=== PATIENT | male | born 1995 | race Caucasian/White ===

== ENCOUNTER 2022-01-29 09:24 | Outpatient (REF) | payer MEDICARE, MEDICAID, SELFPAY ==
[2022-01-29 11:03] LABS: MANUAL DIFF FLAG NO
[2022-01-29 11:06] LABS: Basophils Absolute Auto 0.1 X10*3/uL (0.0-0.2); Eosinophils Absolute Auto 0.2 X10*3/uL (0.0-0.4); Hematocrit 37.7 % (42.0-52.0); Hemoglobin 12.5 g/dl (14.0-18.0); Imm Gran Abs Auto 0.04 X10*3/uL (0.00-0.03); Imm Gran Pct Auto 0.7 % (0.0-0.4); Lymphocytes Percent Auto 32.3 % (20-40); Mean Corpuscular HGB Conc 33.2 g/dl (31.0-36.0); Mean Corpuscular Hemoglobin 26.7 pg (27.0-33.0); Mean Corpuscular Volume 80.6 fL (80.0-98.0); Mean Platelet Volume 11.6 fL (9.4-12.4); Monocytes Absolute Auto 0.4 X10*3/uL (0.1-1.2); Monocytes Percent Auto 6.3 % (2-11); Neutrophils Absolute Auto 3.4 x10*3/uL (2.0-8.3); Neutrophils Percent Auto 56.7 % (45-73); Platelet Count 177 X10*3/uL (160-400); Red Blood Count 4.68 X10*6/uL (4.60-5.80); Red Cell Distribution Width 13.4 % (11.0-16.0)
[2022-01-29 11:15] LABS: Estimated Average Glucose 114 mg/dL; Hemoglobin A1c % 5.6 %
[2022-01-29 11:23] LABS: Alanine Aminotransferase 17 U/L (0-40); Albumin Level 4.3 g/dL (3.5-5.0); Alkaline Phosphatase 61 U/L (39-117); Anion Gap 14 (12-20); Aspartate Amino Transferase 13 U/L (5-37); Bilirubin Total 0.5 mg/dL (0.0-1.0); Blood Urea Nitrogen 8 mg/dL (9-16); Carbon Dioxide 22 mmol/L (22-29); Chloride 105 mmol/L (96-108); Estimated Glomerular Filt Rate > 60; Glucose Random 175 mg/dL (60-115); Potassium 3.7 mmol/L (3.3-5.1); Sodium 137 mmol/L (135-145); Total Protein 6.8 g/dL (6.5-8.0)
[2022-01-29 11:39] LABS: HBc Num1 0.05 S/CO (0.00-0.79); HBsAGNum1 0.22 S/CO (0.00-0.99); HIV AB/AG Nonreactive (Nonreactive); HIV Num 1 0.08 S/CO (0.00-0.99); Hepatitis B Core Antibody Nonreactive (Nonreactive); Hepatitis B Surface Antigen Negative (Negative); ~HepC Num1 0.05 S/CO (0.00-0.79); ~Hepatitis B Surface Antibody NONREACTIVE (Nonreactive); ~Hepatitis C Antibody Nonreactive (Nonreactive)
[2022-01-29 12:22] LABS: Syphilis Screen Nonreactive (Nonreactive)
[2022-01-29 12:54] LABS: CT PCR NOT DETECTED (Not Detect.); NG PCR NOT DETECTED (Not Detect.)
[2022-01-31 05:27] LABS: ~Hepatitis A Antibody IgM Nonreactive (Nonreactive)
== END 2022-01-29 09:25 | disposition home or self-care (01) ==
LOC: HO.MANLDS 09:24
PROVIDERS: Visit Provider Physician Assistant
DX: Z00.00 Encounter for general adult medical examination without abnormal findings (principal); Z11.3 Encounter for screening for infections with a predominantly sexual mode of transmission; Z11.4 Encounter for screening for human immunodeficiency virus [HIV]; D64.9 Anemia, unspecified
CPT/HCPCS: 80053; 83036; 85025; 86704; 86706; 86709; 86780; 86803; 87340; 87389; 87491; 87591

== ENCOUNTER 2022-12-11 12:51 | Inpatient (IN) | payer MEDICARE, MEDICAID, SELFPAY ==
--- NOTE | 2022-12-11 | ECG_ITS ---
Test Reason : MEDICAL CLEARANCE Blood Pressure : / mmHG Vent. Rate : 066 BPM Atrial Rate : 066 BPM P-R Int : 130 ms QRS Dur : 106 ms QT Int : 416 ms P-R-T Axes : 031 029 052 degrees QTc Int : 436 ms Normal sinus rhythm with sinus arrhythmia Normal ECG No previous ECGs available Referred By: Kimberlyn Spears Electronically Signed By:EMELINA BRAVO MD
[2022-12-11 12:58] VITALS: BP 122/76; BP 138/78; PULSE 66; RESP 20; TEMP 36.9; O2SAT 96; O2SAT 97; BMI 32.9
--- NOTE | 2022-12-11 14:48 | ED_ITS ---
HPI - Psych General Chief Complaint: Psychiatric Symptoms Stated Complaint: SEC 12, SI W/ PLAN PER EMS Time Seen by Provider: 12/11/22 13:05 Source: patient Mode of arrival: EMS Limitations: no limitations History of Present Illness HPI Narrative: Patient comes to the emergency room complaining of suicidal ideation. Patient was recently in a dual diagnosis program, patient was informed that patient will be discharged in 2 weeks. Patient made suicidal comments, patient very anxious about impending homelessness. Patient is on a Section 12. Patient states that the SI started approximately 2 days ago, states he would jump in front of a moving car [place]. Denies any medical complaints at this time. Related Data Home Medications Medication Instructions Recorded Confirmed buspirone 5 mg tablet 5 mg PO BID 12/11/22 12/11/22 candesartan 8 mg tablet 8 mg PO DAILY 12/11/22 12/11/22 escitalopram oxalate 10 mg tablet 20 mg PO DAILY 12/11/22 12/11/22 fluticasone propionate 220 2 puff inhalation BID 12/11/22 12/11/22 mcg/actuation HFA aerosol inhaler (Flovent HFA) lithium carbonate 450 mg 450 mg PO BID 12/11/22 12/11/22 tablet,extended release lurasidone 20 mg tablet 20 mg PO QPM 12/11/22 12/11/22 lurasidone 80 mg tablet 80 mg PO QPM 12/11/22 12/11/22 metformin 750 mg tablet,extended 750 mg PO DAILY 12/11/22 12/11/22 release 24 hr omeprazole 40 mg capsule,delayed 40 mg PO BID 12/11/22 12/11/22 release sumatriptan succinate 100 mg tablet 100 mg PO DIRECTED 12/11/22 12/11/22 Allergies Allergy/AdvReac Type Severity Reaction Status Date / Time sesame seed [SESAME SEED] Allergy Severe ANAPHYLAXIS Unverified 03/17/20 19:30 lamotrigine [From LAMICTAL] Allergy Intermediate Rash Unverified 03/17/20 19:30 amoxicillin [AMOXICILLIN] Allergy Unknown RASH Unverified 03/17/20 19:30 egg [EGG] Allergy Unknown RAW ONLY - Unverified 03/17/20 19:30 ITCHY melon [MELON] Allergy Unknown LIPS/CHEEKS Unverified 03/17/20 19:30 SWELLING pine nut [PINE NUT] Allergy Unknown VOMITING Unverified 03/17/20 19:30 venlafaxine [From EFFEXOR] AdvReac Severe pt reports Unverified 03/17/20 19:30 severe adverse response by history banana [BANANA] AdvReac Unknown HEART BURN Unverified 03/17/20 19:30 pumpkin [PUMPKIN] AdvReac Unknown (PUMPKIN Unverified 03/17/20 19:30 SEEDS) VOMITING Review of Systems Review of Systems: Constitutional : No Weight loss, No Fever, No Chills, No Night Sweats, No Fatigue, No Malaise ENT/Mouth : No Hearing loss, No Ear Pain, No Nasal Congestion, No Sinus Pain, No Hoarseness, No sore throat, No Rhinorrhea, No Swallowing Difficulty Eyes: No Eye Pain, No Swelling, No Redness, No Foreign Body, No Discharge, No Vision Changes Cardiovascular : No Chest Pain, No SOB, No Dyspnea on Exertion, No Orthopnea, No Edema, No Palpitations Respiratory : No Cough, No Sputum, No Wheezing, No Smoke Exposure, No Dyspnea Gastrointestinal : No Nausea, No Vomiting, No Diarrhea, No Constipation, No abdominal Pain, No Hematochezia, No Melena Genitourinary : no irregular bleeding, No Dysuria, No Urinary Frequency, No Hematuria, No Urinary Incontinence, No Urgency, No Flank Pain, No Urinary Flow Changes, No Hesitancy Musculoskeletal : No joint pain, No Myalgias, No Joint Swelling Skin : No Skin Lesions, No rash Neuro : No Weakness, No Numbness, No Paresthesias, No Loss of Consciousness, No Dizziness, No Headache Psych : Complaining of anxiety, depression, suicidal ideation, worried that soon he will be homeless Heme/Lymph: No Bruising, No Bleeding,No Lymphadenopathy Endocrine : No Polyuria, No Polydipsia, No Temperature Intolerance PMFSH Past Medical History Medical History Bipolar 1 disorder Hydrocephalus Social History Social History Alcohol intake: never Smoked in Last 30 Days: No Use of substances other than those prescribed or required for medical reasons: No Advance Directives: No Advance Directives Information Provided: No Physical Exam Vital Signs: Vital Signs: Last Vital Signs Temp 98.4 F 12/11/22 12:58 Pulse 66 12/11/22 12:58 Resp 20 12/11/22 12:58 BP 122/76 12/11/22 12:58 Pulse Ox 96 12/11/22 12:58 O2 Del Method Room Air 12/11/22 12:58 BMI result Body Mass Index 32.9 Const: Other: Appearance: Alert. Oriented X3. No acute distress. Eyes: Pupils equal, round and reactive to light. ENT: Pharynx normal. Neck: Normal inspection. Neck supple. No lymph nodes noted. No crepitus CVS: Normal heart rate and rhythm. Pulses normal. Normal S1 and S2 Respiratory: No respiratory distress. Breath sounds normal. No Wheezing. No rales Abdomen: Soft and nontender. No rigidity. No distention. Skin: Skin warm and dry. Normal skin color. Normal skin turgor. Extremities: No lower extremity edema. No Lacerations. No Rash Neuro: Oriented X 3. No motor deficit. No sensory deficit. Moving all extremities. No slurred speech. CN 2 through 12 grossly intact Psych: calm, cooperative, normal affect Course Course Course Narrative: -all of patient's labs are pending -patient is on a Section 12 started by a therapist do a diagnosis facility -also to care depending -physician observation started at 14:50 Medications Administered Discontinued Medications Generic Name Dose Route Start Last Admin Trade Name Freq PRN Reason Stop Dose Admin Buspirone HCl 5 mg 12/11/22 14:44 12/11/22 14:58 Buspirone Hcl 5 Mg Tablet PO 12/11/22 14:45 5 mg ONCE ONE Administration Medical Decision Making Medical Decision Making MDM Narrative: -the care team evaluated the patient, patient is going in patient voluntarily Lab Data 12/11/22 15:57 12/11/22 15:57 Labs: Lab Results 12/11/22 12/11/22 12/11/22 Range/Units 15:02 15:57 15:57 WBC 7.0 (4.8-10.8) X10*3/uL RBC 4.85 (4.60-5.80) X10*6/uL Hgb 12.5 L (14.0-18.0) g/dl Hct 39.0 L (42.0-52.0) % MCV 80.4 (80.0-98.0) fL MCH 25.8 L (27.0-33.0) pg MCHC 32.1 (31.0-36.0) g/dl RDW 13.4 (11.0-16.0) % Plt Count 170 (160-400) X10*3/uL MPV 10.9 (9.4-12.4) fL Immature Gran % (Auto) 0.7 H (0.0-0.4) % Neut % (Auto) 62.7 (45-73) % Lymph % (Auto) 29.4 (20-40) % [place] % (Auto) 4.8 (2-11) % Eos % (Auto) 1.7 (0-4) % Baso % (Auto) 0.7 (0-2) % Lymph # (Auto) 2.1 (1.2-4.9) X10*3/uL [place] # (Auto) 0.3 (0.1-1.2) X10*3/uL Eos # (Auto) 0.1 (0.0-0.4) X10*3/uL Baso # (Auto) 0.1 (0.0-0.2) X10*3/uL Abs Immat Gran (auto) 0.05 H (0.00-0.03) X10*3/uL Absolute Neuts (auto) 4.4 (2.0-8.3) x10*3/uL Absolute Nucleated RBC 0.000 (0.0-0.012) X10*3/uL Nucleated RBC % (auto) 0.0 (0.0-0.2) /100WBC Sodium 138 (135-145) mmol/L Potassium 4.1 (3.3-5.1) mmol/L Chloride 106 (96-108) mmol/L Carbon Dioxide 25 (22-29) mmol/L Anion Gap 11 L (12-20) BUN 8 L (9-16) mg/dL Creatinine 1.09 (0.5-1.4) mg/dL Estim Creat Clear Calc 92.5 Estimated GFR > 60 Random Glucose 147 H (60-115) mg/dL Calcium 9.7 D (8.4-10.2) mg/dL Total Bilirubin 0.6 (0.0-1.0) mg/dL Direct Bilirubin 0.2 (0.0-0.5) mg/dL AST 14 (5-37) U/L ALT 22 (0-40) U/L Alkaline Phosphatase 65 (39-117) U/L Total Protein 7.2 (6.5-8.0) g/dL Albumin 4.3 (3.5-5.0) g/dL Urine Color Yellow Urine Appearance Clear Urine pH 8.0 (5.0-9.0) Ur Specific [place] <= 1.005 (1.005-1.025) Urine Protein Negative (Neg-Trace) mg/dL Urine Glucose (UA) Negative (Negative) mg/dL Urine Ketones Negative (Negative) mg/dL Urine Blood Negative (Negative) Urine Nitrite Negative (Negative) Ur Leukocyte Esterase Negative (Negative) Urine Opiates Screen (Not Detect) Urine Fentanyl Screen (Not Detect) Ur Barbiturates Screen (Not Detect) Ur Phencyclidine Scrn (Not Detect) Ur Amphetamines Screen (Not Detect) U Benzodiazepines Scrn (Not Detect) Urine Cocaine Screen (Not Detect) U Marijuana (THC) Screen (Not Detect) Ethyl Alcohol mg/dL 12/11/22 12/11/22 Range/Units 15:57 16:08 WBC (4.8-10.8) X10*3/uL RBC (4.60-5.80) X10*6/uL Hgb (14.0-18.0) g/dl Hct (42.0-52.0) % MCV (80.0-98.0) fL MCH (27.0-33.0) pg MCHC (31.0-36.0) g/dl RDW (11.0-16.0) % Plt Count (160-400) X10*3/uL MPV (9.4-12.4) fL Immature Gran % (Auto) (0.0-0.4) % Neut % (Auto) (45-73) % Lymph % (Auto) (20-40) % [place] % (Auto) (2-11) % Eos % (Auto) (0-4) % Baso % (Auto) (0-2) % Lymph # (Auto) (1.2-4.9) X10*3/uL [place] # (Auto) (0.1-1.2) X10*3/uL Eos # (Auto) (0.0-0.4) X10*3/uL Baso # (Auto) (0.0-0.2) X10*3/uL Abs Immat Gran (auto) (0.00-0.03) X10*3/uL Absolute Neuts (auto) (2.0-8.3) x10*3/uL Absolute Nucleated RBC (0.0-0.012) X10*3/uL Nucleated RBC % (auto) (0.0-0.2) /100WBC Sodium (135-145) mmol/L Potassium (3.3-5.1) mmol/L Chloride (96-108) mmol/L Carbon Dioxide (22-29) mmol/L Anion Gap (12-20) BUN (9-16) mg/dL Creatinine (0.5-1.4) mg/dL Estim Creat Clear Calc Estimated GFR Random Glucose (60-115) mg/dL Calcium (8.4-10.2) mg/dL Total Bilirubin (0.0-1.0) mg/dL Direct Bilirubin (0.0-0.5) mg/dL AST (5-37) U/L ALT (0-40) U/L Alkaline Phosphatase (39-117) U/L Total Protein (6.5-8.0) g/dL Albumin (3.5-5.0) g/dL Urine Color Urine Appearance Urine pH (5.0-9.0) Ur Specific [place] (1.005-1.025) Urine Protein (Neg-Trace) mg/dL Urine Glucose (UA) (Negative) mg/dL Urine Ketones (Negative) mg/dL Urine Blood (Negative) Urine Nitrite (Negative) Ur Leukocyte Esterase (Negative) Urine Opiates Screen Not Detected (Not Detect) Urine Fentanyl Screen Not Detected (Not Detect) Ur Barbiturates Screen Not Detected (Not Detect) Ur Phencyclidine Scrn Not Detected (Not Detect) Ur Amphetamines Screen Not Detected (Not Detect) U Benzodiazepines Scrn Not Detected (Not Detect) Urine Cocaine Screen Not Detected (Not Detect) U Marijuana (THC) Screen Not Detected (Not Detect) Ethyl Alcohol < 10 mg/dL Discharge Plan Discharge Clinical Impression: Suicidal ideation, Anxiety Patient Disposition: Still a Patient Prescriptions: No Action buspirone 5 mg tablet 5 mg PO BID sumatriptan succinate 100 mg tablet 100 mg PO DIRECTED omeprazole 40 mg capsule,delayed release(DR/EC) 40 mg PO BID lithium carbonate 450 mg tablet extended release 450 mg PO BID fluticasone propionate [Flovent HFA] 220 mcg/actuation HFA aerosol inhaler 2 puff INHALATION BID candesartan 8 mg tablet 8 mg PO DAILY escitalopram oxalate 10 mg tablet 20 mg PO DAILY metformin 750 mg tablet extended release 24 hr 750 mg PO DAILY lurasidone 80 mg tablet 80 mg PO QPM lurasidone 20 mg tablet 20 mg PO QPM Interventions: [place]-Suicide Risk Severity Scale Last Done: 12/11/22 13:02
[2022-12-11] MEDS: busPIRone HCl 5 MG TABLET PO (14:58)
[2022-12-11 15:13] LABS: Appearance Urine Clear; Color Urine Yellow; Glucose Urine UA Negative (Negative); Leukocyte Esterase Urine Negative (Negative); Nitrite Urine Negative (Negative); Specific Gravity - Urine <= 1.005 (1.005-1.025); Urine Blood Negative (Negative); Urine Ketones Negative (Negative); Urine Protein Negative (Neg-Trace)
[2022-12-11 16:20] LABS: MANUAL DIFF FLAG NO
[2022-12-11 16:22] LABS: Basophils Absolute Auto 0.1 X10*3/uL (0.0-0.2); Basophils Percent Auto 0.7 % (0-2); Eosinophils Absolute Auto 0.1 X10*3/uL (0.0-0.4); Eosinophils Percent Auto 1.7 % (0-4); Hemoglobin 12.5 g/dl (14.0-18.0); Imm Gran Abs Auto 0.05 X10*3/uL (0.00-0.03); Imm Gran Pct Auto 0.7 % (0.0-0.4); Lymphocytes Absolute Auto 2.1 X10*3/uL (1.2-4.9); Lymphocytes Percent Auto 29.4 % (20-40); Mean Corpuscular HGB Conc 32.1 g/dl (31.0-36.0); Mean Corpuscular Hemoglobin 25.8 pg (27.0-33.0); Mean Corpuscular Volume 80.4 fL (80.0-98.0); Mean Platelet Volume 10.9 fL (9.4-12.4); Monocytes Absolute Auto 0.3 X10*3/uL (0.1-1.2); Monocytes Percent Auto 4.8 % (2-11); Neutrophils Absolute Auto 4.4 x10*3/uL (2.0-8.3); Neutrophils Percent Auto 62.7 % (45-73); Platelet Count 170 X10*3/uL (160-400); Red Blood Count 4.85 X10*6/uL (4.60-5.80); Red Cell Distribution Width 13.4 % (11.0-16.0)
[2022-12-11 16:32] LABS: Amphetamine Screen Urine Not Detected (Not Detect); Barbiturates, Urine Not Detected (Not Detect); Benzodiazepines Screen Urine Not Detected (Not Detect); Cannabinoid Screen Urine Not Detected (Not Detect); Cocaine Screen Urine Not Detected (Not Detect); Fentanyl, urine Not Detected (Not Detect); Opiate Screen Urine Not Detected (Not Detect); Phencyclidine Screen Urine Not Detected (Not Detect)
[2022-12-11 16:38] LABS: Alanine Aminotransferase 22 U/L (0-40); Albumin Level 4.3 g/dL (3.5-5.0); Alkaline Phosphatase 65 U/L (39-117); Anion Gap 11 (12-20); Aspartate Amino Transferase 14 U/L (5-37); Bilirubin Direct 0.2 mg/dL (0.0-0.5); Bilirubin Total 0.6 mg/dL (0.0-1.0); Blood Urea Nitrogen 8 mg/dL (9-16); Calcium 9.7 mg/dL (8.4-10.2); Carbon Dioxide 25 mmol/L (22-29); Chloride 106 mmol/L (96-108); Creatinine Clr Calc Pharmacy 92.5; Estimated Glomerular Filt Rate > 60; Ethanol < 10 mg/dL; Glucose Random 147 mg/dL (60-115); Potassium 4.1 mmol/L (3.3-5.1); Sodium 138 mmol/L (135-145); Total Protein 7.2 g/dL (6.5-8.0)
[2022-12-11 20:37] LABS: COVID-19 Test Negative (Negative); IDNOW Serial# BCCEAD1C
[2022-12-11 20:48] LABS: Lithium 0.56 mmol/L (0.60-1.20)
[2022-12-11 20:50] VITALS: BP 112/70; PULSE 69; RESP 18; TEMP 36.6; O2SAT 97
[2022-12-11 23:35] VITALS: BP 125/68; PULSE 64; RESP 16; TEMP 36.1; O2SAT 96
[2022-12-12] MEDS: hydrOXYzine HCL 25 MG TABLET PO (00:08)
--- NOTE | 2022-12-12 02:04 | PC.ADMIT ---
PT is a 27 year old male admitted to unit on CV status at 2335 from [facility] ED POD. PT presented to [facility] on sec 12 from his therapy apt. due to increasing SI with a plan to jump into traffic and unable to contract for safety. Recent stressors include upcoming D/C from [facility] program, the [facility]. PT was calm and cooperative during admission process, signed legals and completed safety tool and treatment plan. PT denies SI/HI at this time and able to seek out staff if feeling unsafe, placed on 15 minute safety checks. PT wanted to go to sleep and accepted atarax 25 mg. Tox screen negative and lithium level was 0.56 upon admission. Per report PT has had increased depression over the past two weeks, not sleeping, and struggling to eat. Precipitant being recently learning the news that he is going to be D/C from his program. PT vital signs are stable and PT is resting in bed quietly.
[2022-12-12 09:54] LABS: Lithium 0.43 mmol/L (0.60-1.20)
[2022-12-12 10:32] LABS: Alanine Aminotransferase 19 U/L (0-40); Albumin Level 4.2 g/dL (3.5-5.0); Alkaline Phosphatase 65 U/L (39-117); Anion Gap 11 (12-20); Aspartate Amino Transferase 14 U/L (5-37); Bilirubin Total 0.9 mg/dL (0.0-1.0); Blood Urea Nitrogen 10 mg/dL (9-16); Calcium 9.7 mg/dL (8.4-10.2); Carbon Dioxide 25 mmol/L (22-29); Chloride 107 mmol/L (96-108); Cholesterol 144 mg/dL; Creatinine Clr Calc Pharmacy 101.8; Estimated Glomerular Filt Rate > 60; Glucose Fasting 105 mg/dL (60-99); HDL Cholesterol 24 mg/dL; LDL Cholesterol Calculated 77 mg/dl; Sodium 139 mmol/L (135-145); Total Protein 7.2 g/dL (6.5-8.0); Triglycerides 218 mg/dL
[2022-12-12 10:33] LABS: Thyroid Stimulating Hormone 1.42 uIU/mL (0.32-4.0)
[2022-12-12 10:40] VITALS: BP 117/67; PULSE 90; RESP 16; TEMP 36.9; O2SAT 98
[2022-12-12] MEDS: Escitalopram Oxalate 20 MG TABLET PO (10:42)
[2022-12-12] MEDS: busPIRone HCl 5 MG TABLET PO ×3 (10:42→19:56)
[2022-12-12] MEDS: metFORMIN HCl ER 750 MG TAB.ER.24H PO (10:42)
[2022-12-12] MEDS: Omeprazole 40 MG CAPSULE.DR PO ×2 (10:42→19:56)
[2022-12-12] MEDS: Lithium Carbonate ER 450 MG TABLET.ER PO ×2 (10:42→19:55)
[2022-12-12] MEDS: Fluticasone Propionate 250 MCG BLST.W.DEV 1 PUFF INHALE ×2 (10:43→19:56)
[2022-12-12] MEDS: Valsartan 80 MG TABLET PO (10:43)
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
--- NOTE | 2022-12-12 18:18 | HO.PM.IMCN ---
History of Present Illness Data of Consult Service Date: 12/12/22 Primary Care Provider: Juanpablo Concepcion MD [facility] Reason for consult: Painful left eye, itchy sores on head Patient is 27-year-old male with a PMH significant for bipolar disorder, PTSD, depression, anxiety, and herpetic simplex keratits who was admitted to psychiatry for increasing depression with SI. Medical consult for painful left eye and pruritic, weeping sores on head. Patient states that he has been having difficulties with his left eye for some time now and has been seeing [facility] Patient apparently had some kind of corneal growth 6 months ago which was surgically removed. Then a few weeks ago patient woke with an itchy, painful, watery left eye. States he was treated with a course of steroid eye drops which he finished few days ago. Patient states that yesterday he woke up with a burning sensation in his left eye. Left eye has not been itchy, but watery and his vision has been a little blurry . Patient denies any known incident of getting any foreign body in his eye. Patient also complains of an itchy scalp and lesions on the right rear parietal aspect of his skull. Pt has been experiencing these for years and has caused them to weep/bleed with constant itching. Has seen his PCP about this in the past and been told there's nothing to do about this other than anti-fungal shampoo. Patient denies any systemic symptoms. Review of Systems Review of Systems: Left eye pain and wateriness Left eye blurriness Pruritic scalp Yes all other systems are reviewed and are negative [facility] Medical History Bipolar 1 disorder Bipolar disorder Hydrocephalus PTSD (post-traumatic stress disorder) Social History Household Members: Other Household Members Other:: [facility] home Housing: Assisted Living Facility Do you presently have visiting nurse or other home services: No Alcohol intake: never Patient Tobacco Use Status: Never used Tobacco Smoked in Last 30 Days: No Patient Interested in Nicotine Replacement: No Patient Given Instructions on How to Stop Smoking: No Use of substances other than those prescribed or required for medical reasons: No Currently Displaying Signs/Symptoms of Drug Intoxication Withdrawal: No Do you feel safe in your current relationship?: No Current Relationship Is there a partner from a previous relationship who is making you feel unsafe now?: No Are you made to feel afraid or neglected: No Spiritual Healthcare Practices: unknown Caodaism Healthcare Practices: unknown Cultural Healthcare Practices: unknown Advance Directives: No Advance Directives Information Provided: No Healthcare Proxy: No Guardian: No Do you have thoughts of harming others: None Do you have a plan to hurt others: No Plan Recently lost weight without trying: Unsure How much weight loss: Unsure Eating poorly because of decreased appetite: Yes Nutrition screen score: 5 Nutrition Risks: No Nutritional Risk Poor oral hygiene: No Meds Allergies Allergy/AdvReac Type Severity Reaction Status Date / Time amoxicillin Allergy Severe Rash Verified 12/12/22 13:27 sesame seed [SESAME SEED] Allergy Severe ANAPHYLAXIS Unverified 03/17/20 19:30 lamotrigine [From LAMICTAL] Allergy Intermediate Rash Unverified 03/17/20 19:30 melon [MELON] Allergy Unknown LIPS/CHEEKS Unverified 03/17/20 19:30 SWELLING pine nut [PINE NUT] Allergy Unknown VOMITING Unverified 03/17/20 19:30 venlafaxine [From EFFEXOR] AdvReac Severe pt reports Unverified 03/17/20 19:30 severe adverse response by history banana [BANANA] AdvReac Unknown HEART BURN Unverified 03/17/20 19:30 pumpkin [PUMPKIN] AdvReac Unknown (PUMPKIN Unverified 03/17/20 19:30 SEEDS) VOMITING Active Medications: Current Medications Acetaminophen (Acetaminophen 325 Mg Tablet) 650 mg PO Q6H PRN PRN Reason: Headache/Pain Mild Scale (1-3) Al Hydroxide/Mg Hydroxide (Magnesium Hydrox/Alum Hydrox 30 Ml Oral.Susp) 30 ml PO Q6H PRN PRN Reason: Heartburn/Nausea Buspirone HCl (Buspirone Hcl 5 Mg Tablet) 5 mg PO TID [facility] Stop: 12/13/22 07:59 Last Admin: 12/12/22 14:43 Dose: 5 mg Buspirone HCl (Buspirone Hcl 10 Mg Tablet) 10 mg PO TID [facility] Escitalopram Oxalate (Escitalopram Oxalate 20 Mg Tablet) 20 mg PO DAILY [facility] Last Admin: 12/12/22 10:42 Dose: 20 mg Fluticasone Propionate (Fluticasone Propionate 250 Mcg Blst.W.Dev) 1 puff INHALE RBID [facility] Last Admin: 12/12/22 10:43 Dose: 1 puff Hydroxyzine HCl (Hydroxyzine Hcl 25 Mg Tablet) 25 mg PO Q6H PRN PRN Reason: Anxiety Last Admin: 12/12/22 00:08 Dose: 25 mg Lidocaine (Lidocaine 4 % Patch Adh..Patch) 1 patch TRANSDERMA DAILY [facility]; Protocol [place] Carbonate ([place] Carbonate Er 450 Mg Tablet.Er) 450 mg PO BID [facility] Last Admin: 12/12/22 10:42 Dose: 450 mg Lurasidone HCl (Lurasidone Hcl 20 Mg Tablet) 20 mg PO BEDTIME [facility] Last Admin: 12/12/22 01:59 Dose: Not Given Lurasidone HCl (Lurasidone Hcl 80 Mg Tablet) 80 mg PO BEDTIME [facility] Last Admin: 12/12/22 01:59 Dose: Not Given Magnesium Hydroxide (Milk Of Magnesia 30 Ml Oral.Susp) 30 ml PO DAILY PRN PRN Reason: Constipation Metformin HCl (Metformin Hcl Er 750 Mg Tab.Er.24h) 750 mg PO DAILY [facility] Last Admin: 12/12/22 10:42 Dose: 750 mg Omeprazole (Omeprazole 40 Mg Capsule.Dr) 40 mg PO BID [facility] Last Admin: 12/12/22 10:42 Dose: 40 mg Sumatriptan Succinate (Sumatriptan Succinate 100 Mg Tablet) 100 mg PO DAILY PRN PRN Reason: Migraine Headache Trazodone HCl (Trazodone Hcl 50 Mg Tablet) 50 mg PO BEDTIME MRX1 PRN PRN Reason: Insomnia Valsartan (Valsartan 80 Mg Tablet) 80 mg PO DAILY [facility] Last Admin: 12/12/22 10:43 Dose: 80 mg Home Medications Medication Instructions Recorded Confirmed Last Taken Type buspirone 5 mg tablet 5 mg PO BID 12/11/22 12/11/22 Unknown History candesartan 8 mg tablet 8 mg PO DAILY 12/11/22 12/11/22 Unknown History escitalopram oxalate 10 mg tablet 20 mg PO DAILY 12/11/22 12/11/22 Unknown History fluticasone propionate 220 2 puff inhalation BID 12/11/22 12/11/22 Unknown History mcg/actuation HFA aerosol inhaler (Flovent HFA) lithium carbonate 450 mg 450 mg PO BID 12/11/22 12/11/22 Unknown History tablet,extended release lurasidone 20 mg tablet 20 mg PO QPM 12/11/22 12/11/22 Unknown History lurasidone 80 mg tablet 80 mg PO QPM 12/11/22 12/11/22 Unknown History metformin 750 mg tablet,extended 750 mg PO DAILY 12/11/22 12/11/22 Unknown History release 24 hr omeprazole 40 mg capsule,delayed 40 mg PO BID 12/11/22 12/11/22 Unknown History release sumatriptan succinate 100 mg tablet 100 mg PO DIRECTED 12/11/22 12/11/22 Unknown History Physical Exam Vital Signs and Narrative: Vital Signs: Last Vital Signs Temp 98.5 F 12/12/22 10:40 Pulse 90 12/12/22 10:40 Resp 16 12/12/22 10:40 BP 117/67 12/12/22 10:40 Pulse Ox 98 12/12/22 10:40 O2 Del Method Room Air 12/12/22 10:40 BMI result Body Mass Index 32.9 General: AOx3, no acute distress Eye: Left eye with conjunctival injection. Small opacity noted on cornea, no scratch or foreign body seen. Head: Areas of redness, swelling, and superficial abrasions. No signs of infection or abscess. Resp: CTA bilaterally CVS: S1, S2, RRR Neuro: Cranial nerves II-XII grossly intact bilaterally. Motor grossly intact bilaterally Extremities: No edema Psych: Appropriate affect Results Labs 12/11/22 15:57 12/12/22 08:50 Labs: Laboratory Results - last 24 hr 12/11/22 12/11/22 12/12/22 20:16 20:35 08:50 Anion Gap 11 L Estim Creat Clear Calc 101.8 Estimated GFR > 60 Fasting Glucose 105 H Calcium 9.7 Total Bilirubin 0.9 AST 14 ALT 19 Alkaline Phosphatase 65 Total Protein 7.2 Albumin 4.2 Triglycerides 218 Cholesterol 144 LDL Cholesterol, Calc 77 HDL Cholesterol 24 TSH 1.42 [place] 0.56 L COVID-19 ([facility]) Negative COVID-19 Clin Com See Note 12/12/22 08:50 Anion Gap Estim Creat Clear Calc Estimated GFR Fasting Glucose Calcium Total Bilirubin AST ALT Alkaline Phosphatase Total Protein Albumin Triglycerides Cholesterol LDL Cholesterol, Calc HDL Cholesterol TSH [place] 0.43 L COVID-19 ([facility]) COVID-19 Clin Com Assessment and Plan (1) Left eye pain: Status: Acute (2) Pruritic dermatosis of scalp: Status: Acute Plan Patient is 27-year-old male with a PMH significant for bipolar disorder, PTSD, depression, anxiety, and herpetic simplex keratits who was admitted to psychiatry for increasing depression with SI. Medical consult for painful left eye and pruritic, weeping sores on head. Left eye pain Patient complaining of left eye pain, foreign body sensation, blurriness, and epiphora Patient had similar presentation a few weeks ago, patient also with corneal growth surgically removed over 6 months ago Was treated by [facility] with Pred Forte ophthalmic solution and ofloxacin Pt will be treated with ketorolac tromethamine and erythromycin 0.5% opthamalic drops Recommend pt should get outpatient urgent opthomology consult tomorrow for better exam and evaluation of condition Periodic dermatosis of scalp Possibly secondary to seborrheic dermatitis versus tinea capitis Will treat with ketoconazole topical shampoo Follow up outpatient with PCP or dermatology Thank you for allowing us to participate in the care of this patient. Will continue to follow for now pending opthamology consult. Please let us know if there are any acute complaints or questions. Time Spent With Patient Time: Total time managing care of this patient today ____ minutes.
[2022-12-12] MEDS: Lurasidone HCl 80 MG TABLET PO (19:56)
[2022-12-12] MEDS: Lurasidone HCl 20 MG TABLET PO (19:56)
[2022-12-12 20:00] VITALS: BP 116/67; PULSE 94; TEMP 36.7; O2SAT 96
[2022-12-13 07:00] VITALS: BMI 38.3
[2022-12-13 09:20] VITALS: BP 117/55; PULSE 80; RESP 16; TEMP 36.3; O2SAT 96
[2022-12-13] MEDS: Ketorolac Tromethamine 0.5% Op 5 ML DROPS 1 DROP EYE-LEFT ×2 (09:30→12:13)
[2022-12-13] MEDS: Erythromycin Base 0.5% Oph Oin 1 GM TUBE 1 CM EYE-LEFT ×4 (09:31→20:36)
[2022-12-13] MEDS: busPIRone HCl 10 MG TABLET PO ×3 (09:31→20:35)
[2022-12-13] MEDS: Escitalopram Oxalate 20 MG TABLET PO (09:31)
[2022-12-13] MEDS: Omeprazole 40 MG CAPSULE.DR PO ×2 (09:31→20:35)
[2022-12-13] MEDS: Valsartan 80 MG TABLET PO (09:31)
[2022-12-13] MEDS: Lithium Carbonate ER 450 MG TABLET.ER PO ×2 (09:31→20:35)
[2022-12-13] MEDS: metFORMIN HCl ER 750 MG TAB.ER.24H PO (09:31)
[2022-12-13] MEDS: Lidocaine 4 % Patch ADH..PATCH 1 PATCH TRANSDERMA (09:36)
[2022-12-13 09:59] LABS: Folate 15.2 ng/mL (> or = 4.0); Vitamin B12 497 pg/mL (200-900)
[2022-12-13] MEDS: Fluticasone Propionate 250 MCG BLST.W.DEV 1 PUFF INHALE (14:23)
--- NOTE | 2022-12-13 17:00 | P.PNPSI_ITS ---
Subjective Subjective Date of Service: 12/13/22 Reason For Visit: SI Subjective Notes: Conditional Voluntary Healthcare Proxy: No Guardianship: No Medical Problems Affecting Mental Status: No Interim History: Pt in bed, stating he is tired. No new issues of concern. Discussed eye injury DIALYSIS NURSE with Dr. Rincon who recommends Dr. Belle see pt. Their team will see pt at 9:20am on 12/14. Staff will escort, pt is agreeable. Pt asking for a different steroid inhaler. We only carry powder inhalers-pt was asked to have his inhaler brought in from the program to use. Team reports isolative in milieu. Medication Compliance: Yes Side effects from medications: No Attending Groups: No Review of Systems Acute medical concerns: No Medical Review of Systems: unchanged Mental Status Exam Mental Status Exam Patient Appearance: Appropriate Patient Orientation: Person, Place, Time and Situation Level of Consciousness: Alert Patient Behavior: Appropriate, Talkative, Cooperative, Fatigued, Distractible and Good Eye Contact Mood Description: Withdrawn, Depressed and Anxious Affect Description: Flat Patient Cognition Impaired: No Ability to Follow Directions: Good Speech Pattern: Clear, Appropriate and Spontaneous Speech Memory Description: Intact Hallucinations: None Delusions: Not Present Perceptual Disturbances: Depersonalization and Derealization Thought Process: Distracted and Rumination Thought Content: positive for Circumstantial, positive for Perseveration and positive for Suicidal Ideation Depressive Symptoms: Increased Anxiety, Insomnia, Difficulty Sleeping, Hopelessness and Low Self Esteem Abnormal Motor Activity Signs and Symptoms: Restlessness Judgement: Fair Diagnostics Vital Signs (24Hr): Vital Signs - 24 hr 12/12/22 20:00 12/13/22 09:20 Temperature 98.1 F 97.4 F Pulse Rate 94 80 Respiratory Rate 16 Blood Pressure 116/67 117/55 L Pulse Oximetry 96 96 Oxygen Delivery Method Room Air Room Air BMI result Body Mass Index 38.3 Labs 12/11/22 15:57 12/12/22 08:50 Labs: Laboratory Results - last 48 hr 12/11/22 12/11/22 12/11/22 15:02 20:16 20:35 Sodium Potassium Chloride Carbon Dioxide Anion Gap BUN Creatinine Estim Creat Clear Calc Estimated GFR Fasting Glucose Calcium Total Bilirubin AST ALT Alkaline Phosphatase Total Protein Albumin Triglycerides Cholesterol LDL Cholesterol, Calc HDL Cholesterol Vitamin B12 Folate TSH Urine Color Yellow Urine Appearance Clear Urine pH 8.0 Ur Specific [place] <= 1.005 Urine Protein Negative Urine Glucose (UA) Negative Urine Ketones Negative Urine Blood Negative Urine Nitrite Negative Ur Leukocyte Esterase Negative [place] 0.56 L COVID-19 ([facility]) Negative COVID-19 Clin Com See Note 12/12/22 12/12/22 12/13/22 08:50 08:50 08:35 Sodium 139 Potassium 4.0 Chloride 107 Carbon Dioxide 25 Anion Gap 11 L BUN 10 Creatinine 0.99 Estim Creat Clear Calc 101.8 Estimated GFR > 60 Fasting Glucose 105 H Calcium 9.7 Total Bilirubin 0.9 AST 14 ALT 19 Alkaline Phosphatase 65 Total Protein 7.2 Albumin 4.2 Triglycerides 218 Cholesterol 144 LDL Cholesterol, Calc 77 HDL Cholesterol 24 Vitamin B12 497 Folate 15.2 TSH 1.42 Urine Color Urine Appearance Urine pH Ur Specific [place] Urine Protein Urine Glucose (UA) Urine Ketones Urine Blood Urine Nitrite Ur Leukocyte Esterase [place] 0.43 L COVID-19 ([facility]) COVID-19 Clin Com Medications Medications Current Medications Acetaminophen (Acetaminophen 325 Mg Tablet) 650 mg PO Q6H PRN PRN Reason: Headache/Pain Mild Scale (1-3) Al Hydroxide/Mg Hydroxide (Magnesium Hydrox/Alum Hydrox 30 Ml Oral.Susp) 30 ml PO Q6H PRN PRN Reason: Heartburn/Nausea Buspirone HCl (Buspirone Hcl 10 Mg Tablet) 10 mg PO TID [facility] Last Admin: 12/13/22 14:23 Dose: 10 mg Erythromycin (Erythromycin Base 0.5% Oph Oin 1 Gm Tube) 1 cm EYE-LEFT QID [facility] Last Admin: 12/13/22 12:13 Dose: 1 cm Escitalopram Oxalate (Escitalopram Oxalate 20 Mg Tablet) 20 mg PO DAILY [facility] Last Admin: 12/13/22 09:31 Dose: 20 mg Fluticasone Propionate (Fluticasone Propionate 250 Mcg Blst.W.Dev) 1 puff INHALE RBID [facility] Last Admin: 12/13/22 14:23 Dose: 1 puff Hydroxyzine HCl (Hydroxyzine Hcl 25 Mg Tablet) 25 mg PO Q6H PRN PRN Reason: Anxiety Last Admin: 12/12/22 00:08 Dose: 25 mg Ketoconazole (Ketoconazole 2 % Shampoo 120 Ml Btl) 1 appl TOPICAL MoTh@2000 [facility]; Protocol Lidocaine (Lidocaine 4 % Patch Adh..Patch) 1 patch TRANSDERMA DAILY [facility]; Protocol Last Admin: 12/13/22 09:36 Dose: 1 patch [place] Carbonate ([place] Carbonate Er 450 Mg Tablet.Er) 450 mg PO BID [facility] Last Admin: 12/13/22 09:31 Dose: 450 mg Lurasidone HCl (Lurasidone Hcl 20 Mg Tablet) 20 mg PO BEDTIME [facility] Last Admin: 12/12/22 19:56 Dose: 20 mg Lurasidone HCl (Lurasidone Hcl 80 Mg Tablet) 80 mg PO BEDTIME [facility] Last Admin: 12/12/22 19:56 Dose: 80 mg Magnesium Hydroxide (Milk Of Magnesia 30 Ml Oral.Susp) 30 ml PO DAILY PRN PRN Reason: Constipation Metformin HCl (Metformin Hcl Er 750 Mg Tab.Er.24h) 750 mg PO DAILY [facility] Last Admin: 12/13/22 09:31 Dose: 750 mg Omeprazole (Omeprazole 40 Mg Capsule.Dr) 40 mg PO BID [facility] Last Admin: 12/13/22 09:31 Dose: 40 mg Sumatriptan Succinate (Sumatriptan Succinate 100 Mg Tablet) 100 mg PO DAILY PRN PRN Reason: Migraine Headache Trazodone HCl (Trazodone Hcl 50 Mg Tablet) 50 mg PO BEDTIME MRX1 PRN PRN Reason: Insomnia Valsartan (Valsartan 80 Mg Tablet) 80 mg PO DAILY [facility] Last Admin: 12/13/22 09:31 Dose: 80 mg Allergies Allergies Allergy/AdvReac Type Severity Reaction Status Date / Time amoxicillin Allergy Severe Rash Verified 12/12/22 13:27 sesame seed [SESAME SEED] Allergy Severe ANAPHYLAXIS Unverified 03/17/20 19:30 lamotrigine [From LAMICTAL] Allergy Intermediate Rash Unverified 03/17/20 19:30 melon [MELON] Allergy Unknown LIPS/CHEEKS Unverified 03/17/20 19:30 SWELLING pine nut [PINE NUT] Allergy Unknown VOMITING Unverified 03/17/20 19:30 venlafaxine [From EFFEXOR] AdvReac Severe pt reports Unverified 03/17/20 19:30 severe adverse response by history banana [BANANA] AdvReac Unknown HEART BURN Unverified 03/17/20 19:30 pumpkin [PUMPKIN] AdvReac Unknown (PUMPKIN Unverified 03/17/20 19:30 SEEDS) VOMITING Assessment & Plan Assessment & Plan (1) PTSD (post-traumatic stress disorder): Status: Acute Code(s): F43.10 - Post-traumatic stress disorder, unspecified (2) Bipolar disorder: Status: Acute Code(s): F31.9 - Bipolar disorder, unspecified Plan Patient is 27-year-old male with a PMH significant for bipolar disorder, PTSD, depression, anxiety, and herpetic simplex keratits who was admitted to psychiatry for increasing depression with SI. Medical consult for painful left eye and pruritic, weeping sores on head. Left eye pain Patient complaining of left eye pain, foreign body sensation, blurriness, and epiphora Patient had similar presentation a few weeks ago, patient also with corneal growth surgically removed over 6 months ago Was treated by [facility] with Pred Forte ophthalmic solution and ofloxacin Pt will be treated with ketorolac tromethamine and erythromycin 0.5% opthamalic drops Recommend pt should get outpatient urgent opthomology consult tomorrow for better exam and evaluation of condition Periodic dermatosis of scalp Possibly secondary to seborrheic dermatitis versus tinea capitis Will treat with ketoconazole topical shampoo Follow up outpatient with PCP or dermatology Thank you for allowing us to participate in the care of this patient. Will continue to follow for now pending opthamology consult. Please let us know if there are any acute complaints or questions. 12/13/22 Continue current regime Collateral contact Pt to see Dr. Belle 12/14 9:20a.m. for consult for corneal abrasion. Informed Consent: understands Reason for continued inpatient stay Substantial Risk for: harm to self and rapid decompensation Time Spent With Patient Time: Total time managing care of this patient today ____ minutes.
[2022-12-13 18:00] VITALS: BP 112/60; PULSE 74; RESP 16; TEMP 35.9; O2SAT 95
[2022-12-13] MEDS: Lurasidone HCl 20 MG TABLET PO (20:35)
[2022-12-13] MEDS: Lurasidone HCl 80 MG TABLET PO (20:35)
[2022-12-13] MEDS: Ketoconazole 2 % Shampoo 120 ML BTL 1 APPL TOPICAL (20:35)
[2022-12-14 06:00] VITALS: BP 118/62; PULSE 68; RESP 16; TEMP 36.1; O2SAT 96
[2022-12-14] MEDS: Omeprazole 40 MG CAPSULE.DR PO ×2 (09:08→19:24)
[2022-12-14] MEDS: Escitalopram Oxalate 20 MG TABLET PO (09:09)
[2022-12-14] MEDS: Lithium Carbonate ER 450 MG TABLET.ER PO ×2 (09:09→19:25)
[2022-12-14] MEDS: metFORMIN HCl ER 750 MG TAB.ER.24H PO (09:09)
[2022-12-14] MEDS: Valsartan 80 MG TABLET PO (09:09)
[2022-12-14] MEDS: busPIRone HCl 10 MG TABLET PO ×3 (09:09→19:24)
--- NOTE | 2022-12-14 10:17 | PC.NURSE ---
Report received from ophthalmology appt this morning as well as rx, images sent to [facility] @ 10:15 am
--- NOTE | 2022-12-14 12:19 | PC.NURSE ---
New eye medication recommended by eye doctor today, this med held.
[2022-12-14] MEDS: NeoMY/Polymyx/Dexameth Oph Sus 5 ML BOTTLE 1 DROP EYE-LEFT ×3 (14:16→21:11)
--- NOTE | 2022-12-14 16:22 | HO.PSYCHPN ---
Subjective Subjective Date of Service: 12/14/22 Reason For Visit: SI Subjective Notes: Conditional Voluntary Healthcare Proxy: No Guardianship: No Medical Problems Affecting Mental Status: No Interim History: Pt seen for consult for corneal abrasion by Dr. Belle which is greatly appreciated. Medications changed. Met with pt and discussed the amount of placement options which have not worked due to active symptoms. Pt asked to use some time this weekend to review what he needs in a placement and what difficulties he has found himself in when in former placements so we may address and interviene. Medication Compliance: Yes Side effects from medications: No Attending Groups: No Review of Systems Acute medical concerns: No Medical Review of Systems: unchanged Mental Status Exam Mental Status Exam Patient Appearance: Appropriate Patient Orientation: Person, Place, Time and Situation Level of Consciousness: Alert Patient Behavior: Appropriate, Talkative, Cooperative, Fatigued, Distractible and Good Eye Contact Mood Description: Withdrawn, Depressed and Anxious Affect Description: Flat Patient Cognition Impaired: No Ability to Follow Directions: Good Speech Pattern: Clear, Appropriate and Spontaneous Speech Memory Description: Intact Hallucinations: None Delusions: Not Present Perceptual Disturbances: Depersonalization and Derealization Thought Process: Distracted and Rumination Thought Content: positive for Circumstantial, positive for Perseveration and positive for Suicidal Ideation Depressive Symptoms: Increased Anxiety, Insomnia, Difficulty Sleeping, Hopelessness and Low Self Esteem Abnormal Motor Activity Signs and Symptoms: Restlessness Judgement: Fair Diagnostics Vital Signs (24Hr): Vital Signs - 24 hr 12/13/22 18:00 12/14/22 06:00 Temperature 96.7 F L 97 F Pulse Rate 74 68 Respiratory Rate 16 16 Blood Pressure 112/60 118/62 Pulse Oximetry 95 96 Oxygen Delivery Method Room Air BMI result Body Mass Index 38.3 Labs 12/11/22 15:57 12/12/22 08:50 Labs: Laboratory Results - last 48 hr 12/13/22 08:35 Vitamin B12 497 Folate 15.2 Medications Medications Current Medications Acetaminophen (Acetaminophen 325 Mg Tablet) 650 mg PO Q6H PRN PRN Reason: Headache/Pain Mild Scale (1-3) Al Hydroxide/Mg Hydroxide (Magnesium Hydrox/Alum Hydrox 30 Ml Oral.Susp) 30 ml PO Q6H PRN PRN Reason: Heartburn/Nausea Buspirone HCl (Buspirone Hcl 10 Mg Tablet) 10 mg PO TID [facility] Last Admin: 12/14/22 14:19 Dose: 10 mg Escitalopram Oxalate (Escitalopram Oxalate 20 Mg Tablet) 20 mg PO DAILY [facility] Last Admin: 12/14/22 09:09 Dose: 20 mg Fluticasone Propionate (Fluticasone Propionate 250 Mcg Blst.W.Dev) 1 puff INHALE RBID [facility] Last Admin: 12/14/22 09:11 Dose: Not Given Hydroxyzine HCl (Hydroxyzine Hcl 25 Mg Tablet) 25 mg PO Q6H PRN PRN Reason: Anxiety Last Admin: 12/12/22 00:08 Dose: 25 mg Ketoconazole (Ketoconazole 2 % Shampoo 120 Ml Btl) 1 appl TOPICAL MoTh@2000 [facility]; Protocol Last Admin: 12/13/22 20:35 Dose: 1 appl Lidocaine (Lidocaine 4 % Patch Adh..Patch) 1 patch TRANSDERMA DAILY [facility]; Protocol Last Admin: 12/14/22 09:11 Dose: Not Given [place] Carbonate ([place]vin Carbonate Er 450 Mg Tablet.Er) 450 mg PO BID [facility] Last Admin: 12/14/22 09:09 Dose: 450 mg Lurasidone HCl (Lurasidone Hcl 20 Mg Tablet) 20 mg PO BEDTIME [facility] Last Admin: 12/13/22 20:35 Dose: 20 mg Lurasidone HCl (Lurasidone Hcl 80 Mg Tablet) 80 mg PO BEDTIME [facility] Last Admin: 12/13/22 20:35 Dose: 80 mg Magnesium Hydroxide (Milk Of Magnesia 30 Ml Oral.Susp) 30 ml PO DAILY PRN PRN Reason: Constipation Metformin HCl (Metformin Hcl Er 750 Mg Tab.Er.24h) 750 mg PO DAILY [facility] Last Admin: 12/14/22 09:09 Dose: 750 mg Neomycin/Polymyxin/Dexamethasone (Neomy/Polymyx/Dexameth Oph [place] 5 Ml Bottle) 1 drop EYE-LEFT QID [facility] Last Admin: 12/14/22 14:16 Dose: 1 drop Omeprazole (Omeprazole 40 Mg Capsule.Dr) 40 mg PO BID [facility] Last Admin: 12/14/22 09:08 Dose: 40 mg Sumatriptan Succinate (Sumatriptan Succinate 100 Mg Tablet) 100 mg PO DAILY PRN PRN Reason: Migraine Headache Trazodone HCl (Trazodone Hcl 50 Mg Tablet) 50 mg PO BEDTIME MRX1 PRN PRN Reason: Insomnia Valsartan (Valsartan 80 Mg Tablet) 80 mg PO DAILY [facility] Last Admin: 12/14/22 09:09 Dose: 80 mg Allergies Allergies Allergy/AdvReac Type Severity Reaction Status Date / Time amoxicillin Allergy Severe Rash Verified 12/12/22 13:27 sesame seed [SESAME SEED] Allergy Severe ANAPHYLAXIS Unverified 03/17/20 19:30 lamotrigine [From LAMICTAL] Allergy Intermediate Rash Unverified 03/17/20 19:30 melon [MELON] Allergy Unknown LIPS/CHEEKS Unverified 03/17/20 19:30 SWELLING pine nut [PINE NUT] Allergy Unknown VOMITING Unverified 03/17/20 19:30 venlafaxine [From EFFEXOR] AdvReac Severe pt reports Unverified 03/17/20 19:30 severe adverse response by history banana [BANANA] AdvReac Unknown HEART BURN Unverified 03/17/20 19:30 pumpkin [PUMPKIN] AdvReac Unknown (PUMPKIN Unverified 03/17/20 19:30 SEEDS) VOMITING Assessment & Plan Assessment & Plan (1) PTSD (post-traumatic stress disorder): Status: Acute Code(s): F43.10 - Post-traumatic stress disorder, unspecified (2) Bipolar disorder: Status: Acute Code(s): F31.9 - Bipolar disorder, unspecified Plan Patient is 27-year-old male with a PMH significant for bipolar disorder, PTSD, depression, anxiety, and herpetic simplex keratits who was admitted to psychiatry for increasing depression with SI. Medical consult for painful left eye and pruritic, weeping sores on head. Left eye pain Patient complaining of left eye pain, foreign body sensation, blurriness, and epiphora Patient had similar presentation a few weeks ago, patient also with corneal growth surgically removed over 6 months ago Was treated by [facility] with Pred Forte ophthalmic solution and ofloxacin Pt will be treated with ketorolac tromethamine and erythromycin 0.5% opthamalic drops Recommend pt should get outpatient urgent opthomology consult tomorrow for better exam and evaluation of condition Periodic dermatosis of scalp Possibly secondary to seborrheic dermatitis versus tinea capitis Will treat with ketoconazole topical shampoo Follow up outpatient with PCP or dermatology Thank you for allowing us to participate in the care of this patient. Will continue to follow for now pending opthamology consult. Please let us know if there are any acute complaints or questions. 12/13/22 Continue current regime Collateral contact Pt to see Dr. Belle 12/14 9:20a.m. for consult for corneal abrasion. 12/14/22 Continue current regime Patient educated on: medication risk/benefits Informed Consent: understands Reason for continued inpatient stay Substantial Risk for: harm to self, harm to others and rapid decompensation Time Spent With Patient Time: Total time managing care of this patient today ____ minutes.
[2022-12-14 18:00] VITALS: BP 112/78; PULSE 75; RESP 16; TEMP 36.6; O2SAT 97
[2022-12-14] MEDS: Lurasidone HCl 20 MG TABLET PO (19:24)
[2022-12-14] MEDS: Lurasidone HCl 80 MG TABLET PO (19:24)
[2022-12-15] MEDS: Fluticasone Propionate 250 MCG BLST.W.DEV 1 PUFF INHALE (09:06)
[2022-12-15] MEDS: Lidocaine 4 % Patch ADH..PATCH 1 PATCH TRANSDERMA (09:06)
[2022-12-15] MEDS: NeoMY/Polymyx/Dexameth Oph Sus 5 ML BOTTLE 1 DROP EYE-LEFT ×4 (09:06→20:02)
[2022-12-15] MEDS: Omeprazole 40 MG CAPSULE.DR PO ×2 (09:07→19:37)
[2022-12-15] MEDS: busPIRone HCl 10 MG TABLET PO ×3 (09:07→19:38)
[2022-12-15] MEDS: Lithium Carbonate ER 450 MG TABLET.ER PO (09:07)
[2022-12-15] MEDS: Escitalopram Oxalate 20 MG TABLET PO (09:07)
[2022-12-15] MEDS: metFORMIN HCl ER 750 MG TAB.ER.24H PO (09:07)
[2022-12-15] MEDS: Valsartan 80 MG TABLET PO (09:07)
[2022-12-15 09:10] VITALS: BP 120/66; PULSE 75; RESP 16; TEMP 36.4; O2SAT 96
--- NOTE | 2022-12-15 09:56 | HO.PSYCHPN ---
Subjective Subjective Date of Service: 12/15/22 Reason For Visit: SI Interim History: met with patient; discussed with team Patient says that he remains same , still depressed still with suicidal ideation; however he does say the SI is little less. Patient would like medications switched to bedtime because he says that the daytime dose makes him tired. Reviewed labs and discussed that patient lithium level is subtherapeutic; he says he has been taking it consistently as an outpatient right up to this admission. Patient would like dose increased. Mental Status Exam Mental Status Exam Narrative: Pt is alert and oriented; behavior is cooperative, friendly and calm; patient is not in distress; dressed in hospital attire with unkempt hair but adequate hygiene; mood is described as depressed though affect calm, seems bright; eye contact appropriate; Speech is normal rate, volume and prosody and not pressured; psychomotor retardation present; thought process is organized and goal directed; Thought content is on depression and SI; otherwise pertinent to relevant topics and without any delusional content, paranoid ideations or grandiosity expressed; continues to have SI though he says a little bit less; no HI. There is no evidence of perceptual disturbance. Patients insight and judgment are impaired Diagnostics Vital Signs (24Hr): Vital Signs - 24 hr 12/14/22 18:00 12/15/22 09:10 Temperature 97.8 F 97.5 F Pulse Rate 75 75 Respiratory Rate 16 16 Blood Pressure 112/78 120/66 Pulse Oximetry 97 96 Oxygen Delivery Method Room Air Room Air BMI result Body Mass Index 38.3 Labs 12/11/22 15:57 12/12/22 08:50 Labs: Laboratory Results - last 48 hr 12/13/22 08:35 Vitamin B12 497 Folate 15.2 Medications Medications Current Medications Acetaminophen (Acetaminophen 325 Mg Tablet) 650 mg PO Q6H PRN PRN Reason: Headache/Pain Mild Scale (1-3) Al Hydroxide/Mg Hydroxide (Magnesium Hydrox/Alum Hydrox 30 Ml Oral.Susp) 30 ml PO Q6H PRN PRN Reason: Heartburn/Nausea Buspirone HCl (Buspirone Hcl 10 Mg Tablet) 10 mg PO TID [facility] Last Admin: 12/15/22 09:07 Dose: 10 mg Escitalopram Oxalate (Escitalopram Oxalate 20 Mg Tablet) 20 mg PO DAILY [facility] Last Admin: 12/15/22 09:07 Dose: 20 mg Fluticasone Propionate (Fluticasone Propionate 250 Mcg Blst.W.Dev) 1 puff INHALE RBID [facility] Last Admin: 12/15/22 09:06 Dose: 1 puff Hydroxyzine HCl (Hydroxyzine Hcl 25 Mg Tablet) 25 mg PO Q6H PRN PRN Reason: Anxiety Last Admin: 12/12/22 00:08 Dose: 25 mg Ketoconazole (Ketoconazole 2 % Shampoo 120 Ml Btl) 1 appl TOPICAL MoTh@2000 [facility]; Protocol Last Admin: 12/13/22 20:35 Dose: 1 appl Lidocaine (Lidocaine 4 % Patch Adh..Patch) 1 patch TRANSDERMA DAILY [facility]; Protocol Last Admin: 12/15/22 09:06 Dose: 1 patch [place] Carbonate ([place] Carbonate Er 450 Mg Tablet.Er) 450 mg PO BID [facility] Last Admin: 12/15/22 09:07 Dose: 450 mg Lurasidone HCl (Lurasidone Hcl 20 Mg Tablet) 20 mg PO BEDTIME [facility] Last Admin: 12/14/22 19:24 Dose: 20 mg Lurasidone HCl (Lurasidone Hcl 80 Mg Tablet) 80 mg PO BEDTIME [facility] Last Admin: 12/14/22 19:24 Dose: 80 mg Magnesium Hydroxide (Milk Of Magnesia 30 Ml Oral.Susp) 30 ml PO DAILY PRN PRN Reason: Constipation Metformin HCl (Metformin Hcl Er 750 Mg Tab.Er.24h) 750 mg PO DAILY [facility] Last Admin: 12/15/22 09:07 Dose: 750 mg Neomycin/Polymyxin/Dexamethasone (Neomy/Polymyx/Dexameth Oph Vicenta 5 Ml Bottle) 1 drop EYE-LEFT QID [facility] Last Admin: 12/15/22 09:06 Dose: 1 drop Omeprazole (Omeprazole 40 Mg Capsule.Dr) 40 mg PO BID [facility] Last Admin: 12/15/22 09:07 Dose: 40 mg Sumatriptan Succinate (Sumatriptan Succinate 100 Mg Tablet) 100 mg PO DAILY PRN PRN Reason: Migraine Headache Trazodone HCl (Trazodone Hcl 50 Mg Tablet) 50 mg PO BEDTIME MRX1 PRN PRN Reason: Insomnia Valsartan (Valsartan 80 Mg Tablet) 80 mg PO DAILY [facility] Last Admin: 12/15/22 09:07 Dose: 80 mg Allergies Allergies Allergy/AdvReac Type Severity Reaction Status Date / Time amoxicillin Allergy Severe Rash Verified 12/12/22 13:27 sesame seed [SESAME SEED] Allergy Severe ANAPHYLAXIS Unverified 03/17/20 19:30 lamotrigine [From LAMICTAL] Allergy Intermediate Rash Unverified 03/17/20 19:30 melon [MELON] Allergy Unknown LIPS/CHEEKS Unverified 03/17/20 19:30 SWELLING pine nut [PINE NUT] Allergy Unknown VOMITING Unverified 03/17/20 19:30 venlafaxine [From EFFEXOR] AdvReac Severe pt reports Unverified 03/17/20 19:30 severe adverse response by history banana [BANANA] AdvReac Unknown HEART BURN Unverified 03/17/20 19:30 pumpkin [PUMPKIN] AdvReac Unknown (PUMPKIN Unverified 03/17/20 19:30 SEEDS) VOMITING Assessment & Plan Assessment & Plan (1) PTSD (post-traumatic stress disorder): Status: Acute Code(s): F43.10 - Post-traumatic stress disorder, unspecified (2) Bipolar disorder: Status: Acute Code(s): F31.9 - Bipolar disorder, unspecified Plan Patient is 27-year-old male with a PMH significant for bipolar disorder, PTSD, depression, anxiety, and herpetic simplex keratits who was admitted to psychiatry for increasing depression with SI. Medical consult for painful left eye and pruritic, weeping sores on head. Plan: Q 15 minutes -Will Change lithium to bedtime dosing to hopefully eliminate daytime sedation -Tonight 12/15 patient will get total daily dose of 1350 mg of lithium ER Eskalith (450 mg he already got this morning + 900 mg q.h.s tonight) -Starting 12/16 lithium ER ESKALITH to 1350 mg q.h.s. dose as current dosing is subtherapeutic -will order labs Hospital course: Left eye pain Patient complaining of left eye pain, foreign body sensation, blurriness, and epiphora Patient had similar presentation a few weeks ago, patient also with corneal growth surgically removed over 6 months ago Was treated by [facility] with Pred Forte ophthalmic solution and ofloxacin Pt will be treated with ketorolac tromethamine and erythromycin 0.5% opthamalic drops Recommend pt should get outpatient urgent opthomology consult tomorrow for better exam and evaluation of condition Periodic dermatosis of scalp Possibly secondary to seborrheic dermatitis versus tinea capitis Will treat with ketoconazole topical shampoo Follow up outpatient with PCP or dermatology 12/13/22 Continue current regime Collateral contact Pt to see Dr. Belle 12/14 9:20a.m. for consult for corneal abrasion. 12/14/22 Continue current regime 12/15/22 Will transition lithium to bedtime to mitigate daytime sedation and will increase dose to lithium Eskalith ER 1350 mg q.h.s. (as 900 mg daily does is subtherapeutic) Patient educated on: diagnosis and medication risk/benefits Informed Consent: understands Reason for continued inpatient stay Substantial Risk for: rapid decompensation Time Spent With Patient Time: Total time managing care of this patient today ____ minutes.
[2022-12-15] MEDS: SUMAtriptan succinate 100 MG TABLET PO (15:20)
[2022-12-15 18:00] VITALS: BP 116/52; PULSE 68; RESP 16; TEMP 36; O2SAT 97
[2022-12-15] MEDS: Lithium Carbonate ER 450 MG TABLET.ER 900 MG PO (19:37)
[2022-12-15] MEDS: Lurasidone HCl 80 MG TABLET PO (19:37)
[2022-12-15] MEDS: Lurasidone HCl 20 MG TABLET PO (19:38)
[2022-12-16] MEDS: NeoMY/Polymyx/Dexameth Oph Sus 5 ML BOTTLE 1 DROP EYE-LEFT ×4 (08:23→20:27)
[2022-12-16] MEDS: Omeprazole 40 MG CAPSULE.DR PO ×2 (08:23→20:28)
[2022-12-16] MEDS: metFORMIN HCl ER 750 MG TAB.ER.24H PO (08:23)
[2022-12-16] MEDS: Fluticasone Propionate 250 MCG BLST.W.DEV 1 PUFF INHALE ×2 (08:23→20:27)
[2022-12-16] MEDS: busPIRone HCl 10 MG TABLET PO ×3 (08:23→20:28)
[2022-12-16] MEDS: Valsartan 80 MG TABLET PO (08:23)
[2022-12-16] MEDS: Escitalopram Oxalate 20 MG TABLET PO (08:23)
[2022-12-16 08:34] VITALS: BP 108/59; PULSE 79; RESP 16; TEMP 36.6; O2SAT 99
--- NOTE | 2022-12-16 12:10 | P.PNPSI_ITS ---
Subjective Subjective Date of Service: 12/16/22 Reason For Visit: SI Interim History: Met with patient; discussed with team Patient reports that he is actually feeling a little better, that his depression is abating and that SI is down. He says he has chronic suicidal thoughts but it is getting back to where he is able to ignore. He also notices that he is out of his room more and more able to be social. Reports daytime sedation seems to be resolved with moving Depakote to bedtime and agrees to continue with current plan. Mental Status Exam Mental Status Exam Narrative: Pt is alert and oriented; behavior is cooperative, friendly and calm; patient is not in distress; dressed in hospital attire with unkempt hair but adequate hygiene; mood is described as little better and affect is congruent, calm, brighter; eye contact appropriate; Speech is normal rate, volume and prosody and not pressured; no psychomotor retardation present; thought process is organized and goal directed; Thought content is on treatment, overcoming depression and SI; otherwise pertinent to relevant topics and without any delusional content, paranoid ideations or grandiosity expressed; continues to have SI but much less so; no HI. There is no evidence of perceptual disturbance. Patients insight and judgment are impaired but improving Diagnostics Vital Signs (24Hr): Vital Signs - 24 hr 12/15/22 18:00 12/16/22 08:34 Temperature 96.8 F 97.8 F Pulse Rate 68 79 Respiratory Rate 16 16 Blood Pressure 116/52 L 108/59 L Pulse Oximetry 97 99 Oxygen Delivery Method Room Air Room Air BMI result Body Mass Index 38.3 Labs 12/11/22 15:57 12/12/22 08:50 Medications Medications Current Medications Acetaminophen (Acetaminophen 325 Mg Tablet) 650 mg PO Q6H PRN PRN Reason: Headache/Pain Mild Scale (1-3) Al Hydroxide/Mg Hydroxide (Magnesium Hydrox/Alum Hydrox 30 Ml Oral.Susp) 30 ml PO Q6H PRN PRN Reason: Heartburn/Nausea Buspirone HCl (Buspirone Hcl 10 Mg Tablet) 10 mg PO TID [facility] Last Admin: 12/16/22 08:23 Dose: 10 mg Escitalopram Oxalate (Escitalopram Oxalate 20 Mg Tablet) 20 mg PO DAILY [facility] Last Admin: 12/16/22 08:23 Dose: 20 mg Fluticasone Propionate (Fluticasone Propionate 250 Mcg Blst.W.Dev) 1 puff INHALE RBID [facility] Last Admin: 12/16/22 08:23 Dose: 1 puff Hydroxyzine HCl (Hydroxyzine Hcl 25 Mg Tablet) 25 mg PO Q6H PRN PRN Reason: Anxiety Last Admin: 12/12/22 00:08 Dose: 25 mg Ketoconazole (Ketoconazole 2 % Shampoo 120 Ml Btl) 1 appl TOPICAL MoTh@2000 [facility]; Protocol Last Admin: 12/13/22 20:35 Dose: 1 appl Lidocaine (Lidocaine 4 % Patch Adh..Patch) 1 patch TRANSDERMA DAILY [facility]; Protocol Last Admin: 12/16/22 08:51 Dose: Not Given [place] Carbonate ([place] Carbonate Er 450 Mg Tablet.Er) 1,350 mg PO BEDTIME [facility] Lurasidone HCl (Lurasidone Hcl 20 Mg Tablet) 20 mg PO BEDTIME [facility] Last Admin: 12/15/22 19:38 Dose: 20 mg Lurasidone HCl (Lurasidone Hcl 80 Mg Tablet) 80 mg PO BEDTIME [facility] Last Admin: 12/15/22 19:37 Dose: 80 mg Magnesium Hydroxide (Milk Of Magnesia 30 Ml Oral.Susp) 30 ml PO DAILY PRN PRN Reason: Constipation Metformin HCl (Metformin Hcl Er 750 Mg Tab.Er.24h) 750 mg PO DAILY [facility] Last Admin: 12/16/22 08:23 Dose: 750 mg Neomycin/Polymyxin/Dexamethasone (Neomy/Polymyx/Dexameth Oph Vicenta 5 Ml Bottle) 1 drop EYE-LEFT QID [facility] Last Admin: 12/16/22 08:23 Dose: 1 drop Omeprazole (Omeprazole 40 Mg Capsule.Dr) 40 mg PO BID [facility] Last Admin: 12/16/22 08:23 Dose: 40 mg Sumatriptan Succinate (Sumatriptan Succinate 100 Mg Tablet) 100 mg PO DAILY PRN PRN Reason: Migraine Headache Last Admin: 12/15/22 15:20 Dose: 100 mg Trazodone HCl (Trazodone Hcl 50 Mg Tablet) 50 mg PO BEDTIME MRX1 PRN PRN Reason: Insomnia Valsartan (Valsartan 80 Mg Tablet) 80 mg PO DAILY [facility] Last Admin: 12/16/22 08:23 Dose: 80 mg Allergies Allergies Allergy/AdvReac Type Severity Reaction Status Date / Time amoxicillin Allergy Severe Rash Verified 12/12/22 13:27 sesame seed [SESAME SEED] Allergy Severe ANAPHYLAXIS Unverified 03/17/20 19:30 lamotrigine [From LAMICTAL] Allergy Intermediate Rash Unverified 03/17/20 19:30 melon [MELON] Allergy Unknown LIPS/CHEEKS Unverified 03/17/20 19:30 SWELLING pine nut [PINE NUT] Allergy Unknown VOMITING Unverified 03/17/20 19:30 venlafaxine [From EFFEXOR] AdvReac Severe pt reports Unverified 03/17/20 19:30 severe adverse response by history banana [BANANA] AdvReac Unknown HEART BURN Unverified 03/17/20 19:30 pumpkin [PUMPKIN] AdvReac Unknown (PUMPKIN Unverified 03/17/20 19:30 SEEDS) VOMITING Assessment & Plan Assessment & Plan (1) PTSD (post-traumatic stress disorder): Status: Acute Code(s): F43.10 - Post-traumatic stress disorder, unspecified (2) Bipolar disorder: Status: Acute Code(s): F31.9 - Bipolar disorder, unspecified Plan Patient is 27-year-old male with a PMH significant for bipolar disorder, PTSD, depression, anxiety, and herpetic simplex keratits who was admitted to psychiatry for increasing depression with SI. Medical consult for painful left eye and pruritic, weeping sores on head. Plan: Q 15 minutes -Will Change lithium to bedtime dosing to hopefully eliminate daytime sedation -Tonight 12/15 patient will get total daily dose of 1350 mg of lithium ER Eskalith (450 mg he already got this morning + 900 mg q.h.s tonight) -Starting 12/16 lithium ER ESKALITH to 1350 mg q.h.s. dose as current dosing is subtherapeutic -will order labs Hospital course: Left eye pain Patient complaining of left eye pain, foreign body sensation, blurriness, and epiphora Patient had similar presentation a few weeks ago, patient also with corneal growth surgically removed over 6 months ago Was treated by [facility] with Pred Forte ophthalmic solution and ofloxacin Pt will be treated with ketorolac tromethamine and erythromycin 0.5% opthamalic drops Recommend pt should get outpatient urgent opthomology consult tomorrow for better exam and evaluation of condition Periodic dermatosis of scalp Possibly secondary to seborrheic dermatitis versus tinea capitis Will treat with ketoconazole topical shampoo Follow up outpatient with PCP or dermatology 12/13/22 Continue current regime Collateral contact Pt to see Dr. Belle 12/14 9:20a.m. for consult for corneal abrasion. 12/14/22 Continue current regime 12/15/22 Will transition lithium to bedtime to mitigate daytime sedation and will increase dose to lithium Eskalith ER 1350 mg q.h.s. (as 900 mg daily does is subtherapeutic) 12/16/2022 Patient seems to be benefiting from switching lithium to all at once at bedtime, saying daytime sedation is resolved; feels his mood is a little better and agrees to continue with current treatment plan Patient educated on: diagnosis and medication risk/benefits Informed Consent: understands Reason for continued inpatient stay Substantial Risk for: rapid decompensation Time Spent With Patient Time: Total time managing care of this patient today ____ minutes.
[2022-12-16] MEDS: hydrOXYzine HCL 25 MG TABLET PO (13:35)
[2022-12-16] MEDS: SUMAtriptan succinate 100 MG TABLET PO (14:31)
[2022-12-16 16:04] VITALS: BP 121/63; PULSE 64; RESP 16; TEMP 36.5; O2SAT 97
[2022-12-16] MEDS: Lithium Carbonate ER 450 MG TABLET.ER 1350 MG PO (20:28)
[2022-12-16] MEDS: Lurasidone HCl 20 MG TABLET PO (20:28)
[2022-12-16] MEDS: Lurasidone HCl 80 MG TABLET PO (20:29)
[2022-12-17 08:15] VITALS: BP 121/77; PULSE 81; RESP 18; TEMP 36.4; O2SAT 99
[2022-12-17] MEDS: metFORMIN HCl ER 750 MG TAB.ER.24H PO (08:46)
[2022-12-17] MEDS: busPIRone HCl 10 MG TABLET PO ×3 (08:47→22:38)
[2022-12-17] MEDS: Valsartan 80 MG TABLET PO (08:47)
[2022-12-17] MEDS: Escitalopram Oxalate 20 MG TABLET PO (08:47)
[2022-12-17] MEDS: Omeprazole 40 MG CAPSULE.DR PO ×2 (08:47→22:38)
[2022-12-17] MEDS: NeoMY/Polymyx/Dexameth Oph Sus 5 ML BOTTLE 1 DROP EYE-LEFT ×4 (08:48→22:37)
--- NOTE | 2022-12-17 16:06 | HO.PSYCHPN ---
Subjective Subjective Date of Service: 12/17/22 Reason For Visit: SI Subjective Notes: Conditional Voluntary Healthcare Proxy: No Guardianship: No Medical Problems Affecting Mental Status: No Interim History: Call with pt to pt's mom to update on placement options, meds, [place] level and plan of care. Parents will visit on 12/19. Pt completed his weekend assignment of listing what he needs in a program and some of the issues he has had in his first program 3 months. Identifies long term, a bed, clothing, food, LGBTQ safety and ongoing connection with family as the primary needs. In terms of problems, pt reports he has a very poor understanding of boundaries and believes all of his issues at the program have to do with his not knowing good boundaries Medication Compliance: Yes Side effects from medications: No Attending Groups: Intermittent Review of Systems Acute medical concerns: No Medical Review of Systems: unchanged Mental Status Exam Mental Status Exam Patient Appearance: Appropriate Patient Orientation: Person, Place, Time and Situation Level of Consciousness: Alert Patient Behavior: Appropriate, Talkative, Cooperative, Fatigued, Distractible and Good Eye Contact Mood Description: Withdrawn and Depressed Affect Description: Withdrawn and Flat Patient Cognition Impaired: No Ability to Follow Directions: Good Speech Pattern: Spontaneous Speech Memory Description: Intact and Episodic Impaired Hallucinations: None Delusions: Not Present Perceptual Disturbances: Depersonalization and Derealization Thought Process: Goal Oriented Thought Content: positive for Goal Oriented, positive for Suicidal Ideation (denies) and positive for Homicidal Ideation (denies) Depressive Symptoms: Increased Anxiety, Hopelessness and Difficulty Concentrating Judgement: Good Diagnostics Vital Signs (24Hr): Vital Signs - 24 hr 12/17/22 08:15 Temperature 97.5 F Pulse Rate 81 Respiratory Rate 18 Blood Pressure 121/77 Pulse Oximetry 99 Oxygen Delivery Method Room Air BMI result Body Mass Index 38.3 Labs 12/11/22 15:57 12/12/22 08:50 Medications Medications Current Medications Acetaminophen (Acetaminophen 325 Mg Tablet) 650 mg PO Q6H PRN PRN Reason: Headache/Pain Mild Scale (1-3) Al Hydroxide/Mg Hydroxide (Magnesium Hydrox/Alum Hydrox 30 Ml Oral.Susp) 30 ml PO Q6H PRN PRN Reason: Heartburn/Nausea Buspirone HCl (Buspirone Hcl 10 Mg Tablet) 10 mg PO TID [facility] Last Admin: 12/17/22 13:52 Dose: 10 mg Escitalopram Oxalate (Escitalopram Oxalate 20 Mg Tablet) 20 mg PO DAILY [facility] Last Admin: 12/17/22 08:47 Dose: 20 mg Fluticasone Propionate (Fluticasone Propionate 250 Mcg Blst.W.Dev) 1 puff INHALE RBID [facility] Last Admin: 12/17/22 08:51 Dose: Not Given Hydroxyzine HCl (Hydroxyzine Hcl 25 Mg Tablet) 25 mg PO Q6H PRN PRN Reason: Anxiety Last Admin: 12/16/22 13:35 Dose: 25 mg Ketoconazole (Ketoconazole 2 % Shampoo 120 Ml Btl) 1 appl TOPICAL MoTh@2000 [facility]; Protocol Last Admin: 12/13/22 20:35 Dose: 1 appl Lidocaine (Lidocaine 4 % Patch Adh..Patch) 1 patch TRANSDERMA DAILY [facility]; Protocol Last Admin: 12/17/22 08:51 Dose: Not Given [place] Carbonate ([place] Carbonate Er 450 Mg Tablet.Er) 1,350 mg PO BEDTIME [facility] Last Admin: 12/16/22 20:28 Dose: 1,350 mg Lurasidone HCl (Lurasidone Hcl 20 Mg Tablet) 20 mg PO BEDTIME [facility] Last Admin: 12/16/22 20:28 Dose: 20 mg Lurasidone HCl (Lurasidone Hcl 80 Mg Tablet) 80 mg PO BEDTIME [facility] Last Admin: 12/16/22 20:29 Dose: 80 mg Magnesium Hydroxide (Milk Of Magnesia 30 Ml Oral.Susp) 30 ml PO DAILY PRN PRN Reason: Constipation Metformin HCl (Metformin Hcl Er 750 Mg Tab.Er.24h) 750 mg PO DAILY [facility] Last Admin: 12/17/22 08:46 Dose: 750 mg Neomycin/Polymyxin/Dexamethasone (Neomy/Polymyx/Dexameth Oph [place] 5 Ml Bottle) 1 drop EYE-LEFT QID [facility] Last Admin: 12/17/22 13:53 Dose: 1 drop Omeprazole (Omeprazole 40 Mg Capsule.Dr) 40 mg PO BID [facility] Last Admin: 12/17/22 08:47 Dose: 40 mg Sumatriptan Succinate (Sumatriptan Succinate 100 Mg Tablet) 100 mg PO DAILY PRN PRN Reason: Migraine Headache Last Admin: 12/16/22 14:31 Dose: 100 mg Trazodone HCl (Trazodone Hcl 50 Mg Tablet) 50 mg PO BEDTIME MRX1 PRN PRN Reason: Insomnia Valsartan (Valsartan 80 Mg Tablet) 80 mg PO DAILY [facility] Last Admin: 12/17/22 08:47 Dose: 80 mg Allergies Allergies Allergy/AdvReac Type Severity Reaction Status Date / Time amoxicillin Allergy Severe Rash Verified 12/12/22 13:27 sesame seed [SESAME SEED] Allergy Severe ANAPHYLAXIS Unverified 03/17/20 19:30 lamotrigine [From LAMICTAL] Allergy Intermediate Rash Unverified 03/17/20 19:30 melon [MELON] Allergy Unknown LIPS/CHEEKS Unverified 03/17/20 19:30 SWELLING pine nut [PINE NUT] Allergy Unknown VOMITING Unverified 03/17/20 19:30 venlafaxine [From EFFEXOR] AdvReac Severe pt reports Unverified 03/17/20 19:30 severe adverse response by history banana [BANANA] AdvReac Unknown HEART BURN Unverified 03/17/20 19:30 pumpkin [PUMPKIN] AdvReac Unknown (PUMPKIN Unverified 03/17/20 19:30 SEEDS) VOMITING Assessment & Plan Assessment & Plan (1) PTSD (post-traumatic stress disorder): Status: Acute Code(s): F43.10 - Post-traumatic stress disorder, unspecified (2) Bipolar disorder: Status: Acute Code(s): F31.9 - Bipolar disorder, unspecified Assessment and Plan: 12/17/22- Continue current regime and plan. [place] education Plan Patient is 27-year-old male with a PMH significant for bipolar disorder, PTSD, depression, anxiety, and herpetic simplex keratits who was admitted to psychiatry for increasing depression with SI. Medical consult for painful left eye and pruritic, weeping sores on head. Left eye pain Patient complaining of left eye pain, foreign body sensation, blurriness, and epiphora Patient had similar presentation a few weeks ago, patient also with corneal growth surgically removed over 6 months ago Was treated by [facility] with Pred Forte ophthalmic solution and ofloxacin Pt will be treated with ketorolac tromethamine and erythromycin 0.5% opthamalic drops Recommend pt should get outpatient urgent opthomology consult tomorrow for better exam and evaluation of condition Periodic dermatosis of scalp Possibly secondary to seborrheic dermatitis versus tinea capitis Will treat with ketoconazole topical shampoo Follow up outpatient with PCP or dermatology Thank you for allowing us to participate in the care of this patient. Will continue to follow for now pending opthamology consult. Please let us know if there are any acute complaints or questions. Patient educated on: therapeutic strategies Informed Consent: understands and further education needed Reason for continued inpatient stay Substantial Risk for: harm to self, harm to others, inability to function and rapid decompensation Time Spent With Patient Time: Total time managing care of this patient today ____ minutes.
[2022-12-17 17:06] VITALS: BP 120/67; PULSE 65; TEMP 36; O2SAT 98
[2022-12-17] MEDS: hydrOXYzine HCL 25 MG TABLET PO (18:37)
[2022-12-17] MEDS: Fluticasone Propionate 250 MCG BLST.W.DEV 1 PUFF INHALE (22:37)
[2022-12-17] MEDS: Lurasidone HCl 80 MG TABLET PO (22:38)
[2022-12-17] MEDS: Lithium Carbonate ER 450 MG TABLET.ER 1350 MG PO (22:38)
[2022-12-17] MEDS: Lurasidone HCl 20 MG TABLET PO (22:38)
[2022-12-18 08:25] VITALS: BP 119/59; PULSE 83; RESP 16; TEMP 36.9; O2SAT 97
[2022-12-18] MEDS: Lidocaine 4 % Patch ADH..PATCH 1 PATCH TRANSDERMA (08:46)
[2022-12-18] MEDS: Fluticasone Propionate 250 MCG BLST.W.DEV 1 PUFF INHALE ×2 (08:46→20:23)
[2022-12-18] MEDS: Valsartan 80 MG TABLET PO (08:48)
[2022-12-18] MEDS: Escitalopram Oxalate 20 MG TABLET PO (08:48)
[2022-12-18] MEDS: metFORMIN HCl ER 750 MG TAB.ER.24H PO (08:48)
[2022-12-18] MEDS: busPIRone HCl 10 MG TABLET PO ×3 (08:48→20:23)
[2022-12-18] MEDS: Omeprazole 40 MG CAPSULE.DR PO ×2 (08:48→20:22)
[2022-12-18] MEDS: NeoMY/Polymyx/Dexameth Oph Sus 5 ML BOTTLE 1 DROP EYE-LEFT ×4 (09:11→20:36)
--- NOTE | 2022-12-18 09:15 | P.PNPSI_ITS ---
Subjective Subjective Date of Service: 12/18/22 Reason For Visit: SI Subjective Notes: Conditional Voluntary Healthcare Proxy: No Guardianship: No Medical Problems Affecting Mental Status: No Interim History: Meeting with pt and parents. All are concerned about pt's loss of placement. Discussed program applications and the possibility that pt may discharge to group home placement. All request [facility] be the primary referral if needed. By history, parents report pt was on a wait list with [facility] for congregage housing in [place]. They also asked about a new [facility] program in [place] as pt has lived in [place] by history. Discussed discharge from [facility] and that they let food stamps lapse. Pt/parents ask for assist in re- establishing this for him. Medication Compliance: Yes Side effects from medications: No Attending Groups: Intermittent Review of Systems Acute medical concerns: No Medical Review of Systems: unchanged Mental Status Exam Mental Status Exam Patient Appearance: Appropriate Patient Orientation: Person, Place, Time and Situation Level of Consciousness: Alert Patient Behavior: Appropriate, Talkative, Cooperative, Fatigued, Distractible and Good Eye Contact Mood Description: Withdrawn and Depressed Affect Description: Withdrawn and Flat Patient Cognition Impaired: No Ability to Follow Directions: Good Speech Pattern: Spontaneous Speech Memory Description: Intact and Episodic Impaired Hallucinations: None Delusions: Not Present Perceptual Disturbances: Depersonalization and Derealization Thought Process: Goal Oriented Thought Content: positive for Goal Oriented, positive for Suicidal Ideation (denies) and positive for Homicidal Ideation (denies) Depressive Symptoms: Increased Anxiety, Hopelessness and Difficulty Concentrating Judgement: Good Diagnostics Vital Signs (24Hr): Vital Signs - 24 hr 12/17/22 17:06 12/18/22 08:25 Temperature 96.8 F 98.5 F Pulse Rate 65 83 Respiratory Rate 16 Blood Pressure 120/67 119/59 L Pulse Oximetry 98 97 Oxygen Delivery Method Room Air BMI result Body Mass Index 38.3 Labs 12/11/22 15:57 12/12/22 08:50 Medications Medications Current Medications Acetaminophen (Acetaminophen 325 Mg Tablet) 650 mg PO Q6H PRN PRN Reason: Headache/Pain Mild Scale (1-3) Al Hydroxide/Mg Hydroxide (Magnesium Hydrox/Alum Hydrox 30 Ml Oral.Susp) 30 ml PO Q6H PRN PRN Reason: Heartburn/Nausea Buspirone HCl (Buspirone Hcl 10 Mg Tablet) 10 mg PO TID [facility] Last Admin: 12/18/22 08:48 Dose: 10 mg Escitalopram Oxalate (Escitalopram Oxalate 20 Mg Tablet) 20 mg PO DAILY [facility] Last Admin: 12/18/22 08:48 Dose: 20 mg Fluticasone Propionate (Fluticasone Propionate 250 Mcg Blst.W.Dev) 1 puff INHALE RBID [facility] Last Admin: 12/18/22 08:46 Dose: 1 puff Hydroxyzine HCl (Hydroxyzine Hcl 25 Mg Tablet) 25 mg PO Q6H PRN PRN Reason: Anxiety Last Admin: 12/17/22 18:37 Dose: 25 mg Ketoconazole (Ketoconazole 2 % Shampoo 120 Ml Btl) 1 appl TOPICAL MoTh@2000 [facility]; Protocol Last Admin: 12/17/22 22:39 Dose: Not Given Lidocaine (Lidocaine 4 % Patch Adh..Patch) 1 patch TRANSDERMA DAILY [facility]; Pro tocol Last Admin: 12/18/22 08:46 Dose: 1 patch [place] Carbonate ([place] Carbonate Er 450 Mg Tablet.Er) 1,350 mg PO BEDTIME [facility] Last Admin: 12/17/22 22:38 Dose: 1,350 mg Lurasidone HCl (Lurasidone Hcl 20 Mg Tablet) 20 mg PO BEDTIME [facility] Last Admin: 12/17/22 22:38 Dose: 20 mg Lurasidone HCl (Lurasidone Hcl 80 Mg Tablet) 80 mg PO BEDTIME [facility] Last Admin: 12/17/22 22:38 Dose: 80 mg Magnesium Hydroxide (Milk Of Magnesia 30 Ml Oral.Susp) 30 ml PO DAILY PRN PRN Reason: Constipation Metformin HCl (Metformin Hcl Er 750 Mg Tab.Er.24h) 750 mg PO DAILY [facility] Last Admin: 12/18/22 08:48 Dose: 750 mg Neomycin/Polymyxin/Dexamethasone (Neomy/Polymyx/Dexameth Oph [place] 5 Ml Bottle) 1 drop EYE-LEFT QID [facility] Last Admin: 12/18/22 09:11 Dose: 1 drop Omeprazole (Omeprazole 40 Mg Capsule.Dr) 40 mg PO BID [facility] Last Admin: 12/18/22 08:48 Dose: 40 mg Sumatriptan Succinate (Sumatriptan Succinate 100 Mg Tablet) 100 mg PO DAILY PRN PRN Reason: Migraine Headache Last Admin: 12/16/22 14:31 Dose: 100 mg Trazodone HCl (Trazodone Hcl 50 Mg Tablet) 50 mg PO BEDTIME MRX1 PRN PRN Reason: Insomnia Valsartan (Valsartan 80 Mg Tablet) 80 mg PO DAILY [facility] Last Admin: 12/18/22 08:48 Dose: 80 mg Allergies Allergies Allergy/AdvReac Type Severity Reaction Status Date / Time amoxicillin Allergy Severe Rash Verified 12/12/22 13:27 sesame seed [SESAME SEED] Allergy Severe ANAPHYLAXIS Unverified 03/17/20 19:30 lamotrigine [From LAMICTAL] Allergy Intermediate Rash Unverified 03/17/20 19:30 melon [MELON] Allergy Unknown LIPS/CHEEKS Unverified 03/17/20 19:30 SWELLING pine nut [PINE NUT] Allergy Unknown VOMITING Unverified 03/17/20 19:30 venlafaxine [From EFFEXOR] AdvReac Severe pt reports Unverified 03/17/20 19:30 severe adverse response by history banana [BANANA] AdvReac Unknown HEART BURN Unverified 03/17/20 19:30 pumpkin [PUMPKIN] AdvReac Unknown (PUMPKIN Unverified 03/17/20 19:30 SEEDS) VOMITING Assessment & Plan Assessment & Plan (1) PTSD (post-traumatic stress disorder): Status: Acute Code(s): F43.10 - Post-traumatic stress disorder, unspecified (2) Bipolar disorder: Status: Acute Code(s): F31.9 - Bipolar disorder, unspecified Assessment and Plan: 12/17/22- Continue current regime and plan. [place] education 12/18/22- Continue with placement search. Continue current medication regime. Patient educated on: therapeutic strategies Informed Consent: understands and further education needed Reason for continued inpatient stay Substantial Risk for: rapid decompensation Time Spent With Patient Time: Total time managing care of this patient today ____ minutes.
--- NOTE | 2022-12-18 09:15 | HO.PSYCHPN ---
Subjective Subjective Reason For Visit: SI Diagnostics Vital Signs (24Hr): Vital Signs - 24 hr 12/17/22 17:06 12/18/22 08:25 Temperature 96.8 F 98.5 F Pulse Rate 65 83 Respiratory Rate 16 Blood Pressure 120/67 119/59 L Pulse Oximetry 98 97 Oxygen Delivery Method Room Air BMI result Body Mass Index 38.3 Labs 12/11/22 15:57 12/12/22 08:50 Medications Medications Current Medications Acetaminophen (Acetaminophen 325 Mg Tablet) 650 mg PO Q6H PRN PRN Reason: Headache/Pain Mild Scale (1-3) Al Hydroxide/Mg Hydroxide (Magnesium Hydrox/Alum Hydrox 30 Ml Oral.Susp) 30 ml PO Q6H PRN PRN Reason: Heartburn/Nausea Buspirone HCl (Buspirone Hcl 10 Mg Tablet) 10 mg PO TID [facility] Last Admin: 12/18/22 08:48 Dose: 10 mg Escitalopram Oxalate (Escitalopram Oxalate 20 Mg Tablet) 20 mg PO DAILY [facility] Last Admin: 12/18/22 08:48 Dose: 20 mg Fluticasone Propionate (Fluticasone Propionate 250 Mcg Blst.W.Dev) 1 puff INHALE RBID [facility] Last Admin: 12/18/22 08:46 Dose: 1 puff Hydroxyzine HCl (Hydroxyzine Hcl 25 Mg Tablet) 25 mg PO Q6H PRN PRN Reason: Anxiety Last Admin: 12/17/22 18:37 Dose: 25 mg Ketoconazole (Ketoconazole 2 % Shampoo 120 Ml Btl) 1 appl TOPICAL MoTh@2000 [facility]; Protocol Last Admin: 12/17/22 22:39 Dose: Not Given Lidocaine (Lidocaine 4 % Patch Adh..Patch) 1 patch TRANSDERMA DAILY [facility]; Protocol Last Admin: 12/18/22 08:46 Dose: 1 patch [place] Carbonate ([place] Carbonate Er 450 Mg Tablet.Er) 1,350 mg PO BEDTIME [facility] Last Admin: 12/17/22 22:38 Dose: 1,350 mg Lurasidone HCl (Lurasidone Hcl 20 Mg Tablet) 20 mg PO BEDTIME [facility] Last Admin: 12/17/22 22:38 Dose: 20 mg Lurasidone HCl (Lurasidone Hcl 80 Mg Tablet) 80 mg PO BEDTIME [facility] Last Admin: 12/17/22 22:38 Dose: 80 mg Magnesium Hydroxide (Milk Of Magnesia 30 Ml Oral.Susp) 30 ml PO DAILY PRN PRN Reason: Constipation Metformin HCl (Metformin Hcl Er 750 Mg Tab.Er.24h) 750 mg PO DAILY [facility] Last Admin: 12/18/22 08:48 Dose: 750 mg Neomycin/Polymyxin/Dexamethasone (Neomy/Polymyx/Dexameth Oph [place] 5 Ml Bottle) 1 drop EYE-LEFT QID [facility] Last Admin: 12/18/22 09:11 Dose: 1 drop Omeprazole (Omeprazole 40 Mg Capsule.Dr) 40 mg PO BID [facility] Last Admin: 12/18/22 08:48 Dose: 40 mg Sumatriptan Succinate (Sumatriptan Succinate 100 Mg Tablet) 100 mg PO DAILY PRN PRN Reason: Migraine Headache Last Admin: 12/16/22 14:31 Dose: 100 mg Trazodone HCl (Trazodone Hcl 50 Mg Tablet) 50 mg PO BEDTIME MRX1 PRN PRN Reason: Insomnia Valsartan (Valsartan 80 Mg Tablet) 80 mg PO DAILY [facility] Last Admin: 12/18/22 08:48 Dose: 80 mg Allergies Allergies Allergy/AdvReac Type Severity Reaction Status Date / Time amoxicillin Allergy Severe Rash Verified 12/12/22 13:27 sesame seed [SESAME SEED] Allergy Severe ANAPHYLAXIS Unverified 03/17/20 19:30 lamotrigine [From LAMICTAL] Allergy Intermediate Rash Unverified 03/17/20 19:30 melon [MELON] Allergy Unknown LIPS/CHEEKS Unverified 03/17/20 19:30 SWELLING pine nut [PINE NUT] Allergy Unknown VOMITING Unverified 03/17/20 19:30 venlafaxine [From EFFEXOR] AdvReac Severe pt reports Unverified 03/17/20 19:30 severe adverse response by history banana [BANANA] AdvReac Unknown HEART BURN Unverified 03/17/20 19:30 pumpkin [PUMPKIN] AdvReac Unknown (PUMPKIN Unverified 03/17/20 19:30 SEEDS) VOMITING Assessment & Plan Assessment & Plan (1) PTSD (post-traumatic stress disorder): Status: Acute Code(s): F43.10 - Post-traumatic stress disorder, unspecified (2) Bipolar disorder: Status: Acute Code(s): F31.9 - Bipolar disorder, unspecified Assessment and Plan: 12/17/22- Continue current regime and plan. [place] education Plan Patient is 27-year-old male with a PMH significant for bipolar disorder, PTSD, depression, anxiety, and herpetic simplex keratits who was admitted to psychiatry for increasing depression with SI. Medical consult for painful left eye and pruritic, weeping sores on head. Left eye pain Patient complaining of left eye pain, foreign body sensation, blurriness, and epiphora Patient had similar presentation a few weeks ago, patient also with corneal growth surgically removed over 6 months ago Was treated by [facility] with Pred Forte ophthalmic solution and ofloxacin Pt will be treated with ketorolac tromethamine and erythromycin 0.5% opthamalic drops Recommend pt should get outpatient urgent opthomology consult tomorrow for better exam and evaluation of condition Periodic dermatosis of scalp Possibly secondary to seborrheic dermatitis versus tinea capitis Will treat with ketoconazole topical shampoo Follow up outpatient with PCP or dermatology Thank you for allowing us to participate in the care of this patient. Will continue to follow for now pending opthamology consult. Please let us know if there are any acute complaints or questions. Time Spent With Patient Time: Total time managing care of this patient today ____ minutes.
[2022-12-18] MEDS: SUMAtriptan succinate 100 MG TABLET PO (11:38)
[2022-12-18] MEDS: hydrOXYzine HCL 25 MG TABLET PO (14:13)
[2022-12-18] MEDS: Acetaminophen 325 MG TABLET 650 MG PO (14:37)
[2022-12-18 18:00] VITALS: BP 125/80; PULSE 75
[2022-12-18] MEDS: Lithium Carbonate ER 450 MG TABLET.ER 1350 MG PO (20:22)
[2022-12-18] MEDS: Lurasidone HCl 20 MG TABLET PO (20:22)
[2022-12-18] MEDS: Lurasidone HCl 80 MG TABLET PO (20:23)
[2022-12-19 08:28] VITALS: BP 126/70; PULSE 76; RESP 16; TEMP 36.8; O2SAT 97
[2022-12-19] MEDS: Escitalopram Oxalate 20 MG TABLET PO (08:35)
[2022-12-19] MEDS: Valsartan 80 MG TABLET PO (08:36)
[2022-12-19] MEDS: Omeprazole 40 MG CAPSULE.DR PO ×2 (08:36→19:14)
[2022-12-19] MEDS: metFORMIN HCl ER 750 MG TAB.ER.24H PO (08:36)
[2022-12-19] MEDS: busPIRone HCl 10 MG TABLET PO ×3 (08:36→19:14)
--- NOTE | 2022-12-19 10:21 | HO.PSYCHPN ---
Subjective Subjective Date of Service: 12/19/22 Reason For Visit: SI Subjective Notes: Conditional Voluntary Healthcare Proxy: No Guardianship: No Medical Problems Affecting Mental Status: No Interim History: Pt presents with anxiety and apprehension. Asking several questions about halfway placement. Discussed teams continued attempts to secure a placement. States he thinks he will be killed if he is on the street. Participating in milieu, active in participating in discharge planning. Medication Compliance: Yes Side effects from medications: No Attending Groups: Yes Review of Systems Acute medical concerns: No Medical Review of Systems: unchanged Mental Status Exam Mental Status Exam Patient Appearance: Appropriate Patient Orientation: Person, Place, Time and Situation Level of Consciousness: Alert Patient Behavior: Appropriate, Talkative, Cooperative, Fatigued, Distractible and Good Eye Contact Mood Description: Withdrawn, Depressed, Anxious and Apprehensive Affect Description: Withdrawn, Anxious, Flat and Apprehensive Patient Cognition Impaired: No Ability to Follow Directions: Good Speech Pattern: Spontaneous Speech Memory Description: Intact and Episodic Impaired Hallucinations: None Delusions: Not Present Perceptual Disturbances: Depersonalization and Derealization Thought Process: Goal Oriented Thought Content: positive for Goal Oriented, positive for Suicidal Ideation (denies) and positive for Homicidal Ideation (denies) Depressive Symptoms: Increased Anxiety, Hopelessness and Difficulty Concentrating Judgement: Good Diagnostics Vital Signs (24Hr): Vital Signs - 24 hr 12/18/22 18:00 12/19/22 08:28 Temperature 98.3 F Pulse Rate 75 76 Respiratory Rate 16 Blood Pressure 125/80 126/70 Pulse Oximetry 97 Oxygen Delivery Method Room Air BMI result Body Mass Index 38.3 Labs 12/11/22 15:57 12/12/22 08:50 Medications Medications Current Medications Acetaminophen (Acetaminophen 325 Mg Tablet) 650 mg PO Q6H PRN PRN Reason: Headache/Pain Mild Scale (1-3) Last Admin: 12/18/22 14:37 Dose: 650 mg Al Hydroxide/Mg Hydroxide (Magnesium Hydrox/Alum Hydrox 30 Ml Oral.Susp) 30 ml PO Q6H PRN PRN Reason: Heartburn/Nausea Buspirone HCl (Buspirone Hcl 10 Mg Tablet) 10 mg PO TID [facility] Last Admin: 12/19/22 08:36 Dose: 10 mg Escitalopram Oxalate (Escitalopram Oxalate 20 Mg Tablet) 20 mg PO DAILY [facility] Last Admin: 12/19/22 08:35 Dose: 20 mg Fluticasone Propionate (Fluticasone Propionate 250 Mcg Blst.W.Dev) 1 puff INHALE RBID [facility] Last Admin: 12/18/22 20:23 Dose: 1 puff Hydroxyzine HCl (Hydroxyzine Hcl 10 Mg Tablet) 10 mg PO Q6H PRN PRN Reason: Anxiety Ketoconazole (Ketoconazole 2 % Shampoo 120 Ml Btl) 1 appl TOPICAL MoTh@2000 [facility]; Protocol Last Admin: 12/17/22 22:39 Dose: Not Given Lidocaine (Lidocaine 4 % Patch Adh..Patch) 1 patch TRANSDERMA DAILY [facility]; Protocol Last Admin: 12/18/22 08:46 Dose: 1 patch [place] Carbonate ([place] Carbonate Er 450 Mg Tablet.Er) 1,350 mg PO BEDTIME [facility] Last Admin: 12/18/22 20:22 Dose: 1,350 mg Lurasidone HCl (Lurasidone Hcl 20 Mg Tablet) 20 mg PO BEDTIME [facility] Last Admin: 12/18/22 20:22 Dose: 20 mg Lurasidone HCl (Lurasidone Hcl 80 Mg Tablet) 80 mg PO BEDTIME [facility] Last Admin: 12/18/22 20:23 Dose: 80 mg Magnesium Hydroxide (Milk Of Magnesia 30 Ml Oral.Susp) 30 ml PO DAILY PRN PRN Reason: Constipation Metformin HCl (Metformin Hcl Er 750 Mg Tab.Er.24h) 750 mg PO DAILY [facility] Last Admin: 12/19/22 08:36 Dose: 750 mg Neomycin/Polymyxin/Dexamethasone (Neomy/Polymyx/Dexameth Oph [place] 5 Ml Bottle) 1 drop EYE-LEFT QID [facility] Last Admin: 12/18/22 20:36 Dose: 1 drop Omeprazole (Omeprazole 40 Mg Capsule.Dr) 40 mg PO BID [facility] Last Admin: 12/19/22 08:36 Dose: 40 mg Sumatriptan Succinate (Sumatriptan Succinate 100 Mg Tablet) 100 mg PO DAILY PRN PRN Reason: Migraine Headache Last Admin: 12/18/22 11:38 Dose: 100 mg Trazodone HCl (Trazodone Hcl 50 Mg Tablet) 50 mg PO BEDTIME MRX1 PRN PRN Reason: Insomnia Valsartan (Valsartan 80 Mg Tablet) 80 mg PO DAILY [facility] Last Admin: 12/19/22 08:36 Dose: 80 mg Allergies Allergies Allergy/AdvReac Type Severity Reaction Status Date / Time amoxicillin Allergy Severe Rash Verified 12/12/22 13:27 sesame seed [SESAME SEED] Allergy Severe ANAPHYLAXIS Unverified 03/17/20 19:30 lamotrigine [From LAMICTAL] Allergy Intermediate Rash Unverified 03/17/20 19:30 melon [MELON] Allergy Unknown LIPS/CHEEKS Unverified 03/17/20 19:30 SWELLING pine nut [PINE NUT] Allergy Unknown VOMITING Unverified 03/17/20 19:30 venlafaxine [From EFFEXOR] AdvReac Severe pt reports Unverified 03/17/20 19:30 severe adverse response by history banana [BANANA] AdvReac Unknown HEART BURN Unverified 03/17/20 19:30 pumpkin [PUMPKIN] AdvReac Unknown (PUMPKIN Unverified 03/17/20 19:30 SEEDS) VOMITING Assessment & Plan Assessment & Plan (1) PTSD (post-traumatic stress disorder): Status: Acute Code(s): F43.10 - Post-traumatic stress disorder, unspecified (2) Bipolar disorder: Status: Acute Code(s): F31.9 - Bipolar disorder, unspecified Assessment and Plan: 12/17/22- Continue current regime and plan. [place] education 12/18/22- Continue with placement search. Continue current medication regime. 12/19/22- Continue current regime and plan of care. Patient educated on: therapeutic strategies Informed Consent: understands and further education needed Reason for continued inpatient stay Substantial Risk for: harm to self, inability to function and rapid decompensation Time Spent With Patient Time: Total time managing care of this patient today ____ minutes.
[2022-12-19] MEDS: NeoMY/Polymyx/Dexameth Oph Sus 5 ML BOTTLE 1 DROP EYE-LEFT ×4 (10:49→21:14)
[2022-12-19] MEDS: Fluticasone Propionate 250 MCG BLST.W.DEV 1 PUFF INHALE ×2 (10:49→19:21)
[2022-12-19] MEDS: Lidocaine 4 % Patch ADH..PATCH 1 PATCH TRANSDERMA (12:39)
[2022-12-19] MEDS: Acetaminophen 325 MG TABLET 650 MG PO (14:17)
[2022-12-19 18:00] VITALS: BP 126/78; PULSE 82; RESP 16; TEMP 36.4; O2SAT 98
[2022-12-19] MEDS: Lithium Carbonate ER 450 MG TABLET.ER 1350 MG PO (19:13)
[2022-12-19] MEDS: Lurasidone HCl 80 MG TABLET PO (19:14)
[2022-12-19] MEDS: Lurasidone HCl 20 MG TABLET PO (19:14)
[2022-12-19] MEDS: hydrOXYzine HCL 10 MG TABLET PO (20:10)
[2022-12-20 07:00] VITALS: BMI 38.7
[2022-12-20 07:55] VITALS: BP 144/81; PULSE 86; RESP 16; TEMP 36.5; O2SAT 98
[2022-12-20] MEDS: Fluticasone Propionate 250 MCG BLST.W.DEV 1 PUFF INHALE ×2 (07:59→20:49)
[2022-12-20] MEDS: Escitalopram Oxalate 20 MG TABLET PO (08:01)
[2022-12-20] MEDS: NeoMY/Polymyx/Dexameth Oph Sus 5 ML BOTTLE 1 DROP EYE-LEFT ×4 (08:01→20:49)
[2022-12-20] MEDS: Omeprazole 40 MG CAPSULE.DR PO ×2 (08:01→20:50)
[2022-12-20] MEDS: Valsartan 80 MG TABLET PO (08:01)
[2022-12-20] MEDS: busPIRone HCl 10 MG TABLET PO ×3 (08:01→20:50)
[2022-12-20] MEDS: metFORMIN HCl ER 750 MG TAB.ER.24H PO (08:01)
[2022-12-20] MEDS: Lidocaine 4 % Patch ADH..PATCH 1 PATCH TRANSDERMA (08:04)
[2022-12-20 09:16] LABS: Lithium 1.14 mmol/L (0.60-1.20)
[2022-12-20 09:41] LABS: Anion Gap 12 (12-20); Blood Urea Nitrogen 10 mg/dL (9-16); Carbon Dioxide 24 mmol/L (22-29); Chloride 106 mmol/L (96-108); Creatinine Clr Calc Pharmacy 103.8; Estimated Glomerular Filt Rate > 60; Potassium 3.6 mmol/L (3.3-5.1); Sodium 138 mmol/L (135-145)
[2022-12-20 09:47] LABS: TSH reflex Free T4 1.42 uIU/mL (0.32-4.0)
--- NOTE | 2022-12-20 12:03 | HO.PSYCHPN ---
Subjective Subjective Date of Service: 12/20/22 Reason For Visit: SI Subjective Notes: Conditional Voluntary Healthcare Proxy: No Guardianship: No Medical Problems Affecting Mental Status: No Interim History: Reports he is feeling improved. [place] level is therapeutic. Discussed the importance of having a place to live so he can attempt college, work, and development of a life. SI continues, yet passive. Discussed fear based scenarios of his concerns about being attacked, harmed, killed and his lack of knowledge of the street . Discussed current options for placement which are being worked on. Medication Compliance: Yes Side effects from medications: No Attending Groups: Yes Review of Systems Acute medical concerns: No Medical Review of Systems: unchanged Mental Status Exam Mental Status Exam Patient Appearance: Appropriate Patient Orientation: Person, Place, Time and Situation Level of Consciousness: Alert Patient Behavior: Appropriate, Talkative, Cooperative, Fatigued, Distractible and Good Eye Contact Mood Description: Withdrawn, Depressed, Anxious and Apprehensive Affect Description: Withdrawn, Anxious, Flat and Apprehensive Patient Cognition Impaired: No Ability to Follow Directions: Good Speech Pattern: Spontaneous Speech Memory Description: Intact and Episodic Impaired Hallucinations: None Delusions: Not Present Perceptual Disturbances: Depersonalization and Derealization Thought Process: Goal Oriented Thought Content: positive for Goal Oriented, positive for Suicidal Ideation (passive) and positive for Homicidal Ideation (denies) Depressive Symptoms: Increased Anxiety, Hopelessness, Thoughts of /Suicide (passive) and Difficulty Concentrating Judgement: Good Diagnostics Vital Signs (24Hr): Vital Signs - 24 hr 12/19/22 18:00 12/20/22 07:55 Temperature 97.6 F 97.7 F Pulse Rate 82 86 Respiratory Rate 16 16 Blood Pressure 126/78 144/81 H Pulse Oximetry 98 98 Oxygen Delivery Method Room Air Room Air BMI result Body Mass Index 38.7 Labs 12/11/22 15:57 12/20/22 08:25 Labs: Laboratory Results - last 48 hr 12/20/22 12/20/22 08:25 08:25 Sodium 138 Potassium 3.6 Chloride 106 Carbon Dioxide 24 Anion Gap 12 BUN 10 Creatinine 1.05 Estim Creat Clear Calc 103.8 Estimated GFR > 60 TSH 1.42 [place] 1.14 Medications Medications Current Medications Acetaminophen (Acetaminophen 325 Mg Tablet) 650 mg PO Q6H PRN PRN Reason: Headache/Pain Mild Scale (1-3) Last Admin: 12/19/22 14:17 Dose: 650 mg Al Hydroxide/Mg Hydroxide (Magnesium Hydrox/Alum Hydrox 30 Ml Oral.Susp) 30 ml PO Q6H PRN PRN Reason: Heartburn/Nausea Buspirone HCl (Buspirone Hcl 10 Mg Tablet) 10 mg PO TID [facility] Last Admin: 12/20/22 08:01 Dose: 10 mg Escitalopram Oxalate (Escitalopram Oxalate 20 Mg Tablet) 20 mg PO DAILY [facility] Last Admin: 12/20/22 08:01 Dose: 20 mg Fluticasone Propionate (Fluticasone Propionate 250 Mcg Blst.W.Dev) 1 puff INHALE RBID [facility] Last Admin: 12/20/22 07:59 Dose: 1 puff Hydroxyzine HCl (Hydroxyzine Hcl 10 Mg Tablet) 10 mg PO Q6H PRN PRN Reason: Anxiety Last Admin: 12/19/22 20:10 Dose: 10 mg Ketoconazole (Ketoconazole 2 % Shampoo 120 Ml Btl) 1 appl TOPICAL MoTh@2000 [facility]; Protocol Last Admin: 12/17/22 22:39 Dose: Not Given Lidocaine (Lidocaine 4 % Patch Adh..Patch) 1 patch TRANSDERMA DAILY [facility]; Protocol Last Admin: 12/20/22 08:04 Dose: 1 patch [place] Carbonate ([place] Carbonate Er 450 Mg Tablet.Er) 1,350 mg PO BEDTIME [facility] Last Admin: 12/19/22 19:13 Dose: 1,350 mg Lurasidone HCl (Lurasidone Hcl 20 Mg Tablet) 20 mg PO BEDTIME [facility] Last Admin: 12/19/22 19:14 Dose: 20 mg Lurasidone HCl (Lurasidone Hcl 80 Mg Tablet) 80 mg PO BEDTIME [facility] Last Admin: 12/19/22 19:14 Dose: 80 mg Magnesium Hydroxide (Milk Of Magnesia 30 Ml Oral.Susp) 30 ml PO DAILY PRN PRN Reason: Constipation Metformin HCl (Metformin Hcl Er 750 Mg Tab.Er.24h) 750 mg PO DAILY [facility] Last Admin: 12/20/22 08:01 Dose: 750 mg Neomycin/Polymyxin/Dexamethasone (Neomy/Polymyx/Dexameth Oph [place] 5 Ml Bottle) 1 drop EYE-LEFT QID [facility] Last Admin: 12/20/22 08:01 Dose: 1 drop Omeprazole (Omeprazole 40 Mg Capsule.Dr) 40 mg PO BID [facility] Last Admin: 12/20/22 08:01 Dose: 40 mg Sumatriptan Succinate (Sumatriptan Succinate 100 Mg Tablet) 100 mg PO DAILY PRN PRN Reason: Migraine Headache Last Admin: 12/18/22 11:38 Dose: 100 mg Trazodone HCl (Trazodone Hcl 50 Mg Tablet) 50 mg PO BEDTIME MRX1 PRN PRN Reason: Insomnia Valsartan (Valsartan 80 Mg Tablet) 80 mg PO DAILY [facility] Last Admin: 12/20/22 08:01 Dose: 80 mg Allergies Allergies Allergy/AdvReac Type Severity Reaction Status Date / Time amoxicillin Allergy Severe Rash Verified 12/12/22 13:27 sesame seed [SESAME SEED] Allergy Severe ANAPHYLAXIS Unverified 03/17/20 19:30 lamotrigine [From LAMICTAL] Allergy Intermediate Rash Unverified 03/17/20 19:30 melon [MELON] Allergy Unknown LIPS/CHEEKS Unverified 03/17/20 19:30 SWELLING pine nut [PINE NUT] Allergy Unknown VOMITING Unverified 03/17/20 19:30 venlafaxine [From EFFEXOR] AdvReac Severe pt reports Unverified 03/17/20 19:30 severe adverse response by history banana [BANANA] AdvReac Unknown HEART BURN Unverified 03/17/20 19:30 pumpkin [PUMPKIN] AdvReac Unknown (PUMPKIN Unverified 03/17/20 19:30 SEEDS) VOMITING Assessment & Plan Assessment & Plan (1) PTSD (post-traumatic stress disorder): Status: Acute Code(s): F43.10 - Post-traumatic stress disorder, unspecified (2) Bipolar disorder: Status: Acute Code(s): F31.9 - Bipolar disorder, unspecified Assessment and Plan: 12/17/22- Continue current regime and plan. [place] education 12/18/22- Continue with placement search. Continue current medication regime. 12/20/22- [place] is therapeutic Continue current regime and plan. Patient educated on: medication risk/benefits Informed Consent: understands and further education needed Reason for continued inpatient stay Substantial Risk for: harm to self, inability to function and rapid decompensation Time Spent With Patient Time: Total time managing care of this patient today ____ minutes.
[2022-12-20] MEDS: SUMAtriptan succinate 100 MG TABLET PO (17:55)
[2022-12-20 18:00] VITALS: BP 126/65; PULSE 66; RESP 16; TEMP 36.6; O2SAT 16
[2022-12-20] MEDS: Lithium Carbonate ER 450 MG TABLET.ER 1350 MG PO (20:50)
[2022-12-20] MEDS: Lurasidone HCl 20 MG TABLET PO (20:50)
[2022-12-20] MEDS: Lurasidone HCl 80 MG TABLET PO (20:50)
[2022-12-20] MEDS: hydrOXYzine HCL 10 MG TABLET PO (21:50)
[2022-12-21 06:00] VITALS: BP 121/71; PULSE 86; RESP 16; TEMP 36.7; O2SAT 96
[2022-12-21] MEDS: metFORMIN HCl ER 750 MG TAB.ER.24H PO (08:33)
[2022-12-21] MEDS: busPIRone HCl 10 MG TABLET PO (08:33)
[2022-12-21] MEDS: Escitalopram Oxalate 20 MG TABLET PO (08:33)
[2022-12-21] MEDS: Omeprazole 40 MG CAPSULE.DR PO ×2 (08:34→19:52)
[2022-12-21] MEDS: Valsartan 80 MG TABLET PO (08:34)
[2022-12-21] MEDS: Lidocaine 4 % Patch ADH..PATCH 1 PATCH TRANSDERMA (08:34)
[2022-12-21] MEDS: Fluticasone Propionate 250 MCG BLST.W.DEV 1 PUFF INHALE (08:35)
[2022-12-21] MEDS: NeoMY/Polymyx/Dexameth Oph Sus 5 ML BOTTLE 1 DROP EYE-LEFT ×4 (08:35→20:09)
[2022-12-21] MEDS: SUMAtriptan succinate 100 MG TABLET PO (14:06)
--- NOTE | 2022-12-21 14:23 | P.PNPSI_ITS ---
Subjective Subjective Date of Service: 12/21/22 Reason For Visit: SI Subjective Notes: Conditional Voluntary Healthcare Proxy: No Guardianship: No Medical Problems Affecting Mental Status: No Interim History: Discussed concerns about meds today. Feeling anxious but overmedicated at times. Buspirone increased, [place] decreased. Discussed concerns about compliance at discharge. Reviewed options for Med Lock Box, Bubble Packing, VNA. He is interested in all of these Medication Compliance: Yes Side effects from medications: Yes (sedation) Attending Groups: Yes Review of Systems Acute medical concerns: No Medical Review of Systems: unchanged Mental Status Exam Mental Status Exam Patient Appearance: Appropriate Patient Orientation: Person, Place, Time and Situation Level of Consciousness: Alert Patient Behavior: Appropriate, Talkative, Cooperative, Fatigued, Distractible and Good Eye Contact Mood Description: Withdrawn, Depressed, Anxious and Apprehensive Affect Description: Withdrawn, Anxious, Flat and Apprehensive Patient Cognition Impaired: No Ability to Follow Directions: Good Speech Pattern: Spontaneous Speech Memory Description: Intact and Episodic Impaired Hallucinations: None Delusions: Not Present Perceptual Disturbances: Depersonalization and Derealization Thought Process: Goal Oriented Thought Content: positive for Goal Oriented, positive for Suicidal Ideation (passive) and positive for Homicidal Ideation (denies) Depressive Symptoms: Increased Anxiety, Hopelessness, Thoughts of /Suicide (passive) and Difficulty Concentrating Judgement: Good Diagnostics Vital Signs (24Hr): Vital Signs - 24 hr 12/20/22 18:00 12/21/22 06:00 Temperature 97.9 F 98.0 F Pulse Rate 66 86 Respiratory Rate 16 16 Blood Pressure 126/65 121/71 Pulse Oximetry 16 L 96 Oxygen Delivery Method Room Air Room Air BMI result Body Mass Index 38.7 Labs 12/11/22 15:57 12/20/22 08:25 Labs: Laboratory Results - last 48 hr 12/20/22 12/20/22 08:25 08:25 Sodium 138 Potassium 3.6 Chloride 106 Carbon Dioxide 24 Anion Gap 12 BUN 10 Creatinine 1.05 Estim Creat Clear Calc 103.8 Estimated GFR > 60 TSH 1.42 [place] 1.14 Medications Medications Current Medications Acetaminophen (Acetaminophen 325 Mg Tablet) 650 mg PO Q6H PRN PRN Reason: Headache/Pain Mild Scale (1-3) Last Admin: 12/19/22 14:17 Dose: 650 mg Al Hydroxide/Mg Hydroxide (Magnesium Hydrox/Alum Hydrox 30 Ml Oral.Susp) 30 ml PO Q6H PRN PRN Reason: Heartburn/Nausea Buspirone HCl (Buspirone Hcl 5 Mg Tablet) 15 mg PO TID [facility] Escitalopram Oxalate (Escitalopram Oxalate 20 Mg Tablet) 20 mg PO DAILY [facility] Last Admin: 12/21/22 08:33 Dose: 20 mg Fluticasone Propionate (Fluticasone Propionate 250 Mcg Blst.W.Dev) 1 puff INHALE RBID [facility] Last Admin: 12/21/22 08:35 Dose: 1 puff Hydroxyzine HCl (Hydroxyzine Hcl 10 Mg Tablet) 10 mg PO Q6H PRN PRN Reason: Anxiety Last Admin: 12/20/22 21:50 Dose: 10 mg Ketoconazole (Ketoconazole 2 % Shampoo 120 Ml Btl) 1 appl TOPICAL MoTh@2000 [facility]; Protocol Last Admin: 12/20/22 21:28 Dose: Not Given Lidocaine (Lidocaine 4 % Patch Adh..Patch) 1 patch TRANSDERMA DAILY [facility]; Protocol Last Admin: 12/21/22 08:34 Dose: 1 patch [place] Carbonate ([place] Carbonate Er 300 Mg Tablet.Er) 1,200 mg PO BEDTIME [facility] Lurasidone HCl (Lurasidone Hcl 20 Mg Tablet) 20 mg PO BEDTIME [facility] Last Admin: 12/20/22 20:50 Dose: 20 mg Lurasidone HCl (Lurasidone Hcl 80 Mg Tablet) 80 mg PO BEDTIME [facility] Last Admin: 12/20/22 20:50 Dose: 80 mg Magnesium Hydroxide (Milk Of Magnesia 30 Ml Oral.Susp) 30 ml PO DAILY PRN PRN Reason: Constipation Metformin HCl (Metformin Hcl Er 750 Mg Tab.Er.24h) 750 mg PO DAILY [facility] Last Admin: 12/21/22 08:33 Dose: 750 mg Neomycin/Polymyxin/Dexamethasone (Neomy/Polymyx/Dexameth Oph [place] 5 Ml Bottle) 1 drop EYE-LEFT QID [facility] Last Admin: 12/21/22 13:00 Dose: 1 drop Omeprazole (Omeprazole 40 Mg Capsule.Dr) 40 mg PO BID [facility] Last Admin: 12/21/22 08:34 Dose: 40 mg Sumatriptan Succinate (Sumatriptan Succinate 100 Mg Tablet) 100 mg PO DAILY PRN PRN Reason: Migraine Headache Last Admin: 12/21/22 14:06 Dose: 100 mg Trazodone HCl (Trazodone Hcl 50 Mg Tablet) 50 mg PO BEDTIME MRX1 PRN PRN Reason: Insomnia Valsartan (Valsartan 80 Mg Tablet) 80 mg PO DAILY [facility] Last Admin: 12/21/22 08:34 Dose: 80 mg Allergies Allergies Allergy/AdvReac Type Severity Reaction Status Date / Time amoxicillin Allergy Severe Rash Verified 12/12/22 13:27 sesame seed [SESAME SEED] Allergy Severe ANAPHYLAXIS Unverified 03/17/20 19:30 lamotrigine [From LAMICTAL] Allergy Intermediate Rash Unverified 03/17/20 19:30 melon [MELON] Allergy Unknown LIPS/CHEEKS Unverified 03/17/20 19:30 SWELLING pine nut [PINE NUT] Allergy Unknown VOMITING Unverified 03/17/20 19:30 venlafaxine [From EFFEXOR] AdvReac Severe pt reports Unverified 03/17/20 19:30 severe adverse response by history banana [BANANA] AdvReac Unknown HEART BURN Unverified 03/17/20 19:30 pumpkin [PUMPKIN] AdvReac Unknown (PUMPKIN Unverified 03/17/20 19:30 SEEDS) VOMITING Assessment & Plan Assessment & Plan (1) PTSD (post-traumatic stress disorder): Status: Acute Code(s): F43.10 - Post-traumatic stress disorder, unspecified (2) Bipolar disorder: Status: Acute Code(s): F31.9 - Bipolar disorder, unspecified Assessment and Plan: 12/17/22- Continue current regime and plan. [place] education 12/18/22- Continue with placement search. Continue current medication regime. 12/20/22- Shonto is therapeutic Continue current regime and plan. 12/21/22- Decrease Sh[place] to 1200 mg HS Increase Buspirone to 15 mg tid Patient educated on: medication risk/benefits Informed Consent: understands Reason for continued inpatient stay Substantial Risk for: rapid decompensation Time Spent With Patient Time: Total time managing care of this patient today ____ minutes.
[2022-12-21] MEDS: busPIRone HCl 5 MG TABLET 15 MG PO ×2 (14:31→19:52)
[2022-12-21 16:03] VITALS: BP 126/78; PULSE 75; RESP 16; TEMP 36.6; O2SAT 97
[2022-12-21] MEDS: Lurasidone HCl 80 MG TABLET PO (19:52)
[2022-12-21] MEDS: Lithium Carbonate ER 300 MG TABLET.ER 1200 MG PO (19:52)
[2022-12-21] MEDS: Lurasidone HCl 20 MG TABLET PO (19:52)
[2022-12-22 06:00] VITALS: BP 118/76; PULSE 80; RESP 18
[2022-12-22] MEDS: Fluticasone Propionate 250 MCG BLST.W.DEV 1 PUFF INHALE ×2 (08:31→21:48)
[2022-12-22] MEDS: busPIRone HCl 5 MG TABLET 15 MG PO ×3 (08:32→21:46)
[2022-12-22] MEDS: Lidocaine 4 % Patch ADH..PATCH 1 PATCH TRANSDERMA (08:32)
[2022-12-22] MEDS: Omeprazole 40 MG CAPSULE.DR PO ×2 (08:32→21:45)
[2022-12-22] MEDS: metFORMIN HCl ER 750 MG TAB.ER.24H PO (08:32)
[2022-12-22] MEDS: Escitalopram Oxalate 20 MG TABLET PO (08:32)
[2022-12-22] MEDS: Valsartan 80 MG TABLET PO (08:32)
[2022-12-22] MEDS: NeoMY/Polymyx/Dexameth Oph Sus 5 ML BOTTLE 1 DROP EYE-LEFT ×4 (08:34→21:49)
--- NOTE | 2022-12-22 11:36 | HO.PSYCHPN ---
Subjective Subjective Date of Service: 12/22/22 Reason For Visit: SI Interim History: Patient seen. Discussed with team. He says he is doing better. He reports he feels the medications have been helpful. 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 He was pleasant and cooperative. He denies SI. Denies HI. He is social on the unit. No psychosis. Review of Systems Review of Systems Left eye pain and wateriness Left eye blurriness Pruritic scalp Yes all other systems are reviewed and are negative Constitutional: Reports lethargy Eyes: Reports eye discharge, Reports irritation, Reports itchy eyes, Reports other visual disturbances and Reports eye pain Reports system reviewed and no additional complaints, except as documented Cardiovascular: Reports no additional cardiovascular complaints Respiratory: Reports no additional respiratory complaints Gastrointestinal: Reports no additional gastrointestinal complaints Genitourinary: Reports no additional male genitourinary complaints Musculoskeletal: Reports no additional musculoskeletal complaints Skin/Breast: Reports bleeding lesions (scalp) and Reports sores Reports system reviewed and no additional complaints, except as documented and Reports behavioral changes Psychiatric: Reports abnormal sleep pattern, Reports anxiety, Reports behavioral changes, Reports change in appetite, Reports depression, Reports difficulty concentrating, Reports hopelessness and Reports suicidal ideation Endocrine: Reports no additional endocrine complaints Hematologic/Lymphatic: Reports no additional hematologic/lymphatic complaints Allergic/Immunologic: Reports itchy eyes Mental Status Exam Mental Status Exam Narrative: Pt is alert and oriented; behavior is cooperative, friendly and calm; patient is not in distress; dressed in hospital attire with unkempt hair but adequate hygiene; mood is described as little better and affect is congruent, calm, brighter; eye contact appropriate; Speech is normal rate, volume and prosody and not pressured; no psychomotor retardation present; thought process is organized and goal directed; Thought content is on treatment, overcoming depression and SI; otherwise pertinent to relevant topics and without any delusional content, paranoid ideations or grandiosity expressed; continues to have SI but much less so; no HI. There is no evidence of perceptual disturbance. Patients insight and judgment are impaired but improving Patient Appearance: Appropriate Patient Orientation: Person, Place, Time and Situation Level of Consciousness: Alert Patient Behavior: Appropriate, Talkative, Cooperative, Fatigued, Distractible and Good Eye Contact Mood Description: Withdrawn, Depressed, Anxious and Apprehensive Affect Description: Withdrawn, Anxious, Flat and Apprehensive Patient Cognition Impaired: No Ability to Follow Directions: Good Speech Pattern: Spontaneous Speech Memory Description: Intact and Episodic Impaired Diagnostics Vital Signs (24Hr): Vital Signs - 24 hr 12/21/22 16:03 12/22/22 06:00 Temperature 97.8 F Pulse Rate 75 80 Respiratory Rate 16 18 Blood Pressure 126/78 118/76 Pulse Oximetry 97 Oxygen Delivery Method Room Air BMI result Body Mass Index 38.7 Labs 12/11/22 15:57 12/20/22 08:25 Medications Medications Current Medications Acetaminophen (Acetaminophen 325 Mg Tablet) 650 mg PO Q6H PRN PRN Reason: Headache/Pain Mild Scale (1-3) Last Admin: 12/19/22 14:17 Dose: 650 mg Al Hydroxide/Mg Hydroxide (Magnesium Hydrox/Alum Hydrox 30 Ml Oral.Susp) 30 ml PO Q6H PRN PRN Reason: Heartburn/Nausea Buspirone HCl (Buspirone Hcl 5 Mg Tablet) 15 mg PO TID [facility] Last Admin: 12/22/22 08:32 Dose: 15 mg Escitalopram Oxalate (Escitalopram Oxalate 20 Mg Tablet) 20 mg PO DAILY [facility] Last Admin: 12/22/22 08:32 Dose: 20 mg Fluticasone Propionate (Fluticasone Propionate 250 Mcg Blst.W.Dev) 1 puff INHALE RBID [facility] Last Admin: 12/22/22 08:31 Dose: 1 puff Hydroxyzine HCl (Hydroxyzine Hcl 10 Mg Tablet) 10 mg PO Q6H PRN PRN Reason: Anxiety Last Admin: 12/20/22 21:50 Dose: 10 mg Ketoconazole (Ketoconazole 2 % Shampoo 120 Ml Btl) 1 appl TOPICAL MoTh@2000 [facility]; Protocol Last Admin: 12/20/22 21:28 Dose: Not Given Lidocaine (Lidocaine 4 % Patch Adh..Patch) 1 patch TRANSDERMA DAILY [facility]; Protocol Last Admin: 12/22/22 08:32 Dose: 1 patch [place] Carbonate ([place] Carbonate Er 300 Mg Tablet.Er) 1,200 mg PO BEDTIME [facility] Last Admin: 12/21/22 19:52 Dose: 1,200 mg Lurasidone HCl (Lurasidone Hcl 20 Mg Tablet) 20 mg PO BEDTIME [facility] Last Admin: 12/21/22 19:52 Dose: 20 mg Lurasidone HCl (Lurasidone Hcl 80 Mg Tablet) 80 mg PO BEDTIME [facility] Last Admin: 12/21/22 19:52 Dose: 80 mg Magnesium Hydroxide (Milk Of Magnesia 30 Ml Oral.Susp) 30 ml PO DAILY PRN PRN Reason: Constipation Metformin HCl (Metformin Hcl Er 750 Mg Tab.Er.24h) 750 mg PO DAILY [facility] Last Admin: 12/22/22 08:32 Dose: 750 mg Neomycin/Polymyxin/Dexamethasone (Neomy/Polymyx/Dexameth Oph [place] 5 Ml Bottle) 1 drop EYE-LEFT QID [facility] Last Admin: 12/22/22 08:34 Dose: 1 drop Omeprazole (Omeprazole 40 Mg Capsule.Dr) 40 mg PO BID [facility] Last Admin: 12/22/22 08:32 Dose: 40 mg Sumatriptan Succinate (Sumatriptan Succinate 100 Mg Tablet) 100 mg PO DAILY PRN PRN Reason: Migraine Headache Last Admin: 12/21/22 14:06 Dose: 100 mg Trazodone HCl (Trazodone Hcl 50 Mg Tablet) 50 mg PO BEDTIME MRX1 PRN PRN Reason: Insomnia Valsartan (Valsartan 80 Mg Tablet) 80 mg PO DAILY [facility] Last Admin: 12/22/22 08:32 Dose: 80 mg Allergies Allergies Allergy/AdvReac Type Severity Reaction Status Date / Time amoxicillin Allergy Severe Rash Verified 12/12/22 13:27 sesame seed [SESAME SEED] Allergy Severe ANAPHYLAXIS Unverified 03/17/20 19:30 lamotrigine [From LAMICTAL] Allergy Intermediate Rash Unverified 03/17/20 19:30 melon [MELON] Allergy Unknown LIPS/CHEEKS Unverified 03/17/20 19:30 SWELLING pine nut [PINE NUT] Allergy Unknown VOMITING Unverified 03/17/20 19:30 venlafaxine [From EFFEXOR] AdvReac Severe pt reports Unverified 03/17/20 19:30 severe adverse response by history banana [BANANA] AdvReac Unknown HEART BURN Unverified 03/17/20 19:30 pumpkin [PUMPKIN] AdvReac Unknown (PUMPKIN Unverified 03/17/20 19:30 SEEDS) VOMITING Assessment & Plan Assessment & Plan (1) PTSD (post-traumatic stress disorder): Status: Acute Code(s): F43.10 - Post-traumatic stress disorder, unspecified (2) Bipolar disorder: Status: Acute Code(s): F31.9 - Bipolar disorder, unspecified Assessment and Plan: 12/17/22- Continue current regime and plan. [place] education 12/18/22- Continue with placement search. Continue current medication regime. 12/20/22- [place] is therapeutic Continue current regime and plan. 12/21/22- Decrease [place] to 1200 mg HS Increase Buspirone to 15 mg tid 12/22: Continue current treatment plan. Reason for continued inpatient stay Substantial Risk for: harm to self and rapid decompensation Time Spent With Patient Time: Total time managing care of this patient today ____ minutes.
[2022-12-22 16:00] VITALS: BP 125/58; PULSE 70; TEMP 36.5
[2022-12-22] MEDS: SUMAtriptan succinate 100 MG TABLET PO (21:44)
[2022-12-22] MEDS: Lurasidone HCl 20 MG TABLET PO (21:45)
[2022-12-22] MEDS: Lurasidone HCl 80 MG TABLET PO (21:46)
[2022-12-22] MEDS: Lithium Carbonate ER 300 MG TABLET.ER 1200 MG PO (21:47)
[2022-12-23] MEDS: Escitalopram Oxalate 20 MG TABLET PO (08:02)
[2022-12-23] MEDS: metFORMIN HCl ER 750 MG TAB.ER.24H PO (08:02)
[2022-12-23] MEDS: Omeprazole 40 MG CAPSULE.DR PO ×2 (08:02→20:32)
[2022-12-23] MEDS: busPIRone HCl 5 MG TABLET 15 MG PO ×3 (08:02→20:32)
[2022-12-23] MEDS: Valsartan 80 MG TABLET PO (08:02)
[2022-12-23] MEDS: Fluticasone Propionate 250 MCG BLST.W.DEV 1 PUFF INHALE ×2 (08:12→20:30)
[2022-12-23] MEDS: NeoMY/Polymyx/Dexameth Oph Sus 5 ML BOTTLE 1 DROP EYE-LEFT ×4 (08:12→20:31)
[2022-12-23 08:21] VITALS: BP 116/57; PULSE 89; RESP 16; TEMP 36.5; O2SAT 97
[2022-12-23] MEDS: hydrOXYzine HCL 10 MG TABLET PO (13:28)
[2022-12-23 17:15] VITALS: BP 116/61; PULSE 67; TEMP 36.1
--- NOTE | 2022-12-23 19:41 | HO.PSYCHPN ---
Subjective Subjective Date of Service: 12/23/22 Reason For Visit: SI Interim History: Patient seen. Discussed with team. Continues to report improvement in mood. No SI. Future oriented. Tolerating medications well. He is seen social in the milieu and laughing with peers and staff. Appears in a good mood. He denies SI. Denies HI. He is social on the unit. No psychosis. Review of Systems Review of Systems Left eye pain and wateriness Left eye blurriness Pruritic scalp Yes all other systems are reviewed and are negative Constitutional: Reports lethargy Eyes: Reports eye discharge, Reports irritation, Reports itchy eyes, Reports other visual disturbances and Reports eye pain Reports system reviewed and no additional complaints, except as documented Cardiovascular: Reports no additional cardiovascular complaints Respiratory: Reports no additional respiratory complaints Gastrointestinal: Reports no additional gastrointestinal complaints Genitourinary: Reports no additional male genitourinary complaints Musculoskeletal: Reports no additional musculoskeletal complaints Skin/Breast: Reports bleeding lesions (scalp) and Reports sores Reports system reviewed and no additional complaints, except as documented and Reports behavioral changes Psychiatric: Reports abnormal sleep pattern, Reports anxiety, Reports behavioral changes, Reports change in appetite, Reports depression, Reports difficulty concentrating, Reports hopelessness and Reports suicidal ideation Endocrine: Reports no additional endocrine complaints Hematologic/Lymphatic: Reports no additional hematologic/lymphatic complaints Allergic/Immunologic: Reports itchy eyes Mental Status Exam Mental Status Exam Narrative: Pt is alert and oriented; behavior is cooperative, friendly and calm; patient is not in distress; dressed in hospital attire with unkempt hair but adequate hygiene; mood is described as little better and affect is congruent, calm, brighter; eye contact appropriate; Speech is normal rate, volume and prosody and not pressured; no psychomotor retardation present; thought process is organized and goal directed; Thought content is on treatment, overcoming depression and SI; otherwise pertinent to relevant topics and without any delusional content, paranoid ideations or grandiosity expressed; continues to have SI but much less so; no HI. There is no evidence of perceptual disturbance. Patients insight and judgment are impaired but improving Patient Appearance: Appropriate Patient Orientation: Person, Place, Time and Situation Level of Consciousness: Alert Patient Behavior: Appropriate, Talkative, Cooperative, Fatigued, Distractible and Good Eye Contact Mood Description: Withdrawn, Depressed, Anxious and Apprehensive Affect Description: Withdrawn, Anxious, Flat and Apprehensive Patient Cognition Impaired: No Ability to Follow Directions: Good Speech Pattern: Spontaneous Speech Memory Description: Intact and Episodic Impaired Diagnostics Vital Signs (24Hr): Vital Signs - 24 hr 12/23/22 08:21 Temperature 97.7 F Pulse Rate 89 Respiratory Rate 16 Blood Pressure 116/57 L Pulse Oximetry 97 Oxygen Delivery Method Room Air BMI result Body Mass Index 38.7 Labs 12/11/22 15:57 12/20/22 08:25 Medications Medications Current Medications Acetaminophen (Acetaminophen 325 Mg Tablet) 650 mg PO Q6H PRN PRN Reason: Headache/Pain Mild Scale (1-3) Last Admin: 12/19/22 14:17 Dose: 650 mg Al Hydroxide/Mg Hydroxide (Magnesium Hydrox/Alum Hydrox 30 Ml Oral.Susp) 30 ml PO Q6H PRN PRN Reason: Heartburn/Nausea Buspirone HCl (Buspirone Hcl 5 Mg Tablet) 15 mg PO TID [facility] Last Admin: 12/23/22 14:02 Dose: 15 mg Escitalopram Oxalate (Escitalopram Oxalate 20 Mg Tablet) 20 mg PO DAILY [facility] Last Admin: 12/23/22 08:02 Dose: 20 mg Fluticasone Propionate (Fluticasone Propionate 250 Mcg Blst.W.Dev) 1 puff INHALE RBID [facility] Last Admin: 12/23/22 08:12 Dose: 1 puff Hydroxyzine HCl (Hydroxyzine Hcl 10 Mg Tablet) 10 mg PO Q6H PRN PRN Reason: Anxiety Last Admin: 12/23/22 13:28 Dose: 10 mg Ketoconazole (Ketoconazole 2 % Shampoo 120 Ml Btl) 1 appl TOPICAL MoTh@2000 [facility]; Protocol Last Admin: 12/20/22 21:28 Dose: Not Given Lidocaine (Lidocaine 4 % Patch Adh..Patch) 1 patch TRANSDERMA DAILY [facility]; Protocol Last Admin: 12/23/22 08:20 Dose: Not Given [place] Carbonate ([place] Carbonate Er 300 Mg Tablet.Er) 1,200 mg PO BEDTIME [facility] Last Admin: 12/22/22 21:47 Dose: 1,200 mg Lurasidone HCl (Lurasidone Hcl 20 Mg Tablet) 20 mg PO BEDTIME [facility] Last Admin: 12/22/22 21:45 Dose: 20 mg Lurasidone HCl (Lurasidone Hcl 80 Mg Tablet) 80 mg PO BEDTIME [facility] Last Admin: 12/22/22 21:46 Dose: 80 mg Magnesium Hydroxide (Milk Of Magnesia 30 Ml Oral.Susp) 30 ml PO DAILY PRN PRN Reason: Constipation Metformin HCl (Metformin Hcl Er 750 Mg Tab.Er.24h) 750 mg PO DAILY [facility] Last Admin: 12/23/22 08:02 Dose: 750 mg Neomycin/Polymyxin/Dexamethasone (Neomy/Polymyx/Dexameth Oph [place] 5 Ml Bottle) 1 drop EYE-LEFT QID [facility] Last Admin: 12/23/22 17:15 Dose: 1 drop Omeprazole (Omeprazole 40 Mg Capsule.Dr) 40 mg PO BID [facility] Last Admin: 12/23/22 08:02 Dose: 40 mg Sumatriptan Succinate (Sumatriptan Succinate 100 Mg Tablet) 100 mg PO DAILY PRN PRN Reason: Migraine Headache Last Admin: 12/22/22 21:44 Dose: 100 mg Trazodone HCl (Trazodone Hcl 50 Mg Tablet) 50 mg PO BEDTIME MRX1 PRN PRN Reason: Insomnia Valsartan (Valsartan 80 Mg Tablet) 80 mg PO DAILY [facility] Last Admin: 12/23/22 08:02 Dose: 80 mg Allergies Allergies Allergy/AdvReac Type Severity Reaction Status Date / Time amoxicillin Allergy Severe Rash Verified 12/12/22 13:27 sesame seed [SESAME SEED] Allergy Severe ANAPHYLAXIS Unverified 03/17/20 19:30 lamotrigine [From LAMICTAL] Allergy Intermediate Rash Unverified 03/17/20 19:30 melon [MELON] Allergy Unknown LIPS/CHEEKS Unverified 03/17/20 19:30 SWELLING pine nut [PINE NUT] Allergy Unknown VOMITING Unverified 03/17/20 19:30 venlafaxine [From EFFEXOR] AdvReac Severe pt reports Unverified 03/17/20 19:30 severe adverse response by history banana [BANANA] AdvReac Unknown HEART BURN Unverified 03/17/20 19:30 pumpkin [PUMPKIN] AdvReac Unknown (PUMPKIN Unverified 03/17/20 19:30 SEEDS) VOMITING Assessment & Plan Assessment & Plan (1) PTSD (post-traumatic stress disorder): Status: Acute Code(s): F43.10 - Post-traumatic stress disorder, unspecified (2) Bipolar disorder: Status: Acute Code(s): F31.9 - Bipolar disorder, unspecified Assessment and Plan: 12/17/22- Continue current regime and plan. [place] education 12/18/22- Continue with placement search. Continue current medication regime. 12/20/22- [place] is therapeutic Continue current regime and plan. 12/21/22- Decrease [place] to 1200 mg HS Increase Buspirone to 15 mg tid 12/22: Continue current treatment plan. 12/23: Continue current plan. Reason for continued inpatient stay Substantial Risk for: harm to self and rapid decompensation Time Spent With Patient Time: Total time managing care of this patient today ____ minutes.
[2022-12-23] MEDS: Lurasidone HCl 20 MG TABLET PO (20:32)
[2022-12-23] MEDS: Lithium Carbonate ER 300 MG TABLET.ER 1200 MG PO (20:32)
[2022-12-23] MEDS: Lurasidone HCl 80 MG TABLET PO (20:33)
[2022-12-24] MEDS: metFORMIN HCl ER 750 MG TAB.ER.24H PO (08:06)
[2022-12-24] MEDS: Omeprazole 40 MG CAPSULE.DR PO ×2 (08:06→20:17)
[2022-12-24] MEDS: Escitalopram Oxalate 20 MG TABLET PO (08:06)
[2022-12-24] MEDS: busPIRone HCl 5 MG TABLET 15 MG PO ×3 (08:07→20:17)
[2022-12-24] MEDS: Valsartan 80 MG TABLET PO (08:07)
[2022-12-24] MEDS: Fluticasone Propionate 250 MCG BLST.W.DEV 1 PUFF INHALE ×2 (08:08→20:18)
[2022-12-24] MEDS: NeoMY/Polymyx/Dexameth Oph Sus 5 ML BOTTLE 1 DROP EYE-LEFT ×4 (08:08→21:28)
[2022-12-24 08:24] VITALS: BP 130/78; PULSE 76; RESP 16; TEMP 36.6; O2SAT 98
[2022-12-24] MEDS: SUMAtriptan succinate 100 MG TABLET PO (15:26)
--- NOTE | 2022-12-24 16:42 | HO.PSYCHPN ---
Subjective Subjective Date of Service: 12/24/22 Reason For Visit: SI Subjective Notes: Conditional Voluntary Healthcare Proxy: No Guardianship: No Medical Problems Affecting Mental Status: No Interim History: I think I will just on the street. Discussed concerns about not being able to find supported housing. We reviewed potential options Discussed his anxiety, working on this in groups, tolerating med adjustments from last week Discussed dietary issues-message sent to endoscopic technician team Pt overall feeling hopeless and negative about his prospects to find a place to learn to live independently, low self esteem and feeling like a failure leads to increase in SI. Medication Compliance: Yes Side effects from medications: No Attending Groups: Yes Review of Systems Acute medical concerns: No Medical Review of Systems: unchanged Mental Status Exam Mental Status Exam Patient Appearance: Appropriate Patient Orientation: Person, Place, Time and Situation Level of Consciousness: Alert Patient Behavior: Talkative, Good Eye Contact and Crying Mood Description: Depressed Affect Description: Flat Patient Cognition Impaired: Yes Ability to Follow Directions: Fair Speech Pattern: Spontaneous Speech Memory Description: Episodic Impaired Hallucinations: None Delusions: Paranoid Ideation Perceptual Disturbances: Depersonalization and Derealization Thought Process: Rumination Thought Content: positive for Perseveration and positive for Suicidal Ideation Depressive Symptoms: Increased Anxiety, Hopelessness, Thoughts of /Suicide and Low Self Esteem Judgement: Fair Diagnostics Vital Signs (24Hr): Vital Signs - 24 hr 12/23/22 17:15 12/24/22 08:24 Temperature 96.9 F 97.8 F Pulse Rate 67 76 Respiratory Rate 16 Blood Pressure 116/61 130/78 Pulse Oximetry 98 Oxygen Delivery Method Room Air BMI result Body Mass Index 38.7 Labs 12/11/22 15:57 12/20/22 08:25 Medications Medications Current Medications Acetaminophen (Acetaminophen 325 Mg Tablet) 650 mg PO Q6H PRN PRN Reason: Headache/Pain Mild Scale (1-3) Last Admin: 12/19/22 14:17 Dose: 650 mg Al Hydroxide/Mg Hydroxide (Magnesium Hydrox/Alum Hydrox 30 Ml Oral.Susp) 30 ml PO Q6H PRN PRN Reason: Heartburn/Nausea Buspirone HCl (Buspirone Hcl 5 Mg Tablet) 15 mg PO TID [facility] Last Admin: 12/24/22 14:08 Dose: 15 mg Escitalopram Oxalate (Escitalopram Oxalate 20 Mg Tablet) 20 mg PO DAILY [facility] Last Admin: 12/24/22 08:06 Dose: 20 mg Fluticasone Propionate (Fluticasone Propionate 250 Mcg Blst.W.Dev) 1 puff INHALE RBID [facility] Last Admin: 12/24/22 08:08 Dose: 1 puff Hydroxyzine HCl (Hydroxyzine Hcl 10 Mg Tablet) 10 mg PO Q6H PRN PRN Reason: Anxiety Last Admin: 12/23/22 13:28 Dose: 10 mg Ketoconazole (Ketoconazole 2 % Shampoo 120 Ml Btl) 1 appl TOPICAL MoTh@1999 [facility]; Protocol Last Admin: 12/20/22 21:28 Dose: Not Given [place] Carbonate ([place] Carbonate Er 300 Mg Tablet.Er) 1,200 mg PO BEDTIME [facility] Last Admin: 12/23/22 20:32 Dose: 1,200 mg Lurasidone HCl (Lurasidone Hcl 20 Mg Tablet) 20 mg PO BEDTIME [facility] Last Admin: 12/23/22 20:32 Dose: 20 mg Lurasidone HCl (Lurasidone Hcl 80 Mg Tablet) 80 mg PO BEDTIME [facility] Last Admin: 12/23/22 20:33 Dose: 80 mg Magnesium Hydroxide (Milk Of Magnesia 30 Ml Oral.Susp) 30 ml PO DAILY PRN PRN Reason: Constipation Metformin HCl (Metformin Hcl Er 750 Mg Tab.Er.24h) 750 mg PO DAILY [facility] Last Admin: 12/24/22 08:06 Dose: 750 mg Neomycin/Polymyxin/Dexamethasone (Neomy/Polymyx/Dexameth Oph [place] 5 Ml Bottle) 1 drop EYE-LEFT QID [facility] Last Admin: 12/24/22 12:58 Dose: 1 drop Omeprazole (Omeprazole 40 Mg Capsule.Dr) 40 mg PO BID [facility] Last Admin: 12/24/22 08:06 Dose: 40 mg Sumatriptan Succinate (Sumatriptan Succinate 100 Mg Tablet) 100 mg PO DAILY PRN PRN Reason: Migraine Headache Last Admin: 12/24/22 15:26 Dose: 100 mg Trazodone HCl (Trazodone Hcl 50 Mg Tablet) 50 mg PO BEDTIME MRX1 PRN PRN Reason: Insomnia Valsartan (Valsartan 80 Mg Tablet) 80 mg PO DAILY [facility] Last Admin: 12/24/22 08:07 Dose: 80 mg Allergies Allergies Allergy/AdvReac Type Severity Reaction Status Date / Time amoxicillin Allergy Severe Rash Verified 12/12/22 13:27 sesame seed [SESAME SEED] Allergy Severe ANAPHYLAXIS Unverified 03/17/20 19:30 lamotrigine [From LAMICTAL] Allergy Intermediate Rash Unverified 03/17/20 19:30 melon [MELON] Allergy Unknown LIPS/CHEEKS Unverified 03/17/20 19:30 SWELLING pine nut [PINE NUT] Allergy Unknown VOMITING Unverified 03/17/20 19:30 venlafaxine [From EFFEXOR] AdvReac Severe pt reports Unverified 03/17/20 19:30 severe adverse response by history banana [BANANA] AdvReac Unknown HEART BURN Unverified 03/17/20 19:30 pumpkin [PUMPKIN] AdvReac Unknown (PUMPKIN Unverified 03/17/20 19:30 SEEDS) VOMITING Assessment & Plan Assessment & Plan (1) PTSD (post-traumatic stress disorder): Status: Acute Code(s): F43.10 - Post-traumatic stress disorder, unspecified (2) Bipolar disorder: Status: Acute Code(s): F31.9 - Bipolar disorder, unspecified Assessment and Plan: 12/17/22- Continue current regime and plan. [place] education 12/18/22- Continue with placement search. Continue current medication regime. 12/20/22- [place] is therapeutic Continue current regime and plan. 12/21/22- Decrease [place] to 1200 mg HS Increase Buspirone to 15 mg tid 12/22: Continue current treatment plan. 12/23: Continue current plan. 12/24/22: Continue current regime and plan Await program interviews to begin Patient educated on: medication risk/benefits and therapeutic strategies Informed Consent: further education needed Reason for continued inpatient stay Substantial Risk for: harm to self and rapid decompensation Time Spent With Patient Time: Total time managing care of this patient today ____ minutes.
[2022-12-24 17:32] VITALS: BP 140/85; PULSE 64; TEMP 36.6; O2SAT 97
[2022-12-24] MEDS: Lurasidone HCl 20 MG TABLET PO (20:17)
[2022-12-24] MEDS: Lurasidone HCl 80 MG TABLET PO (20:17)
[2022-12-24] MEDS: Lithium Carbonate ER 300 MG TABLET.ER 1200 MG PO (20:17)
[2022-12-25 08:25] VITALS: BP 131/73; PULSE 94; RESP 16; TEMP 36.2; O2SAT 97
[2022-12-25] MEDS: metFORMIN HCl ER 750 MG TAB.ER.24H PO (08:36)
[2022-12-25] MEDS: busPIRone HCl 5 MG TABLET 15 MG PO ×3 (08:36→20:51)
[2022-12-25] MEDS: Valsartan 80 MG TABLET PO (08:36)
[2022-12-25] MEDS: Omeprazole 40 MG CAPSULE.DR PO ×2 (08:36→20:52)
[2022-12-25] MEDS: Escitalopram Oxalate 20 MG TABLET PO (08:36)
[2022-12-25] MEDS: NeoMY/Polymyx/Dexameth Oph Sus 5 ML BOTTLE 1 DROP EYE-LEFT ×4 (08:39→20:50)
[2022-12-25] MEDS: SUMAtriptan succinate 100 MG TABLET PO (08:39)
[2022-12-25] MEDS: Fluticasone Propionate 250 MCG BLST.W.DEV 1 PUFF INHALE ×2 (08:39→20:50)
[2022-12-25 09:37] LABS: Lithium 0.87 mmol/L (0.60-1.20)
[2022-12-25] MEDS: hydrOXYzine HCL 10 MG TABLET PO (13:48)
--- NOTE | 2022-12-25 16:54 | HO.PSYCHPN ---
Subjective Subjective Date of Service: 12/25/22 Reason For Visit: SI Subjective Notes: Conditional Voluntary Healthcare Proxy: No Guardianship: No Medical Problems Affecting Mental Status: No Interim History: Pt pleased to interview with [facility] on 12/26. Discussed his anxiety and concerns about being homeless Discussed his risks, SI and thoughts that killing himself would be better than being killed on the street. Concerned about re-application for food stamps as well. Tolerating decrease in [place]. Feeling less lethargic Attending milieu activities. Medication Compliance: Yes Side effects from medications: No Attending Groups: Yes Review of Systems Acute medical concerns: No Medical Review of Systems: unchanged Mental Status Exam Mental Status Exam Patient Appearance: Appropriate Patient Orientation: Person, Place, Time and Situation Level of Consciousness: Alert Patient Behavior: Talkative, Good Eye Contact and Crying Mood Description: Depressed Affect Description: Flat Patient Cognition Impaired: Yes Ability to Follow Directions: Fair Speech Pattern: Spontaneous Speech Memory Description: Episodic Impaired Hallucinations: None Delusions: Paranoid Ideation Perceptual Disturbances: Depersonalization and Derealization Thought Process: Rumination Thought Content: positive for Perseveration and positive for Suicidal Ideation Depressive Symptoms: Increased Anxiety, Hopelessness, Thoughts of /Suicide and Low Self Esteem Judgement: Fair Diagnostics Vital Signs (24Hr): Vital Signs - 24 hr 12/24/22 17:32 12/25/22 08:25 Temperature 97.8 F 97.2 F Pulse Rate 64 94 Respiratory Rate 16 Blood Pressure 140/85 H 131/73 Pulse Oximetry 97 97 Oxygen Delivery Method Room Air Room Air BMI result Body Mass Index 38.7 Labs 12/11/22 15:57 12/20/22 08:25 Labs: Laboratory Results - last 48 hr 12/25/22 07:48 [place] 0.87 Medications Medications Current Medications Acetaminophen (Acetaminophen 325 Mg Tablet) 650 mg PO Q6H PRN PRN Reason: Headache/Pain Mild Scale (1-3) Last Admin: 12/19/22 14:17 Dose: 650 mg Al Hydroxide/Mg Hydroxide (Magnesium Hydrox/Alum Hydrox 30 Ml Oral.Susp) 30 ml PO Q6H PRN PRN Reason: Heartburn/Nausea Buspirone HCl (Buspirone Hcl 5 Mg Tablet) 15 mg PO TID COUNT INCLUDES [facility] Last Admin: 12/25/22 14:17 Dose: 15 mg Escitalopram Oxalate (Escitalopram Oxalate 20 Mg Tablet) 20 mg PO DAILY COUNT INCLUDES [facility] Last Admin: 12/25/22 08:36 Dose: 20 mg Fluticasone Propionate (Fluticasone Propionate 250 Mcg Blst.W.Dev) 1 puff INHALE RBID COUNT INCLUDES THE [facility] Last Admin: 12/25/22 08:39 Dose: 1 puff Hydroxyzine HCl (Hydroxyzine Hcl 10 Mg Tablet) 10 mg PO Q6H PRN PRN Reason: Anxiety Last Admin: 12/25/22 13:48 Dose: 10 mg Ketoconazole (Ketoconazole 2 % Shampoo 120 Ml Btl) 1 appl TOPICAL MoTh@1999 COUNT INCLUDES THE [facility]; Protocol Last Admin: 12/24/22 21:28 Dose: Not Given [place] Carbonate ([place] Carbonate Er 300 Mg Tablet.Er) 1,200 mg PO BEDTIME COUNT INCLUDES THE [facility] Last Admin: 12/24/22 20:17 Dose: 1,200 mg Lurasidone HCl (Lurasidone Hcl 20 Mg Tablet) 20 mg PO BEDTIME COUNT INCLUDES THE [facility] Last Admin: 12/24/22 20:17 Dose: 20 mg Lurasidone HCl (Lurasidone Hcl 80 Mg Tablet) 80 mg PO BEDTIME COUNT INCLUDES THE [facility] Last Admin: 12/24/22 20:17 Dose: 80 mg Magnesium Hydroxide (Milk Of Magnesia 30 Ml Oral.Susp) 30 ml PO DAILY PRN PRN Reason: Constipation Metformin HCl (Metformin Hcl Er 750 Mg Tab.Er.24h) 750 mg PO DAILY COUNT INCLUDES [facility] Last Admin: 12/25/22 08:36 Dose: 750 mg Neomycin/Polymyxin/Dexamethasone (Neomy/Polymyx/Dexameth Oph [place] 5 Ml Bottle) 1 drop EYE-LEFT QID COUNT INCLUDES THE [facility] Last Admin: 12/25/22 13:47 Dose: 1 drop Omeprazole (Omeprazole 40 Mg Capsule.Dr) 40 mg PO BID COUNT INCLUDES THE [facility] Last Admin: 12/25/22 08:36 Dose: 40 mg Sumatriptan Succinate (Sumatriptan Succinate 100 Mg Tablet) 100 mg PO DAILY PRN PRN Reason: Migraine Headache Last Admin: 12/25/22 08:39 Dose: 100 mg Trazodone HCl (Trazodone Hcl 50 Mg Tablet) 50 mg PO BEDTIME MRX1 PRN PRN Reason: Insomnia Valsartan (Valsartan 80 Mg Tablet) 80 mg PO DAILY COUNT INCLUDES [facility] Last Admin: 12/25/22 08:36 Dose: 80 mg Allergies Allergies Allergy/AdvReac Type Severity Reaction Status Date / Time amoxicillin Allergy Severe Rash Verified 12/12/22 13:27 sesame seed [SESAME SEED] Allergy Severe ANAPHYLAXIS Unverified 03/17/20 19:30 lamotrigine [From LAMICTAL] Allergy Intermediate Rash Unverified 03/17/20 19:30 melon [MELON] Allergy Unknown LIPS/CHEEKS Unverified 03/17/20 19:30 SWELLING pine nut [PINE NUT] Allergy Unknown VOMITING Unverified 03/17/20 19:30 venlafaxine [From EFFEXOR] AdvReac Severe pt reports Unverified 03/17/20 19:30 severe adverse response by history banana [BANANA] AdvReac Unknown HEART BURN Unverified 03/17/20 19:30 pumpkin [PUMPKIN] AdvReac Unknown (PUMPKIN Unverified 03/17/20 19:30 SEEDS) VOMITING Assessment & Plan Assessment & Plan (1) PTSD (post-traumatic stress disorder): Status: Acute Code(s): F43.10 - Post-traumatic stress disorder, unspecified (2) Bipolar disorder: Status: Acute Code(s): F31.9 - Bipolar disorder, unspecified Assessment and Plan: 12/17/22- Continue current regime and plan. [place] education 12/18/22- Continue with placement search. Continue current medication regime. 12/20/22- [place] is therapeutic Continue current regime and plan. 12/21/22- Decrease [place] to 1200 mg HS Increase Buspirone to 15 mg tid 12/22: Continue current treatment plan. 12/23: Continue current plan. 12/25/22: Continue current regime and plan. Patient educated on: medication risk/benefits and therapeutic strategies Informed Consent: understands and further education needed Reason for continued inpatient stay Substantial Risk for: harm to self and rapid decompensation Time Spent With Patient Time: Total time managing care of this patient today ____ minutes.
[2022-12-25 16:57] VITALS: BP 112/59; PULSE 74; RESP 18; TEMP 36.6; O2SAT 97
[2022-12-25] MEDS: Lurasidone HCl 20 MG TABLET PO (20:52)
[2022-12-25] MEDS: Lurasidone HCl 80 MG TABLET PO (20:52)
[2022-12-25] MEDS: Lithium Carbonate ER 300 MG TABLET.ER 1200 MG PO (20:53)
[2022-12-26 08:10] VITALS: BP 142/83; PULSE 85; RESP 16; TEMP 36.4; O2SAT 96
[2022-12-26] MEDS: Escitalopram Oxalate 20 MG TABLET PO (08:11)
[2022-12-26] MEDS: Fluticasone Propionate 250 MCG BLST.W.DEV 1 PUFF INHALE ×2 (08:11→20:20)
[2022-12-26] MEDS: metFORMIN HCl ER 750 MG TAB.ER.24H PO (08:11)
[2022-12-26] MEDS: busPIRone HCl 5 MG TABLET 15 MG PO ×3 (08:11→20:22)
[2022-12-26] MEDS: Omeprazole 40 MG CAPSULE.DR PO ×2 (08:11→20:22)
[2022-12-26] MEDS: Valsartan 80 MG TABLET PO (08:11)
[2022-12-26] MEDS: NeoMY/Polymyx/Dexameth Oph Sus 5 ML BOTTLE 1 DROP EYE-LEFT ×4 (08:22→20:20)
[2022-12-26] MEDS: Acetaminophen 325 MG TABLET 650 MG PO (11:15)
[2022-12-26] MEDS: SUMAtriptan succinate 100 MG TABLET PO (11:15)
[2022-12-26] MEDS: Lidocaine 4 % Patch ADH..PATCH 1 PATCH TRANSDERMA (12:22)
--- NOTE | 2022-12-26 16:53 | HO.PSYCHPN ---
Subjective Subjective Date of Service: 12/26/22 Reason For Visit: SI Subjective Notes: Conditional Voluntary Healthcare Proxy: No Guardianship: No Medical Problems Affecting Mental Status: No Interim History: Pt interviewed with [facility] and is told he will be on a waiting list for [facility]. He is pleased about this. Parents have contacted team and ask that he not apply to an apartment suggested as someone was murdered there recently. More isolative today, not as engaged in milieu, resting more after his interview. He reports worry and fear, resulting SI if he cannot find a safe place to be. Medication Compliance: Yes Side effects from medications: No Attending Groups: Yes Review of Systems Acute medical concerns: No Medical Review of Systems: unchanged Mental Status Exam Mental Status Exam Patient Appearance: Appropriate Patient Orientation: Person, Place, Time and Situation Level of Consciousness: Alert Patient Behavior: Talkative, Good Eye Contact and Crying Mood Description: Depressed Affect Description: Flat Patient Cognition Impaired: Yes Ability to Follow Directions: Fair Speech Pattern: Spontaneous Speech Memory Description: Episodic Impaired Hallucinations: None Delusions: Paranoid Ideation Perceptual Disturbances: Depersonalization and Derealization Thought Process: Rumination Thought Content: positive for Perseveration and positive for Suicidal Ideation Depressive Symptoms: Increased Anxiety, Hopelessness, Thoughts of /Suicide and Low Self Esteem Judgement: Fair Diagnostics Vital Signs (24Hr): Vital Signs - 24 hr 12/25/22 16:57 12/26/22 08:10 Temperature 97.8 F 97.5 F Pulse Rate 74 85 Respiratory Rate 18 16 Blood Pressure 112/59 L 142/83 H Pulse Oximetry 97 96 Oxygen Delivery Method Room Air Room Air BMI result Body Mass Index 38.7 Labs 12/11/22 15:57 12/20/22 08:25 Labs: Laboratory Results - last 48 hr 12/25/22 07:48 [place] 0.87 Medications Medications Current Medications Acetaminophen (Acetaminophen 325 Mg Tablet) 650 mg PO Q6H PRN PRN Reason: Headache/Pain Mild Scale (1-3) Last Admin: 12/26/22 11:15 Dose: 650 mg Al Hydroxide/Mg Hydroxide (Magnesium Hydrox/Alum Hydrox 30 Ml Oral.Susp) 30 ml PO Q6H PRN PRN Reason: Heartburn/Nausea Buspirone HCl (Buspirone Hcl 5 Mg Tablet) 15 mg PO TID [facility] Last Admin: 12/26/22 14:52 Dose: 15 mg Escitalopram Oxalate (Escitalopram Oxalate 20 Mg Tablet) 20 mg PO DAILY [facility] Last Admin: 12/26/22 08:11 Dose: 20 mg Fluticasone Propionate (Fluticasone Propionate 250 Mcg Blst.W.Dev) 1 puff INHALE RBID [facility] Last Admin: 12/26/22 08:11 Dose: 1 puff Hydroxyzine HCl (Hydroxyzine Hcl 10 Mg Tablet) 10 mg PO Q6H PRN PRN Reason: Anxiety Last Admin: 12/25/22 13:48 Dose: 10 mg Ketoconazole (Ketoconazole 2 % Shampoo 120 Ml Btl) 1 appl TOPICAL MoTh@2000 [facility]; Protocol Last Admin: 12/24/22 21:28 Dose: Not Given Lidocaine (Lidocaine 4 % Patch Adh..Patch) 1 patch TRANSDERMA DAILY [facility]; Protocol Last Admin: 12/26/22 12:22 Dose: 1 patch [place] Carbonate ([place] Carbonate Er 300 Mg Tablet.Er) 1,200 mg PO BEDTIME [facility] Last Admin: 12/25/22 20:53 Dose: 1,200 mg Lurasidone HCl (Lurasidone Hcl 20 Mg Tablet) 20 mg PO BEDTIME [facility] Last Admin: 12/25/22 20:52 Dose: 20 mg Lurasidone HCl (Lurasidone Hcl 80 Mg Tablet) 80 mg PO BEDTIME [facility] Last Admin: 12/25/22 20:52 Dose: 80 mg Magnesium Hydroxide (Milk Of Magnesia 30 Ml Oral.Susp) 30 ml PO DAILY PRN PRN Reason: Constipation Metformin HCl (Metformin Hcl Er 750 Mg Tab.Er.24h) 750 mg PO DAILY [facility] Last Admin: 12/26/22 08:11 Dose: 750 mg Neomycin/Polymyxin/Dexamethasone (Neomy/Polymyx/Dexameth Oph [place] 5 Ml Bottle) 1 drop EYE-LEFT QID [facility] Last Admin: 12/26/22 16:10 Dose: 1 drop Omeprazole (Omeprazole 40 Mg Capsule.Dr) 40 mg PO BID [facility] Last Admin: 12/26/22 08:11 Dose: 40 mg Sumatriptan Succinate (Sumatriptan Succinate 100 Mg Tablet) 100 mg PO DAILY PRN PRN Reason: Migraine Headache Last Admin: 12/26/22 11:15 Dose: 100 mg Trazodone HCl (Trazodone Hcl 50 Mg Tablet) 50 mg PO BEDTIME MRX1 PRN PRN Reason: Insomnia Valsartan (Valsartan 80 Mg Tablet) 80 mg PO DAILY [facility] Last Admin: 12/26/22 08:11 Dose: 80 mg Allergies Allergies Allergy/AdvReac Type Severity Reaction Status Date / Time amoxicillin Allergy Severe Rash Verified 12/12/22 13:27 sesame seed [SESAME SEED] Allergy Severe ANAPHYLAXIS Unverified 03/17/20 19:30 lamotrigine [From LAMICTAL] Allergy Intermediate Rash Unverified 03/17/20 19:30 melon [MELON] Allergy Unknown LIPS/CHEEKS Unverified 03/17/20 19:30 SWELLING pine nut [PINE NUT] Allergy Unknown VOMITING Unverified 03/17/20 19:30 venlafaxine [From EFFEXOR] AdvReac Severe pt reports Unverified 03/17/20 19:30 severe adverse response by history banana [BANANA] AdvReac Unknown HEART BURN Unverified 03/17/20 19:30 pumpkin [PUMPKIN] AdvReac Unknown (PUMPKIN Unverified 03/17/20 19:30 SEEDS) VOMITING Assessment & Plan Assessment & Plan (1) PTSD (post-traumatic stress disorder): Status: Acute Code(s): F43.10 - Post-traumatic stress disorder, unspecified (2) Bipolar disorder: Status: Acute Code(s): F31.9 - Bipolar disorder, unspecified Assessment and Plan: 12/17/22- Continue current regime and plan. [place] education 12/18/22- Continue with placement search. Continue current medication regime. 12/20/22- [place] is therapeutic Continue current regime and plan. 12/21/22- Decrease [place] to 1200 mg HS Increase Buspirone to 15 mg tid 12/22: Continue current treatment plan. 12/23: Continue current plan. 12/24/22: Continue current regime and plan Await program interviews to begin 12/26/22: Continue current regime and plan of care. Patient educated on: therapeutic strategies Informed Consent: understands Reason for continued inpatient stay Substantial Risk for: rapid decompensation Time Spent With Patient Time: Total time managing care of this patient today ____ minutes.
[2022-12-26 18:20] VITALS: BP 132/63; PULSE 76; TEMP 36.6; O2SAT 98
[2022-12-26] MEDS: Lithium Carbonate ER 300 MG TABLET.ER 1200 MG PO (20:21)
[2022-12-26] MEDS: Lurasidone HCl 80 MG TABLET PO (20:22)
[2022-12-26] MEDS: Lurasidone HCl 20 MG TABLET PO (20:22)
[2022-12-27 08:00] VITALS: BP 155/66; PULSE 77; RESP 16; TEMP 36.1; O2SAT 97
[2022-12-27] MEDS: Fluticasone Propionate 250 MCG BLST.W.DEV 1 PUFF INHALE ×2 (08:09→19:49)
[2022-12-27] MEDS: NeoMY/Polymyx/Dexameth Oph Sus 5 ML BOTTLE 1 DROP EYE-LEFT ×4 (08:10→19:49)
[2022-12-27] MEDS: metFORMIN HCl ER 750 MG TAB.ER.24H PO (08:12)
[2022-12-27] MEDS: Omeprazole 40 MG CAPSULE.DR PO ×2 (08:12→19:40)
[2022-12-27] MEDS: Valsartan 80 MG TABLET PO (08:12)
[2022-12-27] MEDS: busPIRone HCl 5 MG TABLET 15 MG PO ×3 (08:12→19:41)
[2022-12-27] MEDS: Escitalopram Oxalate 20 MG TABLET PO (08:12)
[2022-12-27] MEDS: SUMAtriptan succinate 100 MG TABLET PO (08:28)
[2022-12-27 09:35] LABS: Creatinine Clr Calc Pharmacy 135.4; Estimated Glomerular Filt Rate > 60
[2022-12-27] MEDS: Lidocaine 4 % Patch ADH..PATCH 1 PATCH TRANSDERMA (13:03)
[2022-12-27 16:48] VITALS: BP 124/85; PULSE 90; TEMP 36.7; O2SAT 98
--- NOTE | 2022-12-27 17:24 | P.PNPSI_ITS ---
Subjective Subjective Date of Service: 12/27/22 Reason For Visit: SI Subjective Notes: Conditional Voluntary Healthcare Proxy: No Guardianship: No Medical Problems Affecting Mental Status: No Interim History: Isolative today. Found in bed. Reports still some sedation from [place]. Level TBD 12/28. Very anxious about his housing, I am afraid I know everyone is trying. Medication Compliance: Yes Side effects from medications: No Attending Groups: Intermittent Review of Systems Acute medical concerns: No Medical Review of Systems: unchanged Mental Status Exam Mental Status Exam Patient Appearance: Appropriate Patient Orientation: Person, Place, Time and Situation Level of Consciousness: Alert Patient Behavior: Talkative, Good Eye Contact and Crying Mood Description: Depressed Affect Description: Flat Patient Cognition Impaired: Yes Ability to Follow Directions: Fair Speech Pattern: Spontaneous Speech Memory Description: Episodic Impaired Hallucinations: None Delusions: Paranoid Ideation Perceptual Disturbances: Depersonalization and Derealization Thought Process: Rumination Thought Content: positive for Perseveration and positive for Suicidal Ideation Depressive Symptoms: Increased Anxiety, Hopelessness, Thoughts of /Suicide and Low Self Esteem Judgement: Fair Diagnostics Vital Signs (24Hr): Vital Signs - 24 hr 12/26/22 18:20 12/27/22 08:00 12/27/22 16:48 Temperature 97.9 F 97 F 98.1 F Pulse Rate 76 77 90 Respiratory Rate 16 Blood Pressure 132/63 155/66 H 124/85 Pulse Oximetry 98 97 98 Oxygen Delivery Method Room Air Room Air Room Air BMI result Body Mass Index 38.7 Labs 12/11/22 15:57 12/27/22 08:46 Labs: Laboratory Results - last 48 hr 12/27/22 08:46 Creatinine 0.81 Estim Creat Clear Calc 135.4 Estimated GFR > 60 Medications Medications Current Medications Acetaminophen (Acetaminophen 325 Mg Tablet) 650 mg PO Q6H PRN PRN Reason: Headache/Pain Mild Scale (1-3) Last Admin: 12/26/22 11:15 Dose: 650 mg Al Hydroxide/Mg Hydroxide (Magnesium Hydrox/Alum Hydrox 30 Ml Oral.Susp) 30 ml PO Q6H PRN PRN Reason: Heartburn/Nausea Buspirone HCl (Buspirone Hcl 5 Mg Tablet) 15 mg PO TID [facility] Last Admin: 12/27/22 14:22 Dose: 15 mg Escitalopram Oxalate (Escitalopram Oxalate 20 Mg Tablet) 20 mg PO DAILY [facility] Last Admin: 12/27/22 08:12 Dose: 20 mg Fluticasone Propionate (Fluticasone Propionate 250 Mcg Blst.W.Dev) 1 puff INHALE RBID [facility] Last Admin: 12/27/22 08:09 Dose: 1 puff Hydroxyzine HCl (Hydroxyzine Hcl 10 Mg Tablet) 10 mg PO Q6H PRN PRN Reason: Anxiety Last Admin: 12/25/22 13:48 Dose: 10 mg Ketoconazole (Ketoconazole 2 % Shampoo 120 Ml Btl) 1 appl TOPICAL MoTh@2000 [facility]; Protocol Last Admin: 12/24/22 21:28 Dose: Not Given Lidocaine (Lidocaine 4 % Patch Adh..Patch) 1 patch TRANSDERMA DAILY [facility]; Protocol Last Admin: 12/27/22 13:03 Dose: 1 patch [place] Carbonate ([place] Carbonate Er 300 Mg Tablet.Er) 1,200 mg PO BEDTIME [facility] Last Admin: 12/26/22 20:21 Dose: 1,200 mg Lurasidone HCl (Lurasidone Hcl 20 Mg Tablet) 20 mg PO BEDTIME [facility] Last Admin: 12/26/22 20:22 Dose: 20 mg Lurasidone HCl (Lurasidone Hcl 80 Mg Tablet) 80 mg PO BEDTIME [facility] Last Admin: 12/26/22 20:22 Dose: 80 mg Magnesium Hydroxide (Milk Of Magnesia 30 Ml Oral.Susp) 30 ml PO DAILY PRN PRN Reason: Constipation Metformin HCl (Metformin Hcl Er 750 Mg Tab.Er.24h) 750 mg PO DAILY [facility] Last Admin: 12/27/22 08:12 Dose: 750 mg Neomycin/Polymyxin/Dexamethasone (Neomy/Polymyx/Dexameth Oph [place] 5 Ml Bottle) 1 drop EYE-LEFT QID [facility] Last Admin: 12/27/22 16:43 Dose: 1 drop Omeprazole (Omeprazole 40 Mg Capsule.Dr) 40 mg PO BID [facility] Last Admin: 12/27/22 08:12 Dose: 40 mg Sumatriptan Succinate (Sumatriptan Succinate 100 Mg Tablet) 100 mg PO DAILY PRN PRN Reason: Migraine Headache Last Admin: 12/27/22 08:28 Dose: 100 mg Trazodone HCl (Trazodone Hcl 50 Mg Tablet) 50 mg PO BEDTIME MRX1 PRN PRN Reason: Insomnia Valsartan (Valsartan 80 Mg Tablet) 80 mg PO DAILY [facility] Last Admin: 12/27/22 08:12 Dose: 80 mg Allergies Allergies Allergy/AdvReac Type Severity Reaction Status Date / Time amoxicillin Allergy Severe Rash Verified 12/12/22 13:27 sesame seed [SESAME SEED] Allergy Severe ANAPHYLAXIS Unverified 03/17/20 19:30 lamotrigine [From LAMICTAL] Allergy Intermediate Rash Unverified 03/17/20 19:30 melon [MELON] Allergy Unknown LIPS/CHEEKS Unverified 03/17/20 19:30 SWELLING pine nut [PINE NUT] Allergy Unknown VOMITING Unverified 03/17/20 19:30 venlafaxine [From EFFEXOR] AdvReac Severe pt reports Unverified 03/17/20 19:30 severe adverse response by history banana [BANANA] AdvReac Unknown HEART BURN Unverified 03/17/20 19:30 pumpkin [PUMPKIN] AdvReac Unknown (PUMPKIN Unverified 03/17/20 19:30 SEEDS) VOMITING Assessment & Plan Assessment & Plan (1) PTSD (post-traumatic stress disorder): Status: Acute Code(s): F43.10 - Post-traumatic stress disorder, unspecified (2) Bipolar disorder: Status: Acute Code(s): F31.9 - Bipolar disorder, unspecified Assessment and Plan: 12/17/22- Continue current regime and plan. [place] education 12/18/22- Continue with placement search. Continue current medication regime. 12/20/22- [place] is therapeutic Continue current regime and plan. 12/21/22- Decrease [place] to 1200 mg HS Increase Buspirone to 15 mg tid 12/22: Continue current treatment plan. 12/23: Continue current plan. 12/24/22: Continue current regime and plan Await program interviews to begin 12/27/22: Re-engage in milieu-currently depressed, withdrawing, fearful of homelessness. Patient educated on: therapeutic strategies Informed Consent: understands Reason for continued inpatient stay Substantial Risk for: rapid decompensation Time Spent With Patient Time: Total time managing care of this patient today ____ minutes.
[2022-12-27] MEDS: Lurasidone HCl 80 MG TABLET PO (19:40)
[2022-12-27] MEDS: hydrOXYzine HCL 10 MG TABLET PO (19:40)
[2022-12-27] MEDS: Lurasidone HCl 20 MG TABLET PO (19:40)
[2022-12-27] MEDS: Lithium Carbonate ER 300 MG TABLET.ER 1200 MG PO (19:41)
[2022-12-28] MEDS: busPIRone HCl 5 MG TABLET 15 MG PO ×3 (08:23→20:18)
[2022-12-28] MEDS: metFORMIN HCl ER 750 MG TAB.ER.24H PO (08:23)
[2022-12-28] MEDS: Lidocaine 4 % Patch ADH..PATCH 1 PATCH TRANSDERMA (08:23)
[2022-12-28] MEDS: Omeprazole 40 MG CAPSULE.DR PO ×2 (08:23→20:18)
[2022-12-28] MEDS: Escitalopram Oxalate 20 MG TABLET PO (08:23)
[2022-12-28] MEDS: Valsartan 80 MG TABLET PO (08:23)
[2022-12-28] MEDS: NeoMY/Polymyx/Dexameth Oph Sus 5 ML BOTTLE 1 DROP EYE-LEFT ×4 (08:30→20:16)
[2022-12-28 08:40] VITALS: BP 138/82; PULSE 75; RESP 20; O2SAT 96
[2022-12-28] MEDS: hydrOXYzine HCL 10 MG TABLET PO (12:15)
[2022-12-28] MEDS: SUMAtriptan succinate 100 MG TABLET PO (13:06)
--- NOTE | 2022-12-28 13:35 | HO.PSYCHPN ---
Subjective Subjective Date of Service: 12/28/22 Reason For Visit: SI Subjective Notes: Conditional Voluntary Healthcare Proxy: No Guardianship: No Medical Problems Affecting Mental Status: No Interim History: Pt continues to report worry, fear, anxiety about placement. Ongoing discussion of his concerns and fears. Discussed skills needed to be learned to increase confidence for more independence in community. Migraine Headache sx responding to prn. Pt resting and in milieu. Medication Compliance: Yes Side effects from medications: No Attending Groups: Intermittent Review of Systems Acute medical concerns: No Medical Review of Systems: unchanged Mental Status Exam Mental Status Exam Patient Appearance: Appropriate Patient Orientation: Person, Place, Time and Situation Level of Consciousness: Alert Patient Behavior: Talkative, Anxious and Good Eye Contact Mood Description: Depressed and Anxious Affect Description: Anxious Patient Cognition Impaired: Yes Ability to Follow Directions: Fair Speech Pattern: Spontaneous Speech Memory Description: Episodic Impaired Hallucinations: None Delusions: Paranoid Ideation Perceptual Disturbances: Depersonalization and Derealization Thought Process: Rumination Thought Content: positive for Perseveration and positive for Suicidal Ideation Depressive Symptoms: Increased Anxiety, Hopelessness, Thoughts of /Suicide and Low Self Esteem Judgement: Fair Diagnostics Vital Signs (24Hr): Vital Signs - 24 hr 12/27/22 16:48 12/28/22 08:40 Temperature 98.1 F Pulse Rate 90 75 Respiratory Rate 20 Blood Pressure 124/85 138/82 Pulse Oximetry 98 96 Oxygen Delivery Method Room Air Room Air BMI result Body Mass Index 38.7 Labs 12/11/22 15:57 12/27/22 08:46 Labs: Laboratory Results - last 48 hr 12/27/22 08:46 Creatinine 0.81 Estim Creat Clear Calc 135.4 Estimated GFR > 60 Medications Medications Current Medications Acetaminophen (Acetaminophen 325 Mg Tablet) 650 mg PO Q6H PRN PRN Reason: Headache/Pain Mild Scale (1-3) Last Admin: 12/26/22 11:15 Dose: 650 mg Al Hydroxide/Mg Hydroxide (Magnesium Hydrox/Alum Hydrox 30 Ml Oral.Susp) 30 ml PO Q6H PRN PRN Reason: Heartburn/Nausea Buspirone HCl (Buspirone Hcl 5 Mg Tablet) 15 mg PO TID [facility] Last Admin: 12/28/22 08:23 Dose: 15 mg Escitalopram Oxalate (Escitalopram Oxalate 20 Mg Tablet) 20 mg PO DAILY [facility] Last Admin: 12/28/22 08:23 Dose: 20 mg Fluticasone Propionate (Fluticasone Propionate 250 Mcg Blst.W.Dev) 1 puff INHALE RBID [facility] Last Admin: 12/28/22 08:30 Dose: Not Given Hydroxyzine HCl (Hydroxyzine Hcl 10 Mg Tablet) 10 mg PO Q6H PRN PRN Reason: Anxiety Last Admin: 12/28/22 12:15 Dose: 10 mg Ketoconazole (Ketoconazole 2 % Shampoo 120 Ml Btl) 1 appl TOPICAL MoTh@2000 [facility]; Protocol Last Admin: 12/27/22 20:52 Dose: Not Given Lidocaine (Lidocaine 4 % Patch Adh..Patch) 1 patch TRANSDERMA DAILY [facility]; Protocol Last Admin: 12/28/22 08:23 Dose: 1 patch [place] Carbonate ([place] Carbonate Er 300 Mg Tablet.Er) 1,200 mg PO BEDTIME [facility] Last Admin: 12/27/22 19:41 Dose: 1,200 mg Lurasidone HCl (Lurasidone Hcl 20 Mg Tablet) 20 mg PO BEDTIME [facility] Last Admin: 12/27/22 19:40 Dose: 20 mg Lurasidone HCl (Lurasidone Hcl 80 Mg Tablet) 80 mg PO BEDTIME [facility] Last Admin: 12/27/22 19:40 Dose: 80 mg Magnesium Hydroxide (Milk Of Magnesia 30 Ml Oral.Susp) 30 ml PO DAILY PRN PRN Reason: Constipation Metformin HCl (Metformin Hcl Er 750 Mg Tab.Er.24h) 750 mg PO DAILY [facility] Last Admin: 12/28/22 08:23 Dose: 750 mg Neomycin/Polymyxin/Dexamethasone (Neomy/Polymyx/Dexameth Oph [place] 5 Ml Bottle) 1 drop EYE-LEFT QID [facility] Last Admin: 12/28/22 12:15 Dose: 1 drop Omeprazole (Omeprazole 40 Mg Capsule.Dr) 40 mg PO BID [facility] Last Admin: 12/28/22 08:23 Dose: 40 mg Sumatriptan Succinate (Sumatriptan Succinate 100 Mg Tablet) 100 mg PO DAILY PRN PRN Reason: Migraine Headache Last Admin: 12/28/22 13:06 Dose: 100 mg Trazodone HCl (Trazodone Hcl 50 Mg Tablet) 50 mg PO BEDTIME MRX1 PRN PRN Reason: Insomnia Valsartan (Valsartan 80 Mg Tablet) 80 mg PO DAILY [facility] Last Admin: 12/28/22 08:23 Dose: 80 mg Allergies Allergies Allergy/AdvReac Type Severity Reaction Status Date / Time amoxicillin Allergy Severe Rash Verified 12/12/22 13:27 sesame seed [SESAME SEED] Allergy Severe ANAPHYLAXIS Unverified 03/17/20 19:30 lamotrigine [From LAMICTAL] Allergy Intermediate Rash Unverified 03/17/20 19:30 melon [MELON] Allergy Unknown LIPS/CHEEKS Unverified 03/17/20 19:30 SWELLING pine nut [PINE NUT] Allergy Unknown VOMITING Unverified 03/17/20 19:30 venlafaxine [From EFFEXOR] AdvReac Severe pt reports Unverified 03/17/20 19:30 severe adverse response by history banana [BANANA] AdvReac Unknown HEART BURN Unverified 03/17/20 19:30 pumpkin [PUMPKIN] AdvReac Unknown (PUMPKIN Unverified 03/17/20 19:30 SEEDS) VOMITING Assessment & Plan Assessment & Plan (1) PTSD (post-traumatic stress disorder): Status: Acute Code(s): F43.10 - Post-traumatic stress disorder, unspecified (2) Bipolar disorder: Status: Acute Code(s): F31.9 - Bipolar disorder, unspecified Assessment and Plan: 12/17/22- Continue current regime and plan. [place] education 12/18/22- Continue with placement search. Continue current medication regime. 12/20/22- [place] is therapeutic Continue current regime and plan. 12/21/22- Decrease [place] to 1200 mg HS Increase Buspirone to 15 mg tid 12/22: Continue current treatment plan. 12/23: Continue current plan. 12/24/22: Continue current regime and plan Await program interviews to begin 12/27/22: Re-engage in milieu-currently depressed, withdrawing, fearful of homelessness. 12/28/22: [place] level, BMP, and TSH 12/29/22. Informed Consent: understands and further education needed Reason for continued inpatient stay Substantial Risk for: rapid decompensation Time Spent With Patient Time: Total time managing care of this patient today ____ minutes.
[2022-12-28 18:24] VITALS: BP 125/70; PULSE 80; TEMP 36.6
[2022-12-28] MEDS: Fluticasone Propionate 250 MCG BLST.W.DEV 1 PUFF INHALE (20:17)
[2022-12-28] MEDS: Lithium Carbonate ER 300 MG TABLET.ER 1200 MG PO (20:18)
[2022-12-28] MEDS: Lurasidone HCl 80 MG TABLET PO (20:18)
[2022-12-28] MEDS: Lurasidone HCl 20 MG TABLET PO (20:18)
[2022-12-29 07:53] LABS: Lithium 0.98 mmol/L (0.60-1.20)
[2022-12-29 08:04] LABS: Anion Gap 13 (12-20); Blood Urea Nitrogen 9 mg/dL (9-16); Calcium 9.5 mg/dL (8.4-10.2); Carbon Dioxide 24 mmol/L (22-29); Chloride 105 mmol/L (96-108); Creatinine Clr Calc Pharmacy 120.5; Estimated Glomerular Filt Rate > 60; Glucose Random 122 mg/dL (60-115); Potassium 4.1 mmol/L (3.3-5.1); Sodium 138 mmol/L (135-145)
[2022-12-29] MEDS: Fluticasone Propionate 250 MCG BLST.W.DEV 1 PUFF INHALE ×2 (08:10→21:24)
[2022-12-29] MEDS: NeoMY/Polymyx/Dexameth Oph Sus 5 ML BOTTLE 1 DROP EYE-LEFT ×4 (08:10→21:24)
[2022-12-29] MEDS: Omeprazole 40 MG CAPSULE.DR PO ×2 (08:11→21:24)
[2022-12-29] MEDS: Valsartan 80 MG TABLET PO (08:11)
[2022-12-29] MEDS: metFORMIN HCl ER 750 MG TAB.ER.24H PO (08:11)
[2022-12-29] MEDS: busPIRone HCl 5 MG TABLET 15 MG PO ×3 (08:11→21:24)
[2022-12-29] MEDS: Escitalopram Oxalate 20 MG TABLET PO (08:11)
[2022-12-29 08:21] LABS: Thyroid Stimulating Hormone 1.87 uIU/mL (0.32-4.0)
[2022-12-29 08:27] VITALS: BP 149/78; PULSE 76; RESP 16; TEMP 37; O2SAT 98
[2022-12-29] MEDS: Acetaminophen 325 MG TABLET 650 MG PO ×2 (14:31→20:31)
[2022-12-29 18:00] VITALS: BP 110/60; PULSE 68; RESP 18; TEMP 36.6; O2SAT 97
--- NOTE | 2022-12-29 18:26 | HO.PSYCHPN ---
Subjective Subjective Date of Service: 12/31/22 Reason For Visit: SI Subjective Notes: Conditional Voluntary Healthcare Proxy: No Guardianship: No Medical Problems Affecting Mental Status: No Interim History: Continues to discuss anxiety regarding homelessness and level of risk. Scheduled to contact [facility] each Saturday to assess for a possible bed. Visited with parents today Discussed migraine frequency. Will have pt keep track of the number of migraines as he may be eligible for one of the maintenance medications. Medication Compliance: Yes Side effects from medications: No Attending Groups: Yes Review of Systems Acute medical concerns: No Medical Review of Systems: unchanged Mental Status Exam Mental Status Exam Patient Appearance: Appropriate Patient Orientation: Person, Place, Time and Situation Level of Consciousness: Alert Patient Behavior: Talkative, Anxious and Good Eye Contact Mood Description: Depressed and Anxious Affect Description: Anxious Patient Cognition Impaired: Yes Ability to Follow Directions: Fair Speech Pattern: Spontaneous Speech Memory Description: Episodic Impaired Hallucinations: None Delusions: Paranoid Ideation Perceptual Disturbances: Depersonalization and Derealization Thought Process: Rumination Thought Content: positive for Perseveration and positive for Suicidal Ideation Depressive Symptoms: Increased Anxiety, Hopelessness, Thoughts of /Suicide and Low Self Esteem Judgement: Fair Diagnostics Vital Signs (24Hr): Vital Signs - 24 hr 12/29/22 08:27 Temperature 98.6 F Pulse Rate 76 Respiratory Rate 16 Blood Pressure 149/78 H Pulse Oximetry 98 Oxygen Delivery Method Room Air BMI result Body Mass Index 38.7 Labs 12/11/22 15:57 12/29/22 07:24 Labs: Laboratory Results - last 48 hr 12/29/22 12/29/22 07:24 07:24 Sodium 138 Potassium 4.1 Chloride 105 Carbon Dioxide 24 Anion Gap 13 BUN 9 Creatinine 0.91 Estim Creat Clear Calc 120.5 Estimated GFR > 60 Random Glucose 122 H Calcium 9.5 TSH 1.87 [place] 0.98 Medications Medications Current Medications Acetaminophen (Acetaminophen 325 Mg Tablet) 650 mg PO Q6H PRN PRN Reason: Headache/Pain Mild Scale (1-3) Last Admin: 12/29/22 14:31 Dose: 650 mg Al Hydroxide/Mg Hydroxide (Magnesium Hydrox/Alum Hydrox 30 Ml Oral.Susp) 30 ml PO Q6H PRN PRN Reason: Heartburn/Nausea Buspirone HCl (Buspirone Hcl 5 Mg Tablet) 15 mg PO TID [facility] Last Admin: 12/29/22 14:32 Dose: 15 mg Escitalopram Oxalate (Escitalopram Oxalate 20 Mg Tablet) 20 mg PO DAILY [facility] Last Admin: 12/29/22 08:11 Dose: 20 mg Fluticasone Propionate (Fluticasone Propionate 250 Mcg Blst.W.Dev) 1 puff INHALE RBID [facility] Last Admin: 12/29/22 08:10 Dose: 1 puff Hydroxyzine HCl (Hydroxyzine Hcl 10 Mg Tablet) 10 mg PO Q6H PRN PRN Reason: Anxiety Last Admin: 12/28/22 12:15 Dose: 10 mg Ketoconazole (Ketoconazole 2 % Shampoo 120 Ml Btl) 1 appl TOPICAL MoTh@2000 [facility]; Protocol Last Admin: 12/27/22 20:52 Dose: Not Given Lidocaine (Lidocaine 4 % Patch Adh..Patch) 1 patch TRANSDERMA DAILY [facility]; Protocol Last Admin: 12/29/22 08:28 Dose: Not Given [place] Carbonate ([place] Carbonate Er 300 Mg Tablet.Er) 1,200 mg PO BEDTIME [facility] Last Admin: 12/28/22 20:18 Dose: 1,200 mg Lurasidone HCl (Lurasidone Hcl 20 Mg Tablet) 20 mg PO BEDTIME [facility] Last Admin: 12/28/22 20:18 Dose: 20 mg Lurasidone HCl (Lurasidone Hcl 80 Mg Tablet) 80 mg PO BEDTIME [facility] Last Admin: 12/28/22 20:18 Dose: 80 mg Magnesium Hydroxide (Milk Of Magnesia 30 Ml Oral.Susp) 30 ml PO DAILY PRN PRN Reason: Constipation Metformin HCl (Metformin Hcl Er 750 Mg Tab.Er.24h) 750 mg PO DAILY [facility] Last Admin: 12/29/22 08:11 Dose: 750 mg Neomycin/Polymyxin/Dexamethasone (Neomy/Polymyx/Dexameth Oph [place] 5 Ml Bottle) 1 drop EYE-LEFT QID [facility] Last Admin: 12/29/22 13:42 Dose: 1 drop Omeprazole (Omeprazole 40 Mg Capsule.Dr) 40 mg PO BID [facility] Last Admin: 12/29/22 08:11 Dose: 40 mg Sumatriptan Succinate (Sumatriptan Succinate 100 Mg Tablet) 100 mg PO DAILY PRN PRN Reason: Migraine Headache Last Admin: 12/28/22 13:06 Dose: 100 mg Trazodone HCl (Trazodone Hcl 50 Mg Tablet) 50 mg PO BEDTIME MRX1 PRN PRN Reason: Insomnia Valsartan (Valsartan 80 Mg Tablet) 80 mg PO DAILY [facility] Last Admin: 12/29/22 08:11 Dose: 80 mg Allergies Allergies Allergy/AdvReac Type Severity Reaction Status Date / Time amoxicillin Allergy Severe Rash Verified 12/12/22 13:27 sesame seed [SESAME SEED] Allergy Severe ANAPHYLAXIS Unverified 03/17/20 19:30 lamotrigine [From LAMICTAL] Allergy Intermediate Rash Unverified 03/17/20 19:30 melon [MELON] Allergy Unknown LIPS/CHEEKS Unverified 03/17/20 19:30 SWELLING pine nut [PINE NUT] Allergy Unknown VOMITING Unverified 03/17/20 19:30 venlafaxine [From EFFEXOR] AdvReac Severe pt reports Unverified 03/17/20 19:30 severe adverse response by history banana [BANANA] AdvReac Unknown HEART BURN Unverified 03/17/20 19:30 pumpkin [PUMPKIN] AdvReac Unknown (PUMPKIN Unverified 03/17/20 19:30 SEEDS) VOMITING Assessment & Plan Assessment & Plan (1) PTSD (post-traumatic stress disorder): Status: Acute Code(s): F43.10 - Post-traumatic stress disorder, unspecified (2) Bipolar disorder: Status: Acute Code(s): F31.9 - Bipolar disorder, unspecified Assessment and Plan: 12/17/22- Continue current regime and plan. [place] education 12/18/22- Continue with placement search. Continue current medication regime. 12/20/22- [place] is therapeutic Continue current regime and plan. 12/21/22- Decrease [place] to 1200 mg HS Increase Buspirone to 15 mg tid 12/22: Continue current treatment plan. 12/23: Continue current plan. 12/24/22: Continue current regime and plan Await program interviews to begin 12/27/22: Re-engage in milieu-currently depressed, withdrawing, fearful of homelessness. 12/28/22: [place] level, BMP, and TSH 12/29/22. 12/29/22 [place] level 0.98; TSH WNL, BMP WNL. Continue current regime and plan of care. Patient educated on: therapeutic strategies Informed Consent: understands Reason for continued inpatient stay Substantial Risk for: rapid decompensation Time Spent With Patient Time: Total time managing care of this patient today ____ minutes.
[2022-12-29] MEDS: Lurasidone HCl 20 MG TABLET PO (21:25)
[2022-12-29] MEDS: Lurasidone HCl 80 MG TABLET PO (21:25)
[2022-12-29] MEDS: Lithium Carbonate ER 300 MG TABLET.ER 1200 MG PO (21:25)
[2022-12-30] MEDS: NeoMY/Polymyx/Dexameth Oph Sus 5 ML BOTTLE 1 DROP EYE-LEFT ×4 (08:25→20:39)
[2022-12-30] MEDS: Fluticasone Propionate 250 MCG BLST.W.DEV 1 PUFF INHALE ×2 (08:25→20:39)
[2022-12-30] MEDS: busPIRone HCl 5 MG TABLET 15 MG PO ×3 (08:26→20:18)
[2022-12-30] MEDS: Escitalopram Oxalate 20 MG TABLET PO (08:26)
[2022-12-30] MEDS: Valsartan 80 MG TABLET PO (08:26)
[2022-12-30] MEDS: metFORMIN HCl ER 750 MG TAB.ER.24H PO (08:26)
[2022-12-30] MEDS: Omeprazole 40 MG CAPSULE.DR PO ×2 (08:26→20:17)
[2022-12-30 08:58] VITALS: BP 131/69; PULSE 87; RESP 16; TEMP 36.2; O2SAT 96
--- NOTE | 2022-12-30 08:58 | HO.PSYCHPN ---
Subjective Subjective Date of Service: 12/30/22 Reason For Visit: SI Subjective Notes: Conditional Voluntary Healthcare Proxy: No Guardianship: No Medical Problems Affecting Mental Status: No Interim History: Pt reports he continues with anxiety, migraine sx. Willing to track migraine activity for neuro eval of regime. Reviewed with team. Pt visable in milieu and participating. Some discord with a peer and able to discuss this with the team. Awaiting placement. Medication Compliance: Yes Side effects from medications: No Attending Groups: Yes Review of Systems Acute medical concerns: No Medical Review of Systems: unchanged Mental Status Exam Mental Status Exam Patient Appearance: Appropriate Patient Orientation: Person, Place, Time and Situation Level of Consciousness: Alert Patient Behavior: Talkative, Anxious and Good Eye Contact Mood Description: Depressed and Anxious Affect Description: Anxious Patient Cognition Impaired: Yes Ability to Follow Directions: Fair Speech Pattern: Spontaneous Speech Memory Description: Episodic Impaired Hallucinations: None Delusions: Paranoid Ideation Perceptual Disturbances: Depersonalization and Derealization Thought Process: Rumination Thought Content: positive for Perseveration and positive for Suicidal Ideation Depressive Symptoms: Increased Anxiety, Hopelessness, Thoughts of /Suicide and Low Self Esteem Judgement: Fair Diagnostics Vital Signs (24Hr): Vital Signs - 24 hr 12/29/22 18:00 Temperature 97.8 F Pulse Rate 68 Respiratory Rate 18 Blood Pressure 110/60 Pulse Oximetry 97 Oxygen Delivery Method Room Air BMI result Body Mass Index 38.7 Labs 12/11/22 15:57 12/29/22 07:24 Labs: Laboratory Results - last 48 hr 12/29/22 12/29/22 07:24 07:24 Sodium 138 Potassium 4.1 Chloride 105 Carbon Dioxide 24 Anion Gap 13 BUN 9 Creatinine 0.91 Estim Creat Clear Calc 120.5 Estimated GFR > 60 Random Glucose 122 H Calcium 9.5 TSH 1.87 [place] 0.98 Medications Medications Current Medications Acetaminophen (Acetaminophen 325 Mg Tablet) 650 mg PO Q6H PRN PRN Reason: Headache/Pain Mild Scale (1-3) Last Admin: 12/29/22 20:31 Dose: 650 mg Al Hydroxide/Mg Hydroxide (Magnesium Hydrox/Alum Hydrox 30 Ml Oral.Susp) 30 ml PO Q6H PRN PRN Reason: Heartburn/Nausea Buspirone HCl (Buspirone Hcl 5 Mg Tablet) 15 mg PO TID [facility] Last Admin: 12/30/22 08:26 Dose: 15 mg Escitalopram Oxalate (Escitalopram Oxalate 20 Mg Tablet) 20 mg PO DAILY [facility] Last Admin: 12/30/22 08:26 Dose: 20 mg Fluticasone Propionate (Fluticasone Propionate 250 Mcg Blst.W.Dev) 1 puff INHALE RBID [facility] Last Admin: 12/30/22 08:25 Dose: 1 puff Hydroxyzine HCl (Hydroxyzine Hcl 10 Mg Tablet) 10 mg PO Q6H PRN PRN Reason: Anxiety Last Admin: 12/28/22 12:15 Dose: 10 mg Ketoconazole (Ketoconazole 2 % Shampoo 120 Ml Btl) 1 appl TOPICAL MoTh@2000 [facility]; Protocol Last Admin: 12/27/22 20:52 Dose: Not Given Lidocaine (Lidocaine 4 % Patch Adh..Patch) 1 patch TRANSDERMA DAILY [facility]; Protocol Last Admin: 12/30/22 08:28 Dose: Not Given [place] Carbonate ([place] Carbonate Er 300 Mg Tablet.Er) 1,200 mg PO BEDTIME [facility] Last Admin: 12/29/22 21:25 Dose: 1,200 mg Lurasidone HCl (Lurasidone Hcl 20 Mg Tablet) 20 mg PO BEDTIME [facility] Last Admin: 12/29/22 21:25 Dose: 20 mg Lurasidone HCl (Lurasidone Hcl 80 Mg Tablet) 80 mg PO BEDTIME [facility] Last Admin: 12/29/22 21:25 Dose: 80 mg Magnesium Hydroxide (Milk Of Magnesia 30 Ml Oral.Susp) 30 ml PO DAILY PRN PRN Reason: Constipation Metformin HCl (Metformin Hcl Er 750 Mg Tab.Er.24h) 750 mg PO DAILY [facility] Last Admin: 12/30/22 08:26 Dose: 750 mg Neomycin/Polymyxin/Dexamethasone (Neomy/Polymyx/Dexameth Oph [place] 5 Ml Bottle) 1 drop EYE-LEFT QID [facility] Last Admin: 12/30/22 08:25 Dose: 1 drop Omeprazole (Omeprazole 40 Mg Capsule.Dr) 40 mg PO BID [facility] Last Admin: 12/30/22 08:26 Dose: 40 mg Sumatriptan Succinate (Sumatriptan Succinate 100 Mg Tablet) 100 mg PO DAILY PRN PRN Reason: Migraine Headache Last Admin: 12/28/22 13:06 Dose: 100 mg Trazodone HCl (Trazodone Hcl 50 Mg Tablet) 50 mg PO BEDTIME MRX1 PRN PRN Reason: Insomnia Valsartan (Valsartan 80 Mg Tablet) 80 mg PO DAILY [facility] Last Admin: 12/30/22 08:26 Dose: 80 mg Allergies Allergies Allergy/AdvReac Type Severity Reaction Status Date / Time amoxicillin Allergy Severe Rash Verified 12/12/22 13:27 sesame seed [SESAME SEED] Allergy Severe ANAPHYLAXIS Unverified 03/17/20 19:30 lamotrigine [From LAMICTAL] Allergy Intermediate Rash Unverified 03/17/20 19:30 melon [MELON] Allergy Unknown LIPS/CHEEKS Unverified 03/17/20 19:30 SWELLING pine nut [PINE NUT] Allergy Unknown VOMITING Unverified 03/17/20 19:30 venlafaxine [From EFFEXOR] AdvReac Severe pt reports Unverified 03/17/20 19:30 severe adverse response by history banana [BANANA] AdvReac Unknown HEART BURN Unverified 03/17/20 19:30 pumpkin [PUMPKIN] AdvReac Unknown (PUMPKIN Unverified 03/17/20 19:30 SEEDS) VOMITING Assessment & Plan Assessment & Plan (1) PTSD (post-traumatic stress disorder): Status: Acute Code(s): F43.10 - Post-traumatic stress disorder, unspecified (2) Bipolar disorder: Status: Acute Code(s): F31.9 - Bipolar disorder, unspecified Assessment and Plan: 12/17/22- Continue current regime and plan. [place] education 12/18/22- Continue with placement search. Continue current medication regime. 12/20/22- [place] is therapeutic Continue current regime and plan. 12/21/22- Decrease [place] to 1200 mg HS Increase Buspirone to 15 mg tid 12/22: Continue current treatment plan. 12/23: Continue current plan. 12/24/22: Continue current regime and plan Await program interviews to begin 12/27/22: Re-engage in milieu-currently depressed, withdrawing, fearful of homelessness. 12/28/22: [place] level, BMP, and TSH 12/29/22. 12/30/22: Continue current regime and plan of care. Discharge planning continues. Informed Consent: understands Reason for continued inpatient stay Substantial Risk for: harm to self and rapid decompensation Time Spent With Patient Time: Total time managing care of this patient today ____ minutes.
[2022-12-30] MEDS: Lidocaine 4 % Patch ADH..PATCH 1 PATCH TRANSDERMA (10:48)
[2022-12-30 18:00] VITALS: BP 128/72; PULSE 67; TEMP 36.4; O2SAT 98
[2022-12-30] MEDS: Acetaminophen 325 MG TABLET 650 MG PO (19:31)
[2022-12-30] MEDS: Lurasidone HCl 80 MG TABLET PO (20:18)
[2022-12-30] MEDS: Lurasidone HCl 20 MG TABLET PO (20:18)
[2022-12-30] MEDS: Lithium Carbonate ER 300 MG TABLET.ER 1200 MG PO (20:18)
[2022-12-31] MEDS: metFORMIN HCl ER 750 MG TAB.ER.24H PO (08:01)
[2022-12-31] MEDS: Escitalopram Oxalate 20 MG TABLET PO (08:01)
[2022-12-31] MEDS: Omeprazole 40 MG CAPSULE.DR PO ×2 (08:01→22:37)
[2022-12-31] MEDS: Valsartan 80 MG TABLET PO (08:01)
[2022-12-31] MEDS: busPIRone HCl 5 MG TABLET 15 MG PO ×3 (08:01→22:36)
[2022-12-31] MEDS: NeoMY/Polymyx/Dexameth Oph Sus 5 ML BOTTLE 1 DROP EYE-LEFT ×4 (08:21→22:37)
[2022-12-31] MEDS: Fluticasone Propionate 250 MCG BLST.W.DEV 1 PUFF INHALE ×2 (08:21→22:37)
[2022-12-31 10:55] VITALS: BP 129/73; PULSE 73; RESP 16; TEMP 36.6; O2SAT 97
--- NOTE | 2022-12-31 11:52 | HO.PSYCHPN ---
Subjective Subjective Date of Service: 12/31/22 Reason For Visit: SI Subjective Notes: Conditional Voluntary Healthcare Proxy: No Guardianship: No Medical Problems Affecting Mental Status: No Interim History: Full review of meds and labs with pt. Pt feeling we are at appropriate doses Scheduled call for Laney Melgar on 01/02. Anxious, Apprehensive and with fear he will be homeless. Medication Compliance: Yes Side effects from medications: No Attending Groups: Yes Review of Systems Acute medical concerns: No Medical Review of Systems: unchanged Mental Status Exam Mental Status Exam Patient Appearance: Appropriate Patient Orientation: Person, Place, Time and Situation Level of Consciousness: Alert Patient Behavior: Talkative, Anxious and Good Eye Contact Mood Description: Depressed and Anxious Affect Description: Anxious Patient Cognition Impaired: Yes Ability to Follow Directions: Fair Speech Pattern: Spontaneous Speech Memory Description: Episodic Impaired Hallucinations: None Delusions: Paranoid Ideation Perceptual Disturbances: Depersonalization and Derealization Thought Process: Rumination Thought Content: positive for Perseveration and positive for Suicidal Ideation Depressive Symptoms: Increased Anxiety, Hopelessness, Thoughts of /Suicide and Low Self Esteem Judgement: Fair Diagnostics Vital Signs (24Hr): Vital Signs - 24 hr 12/30/22 18:00 12/31/22 10:55 Temperature 97.5 F 97.9 F Pulse Rate 67 73 Respiratory Rate 16 Blood Pressure 128/72 129/73 Pulse Oximetry 98 97 Oxygen Delivery Method Room Air Room Air BMI result Body Mass Index 38.7 Labs 12/11/22 15:57 12/29/22 07:24 Medications Medications Current Medications Acetaminophen (Acetaminophen 325 Mg Tablet) 650 mg PO Q6H PRN PRN Reason: Headache/Pain Mild Scale (1-3) Last Admin: 12/30/22 19:31 Dose: 650 mg Al Hydroxide/Mg Hydroxide (Magnesium Hydrox/Alum Hydrox 30 Ml Oral.Susp) 30 ml PO Q6H PRN PRN Reason: Heartburn/Nausea Buspirone HCl (Buspirone Hcl 5 Mg Tablet) 15 mg PO TID [facility] Last Admin: 12/31/22 08:01 Dose: 15 mg Escitalopram Oxalate (Escitalopram Oxalate 20 Mg Tablet) 20 mg PO DAILY [facility] Last Admin: 12/31/22 08:01 Dose: 20 mg Fluticasone Propionate (Fluticasone Propionate 250 Mcg Blst.W.Dev) 1 puff INHALE RBID [facility] Last Admin: 12/31/22 08:21 Dose: 1 puff Hydroxyzine HCl (Hydroxyzine Hcl 10 Mg Tablet) 10 mg PO Q6H PRN PRN Reason: Anxiety Last Admin: 12/28/22 12:15 Dose: 10 mg Ketoconazole (Ketoconazole 2 % Shampoo 120 Ml Btl) 1 appl TOPICAL MoTh@2000 [facility]; Protocol Last Admin: 12/27/22 20:52 Dose: Not Given Lidocaine (Lidocaine 4 % Patch Adh..Patch) 1 patch TRANSDERMA DAILY [facility]; Protocol Last Admin: 12/31/22 08:23 Dose: Not Given [place] Carbonate ([place] Carbonate Er 300 Mg Tablet.Er) 1,200 mg PO BEDTIME [facility] Last Admin: 12/30/22 20:18 Dose: 1,200 mg Lurasidone HCl (Lurasidone Hcl 20 Mg Tablet) 20 mg PO BEDTIME [facility] Last Admin: 12/30/22 20:18 Dose: 20 mg Lurasidone HCl (Lurasidone Hcl 80 Mg Tablet) 80 mg PO BEDTIME [facility] Last Admin: 12/30/22 20:18 Dose: 80 mg Magnesium Hydroxide (Milk Of Magnesia 30 Ml Oral.Susp) 30 ml PO DAILY PRN PRN Reason: Constipation Metformin HCl (Metformin Hcl Er 750 Mg Tab.Er.24h) 750 mg PO DAILY [facility] Last Admin: 12/31/22 08:01 Dose: 750 mg Neomycin/Polymyxin/Dexamethasone (Neomy/Polymyx/Dexameth Oph [place] 5 Ml Bottle) 1 drop EYE-LEFT QID [facility] Last Admin: 12/31/22 08:21 Dose: 1 drop Omeprazole (Omeprazole 40 Mg Capsule.Dr) 40 mg PO BID [facility] Last Admin: 12/31/22 08:01 Dose: 40 mg Sumatriptan Succinate (Sumatriptan Succinate 100 Mg Tablet) 100 mg PO DAILY PRN PRN Reason: Migraine Headache Last Admin: 12/28/22 13:06 Dose: 100 mg Trazodone HCl (Trazodone Hcl 50 Mg Tablet) 50 mg PO BEDTIME MRX1 PRN PRN Reason: Insomnia Valsartan (Valsartan 80 Mg Tablet) 80 mg PO DAILY [facility] Last Admin: 12/31/22 08:01 Dose: 80 mg Allergies Allergies Allergy/AdvReac Type Severity Reaction Status Date / Time amoxicillin Allergy Severe Rash Verified 12/12/22 13:27 sesame seed [SESAME SEED] Allergy Severe ANAPHYLAXIS Unverified 03/17/20 19:30 lamotrigine [From LAMICTAL] Allergy Intermediate Rash Unverified 03/17/20 19:30 melon [MELON] Allergy Unknown LIPS/CHEEKS Unverified 03/17/20 19:30 SWELLING pine nut [PINE NUT] Allergy Unknown VOMITING Unverified 03/17/20 19:30 venlafaxine [From EFFEXOR] AdvReac Severe pt reports Unverified 03/17/20 19:30 severe adverse response by history banana [BANANA] AdvReac Unknown HEART BURN Unverified 03/17/20 19:30 pumpkin [PUMPKIN] AdvReac Unknown (PUMPKIN Unverified 03/17/20 19:30 SEEDS) VOMITING Assessment & Plan Assessment & Plan (1) PTSD (post-traumatic stress disorder): Status: Acute Code(s): F43.10 - Post-traumatic stress disorder, unspecified (2) Bipolar disorder: Status: Acute Code(s): F31.9 - Bipolar disorder, unspecified Assessment and Plan: 12/17/22- Continue current regime and plan. [place] education 12/18/22- Continue with placement search. Continue current medication regime. 12/20/22- [place] is therapeutic Continue current regime and plan. 12/21/22- Decrease [place] to 1200 mg HS Increase Buspirone to 15 mg tid 12/22: Continue current treatment plan. 12/23: Continue current plan. 12/24/22: Continue current regime and plan Await program interviews to begin 12/27/22: Re-engage in milieu-currently depressed, withdrawing, fearful of homelessness. 12/28/22: [place] level, BMP, and TSH 12/29/22. 12/30/22: Continue current regime and plan of care. Discharge planning continues. 12/31/22: Contineu current regime and plan of care. Informed Consent: understands Reason for continued inpatient stay Substantial Risk for: rapid decompensation Time Spent With Patient Time: Total time managing care of this patient today ____ minutes.
[2022-12-31 17:58] VITALS: BP 129/63; PULSE 67; TEMP 36.6
[2022-12-31] MEDS: Lurasidone HCl 20 MG TABLET PO (22:36)
[2022-12-31] MEDS: Lithium Carbonate ER 300 MG TABLET.ER 1200 MG PO (22:37)
[2022-12-31] MEDS: Lurasidone HCl 80 MG TABLET PO (22:37)
[2023-01-01 08:00] VITALS: BP 110/59; PULSE 77; RESP 16; TEMP 36.9; O2SAT 97
[2023-01-01] MEDS: metFORMIN HCl ER 750 MG TAB.ER.24H PO (08:23)
[2023-01-01] MEDS: Omeprazole 40 MG CAPSULE.DR PO ×2 (08:23→22:04)
[2023-01-01] MEDS: Escitalopram Oxalate 20 MG TABLET PO (08:23)
[2023-01-01] MEDS: busPIRone HCl 5 MG TABLET 15 MG PO ×3 (08:23→22:05)
[2023-01-01] MEDS: Valsartan 80 MG TABLET PO (08:23)
[2023-01-01] MEDS: NeoMY/Polymyx/Dexameth Oph Sus 5 ML BOTTLE 1 DROP EYE-LEFT ×4 (08:24→22:05)
[2023-01-01] MEDS: Fluticasone Propionate 250 MCG BLST.W.DEV 1 PUFF INHALE ×2 (08:24→22:05)
--- NOTE | 2023-01-01 11:49 | HO.PSYCHPN ---
Subjective Subjective Date of Service: 01/01/23 Reason For Visit: SI Interim History: Patient seen and discussed. Reports he is feeling well. He is tolerating medications well. Says he is awaiting DC plan to a program/housing in [place]. He denies SI. Denies HI or AVH. Review of Systems Review of Systems Left eye pain and wateriness Left eye blurriness Pruritic scalp Yes all other systems are reviewed and are negative Constitutional: Reports lethargy Eyes: Reports eye discharge, Reports irritation, Reports itchy eyes, Reports other visual disturbances and Reports eye pain Reports system reviewed and no additional complaints, except as documented Cardiovascular: Reports no additional cardiovascular complaints Respiratory: Reports no additional respiratory complaints Gastrointestinal: Reports no additional gastrointestinal complaints Genitourinary: Reports no additional male genitourinary complaints Musculoskeletal: Reports no additional musculoskeletal complaints Skin/Breast: Reports bleeding lesions (scalp) and Reports sores Reports system reviewed and no additional complaints, except as documented and Reports behavioral changes Psychiatric: Reports abnormal sleep pattern, Reports anxiety, Reports behavioral changes, Reports change in appetite, Reports depression, Reports difficulty concentrating, Reports hopelessness and Reports suicidal ideation Endocrine: Reports no additional endocrine complaints Hematologic/Lymphatic: Reports no additional hematologic/lymphatic complaints Allergic/Immunologic: Reports itchy eyes Mental Status Exam Mental Status Exam Narrative: Pt is alert and oriented; behavior is cooperative, friendly and calm; patient is not in distress; dressed in hospital attire with unkempt hair but adequate hygiene; mood is described as little better and affect is congruent, calm, brighter; eye contact appropriate; Speech is normal rate, volume and prosody and not pressured; no psychomotor retardation present; thought process is organized and goal directed; Thought content is on treatment, overcoming depression and SI; otherwise pertinent to relevant topics and without any delusional content, paranoid ideations or grandiosity expressed; continues to have SI but much less so; no HI. There is no evidence of perceptual disturbance. Patients insight and judgment are impaired but improving Patient Appearance: Appropriate Patient Orientation: Person, Place, Time and Situation Level of Consciousness: Alert Patient Behavior: Talkative, Anxious and Good Eye Contact Mood Description: Depressed and Anxious Affect Description: Anxious Patient Cognition Impaired: Yes Ability to Follow Directions: Fair Speech Pattern: Spontaneous Speech Memory Description: Episodic Impaired Diagnostics Vital Signs (24Hr): Vital Signs - 24 hr 12/31/22 17:58 01/01/23 08:00 Temperature 97.8 F 98.4 F Pulse Rate 67 77 Respiratory Rate 16 Blood Pressure 129/63 110/59 L Pulse Oximetry 97 Oxygen Delivery Method Room Air BMI result Body Mass Index 38.7 Labs 12/11/22 15:57 12/29/22 07:24 Medications Medications Current Medications Acetaminophen (Acetaminophen 325 Mg Tablet) 650 mg PO Q6H PRN PRN Reason: Headache/Pain Mild Scale (1-3) Last Admin: 12/30/22 19:31 Dose: 650 mg Al Hydroxide/Mg Hydroxide (Magnesium Hydrox/Alum Hydrox 30 Ml Oral.Susp) 30 ml PO Q6H PRN PRN Reason: Heartburn/Nausea Buspirone HCl (Buspirone Hcl 5 Mg Tablet) 15 mg PO TID [facility] Last Admin: 01/01/23 08:23 Dose: 15 mg Escitalopram Oxalate (Escitalopram Oxalate 20 Mg Tablet) 20 mg PO DAILY [facility] Last Admin: 01/01/23 08:23 Dose: 20 mg Fluticasone Propionate (Fluticasone Propionate 250 Mcg Blst.W.Dev) 1 puff INHALE RBID [facility] Last Admin: 01/01/23 08:24 Dose: 1 puff Hydroxyzine HCl (Hydroxyzine Hcl 10 Mg Tablet) 10 mg PO Q6H PRN PRN Reason: Anxiety Last Admin: 12/28/22 12:15 Dose: 10 mg Ketoconazole (Ketoconazole 2 % Shampoo 120 Ml Btl) 1 appl TOPICAL MoTh@2000 [facility]; Protocol Last Admin: 12/31/22 22:39 Dose: Not Given Lidocaine (Lidocaine 4 % Patch Adh..Patch) 1 patch TRANSDERMA DAILY [facility]; Protocol Last Admin: 01/01/23 08:26 Dose: Not Given [place] Carbonate ([place] Carbonate Er 300 Mg Tablet.Er) 1,200 mg PO BEDTIME [facility] Last Admin: 12/31/22 22:37 Dose: 1,200 mg Lurasidone HCl (Lurasidone Hcl 20 Mg Tablet) 20 mg PO BEDTIME [facility] Last Admin: 12/31/22 22:36 Dose: 20 mg Lurasidone HCl (Lurasidone Hcl 80 Mg Tablet) 80 mg PO BEDTIME [facility] Last Admin: 12/31/22 22:37 Dose: 80 mg Magnesium Hydroxide (Milk Of Magnesia 30 Ml Oral.Susp) 30 ml PO DAILY PRN PRN Reason: Constipation Metformin HCl (Metformin Hcl Er 750 Mg Tab.Er.24h) 750 mg PO DAILY [facility] Last Admin: 01/01/23 08:23 Dose: 750 mg Neomycin/Polymyxin/Dexamethasone (Neomy/Polymyx/Dexameth Oph [place] 5 Ml Bottle) 1 drop EYE-LEFT QID [facility] Last Admin: 01/01/23 08:24 Dose: 1 drop Omeprazole (Omeprazole 40 Mg Capsule.Dr) 40 mg PO BID [facility] Last Admin: 01/01/23 08:23 Dose: 40 mg Sumatriptan Succinate (Sumatriptan Succinate 100 Mg Tablet) 100 mg PO DAILY PRN PRN Reason: Migraine Headache Last Admin: 12/28/22 13:06 Dose: 100 mg Trazodone HCl (Trazodone Hcl 50 Mg Tablet) 50 mg PO BEDTIME MRX1 PRN PRN Reason: Insomnia Valsartan (Valsartan 80 Mg Tablet) 80 mg PO DAILY [facility] Last Admin: 01/01/23 08:23 Dose: 80 mg Allergies Allergies Allergy/AdvReac Type Severity Reaction Status Date / Time amoxicillin Allergy Severe Rash Verified 12/12/22 13:27 sesame seed [SESAME SEED] Allergy Severe ANAPHYLAXIS Unverified 03/17/20 19:30 lamotrigine [From LAMICTAL] Allergy Intermediate Rash Unverified 03/17/20 19:30 melon [MELON] Allergy Unknown LIPS/CHEEKS Unverified 03/17/20 19:30 SWELLING pine nut [PINE NUT] Allergy Unknown VOMITING Unverified 03/17/20 19:30 venlafaxine [From EFFEXOR] AdvReac Severe pt reports Unverified 03/17/20 19:30 severe adverse response by history banana [BANANA] AdvReac Unknown HEART BURN Unverified 03/17/20 19:30 pumpkin [PUMPKIN] AdvReac Unknown (PUMPKIN Unverified 03/17/20 19:30 SEEDS) VOMITING Assessment & Plan Assessment & Plan (1) PTSD (post-traumatic stress disorder): Status: Acute Code(s): F43.10 - Post-traumatic stress disorder, unspecified (2) Bipolar disorder: Status: Acute Code(s): F31.9 - Bipolar disorder, unspecified Assessment and Plan: 12/17/22- Continue current regime and plan. [place] education 12/18/22- Continue with placement search. Continue current medication regime. 12/20/22- [place] is therapeutic Continue current regime and plan. 12/21/22- Decrease [place] to 1200 mg HS Increase Buspirone to 15 mg tid 12/22: Continue current treatment plan. 12/23: Continue current plan. 12/24/22: Continue current regime and plan Await program interviews to begin 12/27/22: Re-engage in milieu-currently depressed, withdrawing, fearful of homelessness. 12/28/22: [place] level, BMP, and TSH 12/29/22. 12/30/22: Continue current regime and plan of care. Discharge planning continues. 12/31/22: Contineu current regime and plan of care. 01/01/23: Continue current regime and plan of care. Reason for continued inpatient stay Substantial Risk for: harm to self, inability to function and rapid decompensation Time Spent With Patient Time: Total time managing care of this patient today ____ minutes.
[2023-01-01] MEDS: Lidocaine 4 % Patch ADH..PATCH 1 PATCH TRANSDERMA (12:20)
[2023-01-01] MEDS: SUMAtriptan succinate 100 MG TABLET PO (18:58)
--- NOTE | 2023-01-01 20:27 | PC.NURSE ---
Addendum entered by Hodan Vitale RN 01/01/23 22:49: U/A ordered, collected, and sent to lab. Original Note: PT complaining of painful urination and states he has a hx of UTIs. Silvestre Lees sent text, awaiting further orders.
[2023-01-01] MEDS: hydrOXYzine HCL 10 MG TABLET PO (22:04)
[2023-01-01] MEDS: Lurasidone HCl 80 MG TABLET PO (22:04)
[2023-01-01] MEDS: Lithium Carbonate ER 300 MG TABLET.ER 1200 MG PO (22:05)
[2023-01-01] MEDS: Lurasidone HCl 20 MG TABLET PO (22:05)
[2023-01-01 22:08] VITALS: BP 135/73; PULSE 69; RESP 16; TEMP 36.4; O2SAT 98
[2023-01-02 08:07] VITALS: BP 133/72; PULSE 78; RESP 16; TEMP 36.5; O2SAT 99
[2023-01-02] MEDS: metFORMIN HCl ER 750 MG TAB.ER.24H PO (08:59)
[2023-01-02] MEDS: NeoMY/Polymyx/Dexameth Oph Sus 5 ML BOTTLE 1 DROP EYE-LEFT ×4 (08:59→20:11)
[2023-01-02] MEDS: Omeprazole 40 MG CAPSULE.DR PO ×2 (08:59→20:12)
[2023-01-02] MEDS: Fluticasone Propionate 250 MCG BLST.W.DEV 1 PUFF INHALE ×2 (08:59→20:10)
[2023-01-02] MEDS: Valsartan 80 MG TABLET PO (08:59)
[2023-01-02] MEDS: busPIRone HCl 5 MG TABLET 15 MG PO ×3 (08:59→20:11)
[2023-01-02] MEDS: Escitalopram Oxalate 20 MG TABLET PO (09:26)
[2023-01-02] MEDS: Acetaminophen 325 MG TABLET 650 MG PO (15:28)
[2023-01-02] MEDS: SUMAtriptan succinate 100 MG TABLET PO (15:28)
[2023-01-02 18:14] VITALS: BP 149/70; PULSE 65; TEMP 36.2
[2023-01-02] MEDS: Lurasidone HCl 20 MG TABLET PO (20:11)
[2023-01-02] MEDS: Lithium Carbonate ER 300 MG TABLET.ER 1200 MG PO (20:11)
[2023-01-02] MEDS: Lurasidone HCl 80 MG TABLET PO (20:11)
[2023-01-03 07:00] VITALS: BMI 39.6
[2023-01-03 08:46] VITALS: BP 130/76; PULSE 73; RESP 16; TEMP 36.6; O2SAT 98
[2023-01-03] MEDS: metFORMIN HCl ER 750 MG TAB.ER.24H PO (08:49)
[2023-01-03] MEDS: Escitalopram Oxalate 20 MG TABLET PO (08:49)
[2023-01-03] MEDS: Lidocaine 4 % Patch ADH..PATCH 1 PATCH TRANSDERMA (08:49)
[2023-01-03] MEDS: Valsartan 80 MG TABLET PO (08:49)
[2023-01-03] MEDS: Omeprazole 40 MG CAPSULE.DR PO ×2 (08:49→22:25)
[2023-01-03] MEDS: hydrOXYzine HCL 10 MG TABLET PO (08:49)
[2023-01-03] MEDS: busPIRone HCl 5 MG TABLET 15 MG PO ×3 (08:49→22:25)
[2023-01-03] MEDS: Fluticasone Propionate 250 MCG BLST.W.DEV 1 PUFF INHALE ×2 (08:52→22:25)
[2023-01-03] MEDS: NeoMY/Polymyx/Dexameth Oph Sus 5 ML BOTTLE 1 DROP EYE-LEFT ×4 (08:52→22:25)
[2023-01-03] MEDS: Acetaminophen 325 MG TABLET 650 MG PO (14:23)
[2023-01-03] MEDS: SUMAtriptan succinate 100 MG TABLET PO (14:24)
--- NOTE | 2023-01-03 15:52 | HO.PSYCHPN ---
Subjective Subjective Date of Service: 01/02/23 Reason For Visit: SI Subjective Notes: Conditional Voluntary Healthcare Proxy: No Guardianship: No Medical Problems Affecting Mental Status: No Interim History: Pt reports he spoke with Antoine Ramón today and continues on the waiting list. He also reports a meeting with [facility] today and is accepted for services. Reports to team passive SI with intermittent vertigo and feeling tired and overmedicated, yet denies this to tw. Medication Compliance: Yes Side effects from medications: Yes (feeling tired he reports) Attending Groups: Yes Review of Systems Acute medical concerns: No Medical Review of Systems: unchanged Mental Status Exam Mental Status Exam Patient Appearance: Appropriate Patient Orientation: Person, Place, Time and Situation Level of Consciousness: Alert Patient Behavior: Talkative and Good Eye Contact Mood Description: Constricted Affect Description: Constricted Patient Cognition Impaired: No Ability to Follow Directions: Good Speech Pattern: Spontaneous Speech Memory Description: Intact Hallucinations: None Delusions: Not Present Thought Process: Distracted Thought Content: positive for Circumstantial Depressive Symptoms: Increased Anxiety, Sleeping More Than Usual and Thoughts of /Suicide (passive) Judgement: Fair Diagnostics Vital Signs (24Hr): Vital Signs - 24 hr 01/02/23 18:14 01/03/23 08:46 Temperature 97.1 F 97.8 F Pulse Rate 65 73 Respiratory Rate 16 Blood Pressure 149/70 H 130/76 Pulse Oximetry 98 Oxygen Delivery Method Room Air BMI result Body Mass Index 39.6 Labs 12/11/22 15:57 12/29/22 07:24 Labs: Laboratory Results - last 48 hr 01/01/23 01/03/23 21:40 12:23 Urine Color Yellow Urine Appearance Clear Urine pH 6.0 Ur Specific [place] <= 1.005 Urine Protein Negative Urine Glucose (UA) Negative Urine Ketones Negative Urine Blood Negative Urine Nitrite Negative Ur Leukocyte Esterase Negative [place] 0.76 Medications Medications Current Medications Acetaminophen (Acetaminophen 325 Mg Tablet) 650 mg PO Q6H PRN PRN Reason: Headache/Pain Mild Scale (1-3) Last Admin: 01/03/23 14:23 Dose: 650 mg Al Hydroxide/Mg Hydroxide (Magnesium Hydrox/Alum Hydrox 30 Ml Oral.Susp) 30 ml PO Q6H PRN PRN Reason: Heartburn/Nausea Buspirone HCl (Buspirone Hcl 5 Mg Tablet) 15 mg PO TID [facility] Last Admin: 01/03/23 14:24 Dose: 15 mg Escitalopram Oxalate (Escitalopram Oxalate 20 Mg Tablet) 20 mg PO DAILY [facility] Last Admin: 01/03/23 08:49 Dose: 20 mg Fluticasone Propionate (Fluticasone Propionate 250 Mcg Blst.W.Dev) 1 puff INHALE RBID [facility] Last Admin: 01/03/23 08:52 Dose: 1 puff Hydroxyzine HCl (Hydroxyzine Hcl 10 Mg Tablet) 10 mg PO Q6H PRN PRN Reason: Anxiety Last Admin: 01/03/23 08:49 Dose: 10 mg Ketoconazole (Ketoconazole 2 % Shampoo 120 Ml Btl) 1 appl TOPICAL MoTh@2000 [facility]; Protocol Last Admin: 12/31/22 22:39 Dose: Not Given Lidocaine (Lidocaine 4 % Patch Adh..Patch) 1 patch TRANSDERMA DAILY [facility]; Protocol Last Admin: 01/03/23 08:49 Dose: 1 patch [place] Carbonate ([place] Carbonate Er 300 Mg Tablet.Er) 1,050 mg PO BEDTIME [facility] Lurasidone HCl (Lurasidone Hcl 20 Mg Tablet) 20 mg PO BEDTIME [facility] Last Admin: 01/02/23 20:11 Dose: 20 mg Lurasidone HCl (Lurasidone Hcl 80 Mg Tablet) 80 mg PO BEDTIME [facility] Last Admin: 01/02/23 20:11 Dose: 80 mg Magnesium Hydroxide (Milk Of Magnesia 30 Ml Oral.Susp) 30 ml PO DAILY PRN PRN Reason: Constipation Metformin HCl (Metformin Hcl Er 750 Mg Tab.Er.24h) 750 mg PO DAILY [facility] Last Admin: 01/03/23 08:49 Dose: 750 mg Neomycin/Polymyxin/Dexamethasone (Neomy/Polymyx/Dexameth Oph Vicenta 5 Ml Bottle) 1 drop EYE-LEFT QID [facility] Last Admin: 01/03/23 12:55 Dose: 1 drop Omeprazole (Omeprazole 40 Mg Capsule.Dr) 40 mg PO BID [facility] Last Admin: 01/03/23 08:49 Dose: 40 mg Sumatriptan Succinate (Sumatriptan Succinate 100 Mg Tablet) 100 mg PO DAILY PRN PRN Reason: Migraine Headache Last Admin: 01/03/23 14:24 Dose: 100 mg Topiramate (Topiramate 25 Mg Tablet) 25 mg PO BID [facility] Trazodone HCl (Trazodone Hcl 50 Mg Tablet) 50 mg PO BEDTIME MRX1 PRN PRN Reason: Insomnia Valsartan (Valsartan 80 Mg Tablet) 80 mg PO DAILY [facility] Last Admin: 01/03/23 08:49 Dose: 80 mg Allergies Allergies Allergy/AdvReac Type Severity Reaction Status Date / Time amoxicillin Allergy Severe Rash Verified 12/12/22 13:27 sesame seed [SESAME SEED] Allergy Severe ANAPHYLAXIS Unverified 03/17/20 19:30 lamotrigine [From LAMICTAL] Allergy Intermediate Rash Unverified 03/17/20 19:30 melon [MELON] Allergy Unknown LIPS/CHEEKS Unverified 03/17/20 19:30 SWELLING pine nut [PINE NUT] Allergy Unknown VOMITING Unverified 03/17/20 19:30 venlafaxine [From EFFEXOR] AdvReac Severe pt reports Unverified 03/17/20 19:30 severe adverse response by history banana [BANANA] AdvReac Unknown HEART BURN Unverified 03/17/20 19:30 pumpkin [PUMPKIN] AdvReac Unknown (PUMPKIN Unverified 03/17/20 19:30 SEEDS) VOMITING Assessment & Plan Assessment & Plan (1) PTSD (post-traumatic stress disorder): Status: Acute Code(s): F43.10 - Post-traumatic stress disorder, unspecified (2) Bipolar disorder: Status: Acute Code(s): F31.9 - Bipolar disorder, unspecified Assessment and Plan: 12/17/22- Continue current regime and plan. [place] education 12/18/22- Continue with placement search. Continue current medication regime. 12/20/22- [place] is therapeutic Continue current regime and plan. 12/21/22- Decrease [place] to 1200 mg HS Increase Buspirone to 15 mg tid 12/22: Continue current treatment plan. 12/23: Continue current plan. 12/24/22: Continue current regime and plan Await program interviews to begin 12/27/22: Re-engage in milieu-currently depressed, withdrawing, fearful of homelessness. 12/28/22: [place] level, BMP, and TSH 12/29/22. 12/30/22: Continue current regime and plan of care. Discharge planning continues. 12/31/22: Contineu current regime and plan of care. 01/01/23: Continue current regime and plan of care. 01/02/23: Continue current regime and plan of care. Discussed decreasing Lithiuim with pt. He will consider. At 900 I get manic, at 1200 it is too much and I feel tired. Patient educated on: medication risk/benefits and therapeutic strategies Informed Consent: understands and further education needed Reason for continued inpatient stay Substantial Risk for: rapid decompensation Time Spent With Patient Time: Total time managing care of this patient today ____ minutes.
--- NOTE | 2023-01-03 15:53 | HO.PSYCHPN ---
Subjective Subjective Date of Service: 01/03/23 Reason For Visit: SI Subjective Notes: Conditional Voluntary Healthcare Proxy: No Guardianship: No Medical Problems Affecting Mental Status: No Interim History: Continuing discussion of medicine changes with pt. Agrees to trial a decrease of [place] to 1050 mg daily, Topamax 25 mg bid (concern about weight gain). If ineffective discussion of possibly Vraylar/Caplyta trials. Assured pt we have options. He is agreeable. Medication Compliance: Yes Side effects from medications: No Attending Groups: Yes Review of Systems Acute medical concerns: No Medical Review of Systems: unchanged Mental Status Exam Mental Status Exam Patient Appearance: Appropriate Patient Orientation: Person, Place, Time and Situation Level of Consciousness: Alert Patient Behavior: Talkative and Good Eye Contact Mood Description: Constricted Affect Description: Constricted Patient Cognition Impaired: No Ability to Follow Directions: Good Speech Pattern: Spontaneous Speech Memory Description: Intact Hallucinations: None Delusions: Not Present Thought Process: Distracted Thought Content: positive for Circumstantial Depressive Symptoms: Increased Anxiety, Sleeping More Than Usual and Thoughts of /Suicide (passive) Judgement: Fair Diagnostics Vital Signs (24Hr): Vital Signs - 24 hr 01/02/23 18:14 01/03/23 08:46 Temperature 97.1 F 97.8 F Pulse Rate 65 73 Respiratory Rate 16 Blood Pressure 149/70 H 130/76 Pulse Oximetry 98 Oxygen Delivery Method Room Air BMI result Body Mass Index 39.6 Labs 12/11/22 15:57 12/29/22 07:24 Labs: Laboratory Results - last 48 hr 01/01/23 01/03/23 21:40 12:23 Urine Color Yellow Urine Appearance Clear Urine pH 6.0 Ur Specific [place] <= 1.005 Urine Protein Negative Urine Glucose (UA) Negative Urine Ketones Negative Urine Blood Negative Urine Nitrite Negative Ur Leukocyte Esterase Negative [place] 0.76 Medications Medications Current Medications Acetaminophen (Acetaminophen 325 Mg Tablet) 650 mg PO Q6H PRN PRN Reason: Headache/Pain Mild Scale (1-3) Last Admin: 01/03/23 14:23 Dose: 650 mg Al Hydroxide/Mg Hydroxide (Magnesium Hydrox/Alum Hydrox 30 Ml Oral.Susp) 30 ml PO Q6H PRN PRN Reason: Heartburn/Nausea Buspirone HCl (Buspirone Hcl 5 Mg Tablet) 15 mg PO TID [facility] Last Admin: 01/03/23 14:24 Dose: 15 mg Escitalopram Oxalate (Escitalopram Oxalate 20 Mg Tablet) 20 mg PO DAILY [facility] Last Admin: 01/03/23 08:49 Dose: 20 mg Fluticasone Propionate (Fluticasone Propionate 250 Mcg Blst.W.Dev) 1 puff INHALE RBID [facility] Last Admin: 01/03/23 08:52 Dose: 1 puff Hydroxyzine HCl (Hydroxyzine Hcl 10 Mg Tablet) 10 mg PO Q6H PRN PRN Reason: Anxiety Last Admin: 01/03/23 08:49 Dose: 10 mg Ketoconazole (Ketoconazole 2 % Shampoo 120 Ml Btl) 1 appl TOPICAL MoTh@2000 [facility]; Protocol Last Admin: 12/31/22 22:39 Dose: Not Given Lidocaine (Lidocaine 4 % Patch Adh..Patch) 1 patch TRANSDERMA DAILY [facility]; Protocol Last Admin: 01/03/23 08:49 Dose: 1 patch [place] Carbonate ([place] Carbonate Er 300 Mg Tablet.Er) 1,050 mg PO BEDTIME [facility] Lurasidone HCl (Lurasidone Hcl 20 Mg Tablet) 20 mg PO BEDTIME [facility] Last Admin: 01/02/23 20:11 Dose: 20 mg Lurasidone HCl (Lurasidone Hcl 80 Mg Tablet) 80 mg PO BEDTIME [facility] Last Admin: 01/02/23 20:11 Dose: 80 mg Magnesium Hydroxide (Milk Of Magnesia 30 Ml Oral.Susp) 30 ml PO DAILY PRN PRN Reason: Constipation Metformin HCl (Metformin Hcl Er 750 Mg Tab.Er.24h) 750 mg PO DAILY [facility] Last Admin: 01/03/23 08:49 Dose: 750 mg Neomycin/Polymyxin/Dexamethasone (Neomy/Polymyx/Dexameth Oph Vic[place] 5 Ml Bottle) 1 drop EYE-LEFT QID [facility] Last Admin: 01/03/23 12:55 Dose: 1 drop Omeprazole (Omeprazole 40 Mg Capsule.Dr) 40 mg PO BID [facility] Last Admin: 01/03/23 08:49 Dose: 40 mg Sumatriptan Succinate (Sumatriptan Succinate 100 Mg Tablet) 100 mg PO DAILY PRN PRN Reason: Migraine Headache Last Admin: 01/03/23 14:24 Dose: 100 mg Topiramate (Topiramate 25 Mg Tablet) 25 mg PO BID [facility] Trazodone HCl (Trazodone Hcl 50 Mg Tablet) 50 mg PO BEDTIME MRX1 PRN PRN Reason: Insomnia Valsartan (Valsartan 80 Mg Tablet) 80 mg PO DAILY [facility] Last Admin: 01/03/23 08:49 Dose: 80 mg Allergies Allergies Allergy/AdvReac Type Severity Reaction Status Date / Time amoxicillin Allergy Severe Rash Verified 12/12/22 13:27 sesame seed [SESAME SEED] Allergy Severe ANAPHYLAXIS Unverified 03/17/20 19:30 lamotrigine [From LAMICTAL] Allergy Intermediate Rash Unverified 03/17/20 19:30 melon [MELON] Allergy Unknown LIPS/CHEEKS Unverified 03/17/20 19:30 SWELLING pine nut [PINE NUT] Allergy Unknown VOMITING Unverified 03/17/20 19:30 venlafaxine [From EFFEXOR] AdvReac Severe pt reports Unverified 03/17/20 19:30 severe adverse response by history banana [BANANA] AdvReac Unknown HEART BURN Unverified 03/17/20 19:30 pumpkin [PUMPKIN] AdvReac Unknown (PUMPKIN Unverified 03/17/20 19:30 SEEDS) VOMITING Assessment & Plan Assessment & Plan (1) PTSD (post-traumatic stress disorder): Status: Acute Code(s): F43.10 - Post-traumatic stress disorder, unspecified (2) Bipolar disorder: Status: Acute Code(s): F31.9 - Bipolar disorder, unspecified Assessment and Plan: 12/17/22- Continue current regime and plan. [place] education 12/18/22- Continue with placement search. Continue current medication regime. 12/20/22- [place] is therapeutic Continue current regime and plan. 12/21/22- Decrease [place] to 1200 mg HS Increase Buspirone to 15 mg tid 12/22: Continue current treatment plan. 12/23: Continue current plan. 12/24/22: Continue current regime and plan Await program interviews to begin 12/27/22: Re-engage in milieu-currently depressed, withdrawing, fearful of homelessness. 12/28/22: [place] level, BMP, and TSH 12/29/22. 12/30/22: Continue current regime and plan of care. Discharge planning continues. 12/31/22: Contineu current regime and plan of care. 01/01/23: Continue current regime and plan of care. 01/03/23: Decrease [place] to 1050 daily Topiramate 25 mg bid Patient educated on: medication risk/benefits Informed Consent: understands and further education needed Reason for continued inpatient stay Substantial Risk for: rapid decompensation Time Spent With Patient Time: Total time managing care of this patient today ____ minutes.
[2023-01-03 18:35] VITALS: BP 123/59; PULSE 74; TEMP 36.4
[2023-01-03] MEDS: Lurasidone HCl 80 MG TABLET PO (22:25)
[2023-01-03] MEDS: Lurasidone HCl 20 MG TABLET PO (22:25)
[2023-01-04] MEDS: Escitalopram Oxalate 20 MG TABLET PO (08:13)
[2023-01-04] MEDS: Omeprazole 40 MG CAPSULE.DR PO ×2 (08:13→21:30)
[2023-01-04] MEDS: busPIRone HCl 5 MG TABLET 15 MG PO ×3 (08:13→21:15)
[2023-01-04] MEDS: metFORMIN HCl ER 750 MG TAB.ER.24H PO (08:13)
[2023-01-04] MEDS: Lidocaine 4 % Patch ADH..PATCH 1 PATCH TRANSDERMA (08:13)
[2023-01-04] MEDS: Valsartan 80 MG TABLET PO (08:14)
[2023-01-04] MEDS: NeoMY/Polymyx/Dexameth Oph Sus 5 ML BOTTLE 1 DROP EYE-LEFT ×4 (08:14→21:16)
[2023-01-04] MEDS: Fluticasone Propionate 250 MCG BLST.W.DEV 1 PUFF INHALE ×2 (08:14→21:16)
[2023-01-04 08:43] VITALS: BP 113/70; PULSE 89; RESP 16; TEMP 36.3; O2SAT 96
--- NOTE | 2023-01-04 09:18 | HE.PHANOTE ---
RE: LITHIUM [place] ER 1050 mg bedtime ordered. Unable to split ER tablets. Spoke with Anum Curtis and agreed to [place] ER 900 mg bedtime plus Burden imm release 150 mg bedtime. Patient too sedated on 1200 mg at bedtime but having symptoms with 900 mg at bedtime.
[2023-01-04] MEDS: Acetaminophen 325 MG TABLET 650 MG PO (13:38)
[2023-01-04 16:17] VITALS: BP 126/72; PULSE 81; TEMP 36.6; O2SAT 97
[2023-01-04] MEDS: SUMAtriptan succinate 100 MG TABLET PO (17:53)
--- NOTE | 2023-01-04 20:14 | HO.PSYCHPN ---
Subjective Subjective Date of Service: 01/04/23 Reason For Visit: SI Subjective Notes: Conditional Voluntary Interim History: Pt reports feeling stable. He reports chronic passive SI, no intent to harm himself. He denies VH/AH. He reports sleep is fair- sometimes over sleeps others does not sleep. He reports migraines but started topamax recently, waiting therapeutic effect. Per nursing, no behavioral concerns. Medication Compliance: Yes Review of Systems Review of Systems Left eye pain and wateriness Left eye blurriness Pruritic scalp Yes all other systems are reviewed and are negative Constitutional: Reports lethargy Eyes: Reports eye discharge, Reports irritation, Reports itchy eyes, Reports other visual disturbances and Reports eye pain Reports system reviewed and no additional complaints, except as documented Cardiovascular: Reports no additional cardiovascular complaints Respiratory: Reports no additional respiratory complaints Gastrointestinal: Reports no additional gastrointestinal complaints Genitourinary: Reports no additional male genitourinary complaints Musculoskeletal: Reports no additional musculoskeletal complaints Skin/Breast: Reports bleeding lesions (scalp) and Reports sores Reports system reviewed and no additional complaints, except as documented and Reports behavioral changes Psychiatric: Reports abnormal sleep pattern, Reports anxiety, Reports behavioral changes, Reports change in appetite, Reports depression, Reports difficulty concentrating, Reports hopelessness and Reports suicidal ideation Endocrine: Reports no additional endocrine complaints Hematologic/Lymphatic: Reports no additional hematologic/lymphatic complaints Allergic/Immunologic: Reports itchy eyes Mental Status Exam Mental Status Exam Narrative: Pt is alert and oriented; behavior is cooperative, friendly and calm; patient is not in distress; dressed in hospital attire with unkempt hair but adequate hygiene; mood is described as little better and affect is congruent, calm, brighter; eye contact appropriate; Speech is normal rate, volume and prosody and not pressured; no psychomotor retardation present; thought process is organized and goal directed; Thought content is on treatment, overcoming depression and SI; otherwise pertinent to relevant topics and without any delusional content, paranoid ideations or grandiosity expressed; continues to have SI but much less so; no HI. There is no evidence of perceptual disturbance. Patients insight and judgment are impaired but improving Diagnostics Vital Signs (24Hr): Vital Signs - 24 hr 01/04/23 08:43 01/04/23 16:17 Temperature 97.3 F 97.9 F Pulse Rate 89 81 Respiratory Rate 16 Blood Pressure 113/70 126/72 Pulse Oximetry 96 97 Oxygen Delivery Method Room Air Room Air BMI result Body Mass Index 39.6 Labs 12/11/22 15:57 12/29/22 07:24 Labs: Laboratory Results - last 48 hr 01/03/23 12:23 [place] 0.76 Medications Medications Current Medications Acetaminophen (Acetaminophen 325 Mg Tablet) 650 mg PO Q6H PRN PRN Reason: Headache/Pain Mild Scale (1-3) Last Admin: 01/04/23 13:38 Dose: 650 mg Al Hydroxide/Mg Hydroxide (Magnesium Hydrox/Alum Hydrox 30 Ml Oral.Susp) 30 ml PO Q6H PRN PRN Reason: Heartburn/Nausea Buspirone HCl (Buspirone Hcl 5 Mg Tablet) 15 mg PO TID [facility] Last Admin: 01/04/23 14:09 Dose: 15 mg Escitalopram Oxalate (Escitalopram Oxalate 20 Mg Tablet) 20 mg PO DAILY [facility] Last Admin: 01/04/23 08:13 Dose: 20 mg Fluticasone Propionate (Fluticasone Propionate 250 Mcg Blst.W.Dev) 1 puff INHALE RBID [facility] Last Admin: 01/04/23 08:14 Dose: 1 puff Hydroxyzine HCl (Hydroxyzine Hcl 10 Mg Tablet) 10 mg PO Q6H PRN PRN Reason: Anxiety Last Admin: 01/03/23 08:49 Dose: 10 mg Ketoconazole (Ketoconazole 2 % Shampoo 120 Ml Btl) 1 appl TOPICAL MoTh@2000 [facility]; Protocol Last Admin: 01/03/23 22:26 Dose: Not Given Lidocaine (Lidocaine 4 % Patch Adh..Patch) 1 patch TRANSDERMA DAILY [facility]; Protocol Last Admin: 01/04/23 08:13 Dose: 1 patch [place] Carbonate ([place] Carbonate Er 300 Mg Tablet.Er) 900 mg PO BEDTIME [facility] [place] Carbonate ([place] Carbonate 300 Mg Tablet) 150 mg PO BEDTIME [facility] Lurasidone HCl (Lurasidone Hcl 20 Mg Tablet) 20 mg PO BEDTIME [facility] Last Admin: 01/03/23 22:25 Dose: 20 mg Lurasidone HCl (Lurasidone Hcl 80 Mg Tablet) 80 mg PO BEDTIME [facility] Last Admin: 01/03/23 22:25 Dose: 80 mg Magnesium Hydroxide (Milk Of Magnesia 30 Ml Oral.Susp) 30 ml PO DAILY PRN PRN Reason: Constipation Metformin HCl (Metformin Hcl Er 750 Mg Tab.Er.24h) 750 mg PO DAILY [facility] Last Admin: 01/04/23 08:13 Dose: 750 mg Neomycin/Polymyxin/Dexamethasone (Neomy/Polymyx/Dexameth Oph [place] 5 Ml Bottle) 1 drop EYE-LEFT QID [facility] Last Admin: 01/04/23 16:49 Dose: 1 drop Omeprazole (Omeprazole 40 Mg Capsule.Dr) 40 mg PO BID [facility] Last Admin: 01/04/23 08:13 Dose: 40 mg Sumatriptan Succinate (Sumatriptan Succinate 100 Mg Tablet) 100 mg PO DAILY PRN PRN Reason: Migraine Headache Last Admin: 01/04/23 17:53 Dose: 100 mg Topiramate (Topiramate 25 Mg Tablet) 25 mg PO BID [facility] Last Admin: 01/04/23 08:14 Dose: 25 mg Trazodone HCl (Trazodone Hcl 50 Mg Tablet) 50 mg PO BEDTIME MRX1 PRN PRN Reason: Insomnia Valsartan (Valsartan 80 Mg Tablet) 80 mg PO DAILY [facility] Last Admin: 01/04/23 08:14 Dose: 80 mg Allergies Allergies Allergy/AdvReac Type Severity Reaction Status Date / Time amoxicillin Allergy Severe Rash Verified 12/12/22 13:27 sesame seed [SESAME SEED] Allergy Severe ANAPHYLAXIS Unverified 03/17/20 19:30 lamotrigine [From LAMICTAL] Allergy Intermediate Rash Unverified 03/17/20 19:30 melon [MELON] Allergy Unknown LIPS/CHEEKS Unverified 03/17/20 19:30 SWELLING pine nut [PINE NUT] Allergy Unknown VOMITING Unverified 03/17/20 19:30 venlafaxine [From EFFEXOR] AdvReac Severe pt reports Unverified 03/17/20 19:30 severe adverse response by history banana [BANANA] AdvReac Unknown HEART BURN Unverified 03/17/20 19:30 pumpkin [PUMPKIN] AdvReac Unknown (PUMPKIN Unverified 03/17/20 19:30 SEEDS) VOMITING Assessment & Plan Assessment & Plan (1) PTSD (post-traumatic stress disorder): Status: Acute Code(s): F43.10 - Post-traumatic stress disorder, unspecified (2) Bipolar disorder: Status: Acute Code(s): F31.9 - Bipolar disorder, unspecified Assessment and Plan: 12/17/22- Continue current regime and plan. [place] education 12/18/22- Continue with placement search. Continue current medication regime. 12/20/22- [place] is therapeutic Continue current regime and plan. 12/21/22- Decrease [place] to 1200 mg HS Increase Buspirone to 15 mg tid 12/22: Continue current treatment plan. 12/23: Continue current plan. 12/24/22: Continue current regime and plan Await program interviews to begin 12/27/22: Re-engage in milieu-currently depressed, withdrawing, fearful of homelessness. 12/28/22: [place] level, BMP, and TSH 12/29/22. 12/30/22: Continue current regime and plan of care. Discharge planning continues. 12/31/22: Contineu current regime and plan of care. 01/01/23: Continue current regime and plan of care. 01/03/23: Decrease [place] to 1050 daily Topiramate 25 mg bid 01/04 continue tx. Reason for continued inpatient stay Substantial Risk for: inability to function Time Spent With Patient Time: Total time managing care of this patient today ____ minutes.
[2023-01-04] MEDS: Lurasidone HCl 80 MG TABLET PO (21:13)
[2023-01-04] MEDS: Lithium Carbonate ER 300 MG TABLET.ER 900 MG PO (21:17)
[2023-01-04] MEDS: Lurasidone HCl 20 MG TABLET PO (21:33)
[2023-01-05] MEDS: Escitalopram Oxalate 20 MG TABLET PO (09:12)
[2023-01-05] MEDS: Omeprazole 40 MG CAPSULE.DR PO ×2 (09:12→21:11)
[2023-01-05] MEDS: Lidocaine 4 % Patch ADH..PATCH 1 PATCH TRANSDERMA (09:12)
[2023-01-05] MEDS: busPIRone HCl 5 MG TABLET 15 MG PO ×3 (09:12→21:11)
[2023-01-05] MEDS: metFORMIN HCl ER 750 MG TAB.ER.24H PO (09:12)
[2023-01-05] MEDS: Valsartan 80 MG TABLET PO (09:12)
[2023-01-05] MEDS: Fluticasone Propionate 250 MCG BLST.W.DEV 1 PUFF INHALE ×2 (09:13→21:11)
[2023-01-05] MEDS: NeoMY/Polymyx/Dexameth Oph Sus 5 ML BOTTLE 1 DROP EYE-LEFT ×4 (09:13→21:11)
[2023-01-05 10:03] VITALS: BP 124/75; PULSE 79; RESP 16; TEMP 36.5; O2SAT 97
--- NOTE | 2023-01-05 10:10 | HO.PSYCHPN ---
Subjective Subjective Date of Service: 01/05/23 Reason For Visit: SI Subjective Notes: Conditional Voluntary Medical Problems Affecting Mental Status: No Interim History: 27 yo patient who is doing ok - not wanting change in meds, no xs anxiety or depression, no current si no s/e of medications noted by pt Medication Compliance: Yes Side effects from medications: No Attending Groups: Intermittent Review of Systems Acute medical concerns: No Medical Review of Systems: unchanged Review of Systems: later said having tooth pain got ambusol Mental Status Exam Mental Status Exam Patient Appearance: Appropriate and Unkempt Patient Orientation: Person, Place, Time and Situation Level of Consciousness: Awake Patient Behavior: Appropriate, Dependent and Cooperative Mood Description: Calm Affect Description: Blunted Patient Cognition Impaired: No Ability to Follow Directions: Good Speech Pattern: Clear Thought Process: Intact and Goal Oriented Thought Content: positive for Intact Judgement: Fair Diagnostics Vital Signs (24Hr): Vital Signs - 24 hr 01/04/23 16:17 01/05/23 10:03 Temperature 97.9 F 97.7 F Pulse Rate 81 79 Respiratory Rate 16 Blood Pressure 126/72 124/75 Pulse Oximetry 97 97 Oxygen Delivery Method Room Air Room Air BMI result Body Mass Index 39.6 Labs 12/11/22 15:57 12/29/22 07:24 Labs: Laboratory Results - last 48 hr 01/03/23 12:23 [place] 0.76 Medications Medications Current Medications Acetaminophen (Acetaminophen 325 Mg Tablet) 650 mg PO Q6H PRN PRN Reason: Headache/Pain Mild Scale (1-3) Last Admin: 01/04/23 13:38 Dose: 650 mg Al Hydroxide/Mg Hydroxide (Magnesium Hydrox/Alum Hydrox 30 Ml Oral.Susp) 30 ml PO Q6H PRN PRN Reason: Heartburn/Nausea Buspirone HCl (Buspirone Hcl 5 Mg Tablet) 15 mg PO TID [facility] Last Admin: 01/05/23 09:12 Dose: 15 mg Escitalopram Oxalate (Escitalopram Oxalate 20 Mg Tablet) 20 mg PO DAILY [facility] Last Admin: 01/05/23 09:12 Dose: 20 mg Fluticasone Propionate (Fluticasone Propionate 250 Mcg Blst.W.Dev) 1 puff INHALE RBID [facility] Last Admin: 01/05/23 09:13 Dose: 1 puff Hydroxyzine HCl (Hydroxyzine Hcl 10 Mg Tablet) 10 mg PO Q6H PRN PRN Reason: Anxiety Last Admin: 01/03/23 08:49 Dose: 10 mg Ketoconazole (Ketoconazole 2 % Shampoo 120 Ml Btl) 1 appl TOPICAL MoTh@2000 [facility]; Protocol Last Admin: 01/03/23 22:26 Dose: Not Given Lidocaine (Lidocaine 4 % Patch Adh..Patch) 1 patch TRANSDERMA DAILY [facility]; Protocol Last Admin: 01/05/23 09:12 Dose: 1 patch [place] Carbonate ([place] Carbonate Er 300 Mg Tablet.Er) 900 mg PO BEDTIME [facility] Last Admin: 01/04/23 21:17 Dose: 900 mg [place] Carbonate ([place] Carbonate 300 Mg Tablet) 150 mg PO BEDTIME [facility] Last Admin: 01/04/23 21:14 Dose: 150 mg Lurasidone HCl (Lurasidone Hcl 20 Mg Tablet) 20 mg PO BEDTIME [facility] Last Admin: 01/04/23 21:33 Dose: 20 mg Lurasidone HCl (Lurasidone Hcl 80 Mg Tablet) 80 mg PO BEDTIME [facility] Last Admin: 01/04/23 21:13 Dose: 80 mg Magnesium Hydroxide (Milk Of Magnesia 30 Ml Oral.Susp) 30 ml PO DAILY PRN PRN Reason: Constipation Metformin HCl (Metformin Hcl Er 750 Mg Tab.Er.24h) 750 mg PO DAILY [facility] Last Admin: 01/05/23 09:12 Dose: 750 mg Neomycin/Polymyxin/Dexamethasone (Neomy/Polymyx/Dexameth Oph [place] 5 Ml Bottle) 1 drop EYE-LEFT QID [facility] Last Admin: 01/05/23 09:13 Dose: 1 drop Omeprazole (Omeprazole 40 Mg Capsule.Dr) 40 mg PO BID [facility] Last Admin: 01/05/23 09:12 Dose: 40 mg Sumatriptan Succinate (Sumatriptan Succinate 100 Mg Tablet) 100 mg PO DAILY PRN PRN Reason: Migraine Headache Last Admin: 01/04/23 17:53 Dose: 100 mg Topiramate (Topiramate 25 Mg Tablet) 25 mg PO BID [facility] Last Admin: 01/05/23 09:12 Dose: 25 mg Trazodone HCl (Trazodone Hcl 50 Mg Tablet) 50 mg PO BEDTIME MRX1 PRN PRN Reason: Insomnia Valsartan (Valsartan 80 Mg Tablet) 80 mg PO DAILY [facility] Last Admin: 01/05/23 09:12 Dose: 80 mg Allergies Allergies Allergy/AdvReac Type Severity Reaction Status Date / Time amoxicillin Allergy Severe Rash Verified 12/12/22 13:27 sesame seed [SESAME SEED] Allergy Severe ANAPHYLAXIS Unverified 03/17/20 19:30 lamotrigine [From LAMICTAL] Allergy Intermediate Rash Unverified 03/17/20 19:30 melon [MELON] Allergy Unknown LIPS/CHEEKS Unverified 03/17/20 19:30 SWELLING pine nut [PINE NUT] Allergy Unknown VOMITING Unverified 03/17/20 19:30 venlafaxine [From EFFEXOR] AdvReac Severe pt reports Unverified 03/17/20 19:30 severe adverse response by history banana [BANANA] AdvReac Unknown HEART BURN Unverified 03/17/20 19:30 pumpkin [PUMPKIN] AdvReac Unknown (PUMPKIN Unverified 03/17/20 19:30 SEEDS) VOMITING Assessment & Plan Assessment & Plan (1) PTSD (post-traumatic stress disorder): Status: Acute Code(s): F43.10 - Post-traumatic stress disorder, unspecified (2) Bipolar disorder: Status: Acute Code(s): F31.9 - Bipolar disorder, unspecified Assessment and Plan: 12/17/22- Continue current regime and plan. [place] education 12/18/22- Continue with placement search. Continue current medication regime. 12/20/22- [place] is therapeutic Continue current regime and plan. 12/21/22- Decrease [place] to 1200 mg HS Increase Buspirone to 15 mg tid 12/22: Continue current treatment plan. 12/23: Continue current plan. 12/24/22: Continue current regime and plan Await program interviews to begin 12/27/22: Re-engage in milieu-currently depressed, withdrawing, fearful of homelessness. 12/28/22: [place] level, BMP, and TSH 12/29/22. 12/30/22: Continue current regime and plan of care. Discharge planning continues. 12/31/22: Contineu current regime and plan of care. 01/01/23: Continue current regime and plan of care. 01/03/23: Decrease [place] to 1050 daily Topiramate 25 mg bid 01/04 continue tx. 01/05- CTP Reason for continued inpatient stay Substantial Risk for: inability to function Time Spent With Patient Time: Total time managing care of this patient today ____ minutes.
[2023-01-05] MEDS: hydrOXYzine HCL 10 MG TABLET PO ×2 (14:06→21:11)
[2023-01-05] MEDS: Benzocaine 20 % Oral Gel 9 GM TUBE 1 APPL MUCOUS MEM (14:13)
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
[2023-01-05] MEDS: SUMAtriptan succinate 100 MG TABLET PO (15:56)
[2023-01-05 18:36] VITALS: BP 124/81; PULSE 67; TEMP 36.6
[2023-01-05] MEDS: Lurasidone HCl 20 MG TABLET PO (21:11)
[2023-01-05] MEDS: Lurasidone HCl 80 MG TABLET PO (21:11)
[2023-01-05] MEDS: traZODone HCL 50 MG TABLET PO ×2 (21:16→22:16)
[2023-01-05] MEDS: Lithium Carbonate ER 300 MG TABLET.ER 900 MG PO (21:21)
[2023-01-06 08:00] VITALS: BP 112/61; PULSE 78; RESP 18; TEMP 36.2; O2SAT 95
[2023-01-06] MEDS: Fluticasone Propionate 250 MCG BLST.W.DEV 1 PUFF INHALE ×2 (08:34→21:31)
[2023-01-06] MEDS: NeoMY/Polymyx/Dexameth Oph Sus 5 ML BOTTLE 1 DROP EYE-LEFT ×4 (08:35→21:30)
[2023-01-06] MEDS: Lidocaine 4 % Patch ADH..PATCH 1 PATCH TRANSDERMA (08:35)
[2023-01-06] MEDS: Escitalopram Oxalate 20 MG TABLET PO (08:37)
[2023-01-06] MEDS: metFORMIN HCl ER 750 MG TAB.ER.24H PO (08:37)
[2023-01-06] MEDS: busPIRone HCl 5 MG TABLET 15 MG PO ×3 (08:38→20:35)
[2023-01-06] MEDS: Valsartan 80 MG TABLET PO (08:38)
[2023-01-06] MEDS: Omeprazole 40 MG CAPSULE.DR PO ×2 (08:38→20:39)
--- NOTE | 2023-01-06 10:29 | HO.PSYCHPN ---
Subjective Subjective Date of Service: 01/06/23 Reason For Visit: SI Subjective Notes: Conditional Voluntary Healthcare Proxy: No Guardianship: No Medical Problems Affecting Mental Status: Yes (? burning urine, fatigue ?uti) Interim History: 27 yo with hx si, depression, reports fatigue- not sure what medication it is denies fever or other uri sys- later on co buringing on urination- got u/a with reflex culture ordered coordinated with ms pollack who agreed with plans to get labs and reassess. tomorrow- Medication Compliance: Yes Side effects from medications: Yes (? fatigue) Attending Groups: No Review of Systems Acute medical concerns: Yes ? tui Review of Systems: burning on urination Mental Status Exam Mental Status Exam Patient Appearance: Fatigued Patient Orientation: Person, Place, Time and Situation Level of Consciousness: Awake Patient Behavior: Appropriate and Passive Mood Description: Anxious (? re dc) and Sad Affect Description: Blunted Patient Cognition Impaired: No Ability to Follow Directions: Fair Speech Pattern: Clear Thought Process: Intact Thought Content: positive for Suicidal Ideation Depressive Symptoms: Increased Anxiety Judgement: Fair Diagnostics Vital Signs (24Hr): Vital Signs - 24 hr 01/05/23 18:36 Temperature 97.9 F Pulse Rate 67 Blood Pressure 124/81 BMI result Body Mass Index 39.6 Labs 12/11/22 15:57 01/06/23 07:37 Labs: Laboratory Results - last 48 hr 01/06/23 07:37 Creatinine 1.10 Estim Creat Clear Calc 100.9 Estimated GFR > 60 Medications Medications Current Medications Acetaminophen (Acetaminophen 325 Mg Tablet) 650 mg PO Q6H PRN PRN Reason: Headache/Pain Mild Scale (1-3) Last Admin: 01/04/23 13:38 Dose: 650 mg Al Hydroxide/Mg Hydroxide (Magnesium Hydrox/Alum Hydrox 30 Ml Oral.Susp) 30 ml PO Q6H PRN PRN Reason: Heartburn/Nausea Benzocaine (Benzocaine 20 % Oral Gel 9 Gm Tube) 1 appl MUCOUS MEM TID PRN; Protocol PRN Reason: Pain, Mild (Pain Scale 1-3) Last Admin: 01/05/23 14:13 Dose: 1 appl Buspirone HCl (Buspirone Hcl 5 Mg Tablet) 15 mg PO TID [facility] Last Admin: 01/06/23 08:38 Dose: 15 mg Escitalopram Oxalate (Escitalopram Oxalate 20 Mg Tablet) 20 mg PO DAILY [facility] Last Admin: 01/06/23 08:37 Dose: 20 mg Fluticasone Propionate (Fluticasone Propionate 250 Mcg Blst.W.Dev) 1 puff INHALE RBID [facility] Last Admin: 01/06/23 08:34 Dose: 1 puff Hydroxyzine HCl (Hydroxyzine Hcl 10 Mg Tablet) 10 mg PO Q6H PRN PRN Reason: Anxiety Last Admin: 01/05/23 21:11 Dose: 10 mg Ketoconazole (Ketoconazole 2 % Shampoo 120 Ml Btl) 1 appl TOPICAL MoTh@2000 [facility]; Protocol Last Admin: 01/03/23 22:26 Dose: Not Given Lidocaine (Lidocaine 4 % Patch Adh..Patch) 1 patch TRANSDERMA DAILY [facility]; Protocol Last Admin: 01/06/23 08:35 Dose: 1 patch Ahtanum Carbonate (Ahtanum Carbonate Er 300 Mg Tablet.Er) 900 mg PO BEDTIME [facility] Last Admin: 01/05/23 21:21 Dose: 900 mg Ahtanum Carbonate (Ahtanum Carbonate 300 Mg Tablet) 150 mg PO BEDTIME [facility] Last Admin: 01/05/23 21:11 Dose: 150 mg Lurasidone HCl (Lurasidone Hcl 20 Mg Tablet) 20 mg PO BEDTIME [facility] Last Admin: 01/05/23 21:11 Dose: 20 mg Lurasidone HCl (Lurasidone Hcl 80 Mg Tablet) 80 mg PO BEDTIME [facility] Last Admin: 01/05/23 21:11 Dose: 80 mg Magnesium Hydroxide (Milk Of Magnesia 30 Ml Oral.Susp) 30 ml PO DAILY PRN PRN Reason: Constipation Metformin HCl (Metformin Hcl Er 750 Mg Tab.Er.24h) 750 mg PO DAILY [facility] Last Admin: 01/06/23 08:37 Dose: 750 mg Neomycin/Polymyxin/Dexamethasone (Neomy/Polymyx/Dexameth Oph [place] 5 Ml Bottle) 1 drop EYE-LEFT QID [facility] Last Admin: 01/06/23 08:35 Dose: 1 drop Omeprazole (Omeprazole 40 Mg Capsule.Dr) 40 mg PO BID [facility] Last Admin: 01/06/23 08:38 Dose: 40 mg Sumatriptan Succinate (Sumatriptan Succinate 100 Mg Tablet) 100 mg PO DAILY PRN PRN Reason: Migraine Headache Last Admin: 01/05/23 15:56 Dose: 100 mg Topiramate (Topiramate 25 Mg Tablet) 25 mg PO BID [facility] Last Admin: 01/06/23 08:37 Dose: 25 mg Trazodone HCl (Trazodone Hcl 50 Mg Tablet) 50 mg PO BEDTIME MRX1 PRN PRN Reason: Insomnia Last Admin: 01/05/23 22:16 Dose: 50 mg Valsartan (Valsartan 80 Mg Tablet) 80 mg PO DAILY [facility] Last Admin: 01/06/23 08:38 Dose: 80 mg Allergies Allergies Allergy/AdvReac Type Severity Reaction Status Date / Time amoxicillin Allergy Severe Rash Verified 12/12/22 13:27 sesame seed [SESAME SEED] Allergy Severe ANAPHYLAXIS Verified 01/06/23 08:27 lamotrigine [From LAMICTAL] Allergy Intermediate Rash Verified 01/06/23 08:27 melon [MELON] Allergy Unknown LIPS/CHEEKS Verified 01/06/23 08:27 SWELLING pine nut [PINE NUT] Allergy Unknown VOMITING Verified 01/06/23 08:27 venlafaxine [From EFFEXOR] AdvReac Severe pt reports Verified 01/06/23 08:27 severe adverse response by history banana [BANANA] AdvReac Unknown HEART BURN Verified 01/06/23 08:27 pumpkin [PUMPKIN] AdvReac Unknown (PUMPKIN Verified 01/06/23 08:27 SEEDS) VOMITING Assessment & Plan Assessment & Plan (1) PTSD (post-traumatic stress disorder): Status: Acute Code(s): F43.10 - Post-traumatic stress disorder, unspecified (2) Bipolar disorder: Status: Acute Code(s): F31.9 - Bipolar disorder, unspecified Assessment and Plan: 12/17/22- Continue current regime and plan. [place] education 12/18/22- Continue with placement search. Continue current medication regime. 12/20/22- Ahtanum is therapeutic Continue current regime and plan. 12/21/22- Decrease Ahtanum to 1200 mg HS Increase Buspirone to 15 mg tid 12/22: Continue current treatment plan. 12/23: Continue current plan. 12/24/22: Continue current regime and plan Await program interviews to begin 12/27/22: Re-engage in milieu-currently depressed, withdrawing, fearful of homelessness. 12/28/22: Ahtanum level, BMP, and TSH 12/29/22. 12/30/22: Continue current regime and plan of care. Discharge planning continues. 12/31/22: Contineu current regime and plan of care. 01/01/23: Continue current regime and plan of care. 01/03/23: Decrease Ahtanum to 1050 daily Topiramate 25 mg bid 01/04 continue tx. 01/05- CTP 01/06 no recent med changes, hasn't had lab tests in a bit will recheck - including thyroid, urine sent for u/a reflex culture Patient educated on: therapeutic strategies and medical condition Informed Consent: understands Reason for continued inpatient stay Substantial Risk for: inability to function and rapid decompensation Time Spent With Patient Time: Total time managing care of this patient today ____ minutes.
[2023-01-06] MEDS: Acetaminophen 325 MG TABLET 650 MG PO (15:02)
[2023-01-06 17:20] VITALS: BP 98/51; PULSE 88; RESP 16; TEMP 36.1; O2SAT 97
[2023-01-06] MEDS: Lurasidone HCl 20 MG TABLET PO (20:35)
[2023-01-06] MEDS: Lithium Carbonate ER 300 MG TABLET.ER 900 MG PO (20:36)
[2023-01-06] MEDS: Lurasidone HCl 80 MG TABLET PO (20:36)
[2023-01-06] MEDS: SUMAtriptan succinate 100 MG TABLET PO (20:42)
[2023-01-07] MEDS: Magnesium Hydrox/Alum Hydrox 30 ML ORAL.SUSP PO ×2 (02:20→18:15)
[2023-01-07 08:19] LABS: MANUAL DIFF FLAG NO
[2023-01-07 08:23] LABS: Basophils Absolute Auto 0.1 X10*3/uL (0.0-0.2); Basophils Percent Auto 0.6 % (0-2); Eosinophils Absolute Auto 0.3 X10*3/uL (0.0-0.4); Eosinophils Percent Auto 2.8 % (0-4); Hematocrit 38.8 % (42.0-52.0); Hemoglobin 12.4 g/dl (14.0-18.0); Imm Gran Pct Auto 1.1 % (0.0-0.4); Lymphocytes Absolute Auto 2.7 X10*3/uL (1.2-4.9); Lymphocytes Percent Auto 30.9 % (20-40); Mean Corpuscular Hemoglobin 25.7 pg (27.0-33.0); Mean Corpuscular Volume 80.5 fL (80.0-98.0); Mean Platelet Volume 10.6 fL (9.4-12.4); Monocytes Absolute Auto 0.6 X10*3/uL (0.1-1.2); Monocytes Percent Auto 6.5 % (2-11); Neutrophils Absolute Auto 5.1 x10*3/uL (2.0-8.3); Neutrophils Percent Auto 58.1 % (45-73); Platelet Count 177 X10*3/uL (160-400); Red Blood Count 4.82 X10*6/uL (4.60-5.80); Red Cell Distribution Width 13.5 % (11.0-16.0); White Blood Count 8.8 X10*3/uL (4.8-10.8)
[2023-01-07] MEDS: Escitalopram Oxalate 20 MG TABLET PO (08:31)
[2023-01-07] MEDS: busPIRone HCl 5 MG TABLET 15 MG PO ×3 (08:31→21:31)
[2023-01-07] MEDS: metFORMIN HCl ER 750 MG TAB.ER.24H PO (08:31)
[2023-01-07] MEDS: Valsartan 80 MG TABLET PO (08:31)
[2023-01-07] MEDS: Omeprazole 40 MG CAPSULE.DR PO ×2 (08:32→21:31)
[2023-01-07] MEDS: Fluticasone Propionate 250 MCG BLST.W.DEV 1 PUFF INHALE ×2 (08:33→21:32)
[2023-01-07] MEDS: NeoMY/Polymyx/Dexameth Oph Sus 5 ML BOTTLE 1 DROP EYE-LEFT ×4 (08:33→21:32)
[2023-01-07 08:37] LABS: Lithium 0.77 mmol/L (0.60-1.20)
[2023-01-07 08:49] LABS: Alanine Aminotransferase 31 U/L (0-40); Alkaline Phosphatase 77 U/L (39-117); Anion Gap 10 (12-20); Aspartate Amino Transferase 13 U/L (5-37); Bilirubin Total 0.4 mg/dL (0.0-1.0); Blood Urea Nitrogen 10 mg/dL (9-16); Calcium 9.5 mg/dL (8.4-10.2); Carbon Dioxide 24 mmol/L (22-29); Chloride 110 mmol/L (96-108); Creatinine Clr Calc Pharmacy 113.3; Estimated Glomerular Filt Rate > 60; Glucose Fasting 138 mg/dL (60-99); Sodium 140 mmol/L (135-145); Total Protein 6.8 g/dL (6.5-8.0)
[2023-01-07 09:03] VITALS: BP 132/62; PULSE 92; RESP 16; TEMP 36.5; O2SAT 97
[2023-01-07 09:04] LABS: Thyroid Stimulating Hormone 0.95 uIU/mL (0.32-4.0)
[2023-01-07] MEDS: SUMAtriptan succinate 100 MG TABLET PO (10:40)
[2023-01-07 18:00] VITALS: BP 123/61; PULSE 80; TEMP 36.3; O2SAT 98
[2023-01-07] MEDS: Lidocaine 4 % Patch ADH..PATCH 1 PATCH TRANSDERMA (19:26)
--- NOTE | 2023-01-07 20:17 | HO.PSYCHPN ---
Subjective Subjective Date of Service: 01/07/23 Reason For Visit: SI Subjective Notes: Conditional Voluntary Healthcare Proxy: No Guardianship: No Medical Problems Affecting Mental Status: No Interim History: Met with pt and mother to review meds, sx of anxiety and feeling overmedicated. Tentative dc this week to respite. Pt reports he feels he cannot face anything, feels ashamed and a mess, needy, sad, borderline psychotic . Discussed conflict with a peer this weekend. Plan to discontinue Bradbury 150 mg IR HS and decrease Topamax to 25 mg daily. Discharge tentative for 01/[address] [facility] respite in [place] with plan to transfer to [facility] respite when a bed becomes available. Medication Compliance: Yes Side effects from medications: Yes Attending Groups: Intermittent Review of Systems Acute medical concerns: No Medical Review of Systems: unchanged Mental Status Exam Mental Status Exam Patient Appearance: Appropriate Patient Orientation: Person, Place, Time and Situation Level of Consciousness: Alert Patient Behavior: Appropriate and Talkative Mood Description: Flat Affect Description: Flat Patient Cognition Impaired: No Ability to Follow Directions: Good Speech Pattern: Spontaneous Speech Memory Description: Intact Hallucinations: None Delusions: Not Present Thought Process: Goal Oriented Thought Content: positive for Goal Oriented Depressive Symptoms: Increased Anxiety and Thoughts of /Suicide (denies) Judgement: Good Diagnostics Vital Signs (24Hr): Vital Signs - 24 hr 01/07/23 09:03 01/07/23 18:00 Temperature 97.7 F 97.3 F Pulse Rate 92 80 Respiratory Rate 16 Blood Pressure 132/62 123/61 Pulse Oximetry 97 98 Oxygen Delivery Method Room Air Room Air BMI result Body Mass Index 39.6 Labs 01/07/23 08:16 01/07/23 08:16 Labs: Laboratory Results - last 48 hr 01/06/23 01/06/23 01/07/23 07:37 14:50 08:16 WBC 8.8 RBC 4.82 Hgb 12.4 L Hct 38.8 L MCV 80.5 MCH 25.7 L MCHC 32.0 RDW 13.5 Plt Count 177 MPV 10.6 Immature Gran % (Auto) 1.1 H Neut % (Auto) 58.1 Lymph % (Auto) 30.9 [place] % (Auto) 6.5 Eos % (Auto) 2.8 Baso % (Auto) 0.6 Lymph # (Auto) 2.7 [place] # (Auto) 0.6 Eos # (Auto) 0.3 Baso # (Auto) 0.1 Abs Immat Gran (auto) 0.10 H Absolute Neuts (auto) 5.1 Absolute Nucleated RBC 0.000 Nucleated RBC % (auto) 0.0 Sodium Potassium Chloride Carbon Dioxide Anion Gap BUN Creatinine 1.10 Estim Creat Clear Calc 100.9 Estimated GFR > 60 Fasting Glucose Calcium Total Bilirubin AST ALT Alkaline Phosphatase Total Protein Albumin TSH Urine Color Yellow Urine Appearance Clear Urine pH 6.0 Ur Specific [place] 1.020 Urine Protein Negative Urine Glucose (UA) 500 H Urine Ketones Negative Urine Blood Negative Urine Nitrite Negative Ur Leukocyte Esterase Negative Urine RBC 0-2 Urine WBC 0-5 Ur Squamous Epith Cells 0-2 Urine Bacteria None Seen Hyaline Casts 0-2 Bradbury 01/07/23 01/07/23 08:16 08:16 WBC RBC Hgb Hct MCV MCH MCHC RDW Plt Count MPV Immature Gran % (Auto) Neut % (Auto) Lymph % (Auto) [place] % (Auto) Eos % (Auto) Baso % (Auto) Lymph # (Auto) [place] # (Auto) Eos # (Auto) Baso # (Auto) Abs Immat Gran (auto) Absolute Neuts (auto) Absolute Nucleated RBC Nucleated RBC % (auto) Sodium 140 Potassium 4.0 Chloride 110 H Carbon Dioxide 24 Anion Gap 10 L BUN 10 Creatinine 0.98 Estim Creat Clear Calc 113.3 Estimated GFR > 60 Fasting Glucose 138 H Calcium 9.5 Total Bilirubin 0.4 AST 13 ALT 31 Alkaline Phosphatase 77 Total Protein 6.8 Albumin 4.0 TSH 0.95 Urine Color Urine Appearance Urine pH Ur Specific [place] Urine Protein Urine Glucose (UA) Urine Ketones Urine Blood Urine Nitrite Ur Leukocyte Esterase Urine RBC Urine WBC Ur Squamous Epith Cells Urine Bacteria Hyaline Casts Bradbury 0.77 Medications Medications Current Medications Acetaminophen (Acetaminophen 325 Mg Tablet) 650 mg PO Q6H PRN PRN Reason: Headache/Pain Mild Scale (1-3) Last Admin: 01/06/23 15:02 Dose: 650 mg Al Hydroxide/Mg Hydroxide (Magnesium Hydrox/Alum Hydrox 30 Ml Oral.Susp) 30 ml PO Q6H PRN PRN Reason: Heartburn/Nausea Last Admin: 01/07/23 18:15 Dose: 30 ml Benzocaine (Benzocaine 20 % Oral Gel 9 Gm Tube) 1 appl MUCOUS MEM TID PRN; Protocol PRN Reason: Pain, Mild (Pain Scale 1-3) Last Admin: 01/05/23 14:13 Dose: 1 appl Buspirone HCl (Buspirone Hcl 5 Mg Tablet) 15 mg PO TID [facility] Last Admin: 01/07/23 14:19 Dose: 15 mg Escitalopram Oxalate (Escitalopram Oxalate 20 Mg Tablet) 20 mg PO DAILY [facility] Last Admin: 01/07/23 08:31 Dose: 20 mg Fluticasone Propionate (Fluticasone Propionate 250 Mcg Blst.W.Dev) 1 puff INHALE RBID [facility] Last Admin: 01/07/23 08:33 Dose: 1 puff Hydroxyzine HCl (Hydroxyzine Hcl 10 Mg Tablet) 10 mg PO Q6H PRN PRN Reason: Anxiety Last Admin: 01/05/23 21:11 Dose: 10 mg Ketoconazole (Ketoconazole 2 % Shampoo 120 Ml Btl) 1 appl TOPICAL MoTh@2000 [facility]; Protocol Last Admin: 01/03/23 22:26 Dose: Not Given Lidocaine (Lidocaine 4 % Patch Adh..Patch) 1 patch TRANSDERMA DAILY [facility]; Protocol Last Admin: 01/07/23 19:26 Dose: 1 patch Bradbury Carbonate (Bradbury Carbonate Er 300 Mg Tablet.Er) 900 mg PO BEDTIME [facility] Last Admin: 01/06/23 20:36 Dose: 900 mg Lurasidone HCl (Lurasidone Hcl 20 Mg Tablet) 20 mg PO BEDTIME [facility] Last Admin: 01/06/23 20:35 Dose: 20 mg Lurasidone HCl (Lurasidone Hcl 80 Mg Tablet) 80 mg PO BEDTIME [facility] Last Admin: 01/06/23 20:36 Dose: 80 mg Magnesium Hydroxide (Milk Of Magnesia 30 Ml Oral.Susp) 30 ml PO DAILY PRN PRN Reason: Constipation Metformin HCl (Metformin Hcl Er 750 Mg Tab.Er.24h) 750 mg PO DAILY [facility] Last Admin: 01/07/23 08:31 Dose: 750 mg Neomycin/Polymyxin/Dexamethasone (Neomy/Polymyx/Dexameth Oph [place] 5 Ml Bottle) 1 drop EYE-LEFT QID [facility] Last Admin: 01/07/23 18:15 Dose: 1 drop Omeprazole (Omeprazole 40 Mg Capsule.Dr) 40 mg PO BID [facility] Last Admin: 01/07/23 08:32 Dose: 40 mg Sumatriptan Succinate (Sumatriptan Succinate 100 Mg Tablet) 100 mg PO DAILY PRN PRN Reason: Migraine Headache Last Admin: 01/07/23 10:40 Dose: 100 mg Topiramate (Topiramate 25 Mg Tablet) 25 mg PO DAILY [facility] Trazodone HCl (Trazodone Hcl 50 Mg Tablet) 50 mg PO BEDTIME MRX1 PRN PRN Reason: Insomnia Last Admin: 01/05/23 22:16 Dose: 50 mg Valsartan (Valsartan 80 Mg Tablet) 80 mg PO DAILY [facility] Last Admin: 01/07/23 08:31 Dose: 80 mg Allergies Allergies Allergy/AdvReac Type Severity Reaction Status Date / Time amoxicillin Allergy Severe Rash Verified 12/12/22 13:27 sesame seed [SESAME SEED] Allergy Severe ANAPHYLAXIS Verified 01/06/23 08:27 lamotrigine [From LAMICTAL] Allergy Intermediate Rash Verified 01/06/23 08:27 melon [MELON] Allergy Unknown LIPS/CHEEKS Verified 01/06/23 08:27 SWELLING pine nut [PINE NUT] Allergy Unknown VOMITING Verified 01/06/23 08:27 venlafaxine [From EFFEXOR] AdvReac Severe pt reports Verified 01/06/23 08:27 severe adverse response by history banana [BANANA] AdvReac Unknown HEART BURN Verified 01/06/23 08:27 pumpkin [PUMPKIN] AdvReac Unknown (PUMPKIN Verified 01/06/23 08:27 SEEDS) VOMITING Assessment & Plan Assessment & Plan (1) PTSD (post-traumatic stress disorder): Status: Acute Code(s): F43.10 - Post-traumatic stress disorder, unspecified (2) Bipolar disorder: Status: Acute Code(s): F31.9 - Bipolar disorder, unspecified Assessment and Plan: 12/17/22- Continue current regime and plan. [place] education 12/18/22- Continue with placement search. Continue current medication regime. 12/20/22- Bradbury is therapeutic Continue current regime and plan. 12/21/22- Decrease Bradbury to 1200 mg HS Increase Buspirone to 15 mg tid 12/22: Continue current treatment plan. 12/23: Continue current plan. 12/24/22: Continue current regime and plan Await program interviews to begin 12/27/22: Re-engage in milieu-currently depressed, withdrawing, fearful of homelessness. 12/28/22: Bradbury level, BMP, and TSH 12/29/22. 12/30/22: Continue current regime and plan of care. Discharge planning continues. 12/31/22: Contineu current regime and plan of care. 01/01/23: Continue current regime and plan of care. 01/03/23: Decrease Bradbury to 1050 daily Topiramate 25 mg bid 01/04 continue tx. 01/05- CTP 01/06 no recent med changes, hasn't had lab tests in a bit will recheck - including thyroid, urine sent for u/a reflex culture 01/07 discontinue Bradbury IR 150 mg decrease Topamax to 25 mg daily Patient educated on: medication risk/benefits and therapeutic strategies Informed Consent: understands and further education needed Reason for continued inpatient stay Substantial Risk for: rapid decompensation Time Spent With Patient Time: Total time managing care of this patient today ____ minutes.
[2023-01-07] MEDS: Lurasidone HCl 20 MG TABLET PO (21:31)
[2023-01-07] MEDS: Lithium Carbonate ER 300 MG TABLET.ER 900 MG PO (21:31)
[2023-01-07] MEDS: Lurasidone HCl 80 MG TABLET PO (21:31)
[2023-01-07] MEDS: traZODone HCL 50 MG TABLET PO (22:40)
[2023-01-08 08:40] VITALS: BP 133/78; PULSE 93; RESP 16; TEMP 36.4; O2SAT 97
[2023-01-08] MEDS: busPIRone HCl 5 MG TABLET 15 MG PO ×3 (08:48→20:34)
[2023-01-08] MEDS: Valsartan 80 MG TABLET PO (08:48)
[2023-01-08] MEDS: Escitalopram Oxalate 20 MG TABLET PO (08:48)
[2023-01-08] MEDS: metFORMIN HCl ER 750 MG TAB.ER.24H PO (08:48)
[2023-01-08] MEDS: Fluticasone Propionate 250 MCG BLST.W.DEV 1 PUFF INHALE ×2 (08:48→20:35)
[2023-01-08] MEDS: NeoMY/Polymyx/Dexameth Oph Sus 5 ML BOTTLE 1 DROP EYE-LEFT ×4 (08:48→20:36)
[2023-01-08] MEDS: Omeprazole 40 MG CAPSULE.DR PO ×2 (08:48→20:34)
[2023-01-08] MEDS: Topiramate 25 MG TABLET PO ×2 (08:48→20:35)
[2023-01-08] MEDS: hydrOXYzine HCL 10 MG TABLET PO (12:23)
[2023-01-08] MEDS: SUMAtriptan succinate 100 MG TABLET PO (12:26)
[2023-01-08] MEDS: Acetaminophen 325 MG TABLET 650 MG PO (12:27)
--- NOTE | 2023-01-08 16:09 | P.PNPSI_ITS ---
Subjective Subjective Date of Service: 01/08/23 Reason For Visit: SI Subjective Notes: Conditional Voluntary Healthcare Proxy: No Guardianship: No Medical Problems Affecting Mental Status: No Interim History: Planning discharge for tomorrow. Feeling exhausted and overwhelmed with reported muscle tension. Medication Compliance: Yes Side effects from medications: No Attending Groups: Intermittent Review of Systems Acute medical concerns: No Medical Review of Systems: unchanged Mental Status Exam Mental Status Exam Patient Appearance: Appropriate Patient Orientation: Person, Place, Time and Situation Level of Consciousness: Alert Patient Behavior: Appropriate and Talkative Mood Description: Flat Affect Description: Flat Patient Cognition Impaired: No Ability to Follow Directions: Good Speech Pattern: Spontaneous Speech Memory Description: Intact Hallucinations: None Delusions: Not Present Thought Process: Goal Oriented Thought Content: positive for Goal Oriented Depressive Symptoms: Increased Anxiety and Thoughts of /Suicide (denies) Judgement: Good Diagnostics Vital Signs (24Hr): Vital Signs - 24 hr 01/07/23 18:00 01/08/23 08:40 Temperature 97.3 F 97.6 F Pulse Rate 80 93 Respiratory Rate 16 Blood Pressure 123/61 133/78 Pulse Oximetry 98 97 Oxygen Delivery Method Room Air Room Air BMI result Body Mass Index 39.6 Labs 01/07/23 08:16 01/07/23 08:16 Labs: Laboratory Results - last 48 hr 01/07/23 01/07/23 01/07/23 08:16 08:16 08:16 WBC 8.8 RBC 4.82 Hgb 12.4 L Hct 38.8 L MCV 80.5 MCH 25.7 L MCHC 32.0 RDW 13.5 Plt Count 177 MPV 10.6 Immature Gran % (Auto) 1.1 H Neut % (Auto) 58.1 Lymph % (Auto) 30.9 [place] % (Auto) 6.5 Eos % (Auto) 2.8 Baso % (Auto) 0.6 Lymph # (Auto) 2.7 [place] # (Auto) 0.6 Eos # (Auto) 0.3 Baso # (Auto) 0.1 Abs Immat Gran (auto) 0.10 H Absolute Neuts (auto) 5.1 Absolute Nucleated RBC 0.000 Nucleated RBC % (auto) 0.0 Sodium 140 Potassium 4.0 Chloride 110 H Carbon Dioxide 24 Anion Gap 10 L BUN 10 Creatinine 0.98 Estim Creat Clear Calc 113.3 Estimated GFR > 60 Fasting Glucose 138 H Calcium 9.5 Total Bilirubin 0.4 AST 13 ALT 31 Alkaline Phosphatase 77 Total Protein 6.8 Albumin 4.0 TSH 0.95 Kenefic 0.77 Medications Medications Current Medications Acetaminophen (Acetaminophen 325 Mg Tablet) 650 mg PO Q6H PRN PRN Reason: Headache/Pain Mild Scale (1-3) Last Admin: 01/08/23 12:27 Dose: 650 mg Al Hydroxide/Mg Hydroxide (Magnesium Hydrox/Alum Hydrox 30 Ml Oral.Susp) 30 ml PO Q6H PRN PRN Reason: Heartburn/Nausea Last Admin: 01/07/23 18:15 Dose: 30 ml Benzocaine (Benzocaine 20 % Oral Gel 9 Gm Tube) 1 appl MUCOUS MEM TID PRN; Protocol PRN Reason: Pain, Mild (Pain Scale 1-3) Last Admin: 01/05/23 14:13 Dose: 1 appl Buspirone HCl (Buspirone Hcl 5 Mg Tablet) 15 mg PO TID [facility] Last Admin: 01/08/23 14:27 Dose: 15 mg Escitalopram Oxalate (Escitalopram Oxalate 20 Mg Tablet) 20 mg PO DAILY [facility] Last Admin: 01/08/23 08:48 Dose: 20 mg Fluticasone Propionate (Fluticasone Propionate 250 Mcg Blst.W.Dev) 1 puff INHALE RBID [facility] Last Admin: 01/08/23 08:48 Dose: 1 puff Hydroxyzine HCl (Hydroxyzine Hcl 10 Mg Tablet) 10 mg PO Q6H PRN PRN Reason: Anxiety Last Admin: 01/08/23 12:23 Dose: 10 mg Ketoconazole (Ketoconazole 2 % Shampoo 120 Ml Btl) 1 appl TOPICAL MoTh@2000 [facility]; Protocol Last Admin: 01/07/23 21:45 Dose: Not Given Lidocaine (Lidocaine 4 % Patch Adh..Patch) 1 patch TRANSDERMA DAILY [facility]; Protocol Last Admin: 01/08/23 08:50 Dose: Not Given Kenefic Carbonate (Kenefic Carbonate Er 300 Mg Tablet.Er) 900 mg PO BEDTIME [facility] Last Admin: 01/07/23 21:31 Dose: 900 mg Lurasidone HCl (Lurasidone Hcl 20 Mg Tablet) 20 mg PO BEDTIME [facility] Last Admin: 01/07/23 21:31 Dose: 20 mg Lurasidone HCl (Lurasidone Hcl 80 Mg Tablet) 80 mg PO BEDTIME [facility] Last Admin: 01/07/23 21:31 Dose: 80 mg Magnesium Hydroxide (Milk Of Magnesia 30 Ml Oral.Susp) 30 ml PO DAILY PRN PRN Reason: Constipation Metformin HCl (Metformin Hcl Er 750 Mg Tab.Er.24h) 750 mg PO DAILY [facility] Last Admin: 01/08/23 08:48 Dose: 750 mg Neomycin/Polymyxin/Dexamethasone (Neomy/Polymyx/Dexameth Oph [place] 5 Ml Bottle) 1 drop EYE-LEFT QID [facility] Last Admin: 01/08/23 13:36 Dose: 1 drop Omeprazole (Omeprazole 40 Mg Capsule.Dr) 40 mg PO BID [facility] Last Admin: 01/08/23 08:48 Dose: 40 mg Sumatriptan Succinate (Sumatriptan Succinate 100 Mg Tablet) 100 mg PO DAILY PRN PRN Reason: Migraine Headache Last Admin: 01/08/23 12:26 Dose: 100 mg Topiramate (Topiramate 25 Mg Tablet) 25 mg PO DAILY [facility] Last Admin: 01/08/23 08:48 Dose: 25 mg Trazodone HCl (Trazodone Hcl 50 Mg Tablet) 50 mg PO BEDTIME MRX1 PRN PRN Reason: Insomnia Last Admin: 01/07/23 22:40 Dose: 50 mg Valsartan (Valsartan 80 Mg Tablet) 80 mg PO DAILY [facility] Last Admin: 01/08/23 08:48 Dose: 80 mg Allergies Allergies Allergy/AdvReac Type Severity Reaction Status Date / Time amoxicillin Allergy Severe Rash Verified 12/12/22 13:27 sesame seed [SESAME SEED] Allergy Severe ANAPHYLAXIS Verified 01/06/23 08:27 lamotrigine [From LAMICTAL] Allergy Intermediate Rash Verified 01/06/23 08:27 melon [MELON] Allergy Unknown LIPS/CHEEKS Verified 01/06/23 08:27 SWELLING pine nut [PINE NUT] Allergy Unknown VOMITING Verified 01/06/23 08:27 venlafaxine [From EFFEXOR] AdvReac Severe pt reports Verified 01/06/23 08:27 severe adverse response by history banana [BANANA] AdvReac Unknown HEART BURN Verified 01/06/23 08:27 pumpkin [PUMPKIN] AdvReac Unknown (PUMPKIN Verified 01/06/23 08:27 SEEDS) VOMITING Assessment & Plan Assessment & Plan (1) PTSD (post-traumatic stress disorder): Status: Acute Code(s): F43.10 - Post-traumatic stress disorder, unspecified (2) Bipolar disorder: Status: Acute Code(s): F31.9 - Bipolar disorder, unspecified Assessment and Plan: 12/17/22- Continue current regime and plan. [place] education 12/18/22- Continue with placement search. Continue current medication regime. 12/20/22- Kenefic is therapeutic Continue current regime and plan. 12/21/22- Decrease Kenefic to 1200 mg HS Increase Buspirone to 15 mg tid 12/22: Continue current treatment plan. 12/23: Continue current plan. 12/24/22: Continue current regime and plan Await program interviews to begin 12/27/22: Re-engage in milieu-currently depressed, withdrawing, fearful of h omelessness. 12/28/22: Kenefic level, BMP, and TSH 12/29/22. 12/30/22: Continue current regime and plan of care. Discharge planning continues. 12/31/22: Contineu current regime and plan of care. 01/01/23: Continue current regime and plan of care. 01/03/23: Decrease Kenefic to 1050 daily Topiramate 25 mg bid 01/04 continue tx. 01/05- CTP 01/06 no recent med changes, hasn't had lab tests in a bit will recheck - including thyroid, urine sent for u/a reflex culture 01/07 discontinue Kenefic IR 150 mg decrease Topamax to 25 mg daily 01/08/22: Discharge 01/09/23. Patient educated on: medication risk/benefits and therapeutic strategies Informed Consent: understands Reason for continued inpatient stay Substantial Risk for: rapid decompensation Time Spent With Patient Time: Total time managing care of this patient today ____ minutes.
[2023-01-08 18:00] VITALS: BP 133/70; PULSE 68; TEMP 36.5; O2SAT 98
[2023-01-08 18:05] LABS: Estimated Average Glucose 120 mg/dL; Hemoglobin A1c % 5.8 %
[2023-01-08] MEDS: Lithium Carbonate ER 300 MG TABLET.ER 900 MG PO (20:34)
[2023-01-08] MEDS: Lurasidone HCl 80 MG TABLET PO (20:35)
[2023-01-08] MEDS: Lurasidone HCl 20 MG TABLET PO (20:35)
--- NOTE | 2023-01-08 20:47 | PM.EVENT ---
Event Note Date of Service: 01/08/23 Event Note: Pt is prediabetic with A1c of 5.8 with slightlly elevated glucose levels accounting for the glucose in his urine. Should be educated on low carb diet and lifestyle modification for weight loss. Outpt follow up with pcp Time Spent With Patient Time: Total time managing care of this patient today ____ minutes.
[2023-01-08] MEDS: traZODone HCL 50 MG TABLET PO ×2 (21:24→22:47)
[2023-01-09 07:57] VITALS: BP 125/77; PULSE 97; RESP 16; TEMP 36.3; O2SAT 98
[2023-01-09] MEDS: metFORMIN HCl ER 750 MG TAB.ER.24H PO (08:10)
[2023-01-09] MEDS: Escitalopram Oxalate 20 MG TABLET PO (08:10)
[2023-01-09] MEDS: Valsartan 80 MG TABLET PO (08:10)
[2023-01-09] MEDS: Topiramate 25 MG TABLET PO (08:10)
[2023-01-09] MEDS: NeoMY/Polymyx/Dexameth Oph Sus 5 ML BOTTLE 1 DROP EYE-LEFT (08:10)
[2023-01-09] MEDS: Omeprazole 40 MG CAPSULE.DR PO (08:10)
[2023-01-09] MEDS: busPIRone HCl 5 MG TABLET 15 MG PO (08:10)
[2023-01-09] MEDS: Fluticasone Propionate 250 MCG BLST.W.DEV 1 PUFF INHALE (08:10)
[2023-01-09] MEDS: Lidocaine 4 % Patch ADH..PATCH 1 PATCH TRANSDERMA (09:22)
--- NOTE | 2023-01-09 12:23 | PM.PSYDC ---
DS: Providers Provider Date of Service: 01/09/23 Date of admission: 12/11/22 22:58 Date of discharge: 01/09/23 Primary care physician: Juanpablo Concepcion MD Admitting clinician: Anum Cabrera Attending physician on admission: Maximiliano Garcia Consults: 12/12/22 15:34 Consult to Hospitalist Routine Comment: Consulting Provider: Hospitalist Reason For Exam: corneal abrasion-sx recur, weeping scalp lesions Attending physician on discharge: Maximiliano Garcia Discharging clinician: Anum Cabrera DS: Diagnosis Discharge Diagnosis (1) PTSD (post-traumatic stress disorder): Status: Acute (2) Bipolar disorder: Status: Acute DS: Medications Discharge Medications Home Medications: Previous Rx's Medication Instructions Recorded buspirone 15 mg tablet 15 mg PO TID #90 tabs 01/08/23 escitalopram oxalate 20 mg tablet 20 mg PO DAILY #30 tabs 01/08/23 fluticasone propionate 250 1 inh inhalation RBID #1 inhaler 01/08/23 mcg/actuation blister powder for inhalation (Flovent Diskus) ketoconazole 2 % shampoo 1 appl topical MoTh@1999 #1 units 01/08/23 lidocaine 4 % topical patch 1 patch transdermal DAILY #30 ea 01/08/23 (Lidocaine Pain Relief) lithium carbonate 300 mg 900 mg PO BEDTIME #90 tabs 01/08/23 tablet,extended release lurasidone 20 mg tablet 20 mg PO QPM #30 tabs 01/08/23 lurasidone 80 mg tablet 80 mg PO QPM #30 tabs 01/08/23 metformin 750 mg tablet,extended 750 mg PO DAILY #30 tabs 01/08/23 release 24 hr omeprazole 40 mg capsule,delayed 40 mg PO BID #60 caps 01/08/23 release omeprazole magnesium 20 mg 40 mg PO BID #120 tabs 01/08/23 tablet,delayed release (Prilosec OTC) sumatriptan succinate 100 mg tablet 100 mg PO DAILY PRN Migraine 01/08/23 Headache #30 tabs topiramate 25 mg tablet 25 mg PO BID #60 tabs 01/08/23 trazodone 50 mg tablet 50 mg PO BEDTIME MRX1 PRN Insomnia 01/08/23 #60 tabs trolamine salicylate 10 % topical 1 appl topical BID PRN neck pain 01/08/23 cream (Arthricream) #1 units valsartan 80 mg tablet 80 mg PO DAILY #30 tabs 01/08/23 Mental Status Exam Mental Status Exam Patient Appearance: Appropriate Patient Orientation: Person, Place, Time and Situation Level of Consciousness: Alert Patient Behavior: Appropriate and Talkative Mood Description: Flat Affect Description: Flat Patient Cognition Impaired: No Ability to Follow Directions: Good Speech Pattern: Spontaneous Speech Memory Description: Intact Hallucinations: None Delusions: Not Present Thought Process: Goal Oriented Thought Content: positive for Goal Oriented Depressive Symptoms: Increased Anxiety and Thoughts of /Suicide (denies) Judgement: Good Data Data Completed and Pending Completed studies during hospitalization [Text1]: 01/03/23 01/06/23 01/06/23 12:23 07:37 14:50 WBC RBC Hgb Hct MCV MCH MCHC RDW Plt Count MPV Immature Gran % (Auto) Neut % (Auto) Lymph % (Auto) [place] % (Auto) Eos % (Auto) Baso % (Auto) Lymph # (Auto) [place] # (Auto) Eos # (Auto) Baso # (Auto) Abs Immat Gran (auto) Absolute Neuts (auto) Absolute Nucleated RBC Nucleated RBC % (auto) Sodium Potassium Chloride Carbon Dioxide Anion Gap BUN Creatinine 1.10 Estim Creat Clear Calc 100.9 Estimated GFR > 60 Fasting Glucose Estimat Average Glucose Hemoglobin A1c % Calcium Total Bilirubin AST ALT Alkaline Phosphatase Total Protein Albumin TSH Urine Color Yellow Urine Appearance Clear Urine pH 6.0 Ur Specific [place] 1.020 Urine Protein Negative Urine Glucose (UA) 500 H Urine Ketones Negative Urine Blood Negative Urine Nitrite Negative Ur Leukocyte Esterase Negative Urine RBC 0-2 Urine WBC 0-5 Ur Squamous Epith Cells 0-2 Urine Bacteria None Seen Hyaline Casts 0-2 [place] 0.76 01/07/23 01/07/23 01/07/23 08:16 08:16 08:16 WBC 8.8 RBC 4.82 Hgb 12.4 L Hct 38.8 L MCV 80.5 MCH 25.7 L MCHC 32.0 RDW 13.5 Plt Count 177 MPV 10.6 Immature Gran % (Auto) 1.1 H Neut % (Auto) 58.1 Lymph % (Auto) 30.9 [place] % (Auto) 6.5 Eos % (Auto) 2.8 Baso % (Auto) 0.6 Lymph # (Auto) 2.7 [place] # (Auto) 0.6 Eos # (Auto) 0.3 Baso # (Auto) 0.1 Abs Immat Gran (auto) 0.10 H Absolute Neuts (auto) 5.1 Absolute Nucleated RBC 0.000 Nucleated RBC % (auto) 0.0 Sodium 140 Potassium 4.0 Chloride 110 H Carbon Dioxide 24 Anion Gap 10 L BUN 10 Creatinine 0.98 Estim Creat Clear Calc 113.3 Estimated GFR > 60 Fasting Glucose 138 H Estimat Average Glucose Hemoglobin A1c % Calcium 9.5 Total Bilirubin 0.4 AST 13 ALT 31 Alkaline Phosphatase 77 Total Protein 6.8 Albumin 4.0 TSH 0.95 Urine Color Urine Appearance Urine pH Ur Specific [place] Urine Protein Urine Glucose (UA) Urine Ketones Urine Blood Urine Nitrite Ur Leukocyte Esterase Urine RBC Urine WBC Ur Squamous Epith Cells Urine Bacteria Hyaline Casts [place] 0.77 01/07/23 08:16 WBC RBC Hgb Hct MCV MCH MCHC RDW Plt Count MPV Immature Gran % (Auto) Neut % (Auto) Lymph % (Auto) [place] % (Auto) Eos % (Auto) Baso % (Auto) Lymph # (Auto) [place] # (Auto) Eos # (Auto) Baso # (Auto) Abs Immat Gran (auto) Absolute Neuts (auto) Absolute Nucleated RBC Nucleated RBC % (auto) Sodium Potassium Chloride Carbon Dioxide Anion Gap BUN Creatinine Estim Creat Clear Calc Estimated GFR Fasting Glucose Estimat Average Glucose 120 Hemoglobin A1c % 5.8 Calcium Total Bilirubin AST ALT Alkaline Phosphatase Total Protein Albumin TSH Urine Color Urine Appearance Urine pH Ur Specific [place] Urine Protein Urine Glucose (UA) Urine Ketones Urine Blood Urine Nitrite Ur Leukocyte Esterase Urine RBC Urine WBC Ur Squamous Epith Cells Urine Bacteria Hyaline Casts [place] DS: Summary Hospital Course Hospital Course: Admission to adult psychiatry for exacerbation of PTSD, anxiety, bipolar disorder, situational crisis with SI. Pt was precipitously asked to leave [facility] program due to poor boundaries. Medications were adjusted, pt was encouraged to utilize the milieu and boundary education was offered. Team reconnected pt with [facility]. Pt, team and family began to search for a new residential program which would be safe and appropriate for him. This search will continue after discharge, pt will live temporarily with his parents. Time spent discussing smoking cessation with patient: 3 to 10 minutes Status at Discharge Functional status at discharge: independent ambulation Overall status at discharge: patient is back to baseline Time Spent with Patient Time attestation: Total time managing care of this patient today ____ minutes. Time spent: Greater than 30 minutes Discharge Plan Discharge Anticipated Discharge Date/Time: 01/09/23 12:44 Patient Disposition: Home, Self-Care Discharge Diagnosis: PTSD Bipolar Disorder Anxiety Referrals: [facility]: [facility] [Other] - 1 Week (Call once a week to maintain your status on the wait list and check in regarding bed availability) Therapist: Rose Henderson ([facility]) [Other] - 01/15/23 11:15 am (Appointment is in person at the office) Psych Prescriber: Lorena Prasad ([facility]) [Other] - 01/22/23 1:00 pm (Telehealth- it is required you engage in the appointment over video so you will receive a text with a link to join the appointment) [facility] Paper Mill Supervisor: Anil Bay ([facility]) [Other] - 1 Week (Anil can also be reached on his work cell, . Anil will be on vacation for 2 weeks starting 01/14. While he is out, if anything is needed, please call his election supervisor (Daisha) at [phone] or [phone]. ) Juanpablo Concepcion MD [Primary Care Provider] - (Office will call to schedule follow up) Discharge Medications: New trazodone 50 mg Tablet 50 mg PO BEDTIME MRX1 PRN (Reason: Insomnia) Qty: 60 0RF sumatriptan succinate 100 mg Tablet 100 mg PO DAILY PRN (Reason: Migraine Headache) Qty: 30 0RF valsartan 80 mg Tablet 80 mg PO DAILY Qty: 30 0RF lithium carbonate 300 mg Tablet Extended Release 900 mg PO BEDTIME Qty: 90 0RF topiramate 25 mg Tablet 25 mg PO BID Qty: 60 0RF trolamine salicylate [Arthricream] 10 % Cream 1 appl topical BID PRN (Reason: neck pain) Qty: 1 0RF Protocol: Apply to: Apply to: neck escitalopram oxalate 20 mg Tablet 20 mg PO DAILY Qty: 30 0RF Flovent Diskus 250 mcg/actuation Blister With Device 1 inh inhalation RBID Qty: 1 0RF ketoconazole 2 % Shampoo 1 appl topical MoTh@2000 Qty: 1 0RF Protocol: Apply to: Apply to: Scalp lidocaine [Lidocaine Pain Relief] 4 % Adhesive Patch,Medicated 1 patch transdermal DAILY Qty: 30 0RF Protocol: Apply to: Apply to: affected areas omeprazole magnesium [Prilosec OTC] 20 mg tablet,delayed release (DR/EC) 40 mg PO BID Qty: 120 0RF buspirone 15 mg tablet 15 mg PO TID Qty: 90 0RF Continued omeprazole 40 mg capsule,delayed release(DR/EC) 40 mg PO BID Qty: 60 0RF metformin 750 mg tablet extended release 24 hr 750 mg PO DAILY Qty: 30 0RF lurasidone 80 mg tablet 80 mg PO QPM Qty: 30 0RF lurasidone 20 mg tablet 20 mg PO QPM Qty: 30 0RF Discontinued buspirone 5 mg tablet 5 mg PO BID sumatriptan succinate 100 mg tablet 100 mg PO DIRECTED lithium carbonate 450 mg tablet extended release 450 mg PO BID fluticasone propionate [Flovent HFA] 220 mcg/actuation HFA aerosol inhaler 2 puff INHALATION BID candesartan 8 mg tablet 8 mg PO DAILY escitalopram oxalate 10 mg tablet 20 mg PO DAILY Discharge Orders: Discharge Order (Routine); Ordered 01/09/23 Ordered By: Anum Cabrera Diet: Advance to usual diet Activity on Discharge: As tolerated Stand Alone Forms: Patient Portal Discharge page, Community Support Care Plan Goals: Mood and Behavioral Stabilization Health Concerns: Mood and Behavioral Stabilization Plan of Treatment: Attend follow up appointments Take medications as directed Continue to work on personal boundaries Assessment: Daniel reports he feels ready to move forward. Pt interviewed prior to discharge and found to be fully oriented and without SI/HI. Pt has insight and demonstrates good judgment in terms of wanting to pursue treatment. Pt is not in imminent risk of harm to self or others and has a safety plan that includes presenting to the closest ER or calling 911 if feeling unsafe. Pt has been observed closely by nursing and unit staff throughout admission. Pt has not engaged in any behaviors that suggest dangerousness to self or others and has demonstrated appropriate behaviors and impulse control. Discharge Date/Time: 01/09/23 13:14
== END 2023-01-09 13:14 | disposition home or self-care (01) | DRG 885 ==
LOC: HO.ED 14:54 → HO.PM5 23:26
PROVIDERS: Physician Assistant; Psychiatry & Neurology Psychiatry; Admitting Provider Psychiatry & Neurology Psychiatry; Emergency Provider Emergency Medicine; PCP Internal Medicine; Visit Provider Clinical Nurse Specialist Psychiatric/Mental Health, Adult
DX: F31.9 Bipolar disorder, unspecified (principal); R45.851 Suicidal ideations; H57.12 Ocular pain, left eye; R73.03 Prediabetes; L98.8 Other specified disorders of the skin and subcutaneous tissue; F41.9 Anxiety disorder, unspecified; Z79.51 Long term (current) use of inhaled steroids; Z79.899 Other long term (current) drug therapy
CPT/HCPCS: 36415; 80048; 80051; 80053; 80061; 80076; 80178; 80307; 81001; 81003; 82565; 82607; 82746; 83036; 84443; 84520; 85025; 87635; 93005; 99285

== ENCOUNTER → 2022-12-11 22:58 | Outpatient (BNV) | payer MEDICARE, MEDICAID, SELFPAY | PROVIDERS: Admitting Provider Psychiatry & Neurology Psychiatry; Emergency Provider Emergency Medicine; PCP Internal Medicine; Visit Provider Clinical Nurse Specialist Psychiatric/Mental Health, Adult | DX: F43.11 Post-traumatic stress disorder, acute (principal); F31.9 Bipolar disorder, unspecified | CPT/HCPCS: 90792; 99231; 99232; 99239 ==

== ENCOUNTER 2024-10-13 08:39 | Outpatient (REF) | payer MEDICARE, MEDICAID, SELFPAY ==
--- OUTSIDE RECORDS SUMMARY | 2024-10-13 09:00 | XMS_ITS | Encounter Summary ---
Author Organization [facility] Address [address] [place] [address] Care Team Providers Care Casino Change Attendant Name Role Phone DharmeshPb herrera Primary Care Provider [phone] Neeta Jones MD Unavailable Estrellita Fall DISEASE CASE MANAGER RN Unavailable Debbie Ring DISEASE CASE MANAGER RN Unavailable Feng Brown DISEASE CASE MANAGER RN Unavailable Sabrina Gu TRANSPORT ANALYST Unavailable [phone] Bryson Robles MANAGED CARE LIAISON Unavailable [phone] Juan Yu MD Unavailable [phone] Amaya Szymanski DISEASE CASE MANAGER RN Unavailable [phone] Quyen Peterson [facility] Unavailable Marily Veliz MD Unavailable [phone] Rody Roldan Unavailable Reason for Visit * Reason Comments Medication Refill Encounter Details Date Type Department Care Team (Late st Contact Info) Description 10/14/2020 Refill [facility] [address] [place] [phone] Boyd Brown MD Needs valid address Chronic migraine without aura, intractable, without status migrainosus Social History Tobacco Use Types Packs/Day Years Used Date Smoking Tobacco: Never Smokeless Tobacco: Never Alcohol Use Standard Drinks/Week Comments Yes 0 (1 standard drink = 0.6 oz pur e alcohol) Sex and Gender Information Value Date Recorded Sex Assigned at Not on file Gender Identity Male 09/29/2020 7:00 AM EDT Sexual Orientation Choose not to disclose 2020 3:19 PM EDT Sexual Orientation Homosexual (lesbian or hubbard) 1 3:19 PM EDT COVID-19 Exposure Response Date Recorded In the last month, have you been in contact with someone who was confirmed or suspected to have Coronavirus / COVID-19? No / Unsure 09/22/2020 8:04 AM EDT documented as of this encounter Plan of Treatment Not on file documented as of this encounter Visit Diagnoses Diagnosis Chronic migraine without aura, intractable, without status migrainosus documented in this encounter Care Teams Casino Change Attendant Relationship Specialty Start Date End Date Pb Branham DO 100 [facility] [address] [place], [place] [address] PCP - General Medicine Hospitalist 02/22/20 Neeta Jones MD [address] [place], [place] [address] Psychiatry, General 03/27/21 Estrellita Fall LPC [address] [place] [address] [address] [place] [address] Clinician Social Work 03/31/21 08/23/24 Debbie Ring LPC [address] [place], [place] [id number] Development Manager Clinical Social Work 04/04/21 08/23/24 Feng Brown LPC [address] [place] [address] Development Manager Psychiatry, Addiction 04/05/21 08/23/24 Sabrina Gu LCSW [address] [place] [address] Development Manager Clinical Social Work 04/07/21 08/23/24 Bryson Robles APRN [address] [place] [address] [place] [address] Nurse Practitioner Psychiatry, General 04/12/21 Juan Yu MD [address] [facility] [place] [address] Psychiatrist Psychiatry, General 04/21/21 05/21/24 Amaya Szymanski [facility] [address] [facility] [place] [address] Development Manager Clinical Social Work 04/24/21 08/23/24 [facility] [address] [place] [address] Development Manager Clinical Social Work 04/24/21 08/23/24 Marily Veliz MD [address] [place] [address] Psychiatry, General 04/27/21 08/23/24 Rody Roldan [address] [place] [address] 12/25/21 documented as of this encounter
--- OUTSIDE RECORDS SUMMARY | 2024-10-13 09:02 | XMS_ITS | Encounter Summary ---
Author Organization [facility] Address [address] [place] [address] Care Team Providers Care Leasing Professional Name Role Phone Pb Branham MD Primary Care Provider [phone] Encounter Details Date Type Department Care Team ([facility] st Contact Info) Description 12/15/2019 Scanned Document [facility] [address] [place] [phone] Jagruti Anguiano MD [address] [place] [phone] Social History Tobacco Use Types Packs/Day Years Used Date Smoking Tobacco: Some Days Smokeless Tobacco: Never Alcohol Use Standard Drinks/Week Comments No 0 (1 standard drink = 0.6 oz pur e alcohol) socially Sex and Gender Information Value Date Recorded Sex Assigned at Male 02/21/2021 2:01 PM EDT Legal Sex Male 8:08 PM EST Gender Identity Male 02/21/2021 2:01 PM EDT Sexual Orientation Lesbian or Don 02/21/2021 2: 01 PM EDT documented as of this encounter Plan of Treatment Not on file documented as of this encounter Visit Diagnoses Not on filedocumented in this encounter Additional Health Concerns Infection Onset Date Last Indicated Resolved Time R/O COVID-19 03/25/2020 03/25/2020 03/26/2020 2:12 AM EDT R/O COVID-03/12/2021 03/12/2021 03/13/2021 3:35 AM EDT R/O COVID-03/20/2021 03/20/2021 03/20/2021 4:45 PM EDT documented as of this encounter Care Teams Leasing Professional Relationship Specialty Start Date End Date Pb Branham MD 100 [facility] [address] [phone] PCP - General Family Medicine 05/20/20 avila Shah Counseling [place], [place] Counselor 05/09/20 documented as of this encounter
--- OUTSIDE RECORDS SUMMARY | 2024-10-13 09:02 | XMS_ITS | Encounter Summary ---
Author Organization [facility] Address [address] [place] [address] Care Team Providers Care Pizza Driver Name Role Phone Pb Branham MD Primary Care Provider [phone] Encounter Details Date Type Department Care Team (Late st Contact Info) Description 03/14/2020 Scanned Document [facility] [address] [place] [address] Jagruti Anguiano MD [address] [place] [phone] Social History Tobacco Use Types Packs/Day [...] documented as of this encounter Care Teams Pizza Driver Relationship Specialty Start Date End Date Pb Branham MD [address] [facility] [address] [phone] PCP - General Family Medicine 05/20/20 avila Shah Counseling [place], [place] Counselor 05/09/20 documented as of this encounter
--- OUTSIDE RECORDS SUMMARY | 2024-10-13 09:02 | XMS_ITS | Encounter Summary ---
Author Organization [facility] Address [address] [place] [address] Care Team Providers Care Swahili Teacher Name Role Phone Pb Branham MD Primary Care Provider [phone] Encounter Details Date Type Department Care Team ([facility] st Contact Info) Description 02/15/2020 Scanned Document [facility] [address] [place] [phone] Jagruti Anguiano MD [address] [place] [phone] Social History Tobacco Use Types Packs/Day [...] documented as of this encounter Care Teams Swahili Teacher Relationship Specialty Start Date End Date Pb Branham MD 100 [facility] [address] [phone] PCP - General Family Medicine 05/20/20 avila Shah Counseling [place], [place] Counselor 05/09/20 documented as of this encounter
--- OUTSIDE RECORDS SUMMARY | 2024-10-13 09:02 | XMS_ITS | Clinical Summary ---
Author Organization [facility] Address [address] [place] [address] Phone Care Team Providers Care Waste Salvager Name Role Phone Juanpablo Concepcion Primary Care Provider [phone] Allergies Active Allergy Reactions Criticality Noted Date Comments Amoxicillin 04/12/2022 Banana 04/12/2022 Egg 04/12/2022 Lamotrigine 04/12/2022 Nut - Unspecified 08/21/2022 Penicillins 04/12/2022 Pumpkin Seed 08/21/2022 Sesame Seed 04/12/2022 Watermelon 04/12/2022 Medications ammonium lactate (LAC-HYDRIN) 12 % lotion Apply to soles of feet daily. At night wear socks to bed 3 Active busPIRone (BUSPAR) 5 mg tablet Take 1 Tablet by mouth 2 times daily. Active candesartan (ATACAND) 8 mg tablet Take 8 mg by mouth daily. Active escitalopram (LEXAPRO) 10 mg tablet Take 10 mg by mouth daily. Active lithium (ESKALITH) 450 mg CR tablet Take 450 mg by mouth 2 times daily. Active lurasidone (LATUDA) 20 mg tablet Take by mouth. Active lurasidone (LATUDA) 80 mg tablet Take by mouth. Active metFORMIN XR (GLUCOPHAGE-XR) 750 mg 24 hr tablet Take 750 mg by mouth daily (with breakfast). Active nystatin (MYCOSTATIN) cream Apply topically 2 times daily. Active silver sulfADIAZINE (SILVADENE, SSD) 1 % cream Apply small amount to the wound once daily before dressing with bandaid 4 Active SUMAtriptan (IMITREX) 100 mg tablet Take 100 mg by mouth daily as needed. May repeat dose once after 2 hours, if needed. Active dupilumab (Dupixent Pen) 300 mg/2 mL penIndications:E osinophilic esophagitis,Kasi roesophageal reflux disease without esophagitis Inject 2 mL (300 mg total) under the skin every 7 (seven) days. 8 mL 11 5 10/06/19 26 Active omeprazole (PriLOSEC) [address] capsuleIndicatio ns:Eosinophilic esophagitis,Kasi roesophageal reflux disease without esophagitis Take 1 capsule (40 mg total) by mouth 2 (two) times a day. 180 each 3 5 10/06/19 26 Active Dupixent Pen 300 mg/2 mL penIndications:E osinophilic esophagitis INJECT 1 PEN UNDER THE SKIN EVERY 7 DAYS 2 mL 5 4 10/06/19 25 Discontin ued(Reord er) omeprazole (PriLOSEC) [address] capsuleIndicatio ns:Gastroesophag eal reflux disease without esophagitis TAKE 1 CAPSULE BY MOUTH TWICE A DAY 60 capsule 5 10/01/19 25 Discontin ued(Reord er) omeprazole (PriLOSEC) [address] capsuleIndicatio ns:Gastroesophag eal reflux disease without esophagitis Take 1 capsule (40 mg total) by mouth 2 (two) times a day. 60 capsule 5 10/06/19 25 Discontin ued(Reord er) Encounters Date Type Department Care Team Description 10/05/2024 1:30 PM EDT Office Visit Gastroenterology - [address] [phone] Antonina Grace, VANDA Eosinophilic esophagitis (Primary Dx); Gastroesophageal reflux disease without esophagitis 09/30/2024 Telephone Gastroenterology - [address] [phone] Rody Roldan MD Med Refill from Last 3 Months Immunizations Name Administration Dates Next Due Pfizer SARS-CoV-2 COVID-19, mRNA, LNP-S, preservative free 10/27/2020,10/06/2020 Social History Tobacco Use Types Packs/Day Years Used Date Smoking Tobacco: Never Smokeless Tobacco: Never Alcohol Use Standard Drinks/Week Comments Never 0 (1 standard drink = 0.6 oz pur e alcohol) Sex and Gender Information Value Date Recorded Sex Assigned at Not on file Legal Sex Male 10:43 PM EST Gender Identity Not on file Sexual Orientation Not on file Obstetrics History Last Filed Vital Signs Vital Sign Reading Time Taken Comments Blood Pressure - - Pulse - - Temperature - - Respiratory Rate - - Oxygen Saturation - - Inhaled Oxygen Concentration - - Weight 86.2 kg (190 lb) 10/05/2024 1:15 PM EDT Height 152.4 cm (5') 10/05/2024 1:15 PM EDT Body Mass Index 37.11 10/05/2024 1:15 PM EDT Plan of Treatment Health Maintenance Due Date Last Done Comments Hepatitis B Vaccines (2 of 3 - 3-dose series) 1993 1993 Hepatitis A Vaccines (1 of 2 - Risk 2-dose series) 2012 Pneumococcal Vaccine: Pediatrics (0 to 5 Years) and At-Risk Patients (6 to 64 Years) (1 of 2 - PCV) 2012 Cholesterol Screening (Lipid Panel) 06/10/2022 Depression Screening 06/10/2022 Medicare Annual Wellness Visit 06/10/2022 Social Influencers of Health Screening 06/10/2022 DTaP,Tdap,and Td Vaccines (2 - Td or Tdap) 04/20/2029 04/20/2019 MMR Vaccines Completed 1994 Meningococcal ACWY Vaccine Aged Out 02/16/2014 N o longer eligible based on patient's age to complete this topic HIV Screening Completed 02/25/2020 Hepatitis C Screening Completed 03/23/2021 COVID-19 Vaccine Completed 03/01/2024, , 03/12/2022, Additional history exists Influenza Vaccine Completed 03/01/2024, , 04/12/2021 HIB Vaccines Aged Out No longer eligi ble based on patient's age to complete this topic HPV Vaccines Aged Out No longer eligi ble based on patient's age to complete this topic IPV Vaccines Aged Out No longer eligi ble based on patient's age to complete this topic Meningococcal B Vaccine Aged Out No l onger eligible based on patient's age to complete this topic RSV Immunization Patients Under 20 months Aged Out No longer eligible based on patient's age to complete this topic Varicella Vaccines Aged Out No longer eligible based on patient's age to complete this topic Procedures Procedure Name Priority Date/Time Associated Diagnosis Comments HIV SCREENING Routine 02/25/2020 from Last 3 Months or Most Recently Relevant to Health Maintenance Results * HIV Screening (02/25/2020) [facility] HIV Screening abstracted Historical Provider MD HEALTH MAINTENANCE Final Result from Last 3 Months or Most Recently Relevant to Health Maintenance Insurance MEDICAID - [place] MEDICARE Care Teams Waste Salvager Relationship Specialty Start Date End Date Juanpablo Concepcion DO [address] [facility] [address] [place], [place] PCP - General Internal Medicine 02/28/22
--- OUTSIDE RECORDS SUMMARY | 2024-10-13 09:02 | XMS_ITS | Clinical Summary ---
Author Organization [facility] Address [address] [place] [address] Care Team Providers Care Packaging Manager Name Role Phone Yonas Pb Primary Care Provider Neeta Jones MD Unavailable [phone] Bryson Robles MIRROR PAINTER Unavailable [phone] Rody Roldan Unavailable Allergies Active Allergy Reactions Criticality Noted Date Comments Banana Rash/Dermatitis Low 02/10/2014 Egg White (Egg Protein) Unknown/Patient and Family Unable to Define Medium 08/10/2010 Lamotrigine Rash/Dermatitis Low 08/07/2018 rash Melon Rash/Dermatitis Low 02/10/2014 Penicillins Rash/Dermatitis,Unkn o wn/Patient and Family Unable to Define Medium 08/10/2010 Bristol Nut Fever High 09/22/2020 Pollen Extract Rash/Dermatitis Low 02/10/2014 Pumpkin Seed Unknown/Patient and Family Unable to Define Medium 03/22/2021 Sesame Seeds Rash/Dermatitis High 02/10/2014 Severe reaction Squash Unknown/Patient and Family Unable to Define Medium 03/22/2021 Medications Medication Sig Dispensed Refills Start Date End Date Status Cholecalciferol (Vitamin D) 50 MCG (1999) Cap Take by mouth. Active proCHLORPERAZINE (COMPAZINE) 10 MG tabletIndications:Ch ronic migraine without aura, intractable, without status migrainosus Take 1-2 tablets (10-20 mg total) by mouth 3 (three) times a day as needed (headache.). Max use 3 days per week. 30 tablet 09/22/2020 Active metFORMIN (GLUCOPHAGE-XR) 750 MG 24 hr tabletIndications:Pr e-diabetes TAKE 1 TABLET BY MOUTH EVERY MORNING WITH BREAKFAST. SWALLOW WHOLE. DO NOT CRUSH, BREAK OR CHEW. 90 tablet 3 12/29/2020 Active OMEprazole (PriLOSEC) 40 MG capsuleIndications:E osinophilic esophagitis TAKE 1 CAPSULE BY MOUTH EVERY DAY IN THE MORNING BEFORE BREAKFAST 90 capsule 1 04/04/2021 Active lithium carbonate (ESKALITH) 450 MG 12 hr CR tabletIndications:Bi polar 1 disorder, depressed, moderate (HCC) Take 1 tablet (450 mg total) by mouth 2 (two) times a day. 180 tablet 05/04/2021 Active lurasidone (LATUDA) 80 MG Tab tabletIndications:Bi polar 1 disorder, depressed, moderate (HCC) Take 1 tablet (80 mg total) by mouth every evening with dinner. 90 tablet 05/04/2021 Active escitalopram (LEXAPRO) 5 MG tabletIndications:Ge neralized anxiety disorder Take 1 tablet by mouth daily as directed. 30 tablet 05/04/2021 Active SUMAtriptan (IMITREX) 100 MG tabletIndications:Mi graine without aura, intractable, without status migrainosus TAKE 1 TABLET NEEDED FOR MIGRAINE MAY REPEAT IN 2HRS IF NEEDED MAX USE 2 PER DAY, 3DAYS PER WEEK 9 tablet 06/22/2021 Active candesartan (ATACAND) 8 MG tabletIndications:Mi graine without aura, intractable, without status migrainosus Take 1 tablet (8 mg total) by mouth daily. 90 tablet 08/02/2021 Active candesartan (ATACAND) 16 MG tabletIndications:Mi graine without aura, intractable, without status migrainosus Take 1 tablet (16 mg total) by mouth daily. 90 tablet 08/02/2021 Active Active Problems Problem Noted Date Diagnosed Date Bipolar 1 disorder, depressed, moderate 03/31/20 21 Migraine without aura, intra ctable, without status migrainosus 02/13/2021 Thunderclap headache 09/22/2020 Asthma 09/21/2020 Obsessive compulsive disorder 09/21/2020 Generalized anxiety disorder 05/02/2020 Bipolar mood disorder 05/02/2020 Anemia 02/15/2020 Hydrocephalus 02/15/2020 Overview (02/15/2020): Follows with Neurology at [facility] Never required shunting Stable as per last imaging from jan 2013 Impaired fasting glucose 06/04/2019 Overview (09/15/2020): Last Assessment & Plan: The patient has prediabetes based on hemoglobin A1c impaired fasting glucose and impaired glucose tolerance test. He is not in the diabetic range but he has been on metformin 500 mg daily which was prescribed approximately 4 years ago for weight management and I am sure that this has some benefit in terms of his current glucose levels even though he did not take the medication for the glucose tolerance test. My suggestion is that he continue metformin extended release 500 mg daily and to continue diet and exercise. He may still progressed to diabetes and if that is the case it would be detected by elevated fasting blood glucose of 126 mg/dL at least on 2 occasions or an elevated hemoglobin A1c of 6.5% or greater. At this point I will not give him a follow-up appointment. I did discuss this in telephone conference with his mother. Low testosterone in male 05/19/2019 Overview (09/15/2020): Last Assessment & Plan: The patient was found to have low testosterone levels because the levels were done in the afternoon and testosterone is secreted in a diurnal pattern so it is higher in the morning and lower in the evening. He has normal testosterone levels fasting in the morning so technically he is not hypogonadal he does not require testosterone supplementation. I would not work this up further. Severe major depression without psychotic featur es 12/12/2018 Corneal opacity of right eye 03/20/2018 Overview (02/15/2020): As per [facility] 02/26/2018. Pre-diabetes 08/31/2016 ADHD (attention deficit hyperactivity disorder) 01/06/2014 Eosinophilic esophagitis 12/07/2013 Overview (02/15/2020): Seen by GI at [facility], Rody Roldan MD Last Visit Nov 26 2013 Fu in 1 year Stable Meds: Omeprazole and Flovent Resolved Problems Problem Noted Date Diagnosed Date Resolved Date Chronic migraine without aur a, intractable, without status migrainosus 09/22/2020 02/13/2021 Medication overuse headache 09/22/2020 11/22/2020 Immunizations Name Administration Dates Next Due Covid-19 MRNA Vaccine - Pfizer 12+ (Purple Cap) 10/27/2020,10/06/2020 Influenza, Quadrivalent 03/26/2020 Influenza, Unspecified 04/12/2021 Meningococcal MCV4P (Menactra) 02/16/2014 Meningococcal, Unspecified 02/16/2014 Tdap 04/20/2019 Family History Medical History Relation Name Comments Drug abuse Cousin Alcohol abuse Maternal Aunt Bipolar disorder Maternal Aunt Migraines Maternal Grandmother Drug abuse Maternal Uncle Drug abuse Mother Relation Name Status Comments Cousin Maternal Aunt Maternal Grandmother Maternal Uncle Mother Social History Tobacco Use Types Packs/Day Years Used Date Smoking Tobacco: Never Smokeless Tobacco: Never Alcohol Use Standard Drinks/Week Comments Yes 0 (1 standard drink = 0.6 oz pur e alcohol) rare PHQ-2 Answer Date Recorded PHQ-2 Total Score 2 03/31/2021 Sex and Gender Information Value Date Recorded Sex Assigned at Not on file Gender Identity Male 09/29/2020 7:00 AM EDT Sexual Orientation Choose not to disclose 2020 3:19 PM EDT Sexual Orientation Homosexual (lesbian or hubbard) 1 3:19 PM EDT Last Filed Vital Signs Vital Sign Reading Time Taken Comments Blood Pressure 144/85 05/15/2021 3:21 PM EST Pulse 74 05/15/2021 3:21 PM EST Temperature 36.8 ??C (98.2 ??F) 05/15/2021 3:21 PM ES T Respiratory Rate 14 05/15/2021 3:21 PM EST Oxygen Saturation 97% 05/15/2021 3:21 PM EST Inhaled Oxygen Concentration - - Weight 90.4 kg (199 lb 6.4 oz) 05/15/2021 3:21 P M EST Height 152.4 cm (5') 05/15/2021 3:21 PM EST Body Mass Index 38.94 05/15/2021 3:21 PM EST Plan of Treatment Health Maintenance Due Date Last Done Comments Hepatitis C Virus Screening 1993 Physical 09/27/2011 Hepatitis B Vaccines (1 of 3 - 19+ 3-dose series) 2012 Pneumococcal Vaccine: Pediatric (0-5 Years) and At-Risk Patients (6 to 49 Years) (1 of 2 - PCV) 2012 Influenza Vaccine 01/30/2024 04/12/2021, 03/26/2020 COVID-19 Vaccine (4 - 2023-2 5 season) 2024 05/05/2021, 10/27/2020, 10/06/2020 DTaP/Tdap/Td Vaccines (2 - T d or Tdap) 04/20/2029 04/20/2019 HIV Screening Completed 02/25/2020 HPV Vaccines Aged Out No longer eligi ble based on patient's age to complete this topic Goals Goal Patient Goal Type Associated Problems Recent Progress Patient-Stated? Author I want to reduce/eliminate suicidal thoughts Care Plan Emotional Dysregulation No Debbie Ring LPC MARS GOAL 12 - I am responsible for making changes in my life Care Plan Emotional Dysregulation Debbie Meeks LPC Note: Pt. will report at least a 1 point increase on the MARS-12 outcome measure item (#12) I am responsible for making changes in my life on the next administration of the measure. Pt. will participate in therapy to learn skills to improve ability to address life issues. Frequency 5x per week Duration 4 weeks Modality group [phone] Implement positive, realistic thoughts that counteract negative emotions. Care Plan Emotional Dysregulation Debbie Meeks LPC [phone] Cooperate with a medical/psychiatric evaluation for medication needs to stabilize symptoms. Care Plan Emotional Dysregulation Debbie Meeks LPC Alleviate feelings of depression and distress; achieve a feeling of being at peace. Care Plan Emotional Dysregulation No Debbie Ring LPC Procedures Procedure Name Priority Date/Time Associated Diagnosis Comments HIV 1/2 AG/AB CMIA REFLEX TO CONFIRMATION Routine 02/25/2020 8:09 AM EDT Erectile dysfunction, unspecified erectile dysfunction type from Last 3 Months or Most Recently Relevant to Health Maintenance Results * HIV 1/2 Ag/Ab CMIA Reflex to Confirmation (02/25/2020 8:09 AM EDT) HIV Ag/Ab, 4th Gen NON-REACT JACKIE NON-REACT JACKIE [facility] Comment: HIV-1 antigen and HIV-1/HIV-2 antibodies were not detected. There is no laboratory evidence of HIV infection. PLEASE NOTE: This information has been disclosed to you from records whose confidentiality may be protected by state law. ??If your state requires such protection, then the state law prohibits you from making any further disclosure of the information without the specific written consent of the person to whom it pertains, or as otherwise permitted by law. A general authorization for the release of medical or other information is NOT sufficient for this purpose. ?? For additional information please refer to http://education.[employer]/faq/CFT852 (This link is being provided for informational/ educational purposes only.) The performance of this assay has not been clinically validated in patients less than 2 years old. Blood specimen (specimen) Heel structure / Unknown 02/25/2020 8:09 AM EDT 02/25/2020 8:10 AM EDT Narrative [facility] - 02/25/2020 10:43 PM EDT FASTING:YES PATIENT UNABLE TO VOID; ADVISED TO RETURN FOR COLLECTION. FASTING: YES Resulting Agency Comment Performing Organization Information: ?Site ID: [id number] ?Name: [facility] ?Address: [address] [place] [address], [facility] [place] [address] ?Director: Ryann Calhoun MD Pb Branham DO LAB BLOOD ORDERABLES [facility] [address] [place] [address], [place] [address] from Last 3 Months or Most Recently Relevant to Health Maintenance Additional Health Concerns Active Problems Noted Date Diagnosed Date Emotional Dysregulation 04/09/2021 Care Teams Packaging Manager Relationship Specialty Start Date End Date Pb Branham DO [address] [facility] [address] [place], [place] [id number] PCP - General Medicine Hospitalist 02/22/20 Neeta Jones MD [address] [place], [place] [address] Psychiatry, General 03/27/21 Bryson Robles APRN [address] [place] [address] Nurse Practitioner Psychiatry, General 04/12/21 Rody Roldan [address] [address] 12/25/21
--- OUTSIDE RECORDS SUMMARY | 2024-10-13 09:02 | XMS_ITS | Encounter Summary ---
Author Organization [facility] Address [address] [place] [address] Care Team Providers Care Airfield Services Officer Name Role Phone Pb Branham MD Primary Care Provider [phone] Encounter Details Date Type Department Care Team (Late st Contact Info) Description 02/15/2020 Scanned Document [facility] [address] [place] [address] Susan Edmondson, CARPENTER HELPER MAINTENANCE [address] [phone] Social History Tobacco Use Types Packs/Day Years [...] 03/25/2020 03/25/2020 03/26/2020 2:12 AM EDT R/O COVID-19 03/12/2021 03/12/2021 03/13/2021 3:35 AM EDT R/O COVID-19 03/20/2021 03/20/2021 03/20/2021 4:45 PM EDT documented as of this encounter Care Teams Airfield Services Officer Relationship Specialty Start Date End Date Pb Branham MD 100 [facility] [address] [place] [phone] PCP - General Family Medicine 05/20/20 avila Maloneley Counseling [place], [place] Counselor 05/09/20 documented as of this encounter
--- OUTSIDE RECORDS SUMMARY | 2024-10-13 09:02 | XMS_ITS | Encounter Summary ---
Author Organization [facility] Address [address] [place] [address] Care Team Providers Care Suture Gauger Name Role Phone Pb Branham MD Primary Care Provider [phone] Encounter Details Date Type Department Care Team ([facility] st Contact Info) Description 02/15/2020 Scanned Document [facility] [address] [place] [address] Jagruti Anguiano MD [address] [place] [phone] Social History Tobacco Use Types Packs/Day [...] documented as of this encounter Care Teams Suture Gauger Relationship Specialty Start Date End Date Pb Branham MD 100 [facility] [address] [phone] PCP - General Family Medicine 05/20/20 avila Shah Counseling [place], [place] Counselor 05/09/20 documented as of this encounter
--- OUTSIDE RECORDS SUMMARY | 2024-10-13 09:02 | XMS_ITS | Encounter Summary ---
Author Organization [facility] Address [address] [place] [address] Care Team Providers Care Lens Fabricating Machine Tender Name Role Phone Pb Branham MD Primary Care Provider [phone] Encounter Details Date Type Department Care Team ([facility] st Contact Info) Description 02/12/2020 Scanned Document [facility] [address] [place] [address] Jagruti Anguiano MD [address] [place] [phone] Social History Tobacco Use Types Packs/Day [...] documented as of this encounter Care Teams Lens Fabricating Machine Tender Relationship Specialty Start Date End Date Pb Branham MD 100 [facility] [address] [phone] PCP - General Family Medicine 05/20/20 avila Shah Counseling [place], [place] Counselor 05/09/20 documented as of this encounter
--- OUTSIDE RECORDS SUMMARY | 2024-10-13 09:02 | XMS_ITS | Encounter Summary ---
Author Organization [facility] Address [address] [place] [address] Care Team Providers Care Freight Trucker Name Role Phone DharmeshPb herrera Primary Care Provider [phone] Neeta Jones MD Unavailable [phone] Estrellita Fall IT ANALYST Unavailable Debbie Ring IT ANALYST Unavailable Feng Brown IT ANALYST Unavailable Sabrina Gu CASE MANAGEMENT SPECIALIST Unavailable [phone] Bryson Robles COMPRESSION MOLDING MACHINE SETTER Unavailable [phone] Juan Yu MD Unavailable [phone] Amaya Szymanski IT ANALYST Unavailable [phone] Quyen Peterson [facility] Unavailable Marily Veliz MD Unavailable [phone] Rody Roldan Unavailable Reason for Visit * Reason Comments Medication Refill Encounter Details Date Type Department Care Team (Late st Contact Info) Description 01/31/2021 Refill [facility] [address] [place] [phone] Boyd Brown MD Needs valid address Chronic migraine without aura, intractable, without status migrainosus Social History Tobacco Use Types Packs/Day Years Used Date Smoking Tobacco: Never Smokeless Tobacco: Never Alcohol Use Standard Drinks/Week Comments Yes 0 (1 standard drink = 0.6 oz pur e alcohol) rare Sex and Gender Information Value Date Recorded Sex Assigned at Not on file Gender Identity Male 09/29/2020 7:00 AM EDT Sexual Orientation Choose not to disclose 2020 3:19 PM EDT Sexual Orientation Homosexual (lesbian or hubbard) 1 3:19 PM EDT documented as of this encounter Plan of Treatment Not on file documented as of this encounter Visit Diagnoses Diagnosis Chronic migraine without aura, intractable, without status migrainosus documented in this encounter Care Teams Freight Trucker Relationship Specialty Start Date End Date Pb Branham DO 100 [facility] [address] [place] [address] PCP - General Medicine Hospitalist 02/22/20 Neeta Jones MD [address] [place], [place] [phone] Psychiatry, General 03/27/21 Estrellita Fall IT ANALYST [address] [place], [place] [address]loraine Christianson [address] [place] [address] Clinician Social Work 03/31/21 08/23/24 Debbie Ring LPC [address] [place], [place] [address] Metal Grader Clinical Social Work 04/04/21 08/23/24 Feng Brown LPC [address] [place], [place] [phone] Metal Grader Psychiatry, Addiction 04/05/21 08/23/24 Sabrina Gu LCSW [address] [place] [address] Metal Grader Clinical Social Work 04/07/21 08/23/24 Bryson Robles APRN [address] [place] [address] Nurse Practitioner Psychiatry, General 04/12/21 Juan Yu MD [address] [place] [address] Psychiatrist Psychiatry, General 04/21/21 05/21/24 Amaya Szymanski, [facility] [address] [place] [address] Metal Grader Clinical Social Work 04/24/21 08/23/24 Quyen Peterson, [facility] [address] [place] [address] Metal Grader Clinical Social Work 04/24/21 08/23/24 Marily Veliz MD [address] [place] [address] Psychiatry, General 04/27/21 08/23/24 Rody Roldan [address] [place] [address] 12/25/21 documented as of this encounter
--- OUTSIDE RECORDS SUMMARY | 2024-10-13 09:02 | XMS_ITS | Encounter Summary ---
Author Organization [facility] Address [address] [place] [address] Care Team Providers Care Patient Case Coordinator Name Role Phone Pb Branham MD Primary Care Provider [phone] Encounter Details Date Type Department Care Team (Late st Contact Info) Description 12/15/2019 [place] [address] Jagruti Anguiano MD [address] [place] [phone] Social History Tobacco Use Types Packs/Day [...] documented as of this encounter Care Teams Patient Case Coordinator Relationship Specialty Start Date End Date Pb Branham MD 100 [facility] [address] [place] [phone] PCP - General Family Medicine 05/20/20 avila Shah Counseling [place], [place] Counselor 05/09/20 documented as of this encounter
--- OUTSIDE RECORDS SUMMARY | 2024-10-13 09:02 | XMS_ITS | Encounter Summary ---
Author Organization [facility] Address [address] [place] [address] Care Team Providers Care Compounder Sterile Products Name Role Phone Pb Branham DO Primary Care Provider Neeta Jones MD Unavailable [phone] Estrellita Fall MATERIAL ASSISTANT Unavailable Debbie Ring MATERIAL ASSISTANT Unavailable Feng Brown MATERIAL ASSISTANT Unavailable Sabrina Gu BUSINESS CONTINUITY MANAGER Unavailable [phone] Bryson Robles ORTHODONTIC BAND MAKER Unavailable Juan Yu MD Unavailable [phone] Amaya Szymanski MATERIAL ASSISTANT Unavailable [phone] Quyen Peterson [facility] Unavailable Marily Veliz MD Unavailable [phone] Rody Roldan Unavailable Reason for Visit * Reason Comments Medication Refill Encounter Details Date Type Department Care Team (Late st Contact Info) Description 12/29/2020 Refill [facility] [place] [facility] [address] [place] [address] Pb Branham DO [address] Christianson [address] [place] [address] Pre-diabetes Social History Tobacco Use Types Packs/Day Years [...] as of this encounter Visit Diagnoses Diagnosis Pre-diabetes Other abnormal glucose documented in this encounter Care Teams Compounder Sterile Products Relationship Specialty Start Date End Date Pb Branham DO 100 [facility] [address] [place] [address] PCP - General Medicine Hospitalist 02/22/20 Neeta Jones MD [address] [place] [address] Psychiatry, General 03/27/21 Estrellita Fall LPC [address] [place] [address] [address] [place] [address] Clinician Social Work 03/31/21 08/23/24 Debbie Ring LPC [address] [place] [address] Precision Agriculture Technician Clinical Social Work 04/04/21 08/23/24 Feng Brown LPC [address] [place] [phone] Precision Agriculture Technician Psychiatry, Addiction 04/05/21 08/23/24 Sabrina Gu LCSW [address] [place] [address] Precision Agriculture Technician Clinical Social Work 04/07/21 08/23/24 Bryson Robles APRN [address] [place] [address] Nurse Practitioner Psychiatry, General 04/12/21 Juan Yu MD [address] [place] [address] Psychiatrist Psychiatry, General 04/21/21 05/21/24 Amaya Szymanski [facility] [address] [place] [address] Precision Agriculture Technician Clinical Social Work 04/24/21 08/23/24 Quyen Peterson [facility] [address] [place] [address] Precision Agriculture Technician Clinical Social Work 04/24/21 08/23/24 Marily Veliz MD [address] [place] [address] Psychiatry, General 04/27/21 08/23/24 Rody Roldan [address] [place] [address] 12/25/21 documented as of this encounter
--- OUTSIDE RECORDS SUMMARY | 2024-10-13 09:02 | XMS_ITS | Encounter Summary ---
Author Organization [facility] Address [address] [place] [address] Care Team Providers Care Flat Knitter Helper Name Role Phone Pb Branham MD Primary Care Provider [phone] Encounter Details Date Type Department Care Team (Late st Contact Info) Description 03/01/2020 Scanned Document [facility] [address] [place] [address] Jagruti Anguiano MD [address] [place] [phone] Social History Tobacco Use Types Packs/Day [...] documented as of this encounter Care Teams Flat Knitter Helper Relationship Specialty Start Date End Date Pb Branham MD 100 [facility] [address] [phone] PCP - General Family Medicine 05/20/20 avila Shah Counseling [place], [place] Counselor 05/09/20 documented as of this encounter
--- OUTSIDE RECORDS SUMMARY | 2024-10-13 09:02 | XMS_ITS | Encounter Summary ---
Author Organization [facility] Address [address] [place] [address] Care Team Providers Care Hr Associate Name Role Phone Pb Branham MD Primary Care Provider [phone] Encounter Details Date Type Department Care Team ([facility] st Contact Info) Description 12/15/2019 Scanned Document [facility] [address] [place] [address] Jagruti Anguiano MD [address] [place] [phone] Social History Tobacco Use Types Packs/Day [...] documented as of this encounter Care Teams Hr Associate Relationship Specialty Start Date End Date Pb Branham MD 100 [facility] [address] [phone] PCP - General Family Medicine 05/20/20 avila Shah Counseling [place], [place] Counselor 05/09/20 documented as of this encounter
--- OUTSIDE RECORDS SUMMARY | 2024-10-13 09:02 | XMS_ITS | Encounter Summary ---
Author Organization [facility] Address [address] [place] [address] Care Team Providers Care Non Destructive Testing Scientist Name Role Phone Pb Branham MD Primary Care Provider [phone] Encounter Details Date Type Department Care Team ([facility] st Contact Info) Description 12/14/2019 Scanned Document [facility] [address] [place] [address] Jagruti Anguiano MD [address] [place] [phone] Social History Tobacco Use Types Packs/Day [...] documented as of this encounter Care Teams Non Destructive Testing Scientist Relationship Specialty Start Date End Date Pb Branham MD 100 [facility] [address] [phone] PCP - General Family Medicine 05/20/20 avila Shah Counseling [place], [place] Counselor 05/09/20 documented as of this encounter
--- OUTSIDE RECORDS SUMMARY | 2024-10-13 09:02 | XMS_ITS | Encounter Summary ---
Author Organization [facility] Address [address] [place] [address] Care Team Providers Care Consumer Safety Officer Name Role Phone Pb Branham MD Primary Care Provider [phone] Encounter Details Date Type Department Care Team ([facility] st Contact Info) Description 02/11/2020 Scanned Document [facility] [address] [place] [address] Jagruti Anguiano MD [address] [place] [phone] Social History Tobacco Use Types Packs/Day [...] documented as of this encounter Care Teams Consumer Safety Officer Relationship Specialty Start Date End Date Pb Branham MD 100 [facility] [address] [phone] PCP - General Family Medicine 05/20/20 avila Shah Counseling [place], [place] Counselor 05/09/20 documented as of this encounter
--- OUTSIDE RECORDS SUMMARY | 2024-10-13 09:02 | XMS_ITS | Data Portability ---
Author Organization [place] - [facility], Allergy Address [address] [place] [address] Care Team Providers Care Mall Manager Name Role Phone YESICA NIETO Primary Care Provider Assessment Encounter Date Assessment Date Assessment LastModified by Organization Details LastModified Time 01/31/2024 01/31/2024 28 year old male with epistaxis. Dilated vessel noted on left anterior nasal septum. Cautery was performed today which the patient tolerated well. Epistaxis precautions reviewed. He will follow up for persistent bleeding. [email or web address] Not available 01/31/2024 13:33:47 Plan of Treatment Reminders Order Date Submit Date Provider Last Modified By Organization Details Last Modified Time Details Appointments None record ed. Lab None record ed. Referral None record ed. Procedures None record ed. Surgeries None record ed. Imaging None record ed. Medication Orders None record ed. Patient TargetsNo targets recorded. Patient InstructionsNo instructions recorded. Reason for Referral None Reported. Problems Name Problem SNOMED Code Status Onset Date Resolution Date Notes Provider Name and Address Organization Details Recorded Time Anterior epistaxis 653873818 Active 024 Park saavedra [place] - [facility] 13:32:57 Problem Notes None recorded. Procedures Surgical History Date Name Laterality Status Provider Name and Address Organization Details Recorded Time 4 Epistaxis Simple Nasal Cautery Left completed Park Elliott [place] - [facility] 01/31/2024 13:32:53 Imaging Results None recorded. Procedure Notes None recorded. Medical Equipment None Reported. Medications Name Sig Start Date Stop Date Status Note LastModified by Organization Details LastModified Time silver sulfadiazine 1 % topical cream APPLY SMALL AMOUNT TO THE WOUND ONCE DAILY BEFORE DRESSING WITH BANDAID active Not Available Not Available No t Available ketoconazole 2 % shampoo APPLY TOPICALLY TO AFFECTED AREA LATHER, LEAVE FOR 5 MINUTES & THEN RINSE OFF ONCE DAILY active Not Available Not Available N ot Available sumatriptan 100 mg tablet TAKE 1 TABLET BY MOUTH EVERY DAY NEEDED FOR MIGRAINE active Not Available Not Available No t Available sertraline 100 mg tablet TAKE 1 TABLET BY MOUTH EVERY DAY IN THE MORNING active Not Available Not Available No t Available clindamycin HCl 150 mg capsule TAKE 1 CAPSULE EVERY 8 HOURS UNTIL FINISHED active Not Available Not Available No t Available lithium carbonate ER 300 mg tablet,extend ed release TAKE 1 TABLET BY MOUTH EVERY NIGHT AT BEDTIME active Not Available Not Available No t Available topiramate 25 mg tablet active Not Available Not Available No t Available sulfamethoxaz ole 800 mg-trimethopr im 160 mg tablet TAKE 1 TABLET BY MOUTH EVERY 12 HOURS FOR 10 DAYS active Not Available Not Available No t Available omeprazole 40 mg capsule,delay ed release TAKE 1 CAPSULE BY MOUTH TWICE A DAY active Not Available Not Available No t Available acetaminophen 500 mg tablet TAKE 1 TABLET EVERY 12 HOURS NEEDED FOR PAIN active Not Available Not Available No t Available prednisolone acetate 1 % eye drops,suspens ion INSTILL 1 DROP IN BOTH EYES TWICE A DAY active Not Available Not Available No t Available methylprednis olone 4 mg tablets in a dose pack TAKE 6 TABLETS ON DAY 1 DIRECTED ON PACKAGE AND DECREASE BY 1 TAB EACH DAY FOR A TOTAL OF 6 DAYS active Not Available Not Available No t Available albuterol sulfate HFA 90 mcg/actuation aerosol inhaler active Not Available Not Available Not Available lithium carbonate 300 mg tablet TAKE 3 TABLETS BY MOUTH AT BEDTIME active Not Available Not Available No t Available naratriptan 2.5 mg tablet TAKE 1 TABLET BY MOUTH ONCE NEEDED FOR MIGRAINE MAY REPEAT DOSE ONCE IN 4 HOURS IF NEEDED active Not Available Not Available No t Available candesartan 8 mg tablet active Not Available Not Available No t Available doxycycline hyclate 100 mg tablet TAKE 1 TABLET BY MOUTH TWICE A DAY FOR 7 DAYS active Not Available Not Available No t Available buspirone 15 mg tablet TAKE 1 TABLET BY MOUTH THREE TIMES A DAY active Not Available Not Available No t Available escitalopram 20 mg tablet TAKE 1 TABLET BY MOUTH EVERY DAY IN THE MORNING active Not Available Not Available No t Available metformin ER 750 mg tablet,extend ed release 24 hr TAKE 1 TABLET BY MOUTH EVERY DAY active Not Available Not Available No t Available lurasidone 80 mg tablet TAKE 1 TABLET BY MOUTH EVERY EVENING , TAKE WITH 20MG TABLET FOR A TOTAL DAILY DOSE OF 100MG active Not Available Not Available No t Available lurasidone 20 mg tablet active Not Available Not Available No t Available lurasidone 120 mg tablet TAKE 1 TABLET BY MOUTH EVERY DAY WITH FOOD active Not Available Not Available No t Available Dupixent 300 mg/2 mL subcutaneous pen injector active Not Available Not Available Not Available Vitals Date Recorded Body height Body mass index (BMI) Body weight Provider Name and Address Organization Details Last Updated DateTime 01/31/2024 152.4 cm 41.8 kg/m2 44114.77 g Arnol Cohen [place] - [facility] 01/31/2024 13:12:42 Social History None recorded. Functional Status None recorded. Mental Status None recorded. Family History Nothing Reported. Medical History No medical history recorded. Past Encounters Encounter ID Performer Location Encounter Start Date Encounter Closed Date Diagnosis/Indication Diagnosis SNOMED-CT Code Diagnosis ICD10 Code Diagnosis Note [id number] Park Elliott [facility] on [address] [place] [address] 01/31/2024 12:48:44 01/31/2024 14:17:23 Anterior epistaxis 250754583 R04.0 Health Concerns Section Related Observation LastModified by Organization Detai ls LastModified Time None Recorded Concern Status LastModified by Organization Details LastModified Time None Recorded Advance Directives Directive None Recorded Payers Encounter Date Sequence Insurance Name Policy Number Policy Curry Covered Member ID Curry Member ID Guarantor Name 01/31/2024 2 [place] Daniel Lamas [id number] Daniel Adams 01/31/2024 1 [place]IC[place] B-[place] [employer] Daniel Immanuel Lamas [id number] Daniel Adams Notes Date Note Type Note Provider Name and Address Organization Details Recorded Time 01/31/2024 text/html 28 year old male 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 The nosebleeds have lasted up to an hour at a time. He was seen in the emergency room at [facility] and silver nitrate cautery was performed, he also notes that he was sent home with cautery sticks which he used at home. The last nosebleed was this morning. He denies any nasal obstruction. No history of any bleeding or clotting disorder. Park saavedra [place] - [facility] 01/31/2024 13:34:03
--- OUTSIDE RECORDS SUMMARY | 2024-10-13 09:02 | XMS_ITS | Encounter Summary ---
Author Organization [facility] Address [address] [place] [address] Care Team Providers Care Manufacturing Test Technician Name Role Phone Pb Branham MD Primary Care Provider [phone] Encounter Details Date Type Department Care Team (Late st Contact Info) Description 03/14/2020 Scanned Document [facility] [address] [address] Jagruti Anguiano MD [address] [place] [phone] Social History Tobacco Use Types Packs/Day [...] documented as of this encounter Care Teams Manufacturing Test Technician Relationship Specialty Start Date End Date Pb Branham MD 100 [facility] [address] [place] [phone] PCP - General Family Medicine 05/20/20 avila Shah Counseling [place], [place] Counselor 05/09/20 documented as of this encounter
--- OUTSIDE RECORDS SUMMARY | 2024-10-13 09:03 | XMS_ITS | Encounter Summary ---
Author Organization [facility] Address [address] [place] [address] Care Team Providers Care Solar Energy Systems Designer Name Role Phone Pb Branham MD Primary Care Provider [phone] Reason for Visit * Reason Comments Medication Refill Encounter Details Date Type Department Care Team (Late st Contact Info) Description 10/29/2020 [place] [address] Jagruti Anguiano MD [address] [place] [phone] Medication Refill Social History Tobacco Use Types Packs/Day Years Used Date Smoking Tobacco: Former Smokeless Tobacco: Never Alcohol Use Standard Drinks/Week [...] as of this encounter Visit Diagnoses Diagnosis Bipolar affective disorder in remission (HC Code) documented in this encounter Additional Health Concerns Infection Onset Date Last Indicated Resolved Time R/O COVID-19 03/12/2021 03/12/2021 03/13/2021 3:35 AM EDT R/O COVID-19 03/20/2021 03/20/2021 03/20/2021 4:45 PM EDT documented as of this encounter Care Teams Solar Energy Systems Designer Relationship Specialty Start Date End Date Pb Branham MD 100 [facility] [address] [place] [phone] PCP - General Family Medicine 05/20/20 avila Shah Counseling [place], [place] Counselor 05/09/20 documented as of this encounter
--- OUTSIDE RECORDS SUMMARY | 2024-10-13 09:03 | XMS_ITS | Encounter Summary ---
Author Organization [facility] Address [address] [place] [address] Care Team Providers Care Cargo Trimmer Name Role Phone Pb Branham MD Primary Care Provider [phone] Encounter Details Date Type Department Care Team (Late st Contact Info) Description 12/23/2019 [place] [address] Jagruti Anguiano MD [address] [place] [phone] Social History Tobacco Use Types Packs/Day [...] documented as of this encounter Care Teams Cargo Trimmer Relationship Specialty Start Date End Date Pb Branham MD 100 [facility] [address] [place] [phone] PCP - General Family Medicine 05/20/20 avila Shah Counseling [place], [place] Counselor 05/09/20 documented as of this encounter
--- OUTSIDE RECORDS SUMMARY | 2024-10-13 09:03 | XMS_ITS | Encounter Summary ---
Author Organization [facility] Address [address] [place] [address] Care Team Providers Care Art Psychotherapist Or Therapist Name Role Phone Pb Branham MD Primary Care Provider [phone] Encounter Details Date Type Department Care Team ([facility] st Contact Info) Description 12/16/2019 Scanned Document [facility] [address] [place] [address] Jagruti Anguiano MD [address] [place] [phone] Social History Tobacco Use Types Packs/Day [...] documented as of this encounter Care Teams Art Psychotherapist Or Therapist Relationship Specialty Start Date End Date Pb Branham MD 100 [facility] [address] [phone] PCP - General Family Medicine 05/20/20 avila Shah Counseling [place], [place] Counselor 05/09/20 documented as of this encounter
--- OUTSIDE RECORDS SUMMARY | 2024-10-13 09:03 | XMS_ITS | Encounter Summary ---
Author Organization [facility] Address [address] [place] [address] Care Team Providers Care Child Care Associate Teacher Name Role Phone DharmeshPb herrera Primary Care Provider Neeta Jones MD Unavailable [phone] Estrellita Fall INTERNAL SECURITY MANAGER Unavailable Debbie Ring INTERNAL SECURITY MANAGER Unavailable Feng Brown INTERNAL SECURITY MANAGER Unavailable Sabrina Gu OCCUPATIONAL THERAPY DIRECTOR Unavailable [phone] Bryson Robles ASBESTOS SIDING INSTALLER Unavailable Juan Yu MD Unavailable [phone] Amaya Szmyanski INTERNAL SECURITY MANAGER Unavailable [phone] Quyen Peterson [facility] Unavailable Marily Veliz MD Unavailable [phone] Rody Roldan Unavailable Reason for Visit * Reason Comments Medication Refill Encounter Details Date Type Department Care Team (Late st Contact Info) Description 07/12/2020 Refill [facility] [address] [place] [address] Josh Kirkpatrick MD [facility] [address] [place] [address] Pre-diabetes Social History Tobacco Use Types [...] glucose documented in this encounter Care Teams Child Care Associate Teacher Relationship Specialty Start Date End Date Pb Branham DO 100 [facility] [address] [place] [address] PCP - General Medicine Hospitalist 02/22/20 Neeta Jones MD [address] [place] [phone] Psychiatry, General 03/27/21 Estrellita Fall LPC [address] [place] [phone] Clinician Social Work 03/31/21 08/23/24 Debbie Ring LPC [address] [place] [address] [phone] Interactive Video Technician Clinical Social Work 04/04/21 08/23/24 Feng Brown LPC [address] [place] [address] Interactive Video Technician Psychiatry, Addiction 04/05/21 08/23/24 Sabrina Gu LCSW [address] [place] [address] Interactive Video Technician Clinical Social Work 04/07/21 08/23/24 Bryson Robles APRN [address] [place] [address] Nurse Practitioner Psychiatry, General 04/12/21 Juan Yu MD [address] [place] [facility] [place] [address] Psychiatrist Psychiatry, General 04/21/21 05/21/24 Amaya Szymanski [facility] [address] [facility] [place] [address] Interactive Video Technician Clinical Social Work 04/24/21 08/23/24 Quyen Peterson [facility] [address] [place] [address] Interactive Video Technician Clinical Social Work 04/24/21 08/23/24 Marily Veliz MD [facility] [place] [address] Psychiatry, General 04/27/21 08/23/24 Rody Roldan [address] [place] [address] 12/25/21 documented as of this encounter
--- OUTSIDE RECORDS SUMMARY | 2024-10-13 09:03 | XMS_ITS | Encounter Summary ---
Author Organization [facility] Address [address] [place] [address] Care Team Providers Care Lockstitch Zipper Setter Name Role Phone DharmeshPb herrera Primary Care Provider [phone] Neeta Jones MD Unavailable [phone] Estrellita Fall ASSISTANT PROFESSOR OF PHYSICS Unavailable Debbie Ring ASSISTANT PROFESSOR OF PHYSICS Unavailable Feng Brown ASSISTANT PROFESSOR OF PHYSICS Unavailable Sabrina Gu HSE SPECIALIST Unavailable [phone] Bryson Robles MATHEMATICS EDUCATION PROFESSOR Unavailable [phone] Juan Yu MD Unavailable [phone] Amaya Szymanski ASSISTANT PROFESSOR OF PHYSICS Unavailable [phone] Quyen Peterson [facility] Unavailable Marily Veliz MD Unavailable [phone] Rody Roldan Unavailable Reason for Visit * Reason Comments Medication Refill Encounter Details Date Type Department Care Team (Late st Contact Info) Description 06/20/2021 Refill [facility] [address] [place] [phone] Boyd Brown MD Needs valid address Migraine without aura, intractable, without status migrainosus Social [...] on file documented as of this encounter Goals Goal Patient Goal Type Associated Problems Recent Progress Patient-Stated? Author I want to reduce/eliminate suicidal thoughts Care Plan Emotional Dysregulation No Debbie Ring LPC MARS GOAL 12 - I am responsible for making changes in my life Care Plan Emotional Dysregulation No Debbie Ring LPC Note: Pt. will report at least [...] counteract negative emotions. Care Plan Emotional Dysregulation No Debbie Ring LPC [phone] Cooperate with a medical/psychiatric evaluation for medication needs to stabilize symptoms. Care Plan Emotional Dysregulation No Debbie Ring LPC Alleviate feelings of depression and distress; achieve a feeling of being at peace. Care Plan Emotional Dysregulation No Debbie Ring LPC documented as of this encounter Visit Diagnoses Diagnosis Migraine without aura, intractable, without status migrainosus documented in this encounter Additional Health Concerns Active Problems Noted Date Diagnosed Date Emotional Dysregulation 04/09/2021 documented as of this encounter Care Teams Lockstitch Zipper Setter Relationship Specialty Start Date End Date Pb Branham DO 100 [facility] [address] [place], [place] [phone] PCP - General Medicine Hospitalist 02/22/20 Neeta Jones MD [address] [facility] [place], [place] [address] Psychiatry, General 03/27/21 Estrellita Fall LPC [address] [place] [address] [place] [address] Clinician Social Work 03/31/21 08/23/24 Debbie Ring LPC [address] [place] [address] Shift Foreman Clinical Social Work 04/04/21 08/23/24 Feng Brown ASSISTANT PROFESSOR OF PHYSICS [address] [place] [address] Shift Foreman Psychiatry, Addiction 04/05/21 08/23/24 Sabrina Gu LCSW [address] [place] [address] Shift Foreman Clinical Social Work 04/07/21 08/23/24 Bryson Robles APRN [address] [place] [address] [place] [address] Nurse Practitioner Psychiatry, General 04/12/21 Juan Yu MD [address] [place] [address] Psychiatrist Psychiatry, General 04/21/21 05/21/24 Amaya Szymanski LPC [address] [place] [address] Shift Foreman Clinical Social Work 04/24/21 08/23/24 Quyen Peterson [facility] [address] [place] [address] Shift Foreman Clinical Social Work 04/24/21 08/23/24 Marily Veliz MD [address] [place] [address] Psychiatry, General 04/27/21 08/23/24 Rody Roldan [address] [place] [address] 12/25/21 documented as of this encounter
--- OUTSIDE RECORDS SUMMARY | 2024-10-13 09:03 | XMS_ITS | Encounter Summary ---
Author Organization [facility] Address [address] [place] [address] Care Team Providers Care Peoplesoft Taleo Manager Name Role Phone Pb Branham MD Primary Care Provider [phone] Encounter Details Date Type Department Care Team ([facility] st Contact Info) Description 01/21/2020 Scanned Document [facility] [address] [place] [address] Jagruti Anguiano MD [address] [place] [phone] Social History Tobacco Use Types Packs/Day [...] documented as of this encounter Care Teams Peoplesoft Taleo Manager Relationship Specialty Start Date End Date Pb Branham MD 100 [facility] [address] [phone] PCP - General Family Medicine 05/20/20 avila Shah Counseling [place], [place] Counselor 05/09/20 documented as of this encounter
--- OUTSIDE RECORDS SUMMARY | 2024-10-13 09:03 | XMS_ITS | Encounter Summary ---
Author Organization [facility] Address [address] [place] [address] Care Team Providers Care Oil Pumper Name Role Phone Pb Branham MD Primary Care Provider [phone] Encounter Details Date Type Department Care Team (Late st Contact Info) Description 01/13/2020 [place] [address] Jagruti Anguiano MD [address] [place] [phone] Social History Tobacco Use Types Packs/Day [...] COVID-03/12/2021 03/12/2021 03/13/2021 3:35 AM EDT R/O COVID-19 03/20/2021 03/20/2021 03/20/2021 4:45 PM EDT documented as of this encounter Care Teams Oil Pumper Relationship Specialty Start Date End Date Pb Branham MD 100 [facility] [address] [place] [phone] PCP - General Family Medicine 05/20/20 avila Shah Counseling [place], [place] Counselor 05/09/20 documented as of this encounter
--- OUTSIDE RECORDS SUMMARY | 2024-10-13 09:03 | XMS_ITS | Encounter Summary ---
Author Organization [facility] Address [address] [place] [address] Care Team Providers Care Certified Detention Deputy Name Role Phone Pb Branham MD Primary Care Provider [phone] Reason for Visit * Reason Comments Medication Refill Encounter Details Date Type Department Care Team ([facility] Contact Info) Description 07/05/2020 Refill [place] [phone] Feng Garcia MD [address] [place] [phone] Medication Refill Social History Tobacco Use Types [...] Bipolar affective disorder in remission (HC Code) Generalized anxiety disorder documented in this encounter Additional Health Concerns Infection Onset Date Last Indicated Resolved Time R/O COVID-19 03/12/2021 03/12/2021 03/13/2021 3:35 AM EDT R/O COVID-19 03/20/2021 03/20/2021 03/20/2021 4:45 PM EDT documented as of this encounter Care Teams Certified Detention Deputy Relationship Specialty Start Date End Date Pb Branham MD [address] [place] [address] [facility] [address] [place] [phone] PCP - General Family Medicine 05/20/20 avila Shah Counseling [place], [place] Counselor 05/09/20 documented as of this encounter
--- OUTSIDE RECORDS SUMMARY | 2024-10-13 09:03 | XMS_ITS | Encounter Summary ---
Author Organization [facility] Address [address] [place] [address] Care Team Providers Care Edge Stainer Machine Name Role Phone Pb Branham MD Primary Care Provider [phone] Encounter Details Date Type Department Care Team ([facility] st Contact Info) Description 12/15/2019 Scanned Document [facility] [address] [place] [address] Jagruti Anguiano MD [address] [place] [phone] Social History Tobacco Use Types Packs/Day [...] documented as of this encounter Care Teams Edge Stainer Machine Relationship Specialty Start Date End Date Pb Branham MD 100 [facility] [address] [phone] PCP - General Family Medicine 05/20/20 avila Shah Counseling [place], [place] Counselor 05/09/20 documented as of this encounter
--- OUTSIDE RECORDS SUMMARY | 2024-10-13 09:03 | XMS_ITS | Encounter Summary ---
Author Organization [facility] and [facility] Address [address] [place] [address] Care Team Providers Care Diet Consultant Name Role Phone Pb Branham MD Primary Care Provider [phone] Encounter Details Date Type Department Care Team (Latest Contact Info) Description 06/10/2020 Transcribed Orders [facility] [address] [place] [address] Jagruti Anguiano MD [address] [place] [phone] Generalized anxiety disorder (Primary Dx); Bipolar affective disorder in remission Social History Tobacco Use Types Packs/Day Years [...] or Don 02/21/2021 2: 01 PM EDT COVID-19 Exposure Response Date Recorded In the last month, have you been in contact with someone who was confirmed or suspected to have Coronavirus / COVID-19? No / Unsure 05/20/2020 9:18 AM EST documented as of this encounter Plan of Treatment Not on file documented as of this encounter Procedures Procedure Name Priority Date/Time Associated Diagnosis Comments COMPREHENSIVE METABOLIC PANEL Routine 06/10/2020 7:21 AM EST Generalized anxiety disorder TSH W/REFLEX TO FT4 (BH GH LMW Q YH) Routine 06/10/2020 7:21 AM EST Bipolar affective disorder in remission VITAMIN D, 25-HYDROXY Routine 06/10/2020 7:21 AM EST Generalized anxiety disorder VITAMIN B12 Routine 06/10/2020 7:21 AM EST Generalized anxiety disorder LITHIUM LEVEL Routine 06/10/2020 7:21 AM EST Bipolar affective disorder in remission LIPID PANEL Routine 06/10/2020 7:21 AM EST Generalized anxiety disorder COMPREHENSIVE METABOLIC PANEL Routine 06/10/2020 7:21 AM EST Generalized anxiety disorder documented in this encounter Results * (ABNORMAL) Comprehensive metabolic panel (06/10/2020 7:21 AM EST) Sodium 137 136 - 145 mmol/L 06/10/2020 8:33 AM [facility] Potassium 3.9 3.5 - 5.1 mmol/L 06/10/2020 8:33 AM [facility] Chloride 104 98 - 107 mmol/L 06/10/2020 8:33 AM [facility] CO2 24 21 - 32 mmol/L 06/10/2020 8:33 AM [facility] Anion Gap 9 5 - 15 mmol/L 06/10/2020 8:33 AM [facility] Glucose 156(H) 65 - 110 mg/dL 06/10/2020 8:33 AM [facility] Comment: Non-fasting: ??65-110 mg/dL Fasting (minimum 6 hrs): ??65-99 mg/dL BUN 11 7 - 18 mg/dL 06/10/2020 8:33 AM [facility] Creatinine 1.21 0.70 - 1.30 mg/dL 06/10/2020 8:33 AM [facility] eGFR (-[place]) >60 >60 mL/min/1. 73m2 06/10/2020 8:33 AM [facility] eGFR (NON -[place]onese) >60 >60 mL/min/1. 73m2 06/10/2020 8:33 [facility] Comment: (NOTE) ? These are estimated GFR values resulting from ? utilization of a calculation incorporating ? the best data available for input, but all ? assumptions may not be correct in every ? case. ??In addition, there are several ? situations (elderly over 70 years, , ? serious co morbidities, extremes ? of body size or nutritional status) which ? could contribute to a misleading result. ? Therefore, clinical correlation is advised ? to prevent arriving at an erroneous ? conclusion based solely on the calculation ? utilized. Calcium 9.1 8.5 - 10.1 mg/dL 06/10/2020 8:33 AM [facility] Total Protein 7.7 6.4 - 8.2 g/dL 06/10/2020 8:33 AM [facility] Albumin 4.0 3.4 - 5.0 g/dL 06/10/2020 8:33 AM [facility] Globulin 3.7 2.5 - 5.0 g/dL 06/10/2020 8:33 AM [facility] Total Bilirubin 0.5 <1.0 mg/dL 06/10/2020 8:33 AM [facility] Comment:Use of this assay is not recommended for patients undergoing treatment with Eltrombopag due to the potential for falsely elevated results. Alkaline Phosphatase 71 45 - 117 U/L 06/10/2020 8:33 AM [facility] Alanine Aminotransferase (ALT) 23 16 - 61 U/L 06/10/2020 8:33 AM [facility] Aspartate Aminotransferase (AST) 13(L) 15 - 37 U/L 06/10/2020 8:33 AM [facility] Blood Venipuncture / Unknown 06/10/2020 7:21 AM EST 06/10/2020 7:31 AM EST Jagruti Anguiano MD LAB BLOOD ORDERABLES Final Result Performing Organization Address [facility]/ZIP Co de Phone Number [facility] [address] [phone] * [place] level (06/10/2020 7:21 AM EST) [place] Lvl 0.73 0.60 - 1.20 mmol/L 06/10/2020 9:40 AM [facility] Blood Venipuncture / Unknown 06/10/2020 7:21 AM EST 06/10/2020 7:31 AM EST Jagruti Anguiano MD LAB BLOOD ORDERABLES Final Result Performing Organization Address City/[facility]/ZIP Co de Phone Number [facility] [address] [place] [address] * (ABNORMAL) Lipid panel (06/10/2020 7:21 AM EST) Cholesterol 134 See Comment mg/dL 06/10/2020 8:33 AM [facility] Comment: Cholesterol Reference Range: ? Desirable: ?? <200 mg/dL ? Borderline: ??200-240 mg/dL ? High Risk: ?? >240 mg/dL HDL 29(L) See Comment mg/dL 06/10/2020 8:33 AM [facility] Comment: HDL Reference Range: Low: <40 High: > or = 60 Triglycerides 209(H) See Comment mg/dL 06/10/2020 8:33 AM [facility] Comment: Triglyceride Reference Range: ?Normal: ? <150 mg/dL ?Borderline High: ??150-199 mg/dL ?High: ? 200-499 mg/dL ?Very High: ?>or= 500 mg/dL LDL Calculated 63 See Comment mg/dL 06/10/2020 8:33 AM EST [facility] Comment: LDL Reference Range: Optimal: ? <100 mg/dL Near/Above Optimal: ??100-129 mg/dL Borderline High: ? 130-159 mg/dL High: ?160-189 mg/dL Very High: ? >or= 190 mg/dL Blood Venipuncture / Unknown 06/10/2020 7:21 AM EST 06/10/2020 7:31 AM EST us Jagruti Anguiano MD LAB BLOOD ORDERABLES Final Result Performing Organization Address City/[facility] Co de Phone Number [address] [phone] * TSH w/reflex to FT4 ( GH LMW Q YH) (06/10/2020 7:21 AM EST) Pathologist [facility] TSH 1.91 0.36 - 3.74 uIU/mL 06/10/2020 8:33 AM EST [facility] Blood Venipuncture / Unknown 06/10/2020 7:21 AM EST 06/10/2020 7:31 AM EST us Jagruti Anguiano MD LAB BLOOD ORDERABLES Final Result Performing Organization Address [facility] de Phone Number [address] [phone] * Vitamin B12 (06/10/2020 7:21 AM EST) Vitamin B12 552 211 - 911 pg/mL 06/10/2020 10:02 AM EST [facility] Blood Venipuncture / Unknown 06/10/2020 7:21 AM EST 06/10/2020 7:31 AM EST Jagruti Anguiano MD LAB BLOOD ORDERABLES Final Result Performing Organization Address [facility] Phone [facility] [address] [place] [address] * (ABNORMAL) Vitamin D, 25-hydroxy (06/10/2020 7:21 AM EST) Vitamin I62-Vddejtn 23.1(L) 30.1 - 100 ng/mL 06/10/2020 10:29 AM EST [facility] Comment: Vitamin D Status: ??Results in ng/mL <10.0: ??Deficient 10.0 - 30.0: ??Insufficient 30.1 - 100: ??Sufficient >100: ??Toxic Reference ranges established by [place]. Blood Venipuncture / Unknown 06/10/2020 7:21 AM EST 06/10/2020 7:31 AM EST Jagruti Anguiano MD LAB BLOOD ORDERABLES Final Result Performing Organization Address [facility] [address] [place] [address] documented in this encounter Visit Diagnoses Diagnosis Generalized anxiety disorder- Primary Bipolar affective disorder in remission (HC Code) documented in this encounter Additional Health Concerns Infection Onset Date Last Indicated Resolved Time R/O COVID-19 03/12/2021 03/12/2021 03/13/2021 3:35 AM EDT R/O COVID-19 03/20/2021 03/20/2021 03/20/2021 4:45 PM EDT documented as of this encounter Care Teams Diet Consultant Relationship Specialty Start Date End Date Pb Branham MD [address] [facility] [address] [facility] [address] [place] [phone] PCP - General Family Medicine 05/20/20 avila Shah Counseling [place], [place] Counselor 05/09/20 documented as of this encounter
--- OUTSIDE RECORDS SUMMARY | 2024-10-13 09:03 | XMS_ITS | Data Portability ---
Author Organization PATRICIA gonzalez [address] Address [address] [place] [address] Assessment No assessment recorded. Plan of Treatment Reminders Order Date Submit Date Provider Last Modified By Organization Details Last Modified Time Details Appointments None recorded. Lab None recorded. Referral None recorded. Procedures None recorded. Surgeries None recorded. Imaging None recorded. Medication Orders Polytrim 10,000 unit-1 mg/mL eye drops 2022 023 [email or web address] Not available 3 09:24:08 Patient TargetsNo targets recorded. Patient Instructions Encounter Date Encounter Id Patient Instructions Last Modified By Organization Details Last Modified Time 10/07/2022 [id number] Use prescribed antibiotic eye drops or ointment as directed to treat the infection. Apply a warm compress (towel soaked in warm water) to the affected eye 3 to 4 times a day. Do this just before applying medicine to the eye. Use a warm, wet cloth to wipe away crusting of the eyelids in the morning. This is caused by mucus drainage during the night. You may also use saline irrigating solution or artificial tears to rinse away mucus in the eye. Do not put a patch over the eye. Wash your hands before and after touching the infected eye. This is to prevent spreading the infection to the other eye, and to other people. Don't share your towels or washcloths with others. You may use acetaminophen or ibuprofen to control pain, unless another medicine was prescribed. Talk with your healthcare provider before using these medicines if you have chronic liver or kidney disease. Also talk with your provider if you have ever had a stomach ulcer or digestive bleeding. Don't wear contact lenses until your eyes have healed and all symptoms are gone. Follow-up care Follow up with your healthcare provider, or as advised. When to seek medical advice Call your healthcare provider right away if any of these occur: Worsening vision Increasing pain in the eye Increasing swelling or redness of the eyelid Redness spreading around the eye [email or web address] Not available 10/07/2022 15:58:09 Reason for Referral None Reported. 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 Medical Equipment None Reported. Allergies Allergen ID Allergen Name Allergen Category Reaction Reaction Severity Criticality Documentation Date Start Date Code Code System Note Provider Name and Address Organization Details Recorded Time 065943 amoxicill in medicatio n rash Not available Not available 10/07/2022 723 RxNorm JOSE RIOS null, [place] - [facility] 15:40:35 387772 lamotrigi ne medicatio n rash Not available Not available 10/07/2022 10514 RxNorm JOSE RIOS null, [place] - [facility] 15:40:45 607330 terbinafi ne medicatio n headache Not available Not available 10/07/2022 45270 RxNorm JOSE RIOS null, [place] - [facility] 3 15:42:17 Medications Name Sig Start Date Stop Date Status Note LastModified by Organization Details LastModified Time buspirone 5 mg tablet TAKE 1 TABLET BY MOUTH TWICE A DAY active Not Available Not Available No t Available ammonium lactate 12 % lotion active Not Available Not Available Not Available sumatriptan 100 mg tablet TAKE 1 TABLET BY MOUTH ONCE AT ONSET OF BAD MIGRAINE (NO REFILL IN UNDER 30 DAYS) active Not Available Not Available No t Available ciprofloxac in 250 mg tablet TAKE 2 TABLETS BY MOUTH EVERY 12 HOURS 10/07 completed Not Available Not Available Not Available omeprazole 40 mg capsule,del ayed release TAKE 1 CAPSULE BY MOUTH EVERY DAY active Not Available Not Available No t Available lithium carbonate ER 450 mg tablet,exte nded release TAKE 1 TABLET BY MOUTH TWICE A DAY IN MORNING AND 5PM active Not Available Not Available No t Available terbinafine HCl 250 mg tablet 10/07 completed Not Available Not Available Not Available hydrocortis one 1 % topical cream active Not Available Not Available Not Available doxycycline monohydrate 100 mg capsule TAKE 1 CAPSULE BY MOUTH TWICE A DAY FOR 7 DAYS 10/07 completed Not Available Not Available Not Available nystatin 100,000 unit/gram topical cream APPLY TO AFFECTED AREA TWICE A DAY active Not Available Not Available No t Available Polytrim 10,000 unit-1 mg/mL eye drops INSTILL 1 DROP INTO AFFECTED EYE(S) BY OPHTHALMI C ROUTE EVERY 6 HOURS x 7 days 2022 active Not Available Not Available Not Avai lable candesartan 8 mg tablet TAKE 1 TABLET BY MOUTH EVERY DAY active Not Available Not Available No t Available escitalopra m 10 mg tablet TAKE 1 TABLET BY MOUTH EVERY DAY IN THE MORNING active Not Available Not Available No t Available metformin ER 750 mg tablet,exte nded release 24 hr TAKE 1 TABLET BY MOUTH EVERY DAY active Not Available Not Available No t Available Latuda 80 mg tablet TAKE 1 TABLET BY MOUTH EVERY EVENING WITH 20MG FOR TOTAL 100MG active Not Available Not Available No t Available Latuda 20 mg tablet TAKE 1 TABLET BY MOUTH EVERY EVENING WITH 80MG FOR TOTAL 100MG active Not Available Not Available No t Available naloxone 4 mg/actuatio n nasal spray SPRAY 1 SPRAY INTO ONE NOSTRIL NEEDED FOR KNOWN OR SUSPECTED OPIOID OVERDOSE. CALL 911 IF USED. MAY NEED TO REPEAT; USE OTHER NOSTRIL. active Not Available Not Available No t Available Vitals Date Recorded Body height Body mass index (BMI) Body weight Pain severity - 0-10 verbal numeric rating [Score] - Reported Oxygen saturation Oxygen saturation in Arterial blood by Pulse oximetry Heart rate Respiratory rate Body temperature Provider Name and Address Organization Details Last Updated DateTime 3 152.4 cm 40 kg/m2 31657.4 4 g 6 97 % 97 % 71 /min 16 /min 98.2 [degF] JOSE NATION PA - [facility] 15:47:57 Social History Question Answer Notes LastModified by Organizat ion Details LastModified Time Tobacco Smoking Status Never Smoker JOSE NATION quentin, [place] - [facility] 10/07/2022 15:45:11 What Is Your Level Of Alcohol Consumption? None Information not available 10/07/2022 Are You Currently Employed? Yes Information not available 10/07/2022 Do You Use Any Illicit Or Recreational Drugs? No Information not available 10/07/2022 Have You Recently Traveled Abroad? No Information not available 10/07/2022 Do You Or Have You Ever Used Any Other Forms Of Tobacco Or Nicotine? No Information not available 10/07/2022 Sex: Unknown Functional Status None recorded. Mental Status None recorded. Family History Nothing Reported. Medical History No medical history recorded. Past Encounters Encounter ID Performer Location Encounter Start Date Encounter Closed Date Diagnosis/Indication Diagnosis SNOMED-CT Code Diagnosis ICD10 Code Diagnosis Note [id number] [address] [place] [address] 04/30/2016 15:08:25 04/30/2016 16:40:18 [id number] [address] [place] [address] 12/04/2015 08:32:25 12/04/2015 09:23:28 [id number] [address] [place] [address] 05/30/2016 16:04:06 05/30/2016 16:27:36 [id number] [address] [place] [address] 05/09/2016 13:15:48 05/09/2016 13:39:14 [id number] [address] [facility] [address] 05/14/2016 18:14:00 05/14/2016 19:51:06 [id number] [address] [place] [address] 09/01/2015 13:46:27 09/01/2015 14:11:49 [id number] [address] [facility] [place] [address] 03/20/2018 08:29:20 03/20/2018 09:11:59 [id number] Boubacar Cabello NP [address] [facility] [place] [address] 10/07/2022 15:17:09 10/07/2022 16:02:48 Acute conjunctivitis of left eye 6573328603 07907 H10.32 Health Concerns Section Related Observation LastModified by Organization Detai ls LastModified Time None Recorded Concern Status LastModified by Organization Details LastModified Time None Recorded Advance Directives Directive None Recorded Payers Encounter Date Sequence Insurance Name Policy Number Policy Curry Covered Member ID Curry Member ID Guarantor Name 05/09/2016 1 [place] [employer] Daniel Gambino Long [id number] Daniel Long 05/09/2016 2 [place] Daniel Gambino Long [id number] Daniel Lamas 05/14/2016 1 [place] [employer] Daniel Gambino Long [id number] Daniel Long 05/14/2016 2 [place] Daniel Gambino Long [id number] Daniel Long 05/30/2016 1 [place] [employer] Daniel Gambino Long [id number] Daniel Long 05/30/2016 2 [place] Daniel Gambino Long [id number] Daniel Long 03/20/2018 1 [place] [employer] Daniel Gambino Long [id number] Daniel Long 03/20/2018 2 [place] Daniel Lamas [id number] Daniel Lamas 10/07/2022 1 MEDICARE B-[place]: [facility] Daniel Lamas [id number] Daniel Lamas 10/07/2022 2 [place] [facility] Daniel Lamas [id number] Daniel Lamas Notes Date Note Type Note Provider Name and Address Organization Details Recorded Time 3 text/html Eye problemsReported bypatient.source of patient informationInformation obtained from patient; Patient arrived at Urgent Care ambulatory; learning styles: auditory Location:left Eye Symptoms:no pain in the eyes; no blurred vision;sensitivity to light;redness;discharge;[place] Severity:mild Onset/Timindays Modifying Factors:nothing gives relief contreras Alleviating factors:nothing helps Boubacar Cabello NP [address] [place], [address], [place] - [facility] 10/07/2022 16:02:25
--- OUTSIDE RECORDS SUMMARY | 2024-10-13 09:03 | XMS_ITS | Encounter Summary ---
Author Organization [facility] Address [address] [place] [address] Care Team Providers Care Shipping And Receiving Material Handler Name Role Phone Pb Branham MD Primary Care Provider [phone] Reason for Visit * Reason Comments Medication Refill Encounter Details Date Type Department Care Team (Late st Contact Info) Description 07/06/2020 [place] [address] Jagruti Anguiano MD [address] [place] [phone] Medication Refill Social History Tobacco Use [...] documented as of this encounter Care Teams Shipping And Receiving Material Handler Relationship Specialty Start Date End Date Pb Branham MD [address] [facility] [address] [place] [phone] PCP - General Family Medicine 05/20/20 avila Shah Counseling [place], [place] Counselor 05/09/20 documented as of this encounter
--- OUTSIDE RECORDS SUMMARY | 2024-10-13 09:03 | XMS_ITS | Encounter Summary ---
Author Organization [facility] Address [address] [place] [address] Care Team Providers Care French Folding Machine Operator Name Role Phone DharmeshPb herrera Primary Care Provider [phone] Neeta Jones MD Unavailable [phone] Estrellita Fall WILDLIFE AND GAME PROTECTOR Unavailable Debbie Ring WILDLIFE AND GAME PROTECTOR Unavailable [phone] Feng Brown WILDLIFE AND GAME PROTECTOR Unavailable Sabrina Gu LABORATORY CHEMIST Unavailable [phone] Bryson Robles FLAT BREAKDOWN PROCESSOR Unavailable Juan Yu MD Unavailable [phone] Amaya Szymanski WILDLIFE AND GAME PROTECTOR Unavailable [phone] Quyen Peterson [facility] Unavailable Marily Veliz MD Unavailable [phone] Rody Roldan Unavailable Encounter Details Date Type Department Care Team (Late st Contact Info) Description 05/18/2021 Scanned Document [facility] [address] [place] [phone] Boyd Brown MD Needs valid address Social History Tobacco Use Types Packs/Day Years [...] have Coronavirus / COVID-19? No / Unsure 05/15/2021 3:02 PM EST documented as of this encounter Plan of Treatment Not on file documented as of this encounter Goals Goal Patient Goal Type Associated Problems Recent Progress Patient-Stated? Author I want to reduce/eliminate suicidal thoughts Care Plan Emotional Dysregulation Debbie Meeks LPC MARS GOAL 12 - I am [...] filedocumented in this encounter Additional Health Concerns Active Problems Noted Date Diagnosed Date Emotional Dysregulation 04/09/2021 documented as of this encounter Care Teams French Folding Machine Operator Relationship Specialty Start Date End Date Pb Branham DO [address] [facility] [address] [place] [address] PCP - General Medicine Hospitalist 02/22/20 Neeta Jones MD [address] [facility] [address] Psychiatry, General 03/27/21 Estrellita Fall [facility] [address] [place] [address] Clinician Social Work 03/31/21 08/23/24 Debbie Ring, [facility] [address] [facility] [address] Pool Finisher Clinical Social Work 04/04/21 08/23/24 Feng Brown, [facility] [address] [place], [place] [address] [place] [address] Pool Finisher Psychiatry, Addiction 04/05/21 08/23/24 Sabrina Gu LCSW [address] [place] [address] Pool Finisher Clinical Social Work 04/07/21 08/23/24 Bryson Robles APRN [address] [place] [address] Nurse Practitioner Psychiatry, General 04/12/21 Juan Yu MD [address] [place] [address] Psychiatrist Psychiatry, General 04/21/21 05/21/24 Amaya Szymanski, [facility] [address] [place] [address] Pool Finisher Clinical Social Work 04/24/21 08/23/24 Quyen Peterson [facility] [address] [place] [address] Pool Finisher Clinical Social Work 04/24/21 08/23/24 Marily Veliz MD [address] [place] [address] Psychiatry, General 04/27/21 08/23/24 Rody Roldan [address] [place] [address] 12/25/21 documented as of this encounter
--- OUTSIDE RECORDS SUMMARY | 2024-10-13 09:03 | XMS_ITS | Encounter Summary ---
Author Organization [facility] Address [address] [place] [address] Care Team Providers Care Job Printer Name Role Phone DharmeshPb herrera Primary Care Provider [phone] Neeta Jones MD Unavailable [phone] Estrellita Fall ASSISTANT PROSECUTING ATTORNEY Unavailable Debbie Ring ASSISTANT PROSECUTING ATTORNEY Unavailable Feng Brown ASSISTANT PROSECUTING ATTORNEY Unavailable [phone] Sabrina Gu TOOLMAKER HELPER Unavailable +1-000-000-0 000 Bryson Robles WINDOW GLAZIER Unavailable [phone] Juan Yu MD Unavailable Amaya Szymanski ASSISTANT PROSECUTING ATTORNEY Unavailable [phone] Quyen Peterson [facility] Unavailable Marily Veliz MD Unavailable [phone] Rody Roldan Unavailable Reason for Visit * Reason Comments Medication Refill Encounter Details Date Type Department Care Team (Late st Contact Info) Description 12/09/2021 Refill [facility] [address] [place] [phone] Boyd Brown MD Needs valid address [...] PM EDT documented as of this encounter Miscellaneous Notes * Telephone Encounter - Leticia Gordon LPN - 12/11/2021 9:30 AM EDT Patient will need an appointment before we can refill medications, last appointment was 05/2021 documented in this encounter Plan of Treatment Not on [...] being at peace. Care Plan Emotional Dysregulation Debbie Meeks LPC documented as of this encounter Visit Diagnoses Diagnosis Migraine without aura, intractable, without status migrainosus documented in this encounter Additional Health Concerns Active Problems Noted Date Diagnosed Date Emotional Dysregulation 04/09/2021 documented as of this encounter Care Teams Job Printer Relationship Specialty Start Date End Date Pb Branham DO [address] [facility] [place] [address] PCP - General Medicine Hospitalist 02/22/20 Neeta Jones MD 1353 [facility], [place] [address] Psychiatry, General 03/27/21 Estrellita Fall ASSISTANT PROSECUTING ATTORNEY [address] [place] [address] Clinician Social Work 03/31/21 08/23/24 Debbie Ring LPC 1353 [facility], [place] [address] Career Education Teacher Clinical Social Work 04/04/21 08/23/24 Feng Brown ASSISTANT PROSECUTING ATTORNEY 1353 [facility], [place] [address] Career Education Teacher Psychiatry, Addiction 04/05/21 08/23/24 Sabrina Gu LCSW 1353 [facility] [place] [address] Career Education Teacher Clinical Social Work 04/07/21 08/23/24 Bryson Robles APRN 428 [facility] [place] [address] Nurse Practitioner Psychiatry, General 04/12/21 Juan Yu MD [address] [place] [address], [place] [address] Psychiatrist Psychiatry, General 04/21/21 05/21/24 Amaya Szymanski, [facility] [address] [place] [address], [place] [address] Career Education Teacher Clinical Social Work 04/24/21 08/23/24 Quyen Peterson, [facility] [address] [facility] [place] [address] Career Education Teacher Clinical Social Work 04/24/21 08/23/24 Marily Veliz MD [address] [facility] [place], [place] [address] Psychiatry, General 04/27/21 08/23/24 Rody Roldan [address] [place] [address] 12/25/21 documented as of this encounter
--- OUTSIDE RECORDS SUMMARY | 2024-10-13 09:03 | XMS_ITS | Encounter Summary ---
Author Organization [facility] Address [address] [place] [address] Care Team Providers Care Service Desk Specialist Name Role Phone DharmeshPb herrera Primary Care Provider [phone] Neeta Jones MD Unavailable [phone] Estrellita Fall PAD MACHINE OFFBEARER Unavailable Debbie Ring PAD MACHINE OFFBEARER Unavailable Feng Brown PAD MACHINE OFFBEARER Unavailable Sabrina Gu ICU NURSE Unavailable +1-000-000-0 000 Bryson Robles PERSONAL ASSISTANT Unavailable [phone] Juan Yu MD Unavailable [phone] Amaya Szymanski PAD MACHINE OFFBEARER Unavailable [phone] Quyen Peterson [facility] Unavailable [phone] Marily Veliz MD Unavailable [phone] Rody Roldan Unavailable Reason for Visit * Reason Comments Medication Refill Encounter Details Date Type Department Care Team (Late st Contact Info) Description 12/30/2021 Refill [facility] [address] [place] [phone] Boyd Brown MD Needs valid address [...] Telephone Encounter - Leticia Gordon LPN - 01/02/2022 8:15 AM EDT Last appointment was 05/2021. Patient is overdue for an appointment, must come in before receiving any refills. Can get refills from PCP in the mean time. documented in this encounter Plan of Treatment [...] documented as of this encounter Care Teams Service Desk Specialist Relationship Specialty Start Date End Date DharmeshPb herrera DO [address] [facility] [address] [place], [place] [address] PCP - General Medicine Hospitalist 02/22/20 Neeta Jones MD 135[address] [place], [place] [address] Psychiatry, General 03/27/21 Estrellita Fall PAD MACHINE OFFBEARER [address], [place] [address] Clinician Social Work 03/31/21 08/23/24 Debbie Ring, [facility] [place] [phone] Service Observer Chief Clinical Social Work 04/04/21 08/23/24 Feng Brown, PAD MACHINE OFFBEARER [address] [place] [address]240 Service Observer Chief Psychiatry, Addiction 04/05/21 08/23/24 Sabrina Gu LCSW 1353 [place] [address] Service Observer Chief Clinical Social Work 04/07/21 08/23/24 Bryson Robles APRN 428 [facility], [place] 8[address] Nurse Practitioner Psychiatry, General 04/12/21 Juan Yu MD [address] [place] [address], [place] [id number] Psychiatrist Psychiatry, General 04/21/21 05/21/24 Amaya Szymanski [facility] [address] [place] [address], [place] [address] Service Observer Chief Clinical Social Work 04/24/21 08/23/24 Quyen Peterson, [facility] [address] [facility] [place] [address] Service Observer Chief Clinical Social Work 04/24/21 08/23/24 Marily Veliz MD [address] [facility] [place] [address] Psychiatry, General 04/27/21 08/23/24 Rody Roldan [address] [place] [address] 12/25/21 documented as of this encounter
--- OUTSIDE RECORDS SUMMARY | 2024-10-13 09:03 | XMS_ITS | Encounter Summary ---
Author Organization [facility] Address [address] [place] [address] Care Team Providers Care Toppiece Chopper Name Role Phone Pb Branham MD Primary Care Provider [phone] Encounter Details Date Type Department Care Team ([facility] st Contact Info) Description 12/17/2019 Scanned Document [facility] [address] [place] [address] Jagruti Anguiano MD [address] [place] [phone] Social History Tobacco Use Types Packs/Day [...] documented as of this encounter Care Teams Toppiece Chopper Relationship Specialty Start Date End Date Pb Branham MD 100 [facility] [address] [phone] PCP - General Family Medicine 05/20/20 avila Shah [facility] [place], [place] Counselor 05/09/20 documented as of this encounter
--- OUTSIDE RECORDS SUMMARY | 2024-10-13 09:03 | XMS_ITS | Encounter Summary ---
Author Organization [facility] Address [address] [place] [address] Care Team Providers Care Graphic Design Intern Name Role Phone DharmeshPb herrera Primary Care Provider [phone] Neeta Jones MD Unavailable [phone] Estrellita Fall WRAPPER REWINDER Unavailable Debbie Ring WRAPPER REWINDER Unavailable Feng Brown WRAPPER REWINDER Unavailable [phone] TECHNICIAN Unavailable +1-000-000-0 000 Bryson Robles SUPERVISOR RESEARCH SHOP Unavailable [phone] Juan Yu MD Unavailable [phone] Amaya Szymanski WRAPPER REWINDER Unavailable [phone] Quyen Peterson [facility] Unavailable [phone] Marily Veliz MD Unavailable [phone] Rdoy Roldan Unavailable Reason for Visit * Reason Comments Medication Refill Encounter Details Date Type Department Care Team (Late st Contact Info) Description 09/25/2021 Refill [facility] [address] [place] [phone] Boyd Brown MD Needs valid address [...] documented as of this encounter Care Teams Graphic Design Intern Relationship Specialty Start Date End Date Pb Branham DO [address] [facility] [address] [place], [place] [address] PCP - General Medicine Hospitalist 02/22/20 Neeta Jones MD 1353 [facility] [place], [place] [address] Psychiatry, General 03/27/21 Estrellita Fall LPC [address] [place] [address] [place] [address] Clinician Social Work 03/31/21 08/23/24 Debbie Ring LPC [address] [place] [address] Rater Associate Clinical Social Work 04/04/21 08/23/24 Feng Brown WRAPPER REWINDER [address] [place] [address] Rater Associate Psychiatry, Addiction 04/05/21 08/23/24 Sabrina Gu LCSW [address] [place] [address] Rater Associate Clinical Social Work 04/07/21 08/23/24 Bryson Robles APRN [address] [place] [address] [place] [address] Nurse Practitioner Psychiatry, General 04/12/21 Juan Yu MD [address] [place] [address] Psychiatrist Psychiatry, General 04/21/21 05/21/24 Amaya Szymanski LPC [address] [place] [address] Rater Associate Clinical Social Work 04/24/21 08/23/24 Quyen Peterson [facility] [address] [place] [address] Rater Associate Clinical Social Work 04/24/21 08/23/24 Marily Veliz MD 1353 [place] [address] Psychiatry, General 04/27/21 08/23/24 Rody Roldan [address] [place] [address] 12/25/21 documented as of this encounter
--- OUTSIDE RECORDS SUMMARY | 2024-10-13 09:03 | XMS_ITS | Encounter Summary ---
Author Organization [facility] Address [address] [place] [address] Care Team Providers Care Shift Mgr Name Role Phone DharmeshPb herrera Primary Care Provider [phone] Neeta Jones MD Unavailable [phone] Estrellita Fall BB SHOT PACKER Unavailable Debbie Ring BB SHOT PACKER Unavailable [phone] Feng Brown BB SHOT PACKER Unavailable Sabrina Gu HOME EXTENSION AGENT Unavailable +1-000-000-0 000 Bryson Robles AWNING FINISHER Unavailable [phone] Juan Yu MD Unavailable [phone] Amaya Szymanski BB SHOT PACKER Unavailable [phone] Quyen Peterson [facility] Unavailable Marily Velzi MD Unavailable [phone] Rody Roldan Unavailable Reason for Visit * Reason Comments Medication Refill Encounter Details Date Type Department Care Team (Late st Contact Info) Description 12/14/2021 Refill [facility] [address] [place] [phone] Boyd Brown MD Needs valid address [...] documented as of this encounter Care Teams Shift Mgr Relationship Specialty Start Date End Date Pb Branham DO [address] [facility] [address] [place], [place] [address] PCP - General Medicine Hospitalist 02/22/20 Neeta Jones MD [address] [facility] [place] [place] [address] Psychiatry, General 03/27/21 Estrellita Fall LPC [address] [place] [address] [place] [address] Clinician Social Work 03/31/21 08/23/24 Debbie Ring LPC [address] [place] [address] Word Processor Technician Clinical Social Work 04/04/21 08/23/24 Feng Brown BB SHOT PACKER [address] [place] [address] Word Processor Technician Psychiatry, Addiction 04/05/21 08/23/24 Sabrina Gu LCSW [address] [place] [address] Word Processor Technician Clinical Social Work 04/07/21 08/23/24 Bryson Robles APRN [address] [place] [address] [place] [address] Nurse Practitioner Psychiatry, General 04/12/21 Juan Yu MD 189 [place] [address] Psychiatrist Psychiatry, General 04/21/21 05/21/24 Amaya Szymanski LPC [address] [place] [address] Word Processor Technician Clinical Social Work 04/24/21 08/23/24 Quyen Peterson [facility] [address] [place] [address] Word Processor Technician Clinical Social Work 04/24/21 08/23/24 Marily Veliz MD 1353 [place] [address] Psychiatry, General 04/27/21 08/23/24 Rody Roldan [address] [place] [address] 12/25/21 documented as of this encounter
--- OUTSIDE RECORDS SUMMARY | 2024-10-13 09:03 | XMS_ITS | Encounter Summary ---
Author Organization [facility] Address [address] [place] [address] Care Team Providers Care Sample Tester Name Role Phone DharmeshPb herrera Primary Care Provider [phone] Neeta Jones MD Unavailable [phone] Estrellita Fall POWER HAIR CLIPPER Unavailable [phone] Debbie Ring POWER HAIR CLIPPER Unavailable Feng Brown POWER HAIR CLIPPER Unavailable Sabrina Gu CONSTRUCTION PROJECT ENGINEER Unavailable +1-000-000-0 000 Bryson Robles BRIQUETTER OPERATOR Unavailable [phone] Juan Yu MD Unavailable [phone] Amaya Szymanski POWER HAIR CLIPPER Unavailable [phone] Quyen Peterson [facility] Unavailable [phone] Marily Veliz MD Unavailable [phone] Rody Roldan Unavailable Reason for Visit * Reason Comments Medication Refill Encounter Details Date Type Department Care Team (Late st Contact Info) Description 11/20/2021 Refill [facility] [address] [place] [phone] Boyd Brown MD Needs valid address [...] encounter Miscellaneous Notes * Telephone Encounter - Boyd Brown MD - 11/20/2021 11:34 AM EDT Patient has moved out of the area and is no longer our patient. documented in this encounter Plan of Treatment [...] documented as of this encounter Care Teams Sample Tester Relationship Specialty Start Date End Date Pb Branham DO [address] [place] [address] [place] [address] PCP - General Medicine Hospitalist 02/22/20 Neeta Jones MD 1353 [facility] [place] [address] Psychiatry, General 03/27/21 Estrellita Fall [facility] [address] [place] [address] Clinician Social Work 03/31/21 08/23/24 Debbie Ring, POWER HAIR CLIPPER [address] [facility] [place] [address] Sheltered Workshop Executive Director Clinical Social Work 04/04/21 08/23/24 Feng Brown, POWER HAIR CLIPPER [address] [place] [address], [place] [address] Sheltered Workshop Executive Director Psychiatry, Addiction 04/05/21 08/23/24 Sabrina Gu LCSW 1353 [place] [address] Sheltered Workshop Executive Director Clinical Social Work 04/07/21 08/23/24 Bryson Robles APRN 428 [place] [address] Nurse Practitioner Psychiatry, General 04/12/21 Juan Yu MD [address] [facility] [place] [address] Psychiatrist Psychiatry, General 04/21/21 05/21/24 Amaya Szymanski, [facility] Kristina Allen [facility] [place] [address] Sheltered Workshop Executive Director Clinical Social Work 04/24/21 08/23/24 [facility] 135[address] [place] [address] Sheltered Workshop Executive Director Clinical Social Work 04/24/21 08/23/24 Marily Veliz MD [address] [place] [address] Psychiatry, General 04/27/21 08/23/24 Rody Roldan [address] [place] [address] 12/25/21 documented as of this encounter
--- OUTSIDE RECORDS SUMMARY | 2024-10-13 09:03 | XMS_ITS | Encounter Summary ---
Author Organization [facility] Address [address] [place] [address] Care Team Providers Care Enterprise Account Executive Name Role Phone DharmeshPb herrera Primary Care Provider [phone] Neeta Jones MD Unavailable [phone] Estrellita Fall CERTIFIED PUBLIC ACCOUNTANT Unavailable Debbie Ring CERTIFIED PUBLIC ACCOUNTANT Unavailable Feng Brown CERTIFIED PUBLIC ACCOUNTANT Unavailable [phone] Sabrina Gu HAMMER SETTER Unavailable +1-000-000-0 000 Bryson Robles ENGINEER SYSTEMS Unavailable [phone] Juan Yu MD Unavailable [phone] Amaya Szymanski CERTIFIED PUBLIC ACCOUNTANT Unavailable [phone] Quyen Peterson [facility] Unavailable [phone] Marily Veliz MD Unavailable [phone] Rody Roldan Unavailable Encounter Details Date Type Department Care Team (Late st Contact Info) Description 06/30/[address] [place] [address] [place] [phone] Silver Merrill PA-C [address] [place], [place] [phone] Encounter for laboratory testing for COVID-19 virus Social History Tobacco Use Types Packs/Day Years [...] Procedure Name Priority Date/Time Associated Diagnosis Comments COVID-19 (SARS-COV-2) - [facility] Routine 06/30/2020 8:44 AM EST Encounter for laboratory testing for COVID-19 virus [ICD-10-CM] documented in this encounter Results * COVID-19 (SARS-COV-2) ([facility]) (06/30/2020 8:44 AM EST) COVID-19 RT-PCR NOT-DETEC DEAN Not-Detec dean 07/03/2020 6:51 PM EST [facility] JAMES Rapp ANAI Comment:Interpretation: The viral RNA was not detected, making the COVID-19 diagnosis less likely. Clinical correlation is highly recommended.Final report signed by Garrison Valverde, Ph.D., Laboratory DirectorTests performed at [facility] Microbiology Nasopharyngeal swab / Unknown 06/30/2020 8:44 AM EST 06/30/2020 8:44 AM EST Narrative [facility] Rapp CYRUSCHINYERE - 07/03/2020 6:51 PM EST Performed by [facility] [address] [place] [address], CLIA# [id number] and [place] License# [id number] Silver Merrill PA-C MICROBIOLOGY - NERAL ORDERABLES JOVANNI OSPINA documented in this encounter Visit Diagnoses Diagnosis Encounter for laboratory testing for COVID-19 virus documented in this encounter Care Teams Enterprise Account Executive Relationship Specialty Start Date End Date Pb Branham DO [address] [facility] [address] [place] [address] PCP - General Medicine Hospitalist 02/22/20 Neeta Jones MD [address] [place], [place] [address] [address] Psychiatry, General 03/27/21 Estrellita Fall CERTIFIED PUBLIC ACCOUNTANT [address] [address] Clinician Social Work 03/31/21 08/23/24 Debbie Ring, CERTIFIED PUBLIC ACCOUNTANT [address] [place], [place] [id number] Program Support Clerk Clinical Social Work 04/04/21 08/23/24 Feng Brown [facility] [address] [place], [place] [phone] Program Support Clerk Psychiatry, Addiction 04/05/21 08/23/24 Sabrina Gu LCSW [address] [place] [address] Program Support Clerk Clinical Social Work 04/07/21 08/23/24 Bryson Robles APRN [address] [place] [address] Nurse Practitioner Psychiatry, General 04/12/21 Juan Yu MD [address] [place] [address] Psychiatrist Psychiatry, General 04/21/21 05/21/24 Amaya Szymanski, [facility] [address] [place] [address] Program Support Clerk Clinical Social Work 04/24/21 08/23/24 Quyen Peterson [facility] 1353 [place] [address] Program Support Clerk Clinical Social Work 04/24/21 08/23/24 [place] [address] [place] [address] Psychiatry, General 04/27/21 08/23/24 Rody Roldan [address] [place] [address] 12/25/21 documented as of this encounter
--- OUTSIDE RECORDS SUMMARY | 2024-10-13 09:03 | XMS_ITS | Continuity of Care Document ---
Author Organization [facility] Address [address] [place] [address] Assessment No assessment recorded. Plan of Treatment Reminders Order Date Submit Date Provider Last Modified By Organization Details Last Modified Time Details Appointments ANNUAL EXAM 2025 09:00A PATRICIA RIDLEY Not available Not available Not available Lab HIV 1+2 AB + HIV 1 p24 Ag, qualitati ve immunoass ay, serum 2024 025 [facility], [address] [place] [address], [id number], 10/09/2024 16:37:09 RPR (rapid plasma reagin), serum 2024 025 [facility], [address] [place] [address], [place], [address], 10/09/2024 16:37:09 CT + NG + TV, DNA, urine/swa b 2024 025 [facility], [address] [place] [address], [place], [address], 10/09/2024 16:37:09 hepatitis panel (A+B+C), acute, serum 2024 025 [facility], [address] [place] [address], [id number], 10/09/2024 16:37:09 Referral None recorded. Procedures None recorded. Surgeries None recorded. Imaging None recorded. Medication Orders None recorded. Patient TargetsNo targets recorded. Patient InstructionsNo instructions recorded. Reason for Referral None Reported. 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 2017 Not Available [facility] 2 06:31:09 Attention deficit hyperactiv ity disorder 956393989 Active 2017 Not Available [facility] 2 06:31:09 Onycholysi s due to fungal infection of nail 234253890 Active 2021 Not Available [facility] 2 06:31:09 Visual disturbanc e 97491034 Active 2021 PATRICIA HERNANDEZ [address] [place] [address], [address], [facility] 2 10:14:45 Generalize d rash 052061224 Active 2022 PATRICIA HERNANDEZ [address] [place] [address], [address], [facility] 3 15:32:32 Impaired fasting glycemia 956004341 Active 2022 PATRICIA HERNANDEZ [address] [place] [address], [address], [facility] 3 14:07:44 Scalp infection 914305225 Active 2022 PATRICIA HERNANDEZ [address] [place] [address], [address], [facility] 3 10:16:31 Iron deficiency anemia 50432943 Active 2022 PATRICIA HERNANDEZ [address] [place] [address], [address], [facility] 3 14:06:57 Hyperlipid emia 71353166 Active 2023 PATRICIA HERNANDEZ [address] [place] [address], [address], [facility] 4 10:57:02 Erectile dysfunctio n 113367385 Active 2023 PATRICIA HERNANDEZ [address] [place], [address], [facility] 4 15:54:51 Acute sinusitis 79063809 Active 2023 PATRICIA HERNANDEZ [address] [place] [address], [address], [facility] 4 11:06:08 Infection of pierced pinna 266771264 Active 2023 PATRICIA HERNANDEZ [address] [place] [address], [address], [facility] 4 14:50:59 Recurrent bleeding of nose Active 2023 PATRICIA HERNANDEZ [address] [place] [address], [address], [facility] 4 11:26:31 Headache 74256690 Active 2023 PATRICIA HERNANDEZ [address] [place] [address], [address], [facility] 4 11:26:46 Snoring 66817760 Active 2023 PATRICIA HERNANDEZ [address] [place] [address], [address], [facility] 4 10:37:04 Discharge from nipple 79838116 Active 2024 PATRICIA HERNANDEZ [address] [place] [address], [address], [facility] 5 14:48:05 Acute pharyngiti s 129817794 Active 2024 PATRICIA HERNANDEZ [address] [place] [address], [address], [facility] 5 16:10:08 Problem Notes None recorded. Procedures Surgical History Date Name Laterality Status Provider Name and Address Organization Details Recorded Time 08/10/2019 I&D completed September BLOSSOM Sorensen [address] [place], [address], [facility] 08/10/2019 14:19:29 Imaging Results None recorded. Procedure Notes None recorded. Medical Equipment None Reported. Allergies Allergen ID Allergen Name Allergen Category Reaction Reaction Severity Criticality Documentation Date Start Date Code Code System Note Provider Name and Address Organization Details Recorded Time 2537 sesame seed extract food Not available Not available Not available 05/26/2018 39904 46 RxNorm Marisela Caceres [facility] 8 15:17:50 2538 banana extract food,medi cation Not available Not available Not available 05/26/2018 76551 9 RxNorm Marisela Caceres [facility] 8 15:17:58 2539 amoxicill in medicatio n Not available Not available Not available 05/26/2018 723 RxNorm Marisela Caceres [facility] 8 15:18:09 2540 Product containin g penicilli n (product) medicatio n Not available Not available Not available 05/26/2018 30690 8001 SNOMED Marisela Caceres [facility] 8 15:18:16 2541 egg extract food,medi cation Not available Not available Not available 05/26/2018 70139 15 RxNorm Marisela Noelicki [facility] 8 15:18:23 2542 melon extract food Not available Not available Not available 05/26/2018 67258 10 RxNorm Marisela Cohenicki [facility] 8 15:18:33 2543 watermelo n preparati on food Not available Not available Not available 05/26/2018 21452 4 RxNorm Marisela Balicki [facility] 8 15:18:56 2547 lamotrigi ne medicatio n rash Not available Not available 05/27/2018 83117 RxNorm Debbie Kajal saavedra [place] [facility] 8 09:43:05 Medications Name Sig Start Date Stop Date Status Note LastModified by Organization Details LastModified Time buspirone 5 mg tablet TAKE 1 TABLET BY MOUTH TWICE A DAY 03/26 completed Not Available Not Available Not Available silver sulfadiazin e 1 % topical cream APPLY SMALL AMOUNT TO THE WOUND ONCE DAILY BEFORE DRESSING WITH BANDAID 01/21 completed Not Available Not Available Not Available metformin 500 mg tablet Take 1 tablet every day by oral route for 30 days. 03/25 completed Not Available Not Available Not Available clonidine HCl 0.1 mg tablet Take 1 tablet every day by oral route for 30 days. 05/19 completed Not Available Not Available Not Available doxycycline hyclate 100 mg capsule 05/17 completed Not Available Not Available Not Available ketoconazol e 2 % shampoo APPLY TOPICALLY TO AFFECTED AREA LATHER, LEAVE FOR 5 MINUTES & THEN RINSE OFF ONCE DAILY 01/21 completed Not Available Not Available Not Available clindamycin HCl 300 mg capsule 04/20 completed Not Available Not Available Not Available ammonium lactate 12 % lotion 03/26 completed Not Available Not Available Not Available divalproex 250 mg tablet,roberto yed release 04/20 completed Not Available Not Available Not Available trazodone 50 mg tablet TAKE 1 TABLET BY MOUTH EVERY DAY AT BEDTIME *MAY REPEAT ONCE NEEDED FOR INSOMNIA* 04/22 completed Not Available Not Available Not Available azithromyci n 250 mg tablet TAKE 2 TABLETS (500 MG) BY ORAL ROUTE ONCE DAILY FOR 1 DAY THEN 1 TABLET (250 MG) BY ORAL ROUTE ONCE DAILY FOR 4 DAYS active Not Available Not Available No t Available ofloxacin 0.3 % eye drops 03/26 completed Not Available Not Available Not Available sumatriptan 100 mg tablet TAKE 1 TABLET BY MOUTH EVERY DAY NEEDED FOR MIGRAINE 01/21 completed Not Available Not Available Not Available sertraline 100 mg tablet TAKE 1.5 TABLETS (150 MG TOTAL) BY MOUTH DAILY FOR 7 DAYS. active Not Available Not Available No t Available clindamycin HCl 150 mg capsule TAKE 1 CAPSULE EVERY 8 HOURS UNTIL FINISHED active Not Available Not Available No t Available valsartan 80 mg tablet TAKE 1 TABLET BY MOUTH EVERY DAY 01/21 completed Not Available Not Available Not Available lithium carbonate ER 300 mg tablet,exte nded release TAKE 3 TABLETS BY MOUTH EVERY DAY AT BEDTIME 01/21 completed Not Available Not Available Not Available topiramate 25 mg tablet TAKE 1 TABLET BY MOUTH TWICE A DAY 01/21 completed Not Available Not Available Not Available divalproex 500 mg tablet,roberto yed release 05/27 completed Not Available Not Available Not Available valacyclovi r 500 mg tablet TAKE 1 TABLET BY MOUTH THREE TIMES A DAY 04/22 completed Not Available Not Available Not Available ciprofloxac in 500 mg tablet TAKE 1 TABLET BY MOUTH EVERY 12 HOURS FOR 7 DAYS active Not Available Not Available No t Available sulfamethox azole 800 mg-trimetho prim 160 mg tablet TAKE 1 TABLET BY MOUTH EVERY 12 HOURS FOR 10 DAYS 07/06 completed Not Available Not Available Not Available omeprazole 40 mg capsule,del ayed release Take 1 capsule every day active Not Available Not Available No t Available acetaminoph en 500 mg tablet TAKE 1 TABLET EVERY 12 HOURS NEEDED FOR PAIN active Not Available Not Available No t Available bupropion HCl SR 100 mg tablet,12 hr sustained-r elease Take 1 tablet twice a day by oral route for 30 days. 05/19 completed Not Available Not Available Not Available lithium carbonate ER 450 mg tablet,exte nded release TAKE 1 TABLET BY MOUTH TWICE A DAY IN MORNING AND 5PM 03/26 completed Not Available Not Available Not Available lamotrigine 25 mg tablet 05/27 completed Not Available Not Available Not Available bupropion HCl 100 mg tablet 03/25 completed Not Available Not Available Not Available terbinafine HCl 250 mg tablet 03/26 completed Not Available Not Available Not Available prednisolon e acetate 1 % eye drops,suspe nsion INSTILL 1 DROP IN BOTH EYES TWICE A DAY 01/21 completed Not Available Not Available Not Available clindamycin 1 % topical gel 05/17 completed Not Available Not Available Not Available hydrocortis one 1 % topical cream APPLY A THIN LAYER TO THE AFFECTED AREA(S) BY TOPICAL ROUTE 2 TIMES PER DAY 03/26 completed Not Available Not Available Not Available doxycycline monohydrate 100 mg capsule TAKE 1 CAPSULE BY MOUTH TWICE A DAY FOR 7 DAYS 03/26 completed Not Available Not Available Not Available cephalexin 500 mg capsule TAKE 1 CAPSULE BY MOUTH TWICE A DAY FOR 10 DAYS active Not Available Not Available No t Available ferrous sulfate 325 mg (65 mg iron) tablet Take 1 tablet every day by oral route for 90 days. 01/21 completed Not Available Not Available Not Available nystatin 100,000 unit/gram topical cream APPLY TO AFFECTED AREA TWICE A DAY 03/26 completed Not Available Not Available Not Available prednisone 50 mg tablet 05/27 completed Not Available Not Available Not Available fluorometho lone 0.1 % eye drops,suspe nsion 03/25 completed Not Available Not Available Not Available divalproex ER 500 mg tablet,exte nded release 24 hr 500mg in the AM and 750mg at night 03/25 completed Not Available Not Available Not Available sertraline 25 mg tablet Take 1 tablet every day by oral route for 30 days. 08/25 completed Not Available Not Available Not Available methylpredn isolone 4 mg tablets in a dose pack TAKE 6 TABLETS ON DAY 1 DIRECTED ON PACKAGE AND DECREASE BY 1 TAB EACH DAY FOR A TOTAL OF 6 DAYS 01/21 completed Not Available Not Available Not Available albuterol sulfate HFA 90 mcg/actuati on aerosol inhaler PLEASE SEE ATTACHED FOR DETAILED DIRECTION S active Not Available Not Available No t Available Cipro 250 mg tablet take 2 tablets by mouth every 12 hours 12/01 completed Not Available Not Available Not Available ketoconazol e 2 % topical cream 08/10 completed Not Available Not Available Not Available lithium carbonate 300 mg tablet TAKE 3 TABLETS BY MOUTH AT BEDTIME 01/21 completed Not Available Not Available Not Available sertraline 50 mg tablet Take 1 tablet every day by oral route. 05/19 completed Not Available Not Available Not Available naratriptan 2.5 mg tablet PLEASE SEE ATTACHED FOR DETAILED DIRECTION S active Not Available Not Available No t Available candesartan 8 mg tablet TAKE 1 TABLET BY MOUTH EVERY DAY 01/21 completed Not Available Not Available Not Available doxycycline hyclate 100 mg tablet TAKE 1 TABLET BY MOUTH TWICE A DAY FOR 7 DAYS 01/16 completed Not Available Not Available Not Available Lotemax 0.5 % eye drops,suspe nsion 05/17 completed Not Available Not Available Not Available buspirone 15 mg tablet TAKE 1 TABLET BY MOUTH THREE TIMES A DAY active Not Available Not Available No t Available azithromyci n 500 mg tablet 07/22 completed Not Available Not Available Not Available escitalopra m 10 mg tablet TAKE 1 TABLET BY MOUTH EVERY DAY IN THE MORNING 03/26 completed Not Available Not Available Not Available escitalopra m 20 mg tablet TAKE 1 TABLET BY MOUTH EVERY DAY IN THE MORNING 01/21 completed Not Available Not Available Not Available aripiprazol e 10 mg tablet 05/17 completed Not Available Not Available Not Available aripiprazol e 15 mg tablet Take 1 tablet every day by oral route for 30 days. 08/10 completed Not Available Not Available Not Available divalproex ER 250 mg tablet,exte nded release 24 hr 03/25 completed Not Available Not Available Not Available metformin ER 750 mg tablet,exte nded release 24 hr TAKE 1 TABLET BY MOUTH DAILY 2024 active Not Available Not Available Not Avai lable aripiprazol e 5 mg tablet Take 1 tablet every day by oral route for 30 days. 08/25 completed Not Available Not Available Not Available escitalopra m 5 mg tablet Take 1 tablet every day by oral route for 30 days. 07/31 completed Not Available Not Available Not Available Flovent HFA 110 mcg/actuati on aerosol inhaler 07/22 completed Not Available Not Available Not Available Flovent HFA 220 mcg/actuati on aerosol inhaler INHALE 2 PUFFS BY MOUTH TWICE A DAY RINSE MOUTH AFTER EACH USE. NO FOOD FOR 1 HOUR AFTER EACH DOSE. 03/26 completed Not Available Not Available Not Available Boostrix Tdap 2.5 Lf unit-8 mcg-5 Lf/0.5 mL intramuscul ar syringe 05/17 completed Not Available Not Available Not Available Durezol 0.05 % eye drops 05/27 completed Not Available Not Available Not Available Flovent Diskus 250 mcg/actuati on powder for inhalation INHALE 1 PUFF BY MOUTH TWICE A DAY 01/21 completed Not Available Not Available Not Available lurasidone 80 mg tablet TAKE 1 AND 0.5 TABLETS BY MOUTH EVERY EVENING FOR 7 DAYS. active Not Available Not Available No t Available testosteron e 20.25 mg/1.25 gram per pump act.(1.62 %) transdermal gel active Not Available Not Available Not Available lurasidone 20 mg tablet TAKE 1 TABLET BY MOUTH EVERY DAY IN THE EVENING 01/21 completed Not Available Not Available Not Available lurasidone 120 mg tablet TAKE 1 TABLET BY MOUTH EVERY DAY WITH FOOD active Not Available Not Available No t Available Tivicay 50 mg tablet 05/27 completed Not Available Not Available Not Available naloxone 4 mg/actuatio n nasal spray SPRAY 1 SPRAY INTO ONE NOSTRIL NEEDED FOR KNOWN OR SUSPECTED OPIOID OVERDOSE. CALL 911 IF USED. MAY NEED TO REPEAT; USE OTHER NOSTRIL. 01/21 completed Not Available Not Available Not Available Descovy 200 mg-25 mg tablet Take 1 tablet every day by oral route. active Not Available Not Available No t Available Restasis MultiDose 0.05 % eye drops Instill 1 drop twice a day by ophthalmi c route for 90 days. 04/20 completed Not Available Not Available Not Available Dupixent 300 mg/2 mL subcutaneou s pen injector active Not Available Not Available Not Available Vitals Date Recorded Body height Provider Name an d Address Organization Details Last Updated DateTime 10/09/2024 154.94 cm Alexandrea [facility] 10/09/2024 16:12:06 Social History Question Answer Notes LastModified by Organizat ion Details LastModified Time Tobacco Smoking Status Former Smoker [facility] 04/20/2019 11:41:57 What Is Your Level Of Alcohol Consumption? Occasional Information not available 03/25/2019 What Is Your Level Of Caffeine Consumption? Occasional 1 Cup Coffee Per Day Information not available 03/25/2019 What Was The Date Of Your Most Recent Tobacco Screening? 07/06/2024 [email or web address] Information not available 07/06/2024 Do You Or Have You Ever Used Any Other Forms Of Tobacco Or Nicotine? No [email or web address] Information not available 10/27/2021 Sex: Unknown Functional Status Question Answer Note LastModified by Organization D etails LastModified Time What is your exercise level? None Information not available 03/25/2019 Mental Status None recorded. Family History Relationship Description Onset Age of this Age Resolved Age Notes LastModified by Organization Details LastModified Time Maternal Grandmother Malignant neoplasm of brain [email or web address] Not available 2024 14:30:06 Notes:raised by Aunt Medical History Condition Response Coronary Artery Disease N Gout N Other Y Blood Diseases N Kidney Stones N Hyperthyroidism N Blood Transfusion N Breast Cancer N Lung Disease N COPD N Depression Y Hypothyroidism N Defects or Inherited Disease N Difficulty Swallowing Y Anesthesia Complications N Anxiety Disorder N Meniere's disease Muscle, Joint, or Bone Problems N Obesity N Vision or Eye Problems N Arthritis N Infertility N Polyps N Mental Disorder Y Cancer N Varicosities N Stroke N Endometriosis N Bladder or Kidney Problems N High Cholesterol N Liver Disease N Headaches N Fibromyalgia N Kidney Disease N Allergies/Hayfever N Heart Problems N Hospitalizations Y Thyroid Problems N GI Problems N Eating Disorder N Skin Problems N Anemia N MRSA exposure N Constipation N Mental Illness N Diabetes N Ovarian Cancer N Seizures/Epilepsy N Tuberculosis N Congestive Heart Failure (CHF) N Eczema N Abuse/Domestic Violence N Diverticulitis N Asthma Y Reflux/GERD N Hepatitis N Heart Disease N Pulmonary Embolism N Chronic Ear Infections N Hypertension N Chicken Pox N Autism Spectrum Disorder (ASD) N Osteoporosis N Thrombophilias N Immunizations Vaccine Type Date Status Note Provider Nam e and Address Organization Details Recorded Time Tdap 04/20/2019 completed Not Available [facility] 12/05/2021 06:31:09 meningococcal, unknown serogroups 02/16/2014 completed Leighann saavedra [place] [facility] 01/29/2022 09:03:02 Tdap 04/20/2019 completed Not Available [facility] 12/05/2021 06:31:09 Past Encounters Encounter ID Performer Location Encounter Start Date Encounter Closed Date Diagnosis/Indication Diagnosis SNOMED-CT Code Diagnosis ICD10 Code Diagnosis Note [id number] PATRICIA HERNANDEZ [facility] [address] [facility] [address] 10/09/2024 15:50:27 10/12/2024 11:10:49 Venereal disease screening 674049644 Z11.3 needs updated veneral screening HIV screening 846411813 Z11.4 will set up with PrEP (descovy) > needs STI screening first and then will submit for patient Pre-exposu re prophylaxis 0530839609 Z29.81 would like to start on descovy (dosing is 200 mg once per day for prevention )will need routine CMP and HIV screening every 3 to 6 mos while he is on it Health Concerns Section Related Observation LastModified by Organization Osbaldo ls LastModified Time None Recorded Concern Status LastModified by Organization Details LastModified Time None Recorded Payers Encounter Date Sequence Insurance Name Policy Number Policy Curry Covered Member ID Curry Member ID Guarantor Name 10/09/2024 1 [place] [email or web address] Daniel Lamas [id number] Daniel Lamas 10/09/2024 2 [place] [facility] Lamas [id number] Daniel Lamas Notes Date Note Type Note Provider Name a nd Address Organization Details Recorded Time 5 text/html f/u PrEP the patient wanted to discuss starting descovy for HIV preventionpatient is homosexual and does admit to not using condoms with every sexual partner and he does not have a consistent sexual partner discussed that pt needs screening before starting the medication, and will need screening and LFT testing every 3 to 6 mos patient agrees to this plan PATRICIA HERNANDEZ [address] [place] [address], [place], [address], [facility] 10/09/2024 16:43:52
--- OUTSIDE RECORDS SUMMARY | 2024-10-13 09:03 | XMS_ITS | Encounter Summary ---
Author Organization [facility] Address [address] [place] [address] Care Team Providers Care Freight Flagman Name Role Phone DharmeshPb herrera Primary Care Provider [phone] Neeta Jones MD Unavailable [phone] Estrellita Fall OFFICE AIDE Unavailable Debbie Ring OFFICE AIDE Unavailable Feng Brown OFFICE AIDE Unavailable Sabrina Gu [employer] DES[employer] Unavailable [phone] Bryson Robles [employer]DER Unavailable [phone] Juan Yu MD Unavailable [phone] Amaya Szymanski OFFICE AIDE Unavailable [phone] Quyen Peterson [facility] [place] [facility]] Unavailable [phone] Marily Veliz MD Unavailable [phone] Rody Roldan Unavailable Reason for Visit * Reason Comments Medication Refill Encounter Details Date Type Department Care Team (Late st Contact Info) Description 11/17/2021 Refill [facility] [address] [place] [phone] Boyd Brown MD Needs valid address [...] documented as of this encounter Care Teams Freight Flagman Relationship Specialty Start Date End Date Pb Branham DO [address] [place], [place] [id number] PCP - General Medicine Hospitalist 02/22/20 Neeta Jones MD [address] [facility] [place], [place] [address] Psychiatry, General 03/27/21 Estrellita Fall LPC [address] [place] [address] [place] [address] Clinician Social Work 03/31/21 08/23/24 Debbie Ring LPC [address] [place] [phone] Referral Nurse Clinical Social Work 04/04/21 08/23/24 Feng Brown OFFICE AIDE [address] [place] [address] Referral Nurse Psychiatry, Addiction 04/05/21 08/23/24 Sabrina Gu LCSW [address] [place] [address] Referral Nurse Clinical Social Work 04/07/21 08/23/24 Bryson Robles APRN [address] [place] [address] [place] [address] Nurse Practitioner Psychiatry, General 04/12/21 Juan Yu MD [address] [place] [address] Psychiatrist Psychiatry, General 04/21/21 05/21/24 Amaya Szymanski LPC [address] [place] [address] Referral Nurse Clinical Social Work 04/24/21 08/23/24 Quyen Peterson [facility] [place] 2[facility] [address] [place] [address] Referral Nurse Clinical Social Work 04/24/21 08/23/24 Marily Veliz MD [address] [place] [address] Psychiatry, General 04/27/21 08/23/24 Rody Roldan [address] [place] [address] 12/25/21 documented as of this encounter
--- OUTSIDE RECORDS SUMMARY | 2024-10-13 09:03 | XMS_ITS | Encounter Summary ---
Author Organization [facility] Address [address] [place] [address] Care Team Providers Care Specialty Food Products Supervisor Name Role Phone DharmeshPb herrera Primary Care Provider [phone] Neeta Jones MD Unavailable [phone] Estrellita Fall LOGISTICS ANALYTICS MANAGER Unavailable Debbie Ring LOGISTICS ANALYTICS MANAGER Unavailable Feng Brown LOGISTICS ANALYTICS MANAGER Unavailable [phone] Sabrina Gu FIRE INFORMATION OFFICER Unavailable [phone] Bryson Robles FINANCIAL SERVICES ASSISTANT Unavailable [phone] Juan Yu MD Unavailable [phone] Amaya Szymanski LOGISTICS ANALYTICS MANAGER Unavailable [phone] Quyen Peterson [facility] Unavailable Marily Veliz MD Unavailable [phone] Rody Roldan Unavailable Reason for Visit * Reason Comments Medication Refill Encounter Details Date Type Department Care Team (Late st Contact Info) Description 12/08/2021 Refill [facility] [address] [place] [id number] Boyd Brown MD Needs valid address [...] emotions. Care Plan Emotional Dysregulation No Debbie Rign LPC [phone] Cooperate with a medical/psychiatric evaluation [...] documented as of this encounter Care Teams Specialty Food Products Supervisor Relationship Specialty Start Date End Date Pb Branham DO [address] [facility] [address] [place], [place] [id number] PCP - General Medicine Hospitalist 02/22/20 Neeta Jones MD [address] [facility] [place], [place] [address] Psychiatry, General 03/27/21 Estrellita Fall LPC [address] [place] [address] [place] [address] Clinician Social Work 03/31/21 08/23/24 Debbie Ring LPC [address] [place] [address] Fire Technology Instructor Clinical Social Work 04/04/21 08/23/24 Feng Brown LOGISTICS ANALYTICS MANAGER [address] [place] [address] Fire Technology Instructor Psychiatry, Addiction 04/05/21 08/23/24 Sabrina Gu LCSW [address] [place] [address] Fire Technology Instructor Clinical Social Work 04/07/21 08/23/24 Bryson Robles APRN [address] [place] [address] [place] [address] Nurse Practitioner Psychiatry, General 04/12/21 Juan Yu MD [address] [place] [address] Psychiatrist Psychiatry, General 04/21/21 05/21/24 Amaya Szymanski LPC [address] [place] [address] Fire Technology Instructor Clinical Social Work 04/24/21 08/23/24 Quyen Peterson [facility] [address] [place] [address] Fire Technology Instructor Clinical Social Work 04/24/21 08/23/24 Marily Veliz MD [address] [place] [address] Psychiatry, General 04/27/21 08/23/24 Rody Roldan [address] [place] [address] 12/25/21 documented as of this encounter
--- OUTSIDE RECORDS SUMMARY | 2024-10-13 09:03 | XMS_ITS | Encounter Summary ---
Author Organization [facility] Address [address] [place] [address] Care Team Providers Care Loft Worker Apprentice Name Role Phone Pb Branham DO Primary Care Provider Neeta Jones MD Unavailable [phone] Estrellita Fall BANANA CARRIER Unavailable Debbie Ring BANANA CARRIER Unavailable Feng Brown BANANA CARRIER Unavailable Sabrina Gu FOREIGN LANGUAGE INSTRUCTOR Unavailable [phone] Bryson Robles WIRELESS CONSULTANT Unavailable Juan Yu MD Unavailable [phone] Amaya Szymanski BANANA CARRIER Unavailable [phone] Quyen Peterson [facility] Unavailable Marily Veliz MD Unavailable [phone] Rody Roldan Unavailable Reason for Visit * Reason Comments Medication Refill Encounter Details Date Type Department Care Team (Late st Contact Info) Description 04/04/2022 Refill [facility] [address] [place] [address] Pb Branham DO [address] [place] [address] Eosinophilic esophagitis Social History Tobacco Use Types Packs/Day Years [...] as of this encounter Visit Diagnoses Diagnosis Eosinophilic esophagitis documented in this encounter Additional Health Concerns Active Problems Noted Date Diagnosed Date Emotional Dysregulation 04/09/2021 documented as of this encounter Care Teams Loft Worker Apprentice Relationship Specialty Start Date End Date Pb Branham DO [address] [facility] [address] [place] [address] PCP - General Medicine Hospitalist 02/22/20 Neeta Jones MD [address] [place] [address] Psychiatry, General 03/27/21 Estrellita Fall [facility] [address] [place] [address] Clinician Social Work 03/31/21 08/23/24 Debbie Ring, BANANA CARRIER [address] [place] [address] Billing Typist Clinical Social Work 04/04/21 08/23/24 Feng Brown [facility] [address] [place] [address] Billing Typist Psychiatry, Addiction 04/05/21 08/23/24 Sabrina Gu LCSW [address] [place] [address] Billing Typist Clinical Social Work 04/07/21 08/23/24 Bryson Robles APRN [address] [place] [address] Nurse Practitioner Psychiatry, General 04/12/21 Juan Yu MD [address] [place] [address] Psychiatrist Psychiatry, General 04/21/21 05/21/24 Amaya Szymanski, [facility] [address] [place] [address] Billing Typist Clinical Social Work 04/24/21 08/23/24 Quyen Peterson, [facility] [address] [place] [address] Billing Typist Clinical Social Work 04/24/21 08/23/24 Marily Veliz MD [address] [place] [address] Psychiatry, General 04/27/21 08/23/24 Rody Roldan [address] [place] [address] 12/25/21 documented as of this encounter
--- OUTSIDE RECORDS SUMMARY | 2024-10-13 09:03 | XMS_ITS | Clinical Summary ---
Author Organization [facility] Address [address] [place] [address] Care Team Providers Care Motorized Squad Lieutenant Name Role Phone Unavailable Primary Care Provider Unavailabl e Source Comments PLEASE NOTE, if this patient is a minor, it may be UNLAWFUL to discuss sensitive information that is contained in these records (such as FAMILY PLANNING, MENTAL HEALTH or SUBSTANCE ABUSE) with the minor patient's parent or other person without the patient's specific authorization.[facility] Allergies Active Allergy Reactions Criticality Noted Date Comments Amoxicillin Rash Banana 02/10/2014 Eggs 02/10/2014 Melon Flavor 02/10/2014 Penicillins 02/10/2014 Pollen 02/10/2014 Sesame Seeds High 02/10/2014 Severe reaction Watermelon 02/10/2014 Medications ferrous sulfate (IRON, FERROUS SULFATE,) 325 mg (65 mg iron) tabletIndications :iron deficiency anemia Take 325 mg by mouth once daily with breakfast. Indications: Iron Deficiency Anemia Active butalbital-acetam inophen-caffeine (FIORICET, ESGIC) 50-325-40 mg per tablet 0 4 Active omeprazole (PRILOSEC) [address] capsule 1 4 Active albuterol sulfate hfa 90 mcg/actuation inhalerIndication s:Mild intermittent asthma without complication ([facility]) Inhale 2 Puffs into the lungs every 4 (four) hours as needed for shortness of breath or wheezing. 18 g 3 6 Active EPINEPHrine (EPIPEN) 0.3 mg/0.3 mL injection Inject 0.3 mL into the muscle as needed for anaphylaxis. 2 Each 6 6 Active sertraline (ZOLOFT) 100 mg tabletIndications :Bipolar affective disorder, currently depressed, mild (HCC-CMS) 7 Active divalproex (DEPAKOTE ER) 500 mg 24 hr tabletIndications :Bipolar affective disorder, currently depressed, mild (HCC-CMS) 7 Active benzonatate (TESSALON) 100 mg capsuleIndication s:URI due to influenza Take 1 Cap by mouth 3 (three) times daily as needed for cough Swallow whole. 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 Pre-diabetes 08/31/2016 ADHD (attention deficit hyperactivity disorder) 01/06/2014 Migraine headache 01/06/2014 Eosinophilic esophagitis 12/07/2013 Overview (12/07/2013): Seen by GI at [facility], Rody Roldan MD Last Visit Nov 26 2013 Fu in 1 year Stable Meds: Omeprazole and Flovent Depression Overview (01/06/2014): Psychiatrist at [facility] Last note see below Result type: Behavioral Health Note Result date: 18 December 2013 15:21 Result status: Auth (Verified) Result title: Physician/SWATCH CLERK Progress Note Performed by: Kota Rosen MD on 18 December 2013 15:28 Verified by: Kota Rosen MD on 18 December 2013 15:28 Encounter info: [id number], CHILD BEHAV [facility], Office Visit, 12/18/2013 - 12/25/2013 Physician/SWATCH CLERK Progress Note Patient: DANIEL BUCK Age: 18 years Sex: Male : 1995 Associated Diagnoses: None Author: Kota Rosen MD Visit Information Date: 12/18/2013 Status: Completed. FU depression Continues on effexor XR 150 mg daily Feels depression under control. Main side effect from Effexor is excessive sweating. He says it's tolerable and does not want to initiate new psychopharmacological interventions. I like the Effexor . He does not want to discontinue it. Waiting to start [employer]. He has orientation in late November and will be moving there in January. He is going to study sociology, anthropology and psychology (triple Chris.) and hopefully wants to become a psychologist social. Quit his job at [employer] after he was accused of stealing money. He had also missed a couple of days because he was sick. He is looking for other jobs. Medical: Headaches, hydrocephalus FHx: Adopted Social: Living in [place] with aunt. Adoptive mom lives some of the time in [place]. [place] is his main support. His aunt and some of his friends are some of his other supports. Not in a relationship at this time. No drugs or alcohol. He has Medicare. He is also on disability due to headaches and hydrocephalus. Assessment Mental Status Examination Appearance: casual. Attitude: cooperative. Motor activity: calm. Mood: euthymic. Affect: constricted. Speech: fluent, unimpaired. Perception: no impairment. Orientation: intact. Memory: intact. Abstraction: intact. Thought process: goal-directed. Compliance: good. Reliability: good historian. Suicidality/self-destructive behavior: none. Homicidality/violence: none. Results Review Pertinent Physical Data Clinical Measurements and Vital Signs : VITALS 12/16/2013 16:24 Height 152.5 cm Systolic Blood Pressure 98 mm Hg Diastolic Blood Pressure 62 mm Hg Blood pressure sites Arm, left Mean Arterial Pressure 74 mm Hg 12/16/2013 15:24 Height 152.5 cm Weight 71.2 kg Dry Weight 71.2 kg Body Mass Index 30.62 >HHI Body surface area 1.74 BSA [place] 1.68 Blood pressure sites Arm, right . Impression and Plan [place] 1: ADHD, Depressive Disorder, Not Elsewhere Classified, Unspecified Delay in Development. [place] 3: Problem List. 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 [place] 5: Current GAF 65. Current Medications MEDICATION LIST (Selected) Prescriptions Prescribed APAP/butalbital/caffeine 325 mg-50 mg-40 mg oral tablet: See Instructions, 1-2 tablet By Mouth at onset of headaches. MAX 3 DOSES A WEEK., # 30 tablet, 0 Refills, Maintenance, 11/11/13 11:27:00, 1-2 tablet By Mouth at onset of headaches. MAX 3 DOSES A WEEK. Effexor XR 150 mg oral capsule, extended release: 1 capsule = 150 mg, By Mouth, Daily, # 30 capsule, 2 Refills, Maintenance, 11/24/13 12:37:45, CR Capsule, 1 capsule By Mouth Daily metformin 750 mg oral tablet, extended release: 2 tablet = 1,500 mg, By Mouth, Daily, # 60 tablet, 5 Refills, Maintenance, 08/14/13 14:33:24, 2 tablet By Mouth Daily,x30 days Plan Continue effexor as is We started discussing transition to adult psychiatrist and therapist. I advised him to go to the [facility] and possibly initiate therapy there while he is at college. The other option is the [facility] in [place]. Patient was educated regarding treatment options, risks, benefits, and side effects. Obstructive Hydrocephalus Overview (01/06/2014): Follows with Neurology at [facility] Never required shunting Stable as per last imaging from jan 2013 Anemia Resolved Problems Problem Noted Date Diagnosed Date Resolved Date Mass of head 09/17/2013 01/06/2014 Pre-diabetes 02/10/2014 Immunizations Immunization Administration Dates Next Due MENINGOCOCCAL MCV4P (MENACTRA) 02/16/2014 Family History Medical History Relation Name Comments Diabetes Maternal Grandfather Depression Maternal Grandmother Nervous System Disorders Maternal Grandmother migraines Other (See Comments) Maternal Grandmother artheritis Alcohol/Drug Abuse Mother Depression Mother Relation Name Status Comments Father Other Maternal Grandfather Maternal Grandmother Alive Mother Social History Tobacco Use Types Packs/Day Years Used Date Smoking Tobacco: Former Cigarettes Q uit: 02/13/2017 Smokeless Tobacco: Never Comments:1-2 cigarettes Alcohol Use Standard Drinks/Week Comments No 0 (1 standard drink = 0.6 oz pur e alcohol) Social Connections Answer Date Recorded Social Connections and Isolation 0 02/21/2019 Financial Resource Strain Answer Date R ecorded Financial Resource Strain 0 2018 Stress Answer Date Recorded Stress 0 02/21/2019 Physical Activity Answer Date Recorded Physical Activity 0 02/21/2019 Food Insecurity Answer Date Recorded Food 0 02/21/2019 Transportation Needs Answer Date Record ed Transportation 0 02/21/2019 Housing Stability Answer Date Recorded Housing 0 02/21/2019 Safety and Environment Answer Date Josh rded Safety 0 02/21/2019 Utilities Answer Date Recorded Utilities 0 02/21/2019 Employment Answer Date Recorded Employment 0 02/21/2019 Sex and Gender Information Value Date Recorded Sex Assigned at Male 04/15/2017 11:02 AM PDT Legal Sex Male 12:38 PM PST Gender Identity Male 04/15/2017 11:02 AM PDT Sexual Orientation Lesbian or Don 04/15/2017 11 :02 AM PDT Last Filed Vital Signs Vital Sign Reading Time Taken Comments Blood Pressure 112/84 04/15/2017 1:32 PM EDT Pulse 74 04/15/2017 1:32 PM EDT Temperature 36.7 ??C (98.1 ??F) 04/15/2017 1:32 PM ED T Respiratory Rate 16 04/15/2017 1:32 PM EDT Oxygen Saturation - - Inhaled Oxygen Concentration - - Weight 84.3 kg (185 lb 12.8 oz) 04/15/2017 1:32 PM EDT Height 154.9 cm (5' 1 ) 08/31/2016 1:25 PM EST Body Mass Index 35.11 08/31/2016 1:25 PM EST Plan of Treatment Not on file [place]
--- OUTSIDE RECORDS SUMMARY | 2024-10-13 09:04 | XMS_ITS | Data Portability ---
Author Organization [facility] Home Service Address [address] [place] [address] Assessment Encounter Date Assessment Date Assessment LastModified by Organization Details LastModified Time 10/09/2023 10/09/2023 Patient agreed and verbally consents to this audio and video Telehealth appt via a secure platform [email or web address] Not available 10/09/2023 11:07:31 Plan of Treatment Reminders Order Date Submit Date Provider Last Modified By Organization Details Last Modified Time Details Appointments ANNUAL EXAM 2025 09:00A PATRICIA RIDLEY Not available Not available Not available Lab HIV 1+2 AB + HIV 1 p24 Ag, qualitati ve immunoass ay, serum 2024 025 [facility], [address] [place] [address], [place], [address], 10/09/2024 16:37:09 RPR (rapid plasma reagin), serum 2024 025 [facility], [address] [place] [address], [place], [address], 10/09/2024 16:37:09 CT + NG + TV, DNA, urine/swa b 2024 025 [facility], [address] [place] [address], [place], [address], 10/09/2024 16:37:09 hepatitis panel (A+B+C), acute, serum 2024 025 [facility], [address] [place] [address], [id number], 10/09/2024 16:37:09 CMP, serum or plasma 2024 025 [facility], [address] [place] [address], [address], 07/06/2024 14:42:47 hemoglobi n A1c, QN, blood 2024 025 [facility], [address] [place] [address], [address], 07/06/2024 14:42:47 culture, wound - left nipple abscess 2024 025 [facility], [address] [place] [address], [address], 07/08/2024 10:46:47 RPR (rapid plasma reagin), serum 2024 025 [facility], [address] [place] [address], [address], 07/06/2024 14:42:48 HIV 1+2 AB + HIV 1 p24 Ag, qualitati ve immunoass ay, serum 2024 025 [facility], [address] [place] [address], [address], 07/06/2024 14:42:47 CT + NG + TV, DNA, urine/swa b 2024 025 [facility], [address] [place] [address], [address], 07/06/2024 14:42:47 hepatitis panel (A+B+C), acute, serum 2024 025 [facility], [address] [place] [address], [address], 07/06/2024 14:42:47 CBC w/ auto diff 2024 025 [facility], [address] [facility], [place], [address], 07/06/2024 14:42:48 Referral None recorded. Procedures None recorded. Surgeries None recorded. Imaging None recorded. Medication Orders doxycycli ne hyclate 100 mg tablet 2023 024 [id number], [address], [address], [place], [address], 01/17/2024 14:45:47 Medrol (Marlon) 4 mg tablets in a dose pack 2023 024 [id number], [address], [address], [place], [address], 01/22/2024 11:04:21 Patient TargetsNo targets recorded. Patient InstructionsNo instructions recorded. Reason for Referral None Reported. Results Created Date Observation Date Name Description Value Unit Range Abnormal Flag Note LastModifiedBy Organization Detail LastModifiedTime Result Notes None recorded. Problems Name Problem SNOMED Code Status Onset Date Resolution Date Notes Provider Name and Address Organization Details Recorded Time Depressive disorder 53204011 Active 2017 Not Available [facility] 2 06:31:09 Obstructiv e hydrocepha elvis 049443359 Active 2017 Not Available [facility] 2 06:31:09 Anemia 603498103 Active 2017 Not Available [facility] 2 06:31:09 Eosinophil ic esophagiti s 546161459 Active 2017 Not Available [facility] 2 06:31:09 Attention deficit hyperactiv ity disorder 694774061 Active 2017 Not Available [facility] 2 06:31:09 Onycholysi s due to fungal infection of nail 042950224 Active 2021 Not Available [facility] 2 06:31:09 Visual disturbanc e 33733833 Active 2021 PATRICIA HERNANDEZ [address] [place] [address], [address], [facility] 2 10:14:45 Generalize d rash 476279977 Active 2022 PATRICIA HERNANDEZ [address] [place] [address], [address], [facility] 3 15:32:32 Impaired fasting glycemia 296143417 Active 2022 PATRICIA HERNANDEZ [address] [place] [address], [address], [facility] 3 14:07:44 Scalp infection 637857664 Active 2022 PATRICIA HERNANDEZ [address] [place] [address], [address], [facility] 3 10:16:31 Iron deficiency anemia 68056215 Active 2022 PATRICIA HERNANDEZ [address] [place] [address], [address], [facility] 3 14:06:57 Hyperlipid emia 02679785 Active 2023 PATRICIA HERNANDEZ [address] [place] [address], [address], [facility] 4 10:57:02 Erectile dysfunctio n 577084109 Active 2023 PATRICIA HERNANDEZ [address] [place] [address], [address], [facility] 4 15:54:51 Acute sinusitis 12891073 Active 2023 PATRICIA HERNANDEZ [address] [place] [address], [address], [facility] 4 11:06:08 Infection of pierced pinna 345164550 Active 2023 PATRICIA HERNANDEZ [address] [place] [address], [address], [facility] 4 14:50:59 Recurrent bleeding of nose Active 2023 PATRICIA HERNANDEZ [address] [place], [address], [facility] 4 11:26:31 Headache 47934526 Active 2023 PATRICIA HERNANDEZ [address] [place], [address], [facility] 4 11:26:46 Snoring 87367208 Active 2023 PATRICIA HERNANDEZ [address] [place], [address], [facility] 4 10:37:04 Discharge from nipple 48597872 Active 2024 PATRICIA HERNANDEZ [address] [place], [address], [facility] 5 14:48:05 Acute pharyngiti s 281747023 Active 2024 PATRICIA HERNANDEZ [address] [place], [address], [facility] 5 16:10:08 Problem Notes None recorded. Procedures Surgical History Date Name Laterality Status Provider Name and Address Organization Details Recorded Time 08/10/2019 I&D completed September BLOSSOM Sorensen [address] [place] [address], [address], [facility] 08/10/2019 14:19:29 Imaging Results None recorded. Procedure Notes None recorded. Medical Equipment None Reported. Allergies Allergen ID Allergen Name Allergen Category Reaction Reaction Severity Criticality Documentation Date Start Date Code Code System Note Provider Name and Address Organization Details Recorded Time 7 sesame seed extract food Not available Not available Not available 05/26/2018 68726 46 RxNorm Marisela Balickирина saavedra [facility] 8 15:17:50 2538 banana extract food,medi cation Not available Not available Not available 05/26/2018 89272 9 RxNorm Marisela Balwong saavedra [facility] 8 15:17:58 2539 amoxicill in medicatio n Not available Not available Not available 05/26/2018 723 [facility] 8 15:18:09 2540 Product containin g penicilli n (product) medicatio n Not available Not available Not available 05/26/2018 76353 8001 [facility]ED [facility] 8 15:18:16 2541 egg extract food,medi cation Not available Not available Not available 05/26/2018 17519 15 [facility] 15:18[facility]23 2542 melon extract food Not available Not available Not available 05/26/2018 53181 10 [facility] 15:18:33 2543 watermelo n preparati on food Not available Not available Not available 05/26/2018 66285 4 [facility] 15:18:56 2547 lamotrigi ne medicatio n rash Not available Not available 05/27/[address] [facility] 8 09:43:05 Medications Name Sig Start Date [...] height Body mass index (BMI) Body weight Heart rate Oxygen saturation Oxygen saturation in Arterial blood by Pulse oximetry Systolic blood pressure Diastolic blood pressure Provider Name and Address Organization Details Last Updated DateTime 3 154.94 cm 40.6 kg/m2 45388.3 6 g 88 /min 98 % 98 % 124 mm[Hg] 68 mm[Hg] Kellie Smith [facility] 3 13:41:52 Date Recorded Body height Body mass index (BMI) Body weight Heart rate Oxygen saturation Oxygen saturation in Arterial blood by Pulse oximetry Systolic blood pressure Diastolic blood pressure Provider Name and Address Organization Details Last Updated DateTime 4 154.94 cm 40.6 kg/m2 95014.3 6 g 85 /min 97 % 97 % 112 mm[Hg] 70 mm[Hg] Gareth Moralez [facility] 4 11:07:02 Date Recorded Body height Body mass index (BMI) Body weight Heart rate Oxygen saturation Oxygen saturation in Arterial blood by Pulse oximetry Systolic blood pressure Diastolic blood pressure Provider Name and Address Organization Details Last Updated DateTime 5 154.94 cm 37.9 kg/m2 77062.2 7 g 74 /min 94 % 94 % 128 mm[Hg] 82 mm[Hg] Alexandrea Gonzalez [facility] 5 14:20:22 Date Recorded Body height Provider Name an d Address Organization Details Last Updated DateTime 10/09/2024 154.94 cm Alexandrea Gonzalez [facility] 10/09/2024 16:12:06 Social History Question Answer Notes LastModified by Organizat ion Details LastModified Time Tobacco Smoking Status Former Smoker Debbie saavedra [facility] 04/20/2019 11:41:57 What Is Your [...] Stones N Hyperthyroidism N Blood Transfusion N COPD N Depression Y Anxiety Disorder N Muscle, Joint, or Bone Problems N Obesity N Vision or Eye Problems N Arthritis N Polyps N Infertility N Mental Disorder Y Cancer N Stroke N Varicosities N Fibromyalgia N Headaches N Kidney Disease N Heart Problems N Hospitalizations Y Eating Disorder N Skin Problems N MRSA exposure N Constipation N Tuberculosis N Asthma Y Hepatitis N Pulmonary Embolism N Chronic Ear Infections N Chicken Pox N Autism Spectrum Disorder (ASD) N Thrombophilias N Breast Cancer N Lung Disease N Hypothyroidism N Defects or Inherited Disease N Difficulty Swallowing Y Anesthesia Complications N Meniere's disease Endometriosis N Bladder or Kidney Problems N High Cholesterol N Liver Disease N Allergies/Hayfever N Thyroid Problems N GI Problems N Anemia N Mental Illness N Diabetes N Ovarian Cancer N Seizures/Epilepsy N Congestive Heart Failure (CHF) N Eczema N Abuse/Domestic Violence N Diverticulitis N Reflux/GERD N Heart Disease N Hypertension N Osteoporosis N Immunizations Vaccine Type Date Status Note Provider Nam e and Address Organization Details Recorded Time Tdap 04/20/2019 completed Not Available [facility] 12/05/2021 06:31:09 meningococcal, unknown serogroups 02/16/2014 completed TESS Alvarez [facility] 01/29/2022 09:03:02 Tdap 04/20/2019 completed Not Available [facility] 12/05/2021 06:31:09 Past Encounters Encounter ID Performer Location Encounter Start Date Encounter Closed Date Diagnosis/Indication Diagnosis SNOMED-CT Code Diagnosis ICD10 Code Diagnosis Note [id number] Cheyenne Martins NP, [facility] [address],[place] [address] 05/27/2018 09:30:02 05/27/2018 10:40:24 Abnormal weight gain 287983163 R63.[address] Active or passive immunization 363904729 Z23 Bipolar disorder 2248121 4 F31.9 Obstructiv e hydrocephalus 702382751 G91.1 stable Depressive disorder 3548 9007 F33.9 Tobacco user 893296929 Z 72.0 [id number] Cheyenne Martins NP, S [facility] [address],[place] [address] 07/22/2018 16:03:30 07/22/2018 16:45:19 Depressive disorder 74808301 F33.9 Impaired f asting glycemia 851260404 R73.01 High risk homosexual behavior 8262946348 69666 Z72.52 Discussed 100% condom use and safe sexual practices Body mass index 30+ - obesity 915104547 Z68.39 discussed diet/ need to begin regular exercise [id number] Cheyenne Martins NP, [facility] [address], [address] [employer] [place] [address] 08/25/2018 09:56:27 08/25/2018 11:24:26 Obstructive hydrocephalus 455080610 G91.1 stable Eosinophil ic esophagitis 244391815 K20.0 asymptomat ic Depressive disorder 3548 9007 F33.9 strongly advise continuati on appts w/ psych Continue crafting and other positive activities [id number] Cheyenne Martins NP, [facility] [address] [place] [address] 09/02/2018 15:14:57 09/03/2018 08:50:13 Viral syndrome 096254359 B34.9 rest, fluids Depressive disorder 1491 9007 F33.9 strongly advise continuati on appts w/ psych Continue crafting and other positive activities [id number] Juanpablo Concepcion DO [facility] [address] [place] [address] 03/25/2019 13:53:06 03/25/2019 15:35:04 Adult health examination 239436795 Z00.00 here and doing well having issue though with bladder incont will need to pursue with an MRI Primary er ectile dysfunction 578559587 N52.9 Anemia 653086256 D64.9 Obstructiv e hydrocephalus 581387999 G91.1 please send all meds list etc and lab [id number] Nadiya [facility] [place] [facility] [address],[place] [address] 04/20/2019 11:21:28 04/20/2019 12:09:06 Active or passive immunization 681037282 Z23 needs tdap and flu will go to pharmacy Headache 52042978 R51 believed to be tension cobos resolved after toradol continues to have mild cobos that resolve with tylenol Cellulitis 407269471 L03 .90 resolved Obstructiv e hydrocephalus 621717252 G91.1 continues to see neuro OP Screening procedure 2012 5006 Z13.9 needs titers for school [id number] Nadiya [facility] [place] [facility] [address],[place] [address] 08/10/2019 13:22:01 08/10/2019 14:13:53 Depressive disorder 99444065 F32.9 Abscess of skin and/or subcutaneous tissue 80860348 L02.811 initially thought to be abscess, but after I&D without purulent drainage, now think just epidermoid cyst will refer to derm to have the cyst removed. no signs of infection today bacitracin and bandage applied Epidermoid cyst of skin of scalp 891494989 L72.0 [id number] Juanpablo Concepcion DO [facility] [address],[place] [address] 07/31/2021 08:17:34 07/31/2021 14:25:13 Depressive disorder 71570254 F33.9 has found another psych who is providing his rx dr melanie noyola Eosinophil ic esophagitis 439474013 K20.0 continuing the omeprazole and will be seeing gastro in the future Renewal of prescription 117672790 Z76.0 Migraine 08237168 G43.90 9 [id number] YESICA NIETO [facility] [address],[place] [address] 10/27/2021 14:01:44 10/27/2021 15:28:44 Onycholysis due to fungal infection of nail 425256358 B35.1 will start on topical cream [id number] PATRICIA HERNANDEZ [facility] [address] [facility] [address] [place] [address] 11/22/2021 09:26:15 11/22/2021 13:31:06 Dysuria 27160339 R30.0 will have patient call with fu on saturday with an update to his symptoms [id number] PATRICIA HERNANDEZ [facility] [address] [facility] [address],[place] [address] 01/29/2022 09:02:27 01/29/2022 09:59:29 Attention deficit hyperactivity disorder 095926265 F90.0 stable Depressive disorder 3548 9007 F33.9 stable Anemia 982268231 D64.9 will recheck levels Adult heal th examination 176326850 Z00.00 will fu with A1c check Venereal d isease screening 855856858 Z11.3 would like STI panel Onycholysi s due to fungal infection of nail 855110691 B35.1 will start on topical cream [id number] PATRICAI HERNANDEZ [facility] [address] [facility] [address],[place] [address] 03/26/2023 13:24:46 03/26/2023 15:26:45 Anemia 924968373 D50.0 will recheck levels Attention deficit hyperactivity disorder 523638113 F90.0 stable Depressive disorder 3548 9007 F33.9 stable Generalized rash 7882346 06 R21 resolved Eosinophil ic esophagitis 723555613 K20.0 will recheck levels Venereal d isease screening 095261318 Z11.3 would like STI panel Impaired f asting glycemia 707407370 R73.01 will set up with A1c as well [id number] PATRICIA HERNANDEZ [facility] [address] [facility] [address],[place] [address] 04/22/2023 13:24:01 04/22/2023 16:49:31 Anemia 528172385 D50.0 stable Scalp infection 01209145 9 B99.9 resolved Impaired f asting glycemia 467640953 R73.01 A1c is stable Venereal d isease screening 595125113 Z11.3 negative [id number] PATRICIA HERNANDEZ [facility] [address] [facility] [address],[place] [address] 10/09/2023 09:12:54 10/09/2023 11:27:37 Acute sinusitis 20589679 J01.10 will set with abx and medrol combo [id number] PATRICIA HERNANDEZ [facility] [address],[place] [address] 01/22/2024 10:56:22 01/24/2024 13:31:03 Recurrent bleeding of nose 0495036438 102 R04.0 used silver nitrate to cauterize the area Headache 46870023 R51.9 stable, continue medication s as described Depressive disorder 3548 9007 F33.9 stable [id number] PATRICIA HERNANDEZ [facility] [address],[place] [address] 07/06/2024 13:34:32 07/06/2024 14:55:55 Active or passive immunization 337759262 Z23 advised Adult [facility] th examination 840054613 Z00.00 will fu with A1c check Venereal d isease screening 783238625 Z11.3 negative Impaired f asting glycemia 041792379 R73.01 A1c is stable [facility] 529868 N64.52 fu with culture report [id number] PATRICIA HERNANDEZ [facility] [address] [facility] [address],[place] [address] 10/09/2024 15:50:27 10/12/2024 11:10:49 Venereal disease screening 269328714 Z11.3 needs updated veneral screening HIV screening 705663902 Z11.4 will set up with PrEP (descovy) > needs STI screening first and then will submit for patient Pre-exposu re prophylaxis 3371224777 Z29.81 would like to start on descovy [...] Member ID Curry Member ID Guarantor Name 04/22/2023 1 [place] [employer] Daniel A Long [id number] Daniel Lamas 04/22/2023 2 [place] Daniel Gambino Long [id number] Daniel Clay Long 10/09/2023 1 [place] Daniel A Long [id number] Daniel Clay Long 10/09/2023 2 [place] Daniel Gambino Long [id number] Daniel Clay Long 01/22/2024 1 [place] [employer] Daniel A Long [id number] Daniel Clay Long 01/22/2024 2 [place] Daniel A Long [id number] Daniel Clay Long 07/06/2024 1 [place] [employer] Daniel A Long [id number] Daniel Clay Long 07/06/2024 2 [place] Daniel Gambino Long [id number] Daniel Lamas 10/09/2024 1 [place] [employer] Daniel A Long [id number] Daniel Lamas 10/09/2024 2 [place] Daniel Gambino Long [id number] Daniel Lamas Notes Date Note Type Note Provider Name a nd Address Organization Details Recorded Time 3 text/html f/u one month the patient scalp infection has improved since starting on the bactrimno side effects with itstill losing hair his lab work was otherwise unremarkablesugar was elevated but told me he ate a chocolate bar beforehanda little dehydrated now STI panel negative breathing okayaffected by the weather PATRICIA HERNANDEZ [address] [place] [address], [address], [facility] 04/22/2023 14:17:23 4 text/html c/o sinus pain The patient is participating in this appointment via telemedicine communication with a phone call/video calling service ([employer])The patient consents to use of these platforms in place of an in-person appointment due to either sick symptoms the patient is presenting with or current office closure due to COVID exposure in order to keep our office staff and patients safe The patient presents to the office today with concerns of sick symptoms including sinus congestion, body aches, sinus pressure, increased pressure with looking down producing clear mucus ear pain, sore throat no fever The symptoms started originally about a few days agoThe patient reports exposure to his aunt who had the same symptomsThe patient symptoms mainly involves the sinus pressure, pain and congestion Pertinent comorbidities include autoimmune d/o The patient symptoms are alleviated by restThe patient symptoms are exacerbated by activity The patient has tested for COVID-19 and the results was NEGATIVE PATRICIA HERNANDEZ [address] [place], [address], [facility] 10/09/2023 11:08:57 4 text/html c/o nose bleeds nose bleeds for the past week, for about 5 minutes each timethe patient is having recurrent issues with nose bleedsthe patient reports that he is also having headaches, same presentation as regular headaches, around the frontal the patient denies BP issues, BP is excellent in office todayno vision changes the patient denies seasonal allergies but is probably related to nose dryness causing issues with breakdown of the tissue the patient agrees to cauterize the tissuewill give him some sticks to have at home PATRICIA HERNANDEZ [address] [place], [address], [facility] 01/22/2024 11:29:12 5 text/html Annual WellnessReported bypatient.Diet and Nutrition:healthy diet; discussed vitamin and supplement use; discussed portion control; discussed maintaining calcium balance; discussed diet improvement Fracture Risk:no history of fractures; no recent explained fracture; no sudden unexplained fractures; no previous musculoskeletal injuries Depression Risk:never feels sad, empty, or tearful; no loss of interest in activities; no significant changes in weight; no sleep disturbances or insomnia; no agitation; no loss of energy; no feelings of worthlessness or guilt; no thoughts of suicide; no history of depression; no history of mood disorders Hearing:no loss of hearing Vision:no vision problems nose bleeds have settled down ADHD is stable the patient is still having issues with with he previous nipple piercing, taking a culture from the discharge that is still present based on exam PATRICIA HERNANDEZ [address] [place], [address], [facility] 07/06/2024 14:53:08 5 text/html f/u PrEP the patient wanted [...] patient agrees to this plan PATRICIA HERNANDEZ [address] [place], [address], [facility] 10/09/2024 16:43:52
[2024-10-13 15:38] LABS: CT PCR NOT DETECTED (Not Detect.); NG PCR NOT DETECTED (Not Detect.)
[2024-10-14 07:57] LABS: Syphilis Screen Nonreactive (Nonreactive)
[2024-10-15 09:27] LABS: HBc Num1 0.41 S/CO (0.00-0.79); HBsAGNum1 0.37 S/CO (0.00-0.99); HIV AB/AG Nonreactive (Nonreactive); Hepatitis A Antibody IgM 0.21 Index (0-0.79); Hepatitis B Core Antibody Nonreactive (Nonreactive); Hepatitis B Surface Antigen Negative (Negative); ~HepC Num1 0.17 S/CO (0.00-0.79); ~Hepatitis A Antibody IgM Nonreactive (Nonreactive); ~Hepatitis B Surface Antibody NONREACTIVE (Nonreactive); ~Hepatitis C Antibody Nonreactive (Nonreactive)
== END 2024-10-13 08:40 | disposition home or self-care (01) ==
LOC: HO.MANLDS 08:39
PROVIDERS: Visit Provider Physician Assistant
DX: Z11.4 Encounter for screening for human immunodeficiency virus [HIV] (principal); Z20.2 Contact with and (suspected) exposure to infections with a predominantly sexual mode of transmission
CPT/HCPCS: 86704; 86706; 86709; 86780; 86803; 87340; 87389; 87491; 87591

== ENCOUNTER 2025-06-01 07:48 | Outpatient (REF) | payer MEDICARE, MEDICAID, SELFPAY ==
--- OUTSIDE RECORDS SUMMARY | 2025-06-01 07:52 | XMS_ITS | Clinical Summary ---
Author Organization [facility] Address [address] [place] [address] Care Team Providers Care Art Psychotherapist Or Therapist Name Role Phone Pb Branham MD Primary Care Provider [phone] Allergies Active Allergy Reactions Criticality Noted Date Comments Amoxicillin Rash Low 03/07/2018 Banana Unknown 03/22/2021 Egg Unknown 04/14/2021 Raw Eggs Lamotrigine 03/30/2019 Melon Unknown 03/22/2021 [place] Nut Unknown 04/14/2021 Pumpkin Seed Unknown 03/22/2021 Sesame Seed Unknown 03/22/2021 Squash Unknown 03/22/2021 Medications metFORMIN XR (GLUCOPHAGE-XR) 750 mg 24 hr tablet Take 750 mg by mouth daily. Active lurasidone (LATUDA) 80 mg tabletIndication s:Bipolar affective disorder in remission (HC Code) Take 1 tablet (80 mg total) by mouth daily. 14 tablet 03/30/2021 Active buPROPion XL (WELLBUTRIN XL) 300 mg 24 hr tablet Take 1 tablet (300 mg total) by mouth daily. 14 tablet 03/31/2021 Active lithium (ESKALITH) 450 mg CR extended release tabletIndication s:Bipolar affective disorder in remission (HC Code) Take 1 tablet (450 mg total) by mouth 2 (two) times daily. 28 tablet 03/30/2021 Active naltrexone (REVIA) 50 mg tablet Take 1 tablet (50 mg total) by mouth daily. 14 tablet 03/31/2021 Active Active Problems Problem Noted Date Diagnosed Date MDD (major depressive disord er), recurrent severe, without psychosis 03/22/2021 Alcohol abuse, episodic drinking behavior 2020 Has recently quit alcohol use 01/04/2021 Obesity (BMI 30-39.9) 01/04/2021 Bipolar mood disorder 05/02/2020 Generalized anxiety disorder 05/02/2020 Family History Relation Name Status Comments Mother Social History Tobacco Use Types Packs/Day Years Used Date Smoking Tobacco: Former Smokeless Tobacco: Never Alcohol Use Standard Drinks/Week Comments No 0 (1 standard drink = 0.6 oz pur e alcohol) socially PHQ-2 Answer Date Recorded PHQ-2 Total Score 2 03/21/2021 Sex and Gender Information Value Date Recorded Sex Assigned at Male 02/21/2021 2:01 PM EDT Legal Sex Male 8:08 PM EST Gender Identity Male 02/21/2021 2:01 PM EDT Sexual Orientation Lesbian or Don 02/21/2021 2: 01 PM EDT Last Filed Vital Signs Vital Sign Reading Time Taken Comments Blood Pressure 116/79 04/14/2021 8:58 PM EDT Pulse 79 04/14/2021 8:58 PM EDT Temperature 36.7 C (98.1 F) 04/14/2021 8:58 PM EDT Respiratory Rate 18 04/14/2021 8:58 PM EDT Oxygen Saturation 96% 04/14/2021 8:58 PM EDT Inhaled Oxygen Concentration - - Weight 88 kg (194 lb 0.1 oz) 04/14/2021 8:58 PM EDT Height 152.4 cm (5') 04/14/2021 8:58 PM EDT Body Mass Index 37.89 04/14/2021 8:58 PM EDT Plan of Treatment Health Maintenance Due Date Last Done Comments HIV screening 2006 Influenza vaccine 01/29/2025 04/12/2021, , 03/27/2020, Additional history exists Covid-19 vaccine series ( season) 2025 05/05/2021, 10/27/2020, 10/06/2020 Tetanus adult (Td q 10,TDAP once) 04/20/2029 04/20/2019 RSV Immunization (1 - 1-dose 75+ series) 2068 Meningococcal Vaccine Aged Out 02/16/2014 No garfield bal eligible based on patient's age to complete this topic Hepatitis C screening Completed 03/23/2021 Meningococcal B Vaccine Aged Out No l onger eligible based on patient's age to complete this topic Pneumococcal Vaccine (2 - 49 years) Aged Out No longer eligible based on patient's age to complete this topic Procedures Procedure Name Priority Date/Time Associated Diagnosis Comments HEPATITIS C AB WITH REFLEX TO HCV PCR Routine 03/23/2021 7:56 AM EDT from Last 3 Months or Most Recently Relevant to Health Maintenance Results * Hepatitis C Ab with reflex to HCV PCR (03/23/2021 7:56 AM EDT) Hepatitis C Antibody Negative Negative 03/23/2021 10:17 AM EDT [facility] Blood Venipuncture / Unknown 03/23/2021 7:56 AM EDT 03/23/2021 8:03 AM EDT us Sylvester Conti MD LAB BLOOD ORDERABLES Final R esult [facility] [address] [place] [address] from Last 3 Months or Most Recently Relevant to Health Maintenance Insurance [place] Member Subscriber Plan / Payer (Ef fective 2019-Present) Name:Daniel Lamas Relation to Subscriber:Self Name:Daniel Lamas Payer ID:[id number] Group ID:Not on file Type:Not on file Address: [address] [place] Member Subscriber Plan / Payer (Ef fective 2019-Present) Name:Daniel Lamas Relation to Subscriber:Self Name:Daniel Lamas Payer ID:[id number] Group ID:Not on file Type:Not on file Address: [address] [place] [place] Member Subscriber Plan / Payer (Ef fective 2019-Present) Name:Daniel Lamas Relation to Subscriber:Self Name:Daniel Lamas Payer ID:[id number] Group ID:Not on file Type:Not on file Address: [address] [place] [facility] [place] MEDICAID [place] Advance Directives * Full ACLS (Latest Code Status on File) Date Activated Date Inactivated Comments 03/21/2021 3:54 PM 03/30/2021 2:28 PM Care Teams Art Psychotherapist Or Therapist Relationship Specialty Start Date End Date Pb Branham MD [address] [facility] [address] [place] [phone] PCP - General Family Medicine 05/20/20 avila Shah Counseling [place], [place] Counselor 05/09/20
--- OUTSIDE RECORDS SUMMARY | 2025-06-01 07:52 | XMS_ITS | Encounter Summary ---
Author Organization [facility] Address [address] [place] [address] Care Team Providers Care Germ Drier Name Role Phone Pb Branham MD Primary Care Provider [phone] Reason for Visit * Reason Comments Medication Refill Encounter Details Date Type Department Care Team ([facility] st Contact Info) Description 07/05/2020 Refill [address] [address] Feng Garcia MD [address] [place] [phone] Medication Refill Social History Tobacco Use [...] documented as of this encounter Care Teams Germ Drier Relationship Specialty Start Date End Date Pb Branham MD 100 [facility] [address] [place] [phone] PCP - General Family Medicine 05/20/20 avila Shah Counseling [place], [place] Counselor 05/09/20 documented as of this encounter
--- OUTSIDE RECORDS SUMMARY | 2025-06-01 07:52 | XMS_ITS | Encounter Summary ---
Author Organization [facility] Address [address] [place] [address] Care Team Providers Care Mailroom Courier Name Role Phone Pb Branham MD Primary Care Provider [phone] Encounter Details Date Type Department Care Team (Late st Contact Info) Description 12/14/2019 Scanned Document [facility] [address] [place] [address] Jagruti Anguiano MD [address] [place] [phone] Social History Tobacco Use Types Packs/Day [...] documented as of this encounter Care Teams Mailroom Courier Relationship Specialty Start Date End Date Pb Branham MD 100 [facility] [address] [place] [phone] PCP - General Family Medicine 05/20/20 avila Shah Counseling [place], [place] Counselor 05/09/20 documented as of this encounter
--- OUTSIDE RECORDS SUMMARY | 2025-06-01 07:52 | XMS_ITS | Encounter Summary ---
Author Organization [facility] Address [address] [place] [address] Care Team Providers Care Oncology Navigator Name Role Phone Pb Branham MD Primary Care Provider [phone] Encounter Details Date Type Department Care Team (Late st Contact Info) Description 12/15/2019 Scanned Document [facility] [address] [place] [address] Jagruti Anguiano MD [address] [place] [phone] Social History Tobacco Use Types Packs/Day [...] documented as of this encounter Care Teams Oncology Navigator Relationship Specialty Start Date End Date Pb Branham MD 100 [facility] [address] [place] [phone] PCP - General Family Medicine 05/20/20 avila Shah Counseling [place], [place] Counselor 05/09/20 documented as of this encounter
--- OUTSIDE RECORDS SUMMARY | 2025-06-01 07:52 | XMS_ITS | Encounter Summary ---
Author Organization [facility] Address [address] [place] [address] Care Team Providers Care Flamer Sealer Name Role Phone Pb Branham MD Primary Care Provider [phone] Encounter Details Date Type Department Care Team (Late st Contact Info) Description 12/15/2019 [place] [address] Jagruti Anguiano MD [address] [place] [phone] Social History Tobacco Use Types Packs/Day [...] documented as of this encounter Care Teams Flamer Sealer Relationship Specialty Start Date End Date Pb Branham MD 100 [facility] [address] [place] [phone] PCP - General Family Medicine 05/20/20 avila Shah Counseling [place], [place] Counselor 05/09/20 documented as of this encounter
--- OUTSIDE RECORDS SUMMARY | 2025-06-01 07:53 | XMS_ITS | Encounter Summary ---
Author Organization [facility] Address [address] [place] [address] Care Team Providers Care Geek Squad Manager Name Role Phone Pb Branham MD Primary Care Provider [phone] Encounter Details Date Type Department Care Team (Latest Contact Info) Description 06/10/2020 Transcribed Orders [facility] [place] [address] [place] [address] Jagruti Anguiano MD [address] [place] [phone] Generalized anxiety disorder (Primary Dx); Bipolar [...] 136 - 145 mmol/L 06/10/2020 8:[address] [facility] Potassium 3.9 3.5 - 5.1 mmol/L 06/10/2020 8:[address] [facility] Chloride 104 98 - 107 mmol/L 06/10/2020 8:[address] [facility] CO2 24 21 - 32 mmol/L 06/10/2020 8:[address] [facility] Anion Gap 9 5 - 15 mmol/L 06/10/2020 8:[address] [facility] Glucose 156(H) 65 - 110 mg/dL 06/10/2020 8:[address] [facility] Comment: Non-fastin-110 mg/dL Fasting (minimum 6 hrs): 65-99 mg/dL BUN 11 7 - 18 mg/dL 06/10/2020 8:[address] [facility] Creatinine 1.21 0.70 - 1.30 mg/dL 06/10/2020 8:[address] [facility] eGFR (-NORTH KOREAN) >60 >60 mL/min/1. 73m2 06/10/2020 8:[address] [facility] eGFR (NON -Albanian) >60 >60 mL/min/1. 73m2 06/10/2020 8:[address] [facility] Comment: (NOTE) These are estimated GFR values resulting from utilization of a calculation incorporating the best data available for input, but all assumptions may not be correct in every case. In addition, there are several situations (elderly over 70 years, , serious co morbidities, extremes of body size or nutritional status) which could contribute to a misleading result. Therefore, clinical correlation is advised to prevent arriving at an erroneous conclusion based solely on the calculation utilized. Calcium 9.1 8.5 - 10.1 mg/dL 06/10/2020 8:[address] [facility] Total Protein 7.7 6.4 - 8.2 g/dL 06/10/2020 8:[address] [facility] Albumin 4.0 3.4 - 5.0 g/dL 06/10/2020 8:[address] [facility] Globulin 3.7 2.5 - 5.0 g/dL 06/10/2020 8:[address] [facility] Total Bilirubin 0.5 <1.0 mg/dL 06/10/2020 8:[address] [facility] Comment:Use of this assay is not recommended for patients undergoing treatment with Eltrombopag due to the potential for falsely elevated results. Alkaline Phosphatase 71 45 - 117 U/L 06/10/2020 8:[address] [facility] Alanine Aminotransferase (ALT) 23 16 - 61 U/L 06/10/2020 8:[address] [facility] Aspartate Aminotransferase (AST) 13(L) 15 - 37 U/L 06/10/2020 8:[address] [facility] Blood Venipuncture / Unknown 06/10/2020 7:21 AM EST 06/10/2020 7:31 AM EST us Jagruti Anguiano MD LAB BLOOD ORDERABLES Final Result [facility] [address] [facility] [place], [place] [address] [phone] * [place] level (06/10/2020 7:21 AM EST) [place] Lvl 0.73 0.60 - 1.20 mmol/L 06/10/2020 9:40 AM EST [facility] Blood Venipuncture / Unknown 06/10/2020 7:21 AM EST 06/10/2020 7:31 AM EST Jagruti Anguiano MD LAB BLOOD ORDERABLES Final Result [facility] [address] [place] [address] * (ABNORMAL) Lipid panel (06/10/2020 7:21 AM EST) Cholesterol 134 See Comment mg/dL 06/10/2020 8:[address] [facility] Comment: Cholesterol Reference Range: Desirable: <200 mg/dL Borderline: 200-240 mg/dL High Risk: >240 mg/dL HDL 29(L) See Comment mg/dL 06/10/2020 8:[address] [facility] Comment: HDL Reference Range: Low: <40 High: > or = 60 Triglycerides 209(H) See Comment mg/dL 06/10/2020 8:[address] [facility] Comment: Triglyceride Reference Range: Normal: <150 mg/dL Borderline High: 150-199 mg/dL High: 200-499 mg/dL Very High: >or= 500 mg/dL LDL Calculated 63 See Comment mg/dL 06/10/2020 8:[address] [facility] Comment: LDL Reference Range: Optimal: <100 mg/dL Near/Above Optimal: 100-129 mg/dL Borderline High: 130-159 mg/dL High: 160-189 mg/dL Very High: >or= 190 mg/dL Blood Venipuncture / Unknown 06/10/2020 7:21 AM EST 06/10/2020 7:31 AM EST us Jagrutiketan Anguiano MD LAB BLOOD ORDERABLES Final Result Performing Organization Address [facility] de Phone Number [address] [phone] * TSH w/reflex to FT4 (BH GH LMW Q YH) (06/10/2020 7:21 AM EST) TSH 1.91 0.36 - 3.74 uIU/mL 06/10/2020 8:33 AM EST [facility] Blood Venipuncture / Unknown 06/10/2020 7:21 AM EST 06/10/2020 7:31 AM EST Jagruti Anguiano MD LAB BLOOD ORDERABLES Final Result Performing Organization Address [facility] de Phone Number [address] [phone] * Vitamin B12 (06/10/2020 7:21 AM EST) Pathologist [facility] Vitamin B12 552 211 - 911 pg/mL 06/10/2020 10:02 AM EST [facility] Blood Venipuncture / Unknown 06/10/2020 7:21 AM EST 06/10/2020 7:31 AM EST Jagruti Anguiano MD LAB BLOOD ORDERABLES Final Result Performing Organization Address City/[facility]/ZIP Co de Phone Number [facility] [address] [place] [address] * (ABNORMAL) Vitamin D, 25-hydroxy (06/10/2020 7:21 AM EST) Vitamin K89-Igzuxos 23.1(L) 30.1 - 100 ng/mL 06/10/2020 10:29 AM EST [facility] Comment: Vitamin D Status: Results in ng/mL <10.0: Deficient 10.0 - 30.0: Insufficient 30.1 - 100: Sufficient >100: Toxic Reference ranges established by [employer] Blood Venipuncture / Unknown 06/10/2020 7:21 AM EST 06/10/2020 7:31 AM EST Jagruti Anguiano MD LAB BLOOD ORDERABLES Final Result [facility] [address] [place], [place] [phone] documented in this encounter Visit Diagnoses Diagnosis Generalized anxiety disorder- Primary Bipolar affective disorder in remission (HC Code) documented in this encounter Additional Health Concerns Infection Onset Date Last Indicated Resolved Time R/O COVID-03/12/2021 03/12/2021 03/13/2021 3:35 AM EDT R/O COVID-19 03/20/2021 03/20/2021 03/20/2021 4:45 PM EDT documented as of this encounter Care Teams Geek Squad Manager Relationship Specialty Start Date End Date Pb Branham MD [address] [facility] [address] [place] [phone] PCP - General Family Medicine 05/20/20 avila Shah Counseling [place], [place] Counselor 05/09/20 documented as of this encounter
--- OUTSIDE RECORDS SUMMARY | 2025-06-01 07:53 | XMS_ITS | Encounter Summary ---
Author Organization [facility] Address [address] [place] [address] Care Team Providers Care Pasteurizing Machine Operator Name Role Phone Pb Branham MD Primary Care Provider [phone] Encounter Details Date Type Department Care Team (Late st Contact Info) Description 12/17/2019 Scanned Document [facility] [address] [place] [address] Jagruti Anguiano MD [address] [place] [phone] Social History Tobacco Use Types Packs/Day [...] documented as of this encounter Care Teams Pasteurizing Machine Operator Relationship Specialty Start Date End Date Pb Branham MD 100 [facility] [address] [place] [phone] PCP - General Family Medicine 05/20/20 avila Shah Counseling [place], [place] Counselor 05/09/20 documented as of this encounter
--- OUTSIDE RECORDS SUMMARY | 2025-06-01 07:53 | XMS_ITS | Encounter Summary ---
Author Organization [facility] Address [address] [place] [address] Care Team Providers Care Pressroom Supervisor Name Role Phone Pb Branham MD Primary Care Provider [phone] Encounter Details Date Type Department Care Team (Late st Contact Info) Description 03/14/2020 Scanned Document [facility] [address] [place] [phone] Jagruti Anguiano MD [address] [place] [phone] Social History Tobacco Use Types Packs/Day [...] documented as of this encounter Care Teams Pressroom Supervisor Relationship Specialty Start Date End Date Pb Branham MD 100 [facility] [address] [place] [phone] PCP - General Family Medicine 05/20/20 avila Shah Counseling [place], [place] Counselor 05/09/20 documented as of this encounter
--- OUTSIDE RECORDS SUMMARY | 2025-06-01 07:53 | XMS_ITS | Encounter Summary ---
Author Organization [facility] Address [address] [place] [address] Care Team Providers Care Vending Machine Filler Name Role Phone Pb Branham MD Primary Care Provider [phone] Encounter Details Date Type Department Care Team (Late st Contact Info) Description 01/21/2020 Scanned Document [facility] [address] [place] [address] Jagruti Anguiano MD [address] [place] [phone] Social History Tobacco Use Types Packs/Day [...] documented as of this encounter Care Teams Vending Machine Filler Relationship Specialty Start Date End Date Pb Branham MD 100 [facility] [address] [place] [phone] PCP - General Family Medicine 05/20/20 avila Shah Counseling [place], [place] Counselor 05/09/20 documented as of this encounter
--- OUTSIDE RECORDS SUMMARY | 2025-06-01 07:53 | XMS_ITS | Encounter Summary ---
Author Organization [facility] Address [address] [place] [address] Care Team Providers Care Warehouse Manager Name Role Phone Pb Branham MD Primary Care Provider Encounter Details Date Type Department Care Team (Late st Contact Info) Description 12/15/2019 Scanned Document [facility] [address] [place] [address] Jagruti Anguiano MD [address] [place] [phone] Social History Tobacco Use Types Packs/Day [...] documented as of this encounter Care Teams Warehouse Manager Relationship Specialty Start Date End Date Pb Branham MD 100 [facility] [address] [place] [phone] PCP - General Family Medicine 05/20/20 avila Shah Counseling [place], [place] Counselor 05/09/20 documented as of this encounter
--- OUTSIDE RECORDS SUMMARY | 2025-06-01 07:53 | XMS_ITS | Encounter Summary ---
Author Organization [facility] Address [address] [place] [address] Care Team Providers Care Treating Plant Pumper Name Role Phone Pb Branham MD Primary Care Provider [phone] Reason for Visit * Reason Comments Medication Refill Encounter Details Date Type Department Care Team (Late st Contact Info) Description 10/29/2020 [place] [address] Jagruti Anguiano MD [address] [place] [phone] Medication Refill Social History Tobacco Use [...] documented as of this encounter Care Teams Treating Plant Pumper Relationship Specialty Start Date End Date Pb Branham MD 100 [facility] [address] [place] [phone] PCP - General Family Medicine 05/20/20 avila Shah Counseling [place], [place] Counselor 05/09/20 documented as of this encounter
--- OUTSIDE RECORDS SUMMARY | 2025-06-01 07:53 | XMS_ITS | Encounter Summary ---
Author Organization [facility] Address [address] [place] [address] Care Team Providers Care Company Driver Name Role Phone Pb Branham MD Primary Care Provider [phone] Encounter Details Date Type Department Care Team (Late st Contact Info) Description 02/15/2020 Scanned Document [facility] [address] [place] [address] Jagruti Anguiano MD [address] [place] [phone] Social History Tobacco Use Types Packs/Day [...] documented as of this encounter Care Teams Company Driver Relationship Specialty Start Date End Date Pb Branham MD 100 [facility] [address] [place] [phone] PCP - General Family Medicine 05/20/20 avila Shah Counseling [place], [place] Counselor 05/09/20 documented as of this encounter
--- OUTSIDE RECORDS SUMMARY | 2025-06-01 07:53 | XMS_ITS | Clinical Summary ---
Author Organization [facility] Address [address] [place] [address] Care Team Providers Care Oracle Apex Developer Name Role Phone YonasPb Primary Care Provider [phone] Neeta Jones MD Unavailable Unavailable Bryson Robles APRN Unavailable [phone] Rody Roldan Unavailable Allergies Active Allergy Reactions Criticality Noted Date Comments Banana Rash/Dermatitis Low 02/10/2014 Egg Protein (Egg White) Unknown/Patient and Family Unable to Define Medium 08/10/2010 Lamotrigine Rash/Dermatitis Low 08/07/2018 rash Melon Rash/Dermatitis Low 02/10/2014 Penicillins Rash/Dermatitis,Unkn o wn/Patient and Family Unable to Define Medium 08/10/2010 [place] Nut Fever High 09/22/2020 Pollen Extract Rash/Dermatitis Low 02/10/2014 Pumpkin Seed Unknown/Patient and Family Unable to Define Medium 03/22/2021 Sesame Seeds Rash/Dermatitis High 02/10/2014 Severe reaction Squash Unknown/Patient and Family Unable to Define Medium 03/22/2021 Medications * This document contains information received from the source organization and may not represent a complete record from that organization. Cholecalciferol (Vitamin D) 50 MCG (1999) Cap Take by mouth. Activ e proCHLORPERAZINE (COMPAZINE) 10 MG tabletIndication s:Chronic migraine without aura, intractable, without status migrainosus Take 1-2 tablets (10-20 mg total) by mouth 3 (three) times a day as needed (headache.). Max use 3 days per week. 30 tablet 03/25/202 1 Active metFORMIN (GLUCOPHAGE-XR) 750 MG 24 hr tabletIndication s:Pre-diabetes TAKE 1 TABLET BY MOUTH EVERY MORNING WITH BREAKFAST. SWALLOW WHOLE. DO NOT CRUSH, BREAK OR CHEW. 90 tablet 3 1 Active OMEprazole (PriLOSEC) 40 MG capsuleIndicatio ns:Eosinophilic esophagitis TAKE 1 CAPSULE BY MOUTH EVERY DAY IN THE MORNING BEFORE BREAKFAST 90 capsule 1 1 Active lithium carbonate (ESKALITH) 450 MG 12 hr CR tabletIndication s:Bipolar 1 disorder, depressed, moderate (HCC) Take 1 tablet (450 mg total) by mouth 2 (two) times a day. 180 tablet 1 Active lurasidone (LATUDA) 80 MG Tab tabletIndication s:Bipolar 1 disorder, depressed, moderate (HCC) Take 1 tablet (80 mg total) by mouth every evening with dinner. 90 tablet 1 Active escitalopram (LEXAPRO) 5 MG tabletIndication s:Generalized anxiety disorder Take 1 tablet by mouth daily as directed. 30 tablet 1 Active SUMAtriptan (IMITREX) 100 MG tabletIndication s:Migraine without aura, intractable, without status migrainosus TAKE 1 TABLET NEEDED FOR MIGRAINE MAY REPEAT IN 2HRS IF NEEDED MAX USE 2 PER DAY, 3DAYS PER WEEK 9 tablet 1 Active candesartan (ATACAND) 8 MG tabletIndication s:Migraine without aura, intractable, without status migrainosus Take 1 tablet (8 mg total) by mouth daily. 90 tablet 2 Active candesartan (ATACAND) 16 MG tabletIndication s:Migraine without aura, intractable, without status migrainosus Take 1 tablet (16 mg total) by mouth daily. 90 tablet 2 Active Active Problems Problem Noted Date Diagnosed Date Bipolar 1 disorder, depressed, moderate 03/31/20 21 Migraine without aura, intra ctable, without status migrainosus 02/13/2021 Thunderclap headache 09/22/2020 Asthma 09/21/2020 Obsessive compulsive disorder 09/21/2020 Generalized anxiety disorder 05/02/2020 Bipolar mood disorder 05/02/2020 Anemia 02/15/2020 Hydrocephalus 02/15/2020 Overview (02/15/2020): Follows with Neurology at [facility] Never required shunting Stable as per last [...] right eye 03/20/2018 Overview (02/15/2020): As per [facility] 02/26/2018. Pre-diabetes 08/31/2016 ADHD (attention deficit hyperactivity disorder) 01/06/2014 Eosinophilic esophagitis 12/07/2013 Overview (02/15/2020): Seen by GI at [facility], Rody Roldan MD Last Visit Nov 26 2013 Fu in 1 year Stable Meds: Omeprazole and Flovent Resolved Problems Problem Noted Date Diagnosed Date Resolved Date Chronic migraine without aur a, intractable, without status migrainosus 09/22/2020 02/13/2021 Medication overuse headache 09/22/2020 11/22/2020 Immunizations Immunization Administration Dates Next Due Covid-19 MRNA Vaccine [...] at Not on file Legal Sex Male 2:50 PM EDT Gender Identity Male 09/29/2020 7:00 AM EDT Sexual Orientation Choose not to disclose 2020 3:19 PM EDT Sexual Orientation Homosexual (lesbian or hubbard) 1 3:19 PM EDT Occupation Industry Job Start Date Job End Date disabled Not on file Not on file Not on file Last Filed Vital Signs Vital Sign Reading Time Taken Comments Blood Pressure 144/85 05/15/2021 3:21 PM EST Pulse 74 05/15/2021 3:21 PM EST Temperature 36.8 C (98.2 F) 05/15/2021 3:21 PM EST Respiratory Rate 14 05/15/2021 3:21 PM EST Oxygen Saturation 97% 05/15/2021 3:21 PM EST Inhaled Oxygen Concentration - - Weight 90.4 kg (199 lb 6.4 oz) 05/15/2021 3:21 P M EST Height 152.4 cm (5') 05/15/2021 3:21 PM EST Body Mass Index 38.94 05/15/2021 3:21 PM EST Plan of Treatment Health Maintenance Due Date Last Done Comments Physical 09/27/2011 Hepatitis B Vaccines (1 of 3 - 19+ 3-dose series) 2012 Pneumococcal Vaccine: Pediat radha (0-5 Years) and At-Risk Patients (6 to 49 Years) (1 of 2 - PCV) 2012 Influenza Vaccine 01/29/2025 04/12/2021, 03/26/2020 COVID-19 Vaccine ( season) 2025 05/05/2021, 10/27/2020, 10/06/2020 DTaP/Tdap/Td Vaccines (2 - T d or Tdap) 04/20/2029 04/20/2019 HIV Screening Completed 02/25/2020 Hepatitis C Virus Screening Completed 03/23/2021 HPV Vaccines (No Doses Required) Completed Goals Goal Patient Goal Type Associated Problems [...] Care Plan Emotional Dysregulation Debbie Meeks LPC Procedures Procedure Name Priority Date/Time Associated Diagnosis Comments HIV 1/2 AG/AB CMIA REFLEX TO CONFIRMATION Routine 02/25/2020 8:09 AM EDT Erectile dysfunction, unspecified erectile dysfunction type from Last 3 Months or Most Recently Relevant to Health Maintenance Results * HIV 1/2 Ag/Ab CMIA Reflex to Confirmation (02/25/2020 8:09 AM EDT) HIV Ag/Ab, 4th Gen NON-REACT JACKIE NON-REACT JACKIE [facility] Comment: HIV-1 antigen and HIV-1/HIV-2 antibodies were not detected. There is no laboratory evidence of HIV infection. PLEASE NOTE: This information has been disclosed to you from records whose confidentiality may be protected by state law. If your state requires such protection, then the state law prohibits you from making any further disclosure of the information without the specific written consent of the person to whom it pertains, or as otherwise permitted by law. A general authorization for the release of medical or other information is NOT sufficient for this purpose. For additional information please refer to http://education.[employer]onne[employer].com/faq/CMW609 (This link is being provided for informational/ [...] YES Resulting Agency Comment Performing Organization Information: Site ID: [id number] Name: [facility] Address: [address] [place] [address], [place] [address] Director: Ryann Calhoun MD Pb Branham DO LAB BLOOD ORDERABLES Final Resu lt [facility] [address], [place] [address] from Last 3 Months or Most Recently Relevant to Health Maintenance Additional Health Concerns Active Problems Noted Date Diagnosed Date Emotional Dysregulation 04/09/2021 Insurance [facility] Care Teams Oracle Apex Developer Relationship Specialty Start Date End Date Pb Branham DO [address] [place] [address] PCP - General Medicine Hospitalist 02/22/20 Neeta Jones MD [address] [place] [address] Psychiatry, General 03/27/21 Bryson Robles APRN [address] [place] [address] Nurse Practitioner Psychiatry, General 04/12/21 Rody Roldan [address] [address] 12/25/21
--- OUTSIDE RECORDS SUMMARY | 2025-06-01 07:53 | XMS_ITS | Encounter Summary ---
Author Organization [facility] Address [address] [place] [address] Care Team Providers Care Eddy Current Inspector Name Role Phone Pb Branham MD Primary Care Provider [phone] Encounter Details Date Type Department Care Team (Late st Contact Info) Description 02/11/2020 Scanned Document [facility] [address] [place] [id number] Jagruti Anguiano MD [address] [place] [phone] Social History Tobacco Use Types Packs/Day [...] documented as of this encounter Care Teams Eddy Current Inspector Relationship Specialty Start Date End Date Pb Branham MD 100 [facility] [address] [place] [phone] PCP - General Family Medicine 05/20/20 avila Shah [facility] [place], [place] Counselor 05/09/20 documented as of this encounter
--- OUTSIDE RECORDS SUMMARY | 2025-06-01 07:53 | XMS_ITS | Encounter Summary ---
Author Organization [facility] Address [address] [place] [address] Care Team Providers Care Studio Designer Name Role Phone DharmeshPb herrera Primary Care Provider Neeta Jones MD Unavailable Unavailable Estrellita Fall GLASS NOVELTY MAKER Unavailable Debbie Ring GLASS NOVELTY MAKER Unavailable [phone] Feng Brown GLASS NOVELTY MAKER Unavailable [phone] Sabrina Gu HAND BUFFER Unavailable Unavailable Bryson Robles APRN Unavailable [phone] Juan Yu MD Unavailable [phone] Amaya Szymanski GLASS NOVELTY MAKER Unavailable [phone] Quyen Peterson [facility] Unavailable [phone] Marily Veliz MD Unavailable [phone] Rody Roldan Unavailable Encounter Details Date Type Department Care Team (Late st Contact Info) Description 05/18/2021 Scanned Document [facility] [place] [address] [facility] [address] [place] [address] Boyd Brown MD Social History Tobacco Use Types Packs/Day Years [...] file Not on file Not on file COVID-19 Exposure Response Date Recorded In the [...] documented as of this encounter Care Teams Studio Designer Relationship Specialty Start Date End Date Pb Branham DO [address] [facility] [address] [place] [address] PCP - General Medicine Hospitalist 02/22/20 Neeta Jones MD 100 [facility] [address] [place] [address] Psychiatry, General 03/27/[address] [facility] [address] [address] [place] [address] Clinician Social Work 03/31/21 08/23/24 Debbie Ring, [facility] [address] [place] [address] Maternal Child Nurse Clinical Social Work 04/04/21 08/23/[address] [facility] [address] [place] [address] Maternal Child Nurse Psychiatry, Addiction 04/05/21 08/23/24 Sabrina Gu LCSW [address] [place], [place] [id number] Maternal Child Nurse Clinical Social Work 04/07/21 08/23/24 Bryson Robles APRN [address] [place] [address] Nurse Practitioner Psychiatry, General 04/12/21 Juan Yu MD [address] [place] [address] Psychiatrist Psychiatry, General 04/21/21 05/21/24 Amaya Szymanski, [facility] [address] [place] [address] Maternal Child Nurse Clinical Social Work 04/24/21 08/23/24 Quyen Peterson, [facility] [address] [place] [address] Maternal Child Nurse Clinical Social Work 04/24/21 08/23/24 Marily Veliz MD [address] [place] [address] Psychiatry, General 04/27/21 08/23/24 Rody Roldan [address] [place] [address] 12/25/21 documented as of this encounter
--- OUTSIDE RECORDS SUMMARY | 2025-06-01 07:53 | XMS_ITS | Data Portability ---
Author Organization [facility], Telehealth Patient Home Address [address] [place] [address] Assessment No assessment recorded. Plan of Treatment Reminders Order Date Submit Date Provider Last Modified By Organization Details Last Modified Time Details Appointments ANNUAL EXAM 2025 09:00A M PATRICIA HERNANDEZ Not available Not available Not available Lab HIV 1+2 AB + HIV 1 p24 Ag, qualitati ve immunoass ay, serum 2024 025 [facility], [address] [place] [address], [id number], 10/09/2024 16:37:09 RPR (rapid plasma reagin), serum 2024 025 [facility], [address] [place] [address], [place], [address], 10/09/2024 16:37:09 CT + NG + TV, DNA, urine/swa b 2024 025 [facility], [address] [place] [address], [place], [address], 10/09/2024 16:37:09 hepatitis panel (A+B+C), acute, serum 2024 025 [facility], [address] [place] [address], [address], 10/09/2024 16:37:09 CMP, serum or plasma 2024 025 [facility], [address] [place] [address], [address], 07/06/2024 14:42:47 hemoglobi n A1c, QN, blood 2024 025 [facility], [address] [place] [address], [address], 07/06/2024 14:42:47 culture, wound - left nipple abscess 2024 025 [facility], [address] [place] [address], [address], 07/08/2024 10:46:47 RPR (rapid plasma reagin), serum 2024 025 [facility], [address] [place] [address], [address], 07/06/2024 14:42:48 HIV 1+2 AB + HIV 1 p24 Ag, qualitati ve immunoass ay, serum 2024 025 [facility], [address] [place] [address], [address], 10/15/2024 13:26:18 CT + NG + TV, DNA, urine/swa b 2024 025 [facility], [address] [place] [address], [address], 10/14/2024 12:33:15 hepatitis panel (A+B+C), acute, serum 2024 025 [facility], [address] [place] [address], [address], 07/06/2024 14:42:47 CBC w/ auto diff 2024 025 [facility], [address] [place] [address], [address], 07/06/2024 14:42:48 Referral None recorded. Procedures None recorded. Surgeries None recorded. Imaging MAMMO, diagnosti c, digital, bilateral 2024 025 [facility], [address] [place], [address], 04/29/2025 08:36:19 US, breast, unilatera l 2024 025 [email or web address], [address] [place], [address], 04/28/2025 08:26:39 Medication Orders None recorded. Patient TargetsNo targets recorded. Patient InstructionsNo instructions recorded. Reason for Referral None Reported. Results Created Date Observation Date Name Description Value Unit Range Abnormal Flag Note LastModifiedBy Organization Detail LastModifiedTime 04/29/2004/29/2025 MAMMO , diagn ostic , digit al, bilat eral No observ ation record ed. [address] ([facility]) - Callback Orders Only [address] [place], [address], 04/30/2025 10:13:00 04/29/2004/29/2025 US, breas t, unila teral No observ ation record ed. [address] [place], [address], 04/30/2025 10:13:00 Result Notes None recorded. Problems Name Problem SNOMED Code Status Onset Date Resolution Date Notes Provider Name and Address Organization Details Recorded Time Depressiv e disorder 83380364 Active 2017 Not Available [facility] 2 06:31:09 Obstructi ve hydroceph alus 574241379 Active 2017 Not Available [facility] 2 06:31:09 Anemia 919222515 Active 2017 Not Available [facility] 2 06:31:09 Eosinophi lic esophagit is 170978621 Active 2017 Not Available [facility] 2 06:31:09 Attention deficit hyperacti vity disorder 104030585 Active 2017 Not Available [facility] 2 06:31:09 Onycholys is due to fungal infection of nail 747245734 Active 2021 Not Available [facility] 2 06:31:09 Visual disturban ce 69188229 Active 2021 PATRICIA HERNANDEZ [address] [place], [address], [facility] [place], [facility] 2 10:14:45 Generaliz ed rash 424174898 Active 2022 PATRICIA HERNANDEZ [address] [place] [address], [address], [facility] [place] 3 15:32:32 Impaired fasting glycemia 337932931 Active 2022 PATRICIA HERNANDEZ [address] [place] [address], [address], [facility] [place] 3 14:07:44 Scalp infection 977711684 Active 2022 PATRICIA HERNANDEZ [address] [place] [address], [address], [facility] [place] 3 10:16:31 Iron deficienc y anemia 45978576 Active 2022 PATRICIA HERNANDEZ [address] [place] [address], [address], [facility] [place] operated [facility] 3 14:06:57 Hyperlipi demia 32434791 Active 2023 PATRICIA HERNANDEZ [address] [place] [address], [address], [facility] [place] operated [facility] 4 10:57:02 Erectile dysfuncti on 121323691 Active 2023 PATRICIA HERNANDEZ [address] [place], [address], [facility] [place], operated [facility] 4 15:54:51 Infection of pierced pinna 521358277 Active 2023 PATRICIA HERNANDEZ [address] [place], [address], [facility] [place], operated [facility] 4 14:50:59 Recurrent bleeding of nose Active 2023 PATRICIA HERNANDEZ [address] [place], [address], [facility] [place], [facility] 4 11:26:31 Headache 85602848 Active 2023 PATRICIA HERNANDEZ [address] [place], [address], [facility] [place] 4 11:26:46 Snoring 51400736 Active 2023 PATRICIA HERNANDEZ [address] [place], [address], [facility] [place], [facility] 4 10:37:04 Discharge from nipple 87332181 Active 2024 PATRICIA HERNANDEZ [address] [place] [address], [address], [facility] [place] 5 14:48:05 Bipolar I disorder 757049314 Active 2024 PATRICIA HERNANDEZ [address] [place] [address], [address], [facility] 5 10:04:37 Autism spectrum disorder 50130428 Active 2024 PATRICIA HERNANDEZ [address] [place] [address], [address], [facility] [place] 5 10:22:19 Generaliz ed anxiety disorder 40250571 Active 2024 PATRICIA HERNANDEZ [address] [place], [address], [facility] [place], [facility] 5 10:22:58 Streptoco ccal sore throat 16380015 Active 2024 PATRICIA HERNANDEZ [address] [place], [address], [facility] [place], [facility] 5 13:32:00 Anaphylax is 81733198 Active 2024 PATRICIA HERNANDEZ [address] [place], [address], [facility] [place], [facility] 5 09:09:31 Lump of subareola r area of left breast 810790438664 93195 Active 2024 PATRICIA HERNANDEZ [address] [place], [address], [facility] [place], [facility] 5 11:24:54 Problem Notes None recorded. Procedures Surgical History Date Name Laterality Status Provider Name and Address Organization Details Recorded Time 08/10/2019 I&D completed September BLOSSOM Sorensen [address] [place], [address], [facility] [place] 08/10/2019 14:19:29 Imaging Results None recorded. Procedure Notes None recorded. Medical Equipment None Reported. Allergies Allergen ID Allergen Name Allergen Category Reaction Reaction Severity Criticality Documentation Date Start Date Code Code System Note Provider Name and Address Organization Details Recorded Time 11424 pumpkin seed extract food,medi cation Not available Not available Not available 05/25/20252022 58238 1 RxNorm Not Available [employer] - External Data Service - prod 5 17:48:57 2537 sesame seed extract food Not available Not available Not available 05/26/2018 13386 46 RxNorm Marisela Caceres [facility] 8 15:17:50 2538 banana extract food,medi cation Not available Not available Not available 05/26/2018 38128 9 RxNorm [facility] Bal[facility] 8 15:17:58 2539 amoxicill in medicatio n Not available Not available Not available 05/26/2018 723 RxNorm Marisela Caceres [facility] 8 15:18:09 2540 Product containin g penicilli n (product) medicatio n Not available Not available Not available 05/26/2018 17228 8001 SNOMED [facility] 8 15:18:16 2541 egg extract food,medi cation Not available Not available Not available 05/26/2018 71482 15 Rx[facility] 8 15:18:23 2542 melon extract food Not available Not available Not available 05/26/2018 79177 10 [facility]Norm [facility] 8 15:18:33 2543 watermelo n preparati on food Not available Not available Not available 05/26/2018 69153 4 RxNorm [facility] 8 15:18:56 2547 lamotrigi ne medicatio n rash Not available Not available 05/27/2018 14098 RxNorm [facility] 8 09:43:05 9130 carbamaze pine medicatio n Not available Not available Not available 12/28/20242001 RxNorm PATRICIA Bishop [address] [place], [address] [facility] 5 09:55:41 Medications Name Sig Start Date Stop Date [...] ORAL ROUTE ONCE DAILY FOR 4 DAYS 04/27 completed Not Available Not Available Not Available ofloxacin 0.3 % eye drops 03/26 [...] 1 CAPSULE EVERY 8 HOURS UNTIL FINISHED 12/28 completed Not Available Not Available Not Available valsartan 80 mg tablet TAKE 1 [...] Not Available valacyclovi r 500 mg tablet Take 1 tablet 3 times a day by oral route. active Not Available Not Available No t Available ciprofloxac in 500 mg tablet TAKE 1 TABLET BY MOUTH EVERY 12 HOURS FOR 7 DAYS active Not Available Not Available No t Available sulfamethox azole 800 mg-trimetho prim 160 mg tablet TAKE 1 TABLET BY MOUTH EVERY 12 HOURS FOR 10 DAYS 07/06 completed Not Available Not Available Not Available omeprazole 40 mg capsule,del ayed release TAKE 1 CAPSULE (40 MG TOTAL) BY MOUTH DAILY. active Not Available Not Available No t [...] MOUTH TWICE A DAY FOR 10 DAYS 12/28 completed Not Available Not Available Not Available ferrous sulfate 325 mg (65 mg iron) tablet Take 1 tablet every day by oral route for 90 days. 01/21 completed Not Available Not Available Not Available neomycin-po lymyxin-dex ameth 3.5 mg/mL-10,00 0 unit/mL-0.1 % eye drops INSTILL 1 DROP IN LEFT EYE FOUR TIMES A DAY 12/28 completed Not Available Not Available Not Available [...] completed Not Available Not Available Not Available carbamazepi ne 100 mg chewable tablet TAKE 2 TABLETS BY MOUTH NIGHTLY AT BEDTIME. 12/28 completed Not Available Not Available Not Available sertraline 25 mg tablet Take 1 tablet every day by oral route for 30 days. 08/25 completed Not Available Not Available Not Available epinephrine 0.3 mg/0.3 mL injection, auto-inject or 0.3 mg SC/IM x1; Info: may repeat dose x1 after 5-15min 2024 active Not Available Not Available Not Avai lable methylpredn isolone 4 mg tablets in a [...] Not Available Not Available No t Available tobramycin 0.3 %-dexametha sone 0.1 % eye drops,suspe nsion PLEASE SEE ATTACHED FOR DETAILED DIRECTION S [...] Not Available Not Available Not Available lurasidone 40 mg tablet TAKE 1 TABLET BY MOUTH EVERY DAY WITH AT LEAST 350 CALORIES OF FOOD. active Not Available Not Available No t Available lurasidone 80 mg tablet TAKE 1 TABLET BY MOUTH EVERY DAY WITH AT LEAST 350 CALORIES OF FOOD active Not Available Not Available No t Available testosteron e 20.25 mg/1.25 gram per pump act.(1.62 %) transdermal gel active Not Available Not Available Not Available lurasidone 20 mg tablet TAKE 1 TABLET BY MOUTH EVERY DAY IN THE EVENING 01/21 completed Not Available Not Available Not Available lurasidone 120 mg tablet TAKE 1 TABLET BY MOUTH EVERY DAY WITH FOOD 12/28 completed Not Available Not Available Not Available Tivicay 50 mg tablet 05/27 completed [...] 1 tablet every day by oral route. 12/28 completed Not Available Not Available Not Available Restasis MultiDose 0.05 % eye drops Instill 1 drop twice a day by ophthalmi c route for 90 days. 04/20 completed Not Available Not Available Not Available Dupixent 300 mg/2 mL subcutaneou s pen injector active Not Available Not Available Not Available Vitals Date Recorded Body height Body mass index (BMI) Body weight Heart rate Oxygen saturation Systolic And Diastolic Provider Name and Address Organization Details Last Updated DateTime 5 154.94 cm 37.9 kg/m2 02957.2 7 g 74 /min 94 % 128/82 mm[Hg] Alexandrea Gonzalez MA [facility] 5 14:20:22 Date Recorded Body height Provider Name an d Address Organization Details Last Updated DateTime 10/09/2024 154.94 cm Alexandrea [facility] 10/09/2024 16:12:06 Date Recorded Body height Body mass index (BMI) Body weight Oxygen saturation Heart rate Systolic And Diastolic Provider Name and Address Organization Details Last Updated DateTime 5 154.94 cm 37.8 kg/m2 25755.4 7 g 96 % 70 /min 122/70 mm[Hg] YUKI HORTA [facility] 5 09:43:42 Date Recorded Body height Body mass index (BMI) Body weight Heart rate Oxygen saturation Systolic And Diastolic Provider Name and Address Organization Details Last Updated DateTime 4 154.94 cm 40.6 kg/m2 80711.3 6 g 85 /min 97 % 112/70 mm[Hg] Gareth Moralez [facility] 4 11:07:02 Date Recorded Body height Body mass index (BMI) Body weight Heart rate Oxygen saturation Systolic And Diastolic Provider Name and Address Organization Details Last Updated DateTime 5 154.94 cm 37.8 kg/m2 47713.4 7 g 70 /min 98 % 110/70 mm[Hg] Twyla Moses [facility] 5 11:06:02 Social History Question Answer Notes LastModified by [employer] Details LastModified Time Tobacco Smoking Status [facility] 04/20/2019 11:41:57 What Is Your Level Of Caffeine Consumption? Occasional 1 Cup Coffee Per Day Information not available 03/25/2019 What Was The Date Of Your Most Recent Tobacco Screening? 07/06/2024 [email or web address] Information not available 07/06/2024 Sex: Unknown Functional Status Question Answer Note LastModified by [employer] Details LastModified Time Do you or have you ever used any other forms of tobacco or nicotine? No [email or web address] Information not available 10/27/2021 What is your level of alcohol consumption? Occasional Information not available 03/25/2019 What is your exercise level? None Information not available 03/25/2019 Mental Status None recorded. Family History Relationship Description Onset Age of this Age Resolved Age Notes LastModified by Organization Details LastModified Time Maternal Grandmother Malignant neoplasm of brain [email or web address] Not available 2024 14:30:06 Notes:raised by Aunt Medical History Condition Response Coronary Artery Disease N Other Y Gout N Kidney Stones N Blood Diseases N Hyperthyroidism N Breast Cancer N Blood Transfusion N Hypothyroidism N Depression Y COPD N Lung Disease N Defects or Inherited Disease N Difficulty [...] Recorded Time Tdap 04/20/2019 completed Not Available [facility] 12/05/2021 06:31:09 meningococcal, unknown serogroups 02/16/2014 completed Leighann saavedra MA [facility] 01/29/2022 09:03:02 Tdap 04/20/2019 completed Not Available [facility] 12/05/2021 06:31:09 Past Encounters Encounter ID Performer Location Encounter Start Date Encounter Closed Date Diagnosis/Indication Diagnosis SNOMED-CT Code Diagnosis ICD10 Code Diagnosis IMO Codes Diagnosis Note [id number] Juanpablo Concepcion DO [facility] [address] [facility], [place] [address] 05/27/2018 09:30:02 05/27/2018 10:40:24 Abnormal weight gain 755697166 R63.[address] Active or passive immunization 716457771 Z23 Bipolar disorder 6605806 4 F31.9 Obstructiv e hydrocephalus 401862342 G91.1 stable Depressive disorder 3548 9007 F33.9 Tobacco user 154209465 Z 72.0 [id number] Juanpablo Concepcion DO [facility] [address] [facility] [address] 07/22/2018 16:03:30 07/22/2018 16:45:19 Depressive disorder 43622287 F33.9 Impaired f asting glycemia 693727955 R73.01 High risk homosexual behavior 9598102088 57064 Z72.52 Discussed 100% condom use and safe sexual practices Body mass index 30+ - obesity 135464410 Z68.39 discussed diet/ need to begin regular exercise [id number] Juanpablo Concepcion DO [facility] [address] [facility], [place] [address] 08/25/2018 09:56:27 08/25/2018 11:24:26 Obstructive hydrocephalus 353355115 G91.1 stable Eosinophil ic esophagitis 472442881 K20.0 asymptomat ic Depressive disorder 3548 9007 F33.9 strongly advise continuati on appts w/ psych Continue crafting and other positive activities [id number] Juanpablo Concepcion [facility] [address] [facility],[place] [address] 09/02/2018 15:14:57 09/03/2018 08:50:13 Viral syndrome 082991225 B34.9 rest, fluids Depressive disorder 4548 5517 F33.9 strongly advise continuati on appts w/ psych Continue crafting and other positive activities [id number] Juanpablo Concepcion [facility] [address] [facility] [place] [address] 03/25/2019 13:53:06 03/25/2019 15:35:04 Adult health examination 755655434 Z00.00 here and doing well having issue though with bladder incont will need to pursue with an MRI Primary er ectile dysfunction 616136545 N52.9 Anemia 568043888 D64.9 Obstructiv e hydrocephalus 825997256 G91.1 please send all meds list etc and lab [id number] Juanpablo Concepcion [facility] [address] [facility],[place] [address] 04/20/2019 11:21:28 04/20/2019 12:09:06 Active or passive immunization 379732502 Z23 needs tdap and flu will go to pharmacy Headache 29791720 R51 believed to be tension cobos resolved after toradol continues to have mild cobos that resolve with tylenol Cellulitis 210074892 L03 .90 resolved Obstructiv e hydrocephalus 888230565 G91.1 continues to see neuro OP Screening procedure 2013 5006 Z13.9 needs titers for school [id number] Juanpablo Concepcion [facility] [address] [facility] [address] [place] [address] 08/10/2019 13:22:01 08/10/2019 14:13:53 Depressive disorder 41741088 F32.9 Abscess of skin and/or subcutaneous tissue 68510038 L02.811 initially thought to be abscess, but after I&D without purulent drainage, now think just epidermoid cyst will refer to derm to have the cyst removed. no signs of infection today bacitracin and bandage applied Epidermoid cyst of skin of scalp 401125334 L72.0 [id number] Juanpablo Concepcion [facility] [address] [place] [address],[place] [address] 07/31/2021 08:17:34 07/31/2021 14:25:13 Depressive disorder 20988407 F33.9 has found another psych who is providing his rx dr melanie noyola Eosinophil ic esophagitis 022770352 K20.0 continuing the omeprazole and will be seeing gastro in the future Renewal of prescription 216995361 Z76.0 Migraine 08525297 G43.90 9 [id number] Juanpablo Concepcion [facility] [address] [address] 10/27/2021 14:01:44 10/27/2021 15:28:44 Onycholysis due to fungal infection of nail 759818894 B35.1 will start on topical cream [id number] Juanpablo Concepcion [facility] [address] [address] 11/22/2021 09:26:15 11/22/2021 13:31:06 Dysuria 24447407 R30.0 will have patient call with fu on saturday with an update to his symptoms [id number] Juanpablo Concepcion [facility] [address] [place] [address],[place] [address] 01/29/2022 09:02:27 01/29/2022 09:59:29 Attention deficit hyperactivity disorder 584296459 F90.0 stable Depressive disorder 3548 9007 F33.9 stable Anemia 003175387 D64.9 will recheck levels Adult heal th examination 115175149 Z00.00 will fu with A1c check Venereal d isease screening 197376534 Z11.3 would like STI panel Onycholysi s due to fungal infection of nail 217398512 B35.1 will start on topical cream [id number] Juanpablo Concepcion [facility] [address] [facility],[place] [address] 03/26/2023 13:24:46 03/26/2023 15:26:45 Anemia 551035760 D50.0 will recheck levels Attention deficit hyperactivity disorder 820310152 F90.0 stable Depressive disorder 3548 9007 F33.9 stable Generalized rash 9003962 06 R21 resolved Eosinophil ic esophagitis 988946540 K20.0 will recheck levels Venereal d isease screening 286286000 Z11.3 would like STI panel Impaired f asting glycemia 447633384 R73.01 will set up with A1c as well [id number] Juanpablo Concepcion [facility] [address] [facility],[place] [address] 04/22/2023 13:24:01 04/22/2023 16:49:31 Anemia 343024970 D50.0 stable Scalp infection 06278742 9 B99.9 resolved Impaired f asting glycemia 550369235 R73.01 A1c is stable Venereal d isease screening 910862352 Z11.3 negative [id number] Juanpablo Concepcion [facility] [address] [place] [address],[place] [address] 10/09/2023 09:12:54 10/09/2023 11:27:37 Acute sinusitis 78700235 J01.10 will set with abx and medrol combo [id number] Juanpablo Concepcion [facility] [address] [facility],[place] [address] 01/22/2024 10:56:22 01/24/2024 13:31:03 Recurrent bleeding of nose 1992789789 102 R04.0 used silver nitrate to cauterize the area Headache 93365417 R51.9 stable, continue medication s as described Depressive disorder 3548 9007 F33.9 stable [id number] Juanpablo Concepcion [facility] [address] [facility],[place] [address] 07/06/2024 13:34:32 07/06/2024 14:55:55 Active or passive immunization 034067430 Z23 advised Adult heal th examination 137642529 Z00.00 will fu with A1c check Venereal d isease screening 589427049 Z11.3 negative Impaired f asting glycemia 488722072 R73.01 A1c is stable Discharge from nipple 54 081840 N64.52 fu with culture report [id number] Juanpablo Concecpion [facility] [address] [facility] [address] [place] [address] 10/09/2024 15:50:27 10/12/2024 11:10:49 Venereal disease screening 786842704 Z11.3 needs updated veneral screening HIV screening 590673878 Z11.4 will set up with PrEP (descovy) > needs STI screening first and then will submit for patient Pre-exposu re prophylaxis 8046529867 Z29.81 would like to start on descovy (dosing is 200 mg once per day for prevention )will need routine CMP and HIV screening every 3 to 6 mos while he is on it [id number] Juanpablo Concepcion [facility] [address] [facility], [place] [address] 12/28/2024 09:23:06 12/28/2024 11:01:33 Depression screening [id number] Z13.31 positive, working with psych and therapist Bipolar I disorder 08126 6008 F31.9 [id number] working with psych, currently on latuda Depressive disorder 3548 9007 F33.9 stable Attention deficit hyperactivity disorder [id number] F90.0 stable Autism spe ctrum disorder 82355961 F84.0 466344 stable Generalize d anxiety disorder 59493437 F41.1 705037 working with psych [id number] Juanpablo Concepcion [facility] [address] [facility] on [place] [address] 04/27/2025 10:55:33 04/27/2025 15:14:01 Depression screening [id number] Z13.31 positive, working with psych and therapist Lump of connelly bareolar area of left breast [id number] 8488882 N63.42 [id number] will set up with Health Concerns Section Related Observation LastModified by Organization Detai ls LastModified Time None Recorded Concern Status LastModified by Organization Details LastModified Time None Recorded Advance Directives Directive None Recorded Payers Insurance Date Sequence Insurance Name Policy Number Policy Curry Covered Member ID Curry Member ID Guarantor Name 04/24/2025 1 [place] [employer] Daniel Lamas [id number] Daniel Lamas 04/24/2025 2 [place] [facility] Daniel Lamas [id number] Daniel Lamas Notes Date Note Type Note Provider Name and Address Organization Details Recorded Time 4 text/htm l ROS as noted in the HPI c/o nose bleeds nose bleeds for the [...] sticks to have at home PATRICIA HERNANDEZ [address] [place] [address], [place], [address], [facility], [place], operated [facility] 01/22/2024 11:29:12 5 text/htm l Annual WellnessReported by PatientSocial/Behavioral HistoryFor diet and nutrition, patient reportshealthy diet,discussed vitamin and supplement use,discussed portion control,discussed maintaining calcium balance, anddiscussed diet improvement. For fracture risk, patient reportsno history of fractures,no recent explained fracture,no sudden unexplained fractures, andno previous musculoskeletal injuries.Mental Status:For depression risk, patient reportsnever feels sad, empty, or tearful,no loss of interest in activities,no significant changes in weight,no sleep disturbances or insomnia,no agitation,no loss of energy,no feelings of worthlessness or guilt,no thoughts of suicide,no history of depression, andno history of mood disorders.Functional AbilityFor hearing, patient reportsno loss of hearing. For vision, patient reportsno vision problems.ROS as noted in the HPI nose bleeds have settled down ADHD is stable the patient is still having issues with with he previous nipple piercing, taking a culture from the discharge that is still present based on exam PATRICIA HERNANDEZ [address] [place], [address], [facility] 07/06/2024 14:53:08 5 text/htm l ROS as noted in the HPI f/u PrEP the patient wanted to discuss starting descovy for HIV preventionpatient is homosexual and does admit to not using condoms with every sexual partner and he does not have a consistent sexual partner discussed that pt needs screening before starting the medication, and will need screening and LFT testing every 3 to 6 mos patient agrees to this plan PATRICIA HERNANDEZ [address] [place], [address], [facility] 10/09/2024 16:43:52 5 text/htm l ROS as noted in the HPI hospital d/c: the patient reports that he was having significant mental health concerns, called crisis and ended up being admitted to the patient is seeing biopsychologist ([facility]), seeing her every month, seeing her again on on 01/07/25 the patient is seeing his therapist every week, doing well with the therapist, seeing her every week the patient does have a good support communitythe patient tried to hang himself (ended up calling crisis before his attempt which prompted the admission) the patient did medication adjustmentoriginally placed on tegretol (carbamazepine) but had to stop due to extreme fatigue, started back on lurasidone 40 mg (one tablet every day) the patient is doing much betterthe patient reports that he has future plans he has scheduled and is optimistic about them the patient is no longer in a relationshippatient had a few sig maniac episodes including multiple sexual partners, gamblingdiscussed bipolar diagnosis the patient is currently living with his [facility] space, has contact for therapist PATRICIA HERNANDEZ [address] [place], [address], [facility], [place], [facility] 12/28/2024 10:23:33 5 text/htm l ROS as noted in the HPI c/o L breast mass the patient reports that he noticed a new breast lump on the L side, inner upper quadrant patient has pain/soreness with the new lumprelatively new within the last month or so that he noticed it developing the patient reports that it is the same side he has the nipple changes, but that has resolved,the patient denies nipple inversion, discharge, skin changes the patient and I discussed optionshe is currently on HRT as well PATRICIA HERNANDEZ [address] [place] [address], [place], [address], [facility] 04/27/2025 11:32:13
--- OUTSIDE RECORDS SUMMARY | 2025-06-01 07:53 | XMS_ITS | Encounter Summary ---
Author Organization [facility] oup and Home Health Address [address] [place] [address] Care Team Providers Care Training Systems Officer Name Role Phone Pb Branham MD Primary Care Provider [phone] Encounter Details Date Type Department Care Team (Late st Contact Info) Description 12/23/2019 [place] [address] Jagruti Anguiano MD [address] [place] [phone] Social History Tobacco Use Types Packs/Day [...] documented as of this encounter Care Teams Training Systems Officer Relationship Specialty Start Date End Date Pb Branham MD 100 [facility] [address] [place] [phone] PCP - General Family Medicine 05/20/20 avila Shah Counseling [place], [place] Counselor 05/09/20 documented as of this encounter
--- OUTSIDE RECORDS SUMMARY | 2025-06-01 07:53 | XMS_ITS | Encounter Summary ---
Author Organization [facility] oup and Home Health Address [address] [place] [address] Care Team Providers Care Knife Cutter Name Role Phone Pb Branham MD Primary Care Provider [phone] Encounter Details Date Type Department Care Team (Late st Contact Info) Description 03/01/2020 Scanned Document [place] [facility] [address] [place] [address] Jagruti Anguiano MD [address] [place] [phone] Social History Tobacco Use Types Packs/Day [...] documented as of this encounter Care Teams Knife Cutter Relationship Specialty Start Date End Date Pb Branham MD 100 [facility] [address] [place] [phone] PCP - General Family Medicine 05/20/20 avila Shah Counseling [place], [place] Counselor 05/09/20 documented as of this encounter
--- OUTSIDE RECORDS SUMMARY | 2025-06-01 07:53 | XMS_ITS | Encounter Summary ---
Author Organization [facility] oup and Home Health Address [address] [place] [address] Care Team Providers Care Physical Sciences Professor Name Role Phone Pb Branham MD Primary Care Provider [phone] Encounter Details Date Type Department Care Team (Late st Contact Info) Description 02/12/2020 Scanned Document [place] [facility] [address] [place] [address] Jagruti Anguiano MD [address] [place] [phone] Social History Tobacco Use Types Packs/Day [...] documented as of this encounter Care Teams Physical Sciences Professor Relationship Specialty Start Date End Date Pb Branham MD 100 [facility] [address] [place] [phone] PCP - General Family Medicine 05/20/20 avila Shah Counseling [place], [place] Counselor 05/09/20 documented as of this encounter
--- OUTSIDE RECORDS SUMMARY | 2025-06-01 07:53 | XMS_ITS | Encounter Summary ---
Author Organization [facility] oup and Home Health Address [address] [place] [address] Care Team Providers Care Cfo Name Role Phone Pb Branham MD Primary Care Provider [phone] Encounter Details Date Type Department Care Team (Late st Contact Info) Description 03/14/2020 Scanned Document [facility] [address] [address] Jagruti Anguiano MD [address] [place] [phone] Social History Tobacco Use Types Packs/Day [...] documented as of this encounter Care Teams Cfo Relationship Specialty Start Date End Date Pb Branham MD 100 [facility] [address] [place] [phone] PCP - General Family Medicine 05/20/20 avila Shah Counseling [place], [place] Counselor 05/09/20 documented as of this encounter
--- OUTSIDE RECORDS SUMMARY | 2025-06-01 07:53 | XMS_ITS | Encounter Summary ---
Author Organization [facility] oup and Home Health Address [address] [place] [address] Care Team Providers Care Tacking Machine Operator Name Role Phone Pb Branham MD Primary Care Provider [phone] Reason for Visit * Reason Comments Medication Refill Encounter Details Date Type Department Care Team (Late st Contact Info) Description 07/06/2020 [place] [address] Jagruti Anguiano MD [address] [place] [phone] Medication Refill Social History Tobacco Use [...] documented as of this encounter Care Teams Tacking Machine Operator Relationship Specialty Start Date End Date Pb Branham MD 100 [facility] [place] [phone] PCP - General Family Medicine 05/20/20 avila Shah Counseling [place], [place] Counselor 05/09/20 documented as of this encounter
--- OUTSIDE RECORDS SUMMARY | 2025-06-01 07:53 | XMS_ITS | Encounter Summary ---
Author Organization [facility] oup and Home Health Address [address] [place] [address] Care Team Providers Care Special Forces Senior Sergeant Name Role Phone Pb Branham MD Primary Care Provider [phone] Encounter Details Date Type Department Care Team (Late st Contact Info) Description 02/15/2020 Scanned Document [place] [facility] [place] [address] [place] [address] uSsan Edmondson, SCHOOL OFFICE ASSISTANT [address] [address] Social History Tobacco Use Types [...] 03/26/2020 2:12 AM EDT R/O COVID-19 03/12/2021 03/12/202103/1303/13/2021 3:35 AM EDT R/O COVID-19 03/20/2021 03/20/2021 03/20/2021 4:45 PM EDT documented as of this encounter Care Teams Special Forces Senior Sergeant Relationship Specialty Start Date End Date Pb Branham MD 100 [facility] [address] [place] [phone] PCP - General Family Medicine 05/20/20 avila Shah Counseling [place], [place] Counselor 05/09/20 documented as of this encounter
--- OUTSIDE RECORDS SUMMARY | 2025-06-01 07:53 | XMS_ITS | Encounter Summary ---
Author Organization [facility] oup and Home Health Address [address] [place] [address] Care Team Providers Care Polymerization Oven Operator Name Role Phone Pb Branham MD Primary Care Provider [phone] Encounter Details Date Type Department Care Team (Late st Contact Info) Description 01/13/2020 Abstract [place] [address] Jagruti Anguiano MD [address] [place] [phone] Social History Tobacco Use Types Packs/Day [...] documented as of this encounter Care Teams Polymerization Oven Operator Relationship Specialty Start Date End Date Pb Branham MD 100 [facility] [address] [place] [phone] PCP - General Family Medicine 05/20/20 avila Shah Counseling [place], [place] Counselor 05/09/20 documented as of this encounter
--- OUTSIDE RECORDS SUMMARY | 2025-06-01 07:53 | XMS_ITS | Encounter Summary ---
Author Organization [facility] oup and Home Health Address [address] [place] [address] Care Team Providers Care Product Safety Compliance Leader Name Role Phone Pb Branham MD Primary Care Provider [phone] Encounter Details Date Type Department Care Team (Late st Contact Info) Description 02/15/2020 Scanned Document [place] [facility] [address] [place] [address] Jagruti Anguiano MD [address] [place] [phone] Social History Tobacco Use Types Packs/Day [...] documented as of this encounter Care Teams Product Safety Compliance Leader Relationship Specialty Start Date End Date Pb Branham MD 100 [facility] 203 [place] [phone] PCP - General Family Medicine 05/20/20 avila Shah Counseling [place], [place] Counselor 05/09/20 documented as of this encounter
--- OUTSIDE RECORDS SUMMARY | 2025-06-01 07:53 | XMS_ITS | Encounter Summary ---
Author Organization [facility] oup and Home Health Address [address] [place] [address] Care Team Providers Care Mate Chief Name Role Phone Pb Branham MD Primary Care Provider [phone] Encounter Details Date Type Department Care Team (Late st Contact Info) Description 12/16/2019 Scanned Document [place] [facility] [address] [place] [address] Jagruti Anguiano MD [address] [place] [phone] Social History Tobacco Use Types Packs/Day [...] documented as of this encounter Care Teams Mate Chief Relationship Specialty Start Date End Date Pb Branham MD 100 [facility] [address] [place] [phone] PCP - General Family Medicine 05/20/20 avila Shah Counseling [place], [place] Counselor 05/09/20 documented as of this encounter
--- OUTSIDE RECORDS SUMMARY | 2025-06-01 07:53 | XMS_ITS | Encounter Summary ---
Author Organization [facility] oup and Home Health Address [address] [place] [address] Care Team Providers Care Global Sales Executive Name Role Phone Pb Branham MD Primary Care Provider [phone] Encounter Details Date Type Department Care Team (Late st Contact Info) Description 12/15/2019 Scanned Document [place] [facility] [address] [place] [address] Jagruti Anguiano MD [address] [place] [phone] Social History Tobacco Use Types Packs/Day [...] documented as of this encounter Care Teams Global Sales Executive Relationship Specialty Start Date End Date Pb Branham MD 100 [facility] [address] [place] [phone] PCP - General Family Medicine 05/20/20 avila Shah Counseling [place], [place] Counselor 05/09/20 documented as of this encounter
--- OUTSIDE RECORDS SUMMARY | 2025-06-01 07:53 | XMS_ITS | Clinical Summary ---
Author Organization [facility] [address] [facility] ilding Address [address] [place] [address] Phone Care Team Providers Care Shear Assembler Name Role Phone Sofialeon Juanpablo Gambino DO Primary Care Provider [phone] Allergies Active Allergy Reactions Criticality Noted Date [...] (LATUDA) 20 mg tablet Take by mouth. Activ e lurasidone (LATUDA) 80 mg tablet Take by mouth. Activ e metFORMIN XR (GLUCOPHAGE-XR) 750 mg 24 hr [...] Active dupilumab (Dupixent Pen) 300 mg/2 mL penIndications:Eo sinophilic esophagitis,Gastr oesophageal reflux disease without esophagitis Inject 2 mL (300 mg total) under the skin every 7 (seven) days. 8 mL 11 5 10/06/19 26 Active omeprazole (PriLOSEC) [address] capsuleIndication s:Eosinophilic esophagitis,Gastr oesophageal reflux disease without esophagitis Take 1 capsule (40 mg total) by mouth 2 (two) times a day. 180 each 3 5 10/06/19 26 Active Encounters Date Type Department Care Team Description 05/25/2025 2:45 PM EST Office Visit Orthopedic Surgery [address] [address] Troy Cotto, HEIDI Pain in toes of both feet (Primary Dx); Ingrown right big toenail; Dermatophytosis, nail from Last 3 Months Immunizations Immunization Administration Dates Next Due [facility] SARS-CoV-2 COVID-19, mRNA, LNP-S, preservative free 10/27/2020,10/06/2020 [...] 10/05/2024 1:15 PM EDT Plan of Treatment Upcoming Encounters Date Type Department Care Team (Late st Contact Info) Description 08/25/2025 11:00 AM EST Office Visit Orthopedic Surgery - [place] [address] [address] [place] [phone] Troy Cotto, DPAnnabelle [address] [place] [address] 01/13/2026 11:20 AM EDT Office Visit Gastroenterology - [address] [facility] [address] [place] [address] Nupur Buitrago, VANDA [address] [facility] [address] [place] [address] Health Maintenance Due Date Last Done Comments Hepatitis B Vaccines (2 of 3 - 3-dose series) 1993 1993 Hepatitis A Vaccines (1 of 2 - Risk 2-dose series) 2012 Pneumococcal Vaccine: Pediatrics (0 to 5 Years) and At-Risk Patients (6 to 49 Years) (1 of 2 - PCV) 2012 HPV Vaccines (1 - 3-dose SCDM series) 2020 Cholesterol Screening (Lipid Panel) 06/10/2022 Medicare Annual Wellness Visit 06/10/2022 Social Influencers of Health Screening 06/10/2022 Depression Screening 07/01/2024 COVID-19 Vaccine ( season) 2025 03/01/2024, 04/19/2023, 03/12/2022, Additional history exists DTaP,Tdap,and Td Vaccines (2 - Td or Tdap) 04/20/2029 04/20/2019 RSV Immunization Adult Patients (1 - 1-dose 75+ series) 2068 MMR Vaccines Completed 1994 Meningococcal ACWY Vaccine Aged Out 02/16/2014 N o longer eligible based on patient's age to complete this topic HIV Screening Completed 02/25/2020 Hepatitis C Screening Completed 03/23/2021 Influenza Vaccine Completed 03/03/2025, , 02/27/2022, Additional history exists HIB Vaccines Aged Out No longer eligi [...] Health Maintenance Results * HIV Screening (02/25/2020) [facility] HIV Screening abstracted Historical Provider HEALTH MAINTENANCE Final Result from Last 3 Months or Most Recently Relevant to Health Maintenance Insurance [place]ICAID - [place] MEDICARE Care Teams Shear Assembler Relationship Specialty Start Date End Date Juanpablo Concepcion DO [address] [facility] [address] [place], [place] PCP - General Internal Medicine 02/28/22
[2025-06-01 13:32] LABS: MANUAL DIFF FLAG NO
[2025-06-01 13:39] LABS: Hematocrit 39.3 % (42.0-52.0); Hemoglobin 12.7 g/dl (14.0-18.0); Imm Gran Abs Auto 0.02 X10*3/uL (0.00-0.03); Imm Gran Pct Auto 0.4 % (0.0-0.4); Lymphocytes Absolute Auto 1.8 X10*3/uL (1.2-4.9); Mean Corpuscular HGB Conc 32.3 g/dl (31.0-36.0); Mean Corpuscular Hemoglobin 23.4 pg (27.0-33.0); Mean Corpuscular Volume 72.5 fL (80.0-98.0); NRBC Abs Auto 0.000 X10*3/uL (0.0-0.012); NRBC Pct Auto 0.0 /100WBC (0.0-0.2); Platelet Count 159 X10*3/uL (160-400); Red Blood Count 5.42 X10*6/uL (4.60-5.80); White Blood Count 4.6 X10*3/uL (4.8-10.8)
[2025-06-01 13:48] LABS: Alanine Aminotransferase 25 U/L (0-40); Albumin Level 4.4 g/dL (3.5-5.0); Alkaline Phosphatase 90 U/L (39-117); Anion Gap 10 (12-20); Aspartate Amino Transferase 19 U/L (5-37); Blood Urea Nitrogen 11 mg/dL (9-16); Calcium 8.8 mg/dL (8.4-10.2); Carbon Dioxide 24 mmol/L (22-29); Chloride 111 mmol/L (96-108); Estimated Glomerular Filt Rate > 60; Potassium 4.2 mmol/L (3.3-5.1); Sodium 141 mmol/L (135-145); Total Protein 6.8 g/dL (6.5-8.0)
[2025-06-01 15:38] LABS: CT PCR Urine NOT DETECTED (Not Detect.); NG PCR Urine NOT DETECTED (Not Detect.)
[2025-06-02 04:51] LABS: Syphilis Screen Nonreactive (Nonreactive)
[2025-06-02 05:26] LABS: HBS Num1 0.00 mIU/mL (0-7.99); HBc Num1 0.08 S/CO (0.00-0.79); HBsAGNum1 0.43 S/CO (0.00-0.99); HIV Num 1 0.06 S/CO (0.00-0.99); Hepatitis A Antibody IgM 0.26 Index (0-0.79); Hepatitis B Surface Antigen Negative (Negative); ~HepC Num1 0.06 S/CO (0.00-0.79); ~Hepatitis A Antibody IgM Nonreactive (Nonreactive); ~Hepatitis B Surface Antibody NONREACTIVE (Nonreactive); ~Hepatitis C Antibody Nonreactive (Nonreactive)
== END 2025-06-01 07:49 | disposition home or self-care (01) ==
LOC: HO.MANLDS 07:48
PROVIDERS: Visit Provider Physician Assistant
DX: Z00.00 Encounter for general adult medical examination without abnormal findings (principal); Z11.3 Encounter for screening for infections with a predominantly sexual mode of transmission; R73.01 Impaired fasting glucose; Z20.2 Contact with and (suspected) exposure to infections with a predominantly sexual mode of transmission; Z01.84 Encounter for antibody response examination; Z11.4 Encounter for screening for human immunodeficiency virus [HIV]; Z11.59 Encounter for screening for other viral diseases; Z13.1 Encounter for screening for diabetes mellitus
CPT/HCPCS: 80053; 83036; 85025; 86704; 86706; 86709; 86780; 86803; 87340; 87389; 87491; 87591